=== PATIENT | female | born 1940 | race Two or more races ===

== ENCOUNTER 2016-09-08 20:42 | Inpatient (IN) | payer OTHER ==
--- NOTE | 2016-09-08 21:05 | PDOC ---
History of Present Illness - History of Present Illness Initial Comments: 09/08/16 21:37 The patient is a 75 year old female, febrile, with a significant past medical history of hypertension, cardiac stents hyperlipidemia, diabetes, pneumonia, and dementia, who presents to the emergency department with shortness of breath , cough, nausea, vomiting, and fever since yesterday. The patient reports her cough is constant and nonproductive. She states she feels she can not take a deep breath without reproducing her cough. She also states she has been coughing so strongly that she vomits the little food that she can eat. The patient states she has decreased appetite. She denies chest pain, shortness of breath, headache and dizziness. She denies fever, chills, nausea, vomit, diarrhea and constipation. She denies dysuria, frequency, urgency and hematuria. Allergies: acetaminophen and oxycodone (from percocet) Past surgical history: brain and neck tumors s/p cyberknife, cardiac stents <Radha Barnes - Last Filed: 09/08/16 22:25> <Aldo James - Last Filed: 09/08/16 22:31> - General Chief Complaint: Respiratory Stated Complaint: SOB (HEART PATIENT) Past History <Radha Barnes - Last Filed: 09/08/16 22:25> - Past Medical History Cancer: Yes (brain tumors/neck tumors with sx) Cardiac Disorders: Yes Diabetes: Yes HTN: Yes Hypercholesterolemia: Yes Suicide Attempt (Hx): No - Surgical History Cardiac Surgery: Yes (STENT PLACEMENT) - Immunization History Immunization Up to Date: Yes - Psycho/Social/Smoking Cessation Hx Anxiety: No Suicidal Ideation: No Smoking Status: No Smoking History: Unknown if ever smoked Have you smoked in the past 12 months: No Number of Cigarettes Smoked Daily: 0 Hx Alcohol Use: No Drug/Substance Use Hx: No Substance Use Type: None Hx Substance Use Treatment: No <Aldo James - Last Filed: 09/08/16 22:31> - Past Medical History Allergies/Adverse Reactions: Allergies Allergy/AdvReac Type Severity Reaction Status Date / Time acetaminophen [From Percocet] Allergy Verified 09/08/16 21:30 oxycodone HCl [From Percocet] Allergy Swelling Verified 09/08/16 20:51 Home Medications: Ambulatory Orders Amlodipine Besylate [Norvasc -] 10 mg PO DAILY 01/22/14 Atorvastatin Ca [Lipitor] 10 mg PO HS 01/22/14 Gabapentin [Neurontin] 300 mg PO TID 01/22/14 Hydralazine HCl 100 mg PO BID 01/22/14 Lisinopril [Prinivil] 5 mg PO DAILY 01/22/14 Omeprazole 40 mg PO DAILY 09/08/16 Review of Systems - Review of Systems Able to Perform ROS?: Yes Comments:: 09/08/16 21:39 CONSTITUTIONAL: (+) fever, chills, Absent: diaphoresis, generalized weakness, malaise, loss of appetite HEENT: Absent: rhinorrhea, nasal congestion, throat pain, throat swelling, difficulty swallowing, mouth swelling, ear pain, eye pain, visual Changes CARDIOVASCULAR: Absent: chest pain, syncope, palpitations, irregular heart rate, lightheadedness , peripheral edema RESPIRATORY: (+) cough and shortness of breath, Absent: dyspnea with exertion, orthopnea, wheezing, stridor, hemoptysis GASTROINTESTINAL: Absent: abdominal pain, abdominal distension, nausea, vomiting, diarrhea, constipation, melena, hematochezia GENITOURINARY: Absent: dysuria, frequency, urgency, hesitancy, hematuria, flank pain, genital pain MUSCULOSKELETAL: Absent: myalgia, arthralgia, joint swelling SKIN: Absent: rash, itching, pallor HEMATOLOGIC/IMMUNOLOGIC: Absent: easy bleeding, easy bruising, lymphadenopathy, frequent infections ENDOCRINE: Absent: unexplained weight gain, unexplained weight loss, heat intolerance, cold intolerance NEUROLOGIC: Absent: headache, focal weakness or paresthesias, dizziness, unsteady gait, seizure, mental status changes, bladder or bowel incontinence PSYCHIATRIC: Absent: anxiety, depression, suicidal or homicidal ideation, hallucinations. <Radha Barnes - Last Filed: 09/08/16 22:25> *Physical Exam - Vital Signs Last Vital Signs Temp Pulse Resp BP Pulse Ox 102.9 F H 93 H 18 150/90 96 09/08/16 20:51 09/08/16 20:51 09/08/16 20:51 09/08/16 20:51 09/08/16 20:51 - Physical Exam Comments: 09/08/16 21:49 GENERAL: Well developed, well nourished. Awake and alert. No acute distress. HEENT: (+) Dry mucous membranes. Normocephalic, atraumatic. PERRLA, EOMI. No conjunctival pallor. Sclera are non-icteric. Oropharynx is clear. NECK: Supple. Full ROM. No JVD. Carotid pulses 2+ and symmetric, without bruits. No thyromegaly. No lymphadenopathy. CARDIOVASCULAR: Regular rate and rhythm. No murmurs, rubs, or gallops. Distal pulses are 2+ and symmetric. PULMONARY: (+) congestion, rhonchi, and rales in all lung lynne. No evidence of respiratory distress. No wheezing ABDOMINAL: Soft. Non-tender. Non-distended. No rebound or guarding. No organomegaly. Normoactive bowel sounds. MUSCULOSKELETAL Normal range of motion at all joints. No bony deformities or tenderness. No CVA tenderness. EXTREMITIES: No cyanosis. No clubbing. No edema. No calf tenderness. SKIN: Warm and dry. Normal capillary refill. No rashes. No jaundice. NEUROLOGICAL: Alert, awake, appropriate. Cranial nerves 2-12 intact. Normoreflexic in the upper and lower extremities. Normal speech. Toes are down-going bilaterally. Gait is normal without ataxia. PSYCHIATRIC: Cooperative. Good eye contact. Appropriate mood and affect. <Radha Barnes - Last Filed: 09/08/16 22:25> - Vital Signs Last Vital Signs Temp Pulse Resp BP Pulse Ox 102.9 F H 93 H 18 150/90 96 09/08/16 20:51 09/08/16 20:51 09/08/16 20:51 09/08/16 20:51 09/08/16 20:51 <Aldo James - Last Filed: 09/08/16 22:31> ED Treatment Course - LABORATORY CBC & Chemistry Diagram: 09/08/16 21:26 09/08/16 21:26 - ADDITIONAL ORDERS Additional order review: 09/08/16 20:51 Influenza Types A,B Antigen (PRAVIN) - Final Nasopharyngeal Swab - Final - RADIOLOGY Radiograph Interpretation: 09/08/16 22:25 CXR was read by Ramon Kaur D.O. at 22:13 EST EXAM DATE AND TIME: 2016-09-08 21:25:08.0 REASON FOR EXAM: Rule out pneumonia. Fever, cough FINDINGS: Patchy left lung base opacity from pneumonia and/or atelectasis. Right lung clear. Heart size normal. No large pleural effusion or pneumothorax. Probable eventration of left hemidiaphragm. Central retrocardiac density with air-fluid level, possibly hiatus hernia. - Medications Given in the ED: ED Medications Discontinued Medications Generic Name Dose Route Start Last Admin Trade Name Freq PRN Reason Stop Dose Admin Ibuprofen 600 mg 09/08/16 21:16 09/08/16 21:24 Motrin - PO 09/08/16 21:17 600 mg ONCE ONE Administration <Radha Barnes - Last Filed: 09/08/16 22:25> - LABORATORY CBC & Chemistry Diagram: 09/08/16 21:26 09/08/16 21:26 <Aldo James - Last Filed: 09/08/16 22:31> *DC/Admit/Observation/Transfer - Attestations Scribe Attestion: 09/08/16 21:51 Documentation prepared by Radha Barnes, acting as medical care manager for Aldo James MD, MD <Radha Barnes - Last Filed: 09/08/16 22:25> - Discharge Dispostion Admit: Yes <Aldo James - Last Filed: 09/08/16 22:31> Diagnosis at time of Disposition: Left lower lobe pneumonia Qualifiers: Pneumonia type: due to unspecified organism Qualified Code(s): J18.9 - Pneumonia, unspecified organism - Discharge Dispostion Condition at time of disposition: Guarded
[2016-09-08] MEDS ORDERED: IBUPROFEN 600 MG TABLET (FP) PO ONE ×3 (21:16→21:53)
[2016-09-08] MEDS ORDERED: SODIUM CHLORIDE 500 ML IV STA (21:18)
[2016-09-08 21:36] LABS: EOSINOPHIL 0.8 % (0-4.5); MCH 26.8 pg (25.7-33.7); MCHC 32.8 g/dl (32.0-36.0); MEAN CELL VOLUME 81.6 fl (80-96); MEAN PLT VOLUME 10.4 fl (7.5-11.1); NEUTROPHILS 55.6 % (42.8-82.8); PLATELET COUNT 116 K/MM3 (134-434); RDW 14.9 % (11.6-15.6); WHITE BLOOD COUNT 4.9 K/mm3 (4.0-10.0)
[2016-09-08 22:06] LABS: ALBUMIN 3.3 g/dl (3.4-5.0); BILIRUBIN,TOTAL 0.5 mg/dL (0.2-1.0); CALCIUM 8.3 mg/dL (8.5-10.1); CREATININE 2.1 mg/dL (0.55-1.02); TOT PROT 7.5 g/dl (6.4-8.2)
[2016-09-08] MEDS ORDERED: AZITHROMYCIN IVPB 500 MG in DEXTROSE 5%-WATER - 250 ML IVPB ONE (22:20)
[2016-09-08 22:40] LABS: URINE APPEARANCE SLCLOUDY; URINE BILIRUBIN NEGATIVE (NEGATIVE); URINE COLOR YELLOW; URINE GLUCOSE (UA) 1+ (NEGATIVE); URINE KETONE NEGATIVE (NEGATIVE); URINE LEUK ESTERASE NEGATIVE (NEGATIVE); URINE NITRITE NEGATIVE (NEGATIVE); URINE UROBILINOGEN NEGATIVE E.U./dl (0.2-1.0)
[2016-09-08] MEDS ORDERED: DEXTROSE 5%-NORMAL SALINE 1,000 ML IV SCH (22:45)
[2016-09-08] MEDS ORDERED: AZITHROMYCIN IVPB 250 ML IVPB ONE (22:49)
[2016-09-08] MEDS ORDERED: CEFTRIAXONE 50 ML ONE (22:49)
[2016-09-08 22:56] LABS: URINE BLOOD 1+ (NEGATIVE); URINE PROTEIN 2+ (NEGATIVE)
[2016-09-08 22:59] LABS: GRANULAR CASTS 37 /lpf; URINE RBC 20 /hpf (0-3)
--- NOTE | 2016-09-09 00:10 | HP ---
CHIEF COMPLAINT: fever/chills/cough PCP: pt does not remember, on previous admissions was Autumn Owens HISTORY OF PRESENT ILLNESS: This is a 75 year old female with PMH HTN, HLD, CAD s/p stents, DM, PNA, dementia, brain tumor s/p cyberknife who presented to the ED with c/o fever, chills, cough, SOB for 2-3 days. Also reports post-tussive emesis. + pain in left side of chest with cough. Denies abdominal pain, nausea, diarrhea. Pt is a poor historian and reports that she has "memory problems". ER course was notable for: (1) temp 102.9, pulse 93 (2) CXR + Patchy left lung base opacity (3) given ceftriaxone and zithromax IV Recent Travel: pt denies PAST MEDICAL HISTORY: HTN HLD CAD s/p stents DM PNA dementia brain tumor s/p cyberknife- pt unable to provide further details hiatal hernia PAST SURGICAL HISTORY: fatty lipoma removal posterior neck Social History: Smoking: pt denies Alcohol: on holidays, sips on bristol cream Drugs: pt denies Family History: mother and father in their 90s of old age. multiple siblings, unknown medical problems Allergies acetaminophen [From Percocet] Allergy (Verified 09/08/16 21:30) oxycodone HCl [From Percocet] Allergy (Verified 09/08/16 20:51) Swelling hives HOME MEDICATIONS: 3 Medication Instructions Recorded Amlodipine Besylate [Norvasc -] 10 mg PO DAILY 01/22/14 Atorvastatin Ca [Lipitor] 10 mg PO HS 01/22/14 Gabapentin [Neurontin] 300 mg PO TID 01/22/14 Hydralazine HCl 100 mg PO BID 01/22/14 Lisinopril [Prinivil] 5 mg PO DAILY 01/22/14 Omeprazole 40 mg PO DAILY 09/08/16 REVIEW OF SYSTEMS CONSTITUTIONAL: Present: fever, chills Absent: diaphoresis, generalized weakness, malaise, loss of appetite, weight change HEENT: Absent: rhinorrhea, nasal congestion, throat pain, throat swelling, difficulty swallowing, mouth swelling, ear pain, eye pain, visual changes CARDIOVASCULAR: Absent: chest pain, syncope, palpitations, irregular heart rate, lightheadedness , peripheral edema RESPIRATORY: Present: cough, shortness of breath Absent: dyspnea with exertion, orthopnea, wheezing, stridor, hemoptysis GASTROINTESTINAL: Absent: abdominal pain, abdominal distension, nausea, vomiting, diarrhea, constipation, melena, hematochezia GENITOURINARY: Absent: dysuria, frequency, urgency, hesitancy, hematuria, flank pain, genital pain MUSCULOSKELETAL: Absent: myalgia, arthralgia, joint swelling, back pain, neck pain SKIN: Absent: rash, itching, pallor HEMATOLOGIC/IMMUNOLOGIC: Absent: easy bleeding, easy bruising, lymphadenopathy, frequent infections ENDOCRINE: Absent: unexplained weight gain, unexplained weight loss, heat intolerance, cold intolerance NEUROLOGIC: Absent: headache, focal weakness or paresthesias, dizziness, unsteady gait, seizure, mental status changes, bladder or bowel incontinence PSYCHIATRIC: Absent: anxiety, depression, suicidal or homicidal ideation, hallucinations. PHYSICAL EXAMINATION Vital Signs - 24 hr 3 09/08/16 09/08/16 09/08/16 20:51 21:30 22:46 Temperature 102.9 F H 98.7 F Pulse Rate 93 H Pulse Rate [ 80 Right] Respiratory 18 20 Rate Blood Pressure 150/90 Blood Pressure 144/78 [Left Arm] O2 Sat by Pulse 96 99 100 Oximetry (%) GENERAL: Awake, alert, oriented to person and place, but not exact date, in no acute distress. HEAD: Normal with no signs of trauma. EYES: Pupils equal, round and reactive to light, extraocular movements intact, sclera anicteric, conjunctiva clear. No lid lag. EARS, NOSE, THROAT: Ears normal, nares patent, oropharynx clear without exudates. Moist mucous membranes. NECK: Normal range of motion, supple without lymphadenopathy, JVD, or masses. posterior neck with well healed surgical scar LUNGS: No accessory muscle use. No crackles. + exp wheezing and rhonchi left lung lynne, worse at base. HEART: Regular rate and rhythm, normal S1 and S2 without murmur, rub or gallop. ABDOMEN: Soft, nontender, not distended, normoactive bowel sounds, no guarding, no rebound, no masses. No hepatomegaly or splenomegaly. MUSCULOSKELETAL: Normal range of motion at all joints. No bony deformities or tenderness. No CVA tenderness. UPPER EXTREMITIES: 2+ pulses, warm, well-perfused. No cyanosis. No clubbing. Cap refill <2 seconds. No peripheral edema. LOWER EXTREMITIES: 2+ pulses, warm, well-perfused. No calf tenderness. No peripheral edema. NEUROLOGICAL: Cranial nerves II-XII intact. Normal speech. Normal gait. PSYCHIATRIC: Cooperative. Good eye contact. Appropriate mood and affect. SKIN: Warm, dry, normal turgor, no rashes or lesions noted. Laboratory Results - last 24 hr 3 09/08/16 09/08/16 09/08/16 21:26 21:26 21:26 WBC 4.9 RBC 4.07 Hgb 10.9 Hct 33.2 MCV 81.6 MCHC 32.8 RDW 14.9 Plt Count 116 L MPV 10.4 Neutrophils % 55.6 Lymphocytes % 29.7 Monocytes % 12.9 H Eosinophils % 0.8 Basophils % 1.0 Sodium 138 Potassium 4.4 D Chloride 103 Carbon Dioxide 27 Anion Gap 8 BUN 27 H D Creatinine 2.1 H D Creat Clearance w eGFR 23.09 Random Glucose 181 H D Lactic Acid 1.175 Calcium 8.3 L Total Bilirubin 0.5 D AST 25 ALT 19 D Alkaline Phosphatase 76 Total Protein 7.5 Albumin 3.3 L Urine Color Urine Appearance Urine pH Ur Specific Wentworth Urine Protein Urine Glucose (UA) Urine Ketones Urine Blood Urine Nitrite Urine Bilirubin Urine Urobilinogen Ur Leukocyte Esterase Urine RBC Urine WBC Ur Epithelial Cells Granular Casts 3 Urine Color Yellow 09/08/16 22:30 Urine Appearance Slcloudy 09/08/16 22:30 Urine pH 5.0 (5.0-8.0) 09/08/16 22:30 Ur Specific Wentworth 1.015 (1.001-1.035) 09/08/16 22:30 Urine Protein 2+ (NEGATIVE) H 09/08/16 22:30 Urine Glucose (UA) 1+ (NEGATIVE) H 09/08/16 22:30 Urine Ketones Negative (NEGATIVE) 09/08/16 22:30 Urine Blood 1+ (NEGATIVE) H 09/08/16 22:30 Urine Nitrite Negative (NEGATIVE) 09/08/16 22:30 Urine Bilirubin Negative (NEGATIVE) 09/08/16 22:30 Ur Leukocyte Esterase Negative (NEGATIVE) 09/08/16 22:30 Urine RBC 20 /hpf (0-3) 09/08/16 22:30 Urine WBC None /hpf (3-5) 09/08/16 22:30 Ur Epithelial Cells Rare /hpf (FEW) 09/08/16 22:30 CXR: FINDINGS: Patchy left lung base opacity from pneumonia and/or atelectasis. Right lung clear. Heart size normal. No large pleural effusion or pneumothorax. Probable eventration of left hemidiaphragm. Central retrocardiac density with air-fluid level, possibly hiatus hernia. ECG: sinus rhythm, rate 93, QTC 455, possible old septal infarct, no acute ST/T changes ASSESSMENT/PLAN: 75yF with PMH HTN, HLD, CAD s/p stents, DM, PNA, dementia, brain tumor s/p cyberknife who presented with fever, chills, cough, SOB. She is being admitted for sepsis/pneumonia. Sepsis secondary to community acquired pneumonia - cont ceftriaxone and zithromax IVPB - gentle IVF - duonebs prn for wheezing Acute kidney injury - cr 1.3 in January, now 2.1 - trial gentle IV hydration, NS @75cc/hr x 1 liter - repeat BMP in AM, consider renal consult if no improvement - hold KEISHA inhibitor HTN - hold lisinopril due to renal function - cont home norvasc, hydralazine HLD - cont home lipitor DM - diet controlled at home - novolog sliding scale and BGM ACHS GERD - home omeprazole changed to formulary protonix dementia - cont supportive care DVT PPX - heparin 5000u SC TID FEN - NS @ 75cc/hr x 1 liter then reassess - BMP in am - diabetic/low sodium diet Dispo: Pt currently requires inpatient care. Visit type - Emergency Visit Emergency Visit: Yes ED Registration Date: 09/08/16 Care time: The patient presented to the Emergency Department on the above date and was hospitalized for further evaluation of their emergent condition. - New Patient This patient is new to me today: Yes Date on this admission: 09/09/16 - Critical Care Critical Care patient: No
[2016-09-09] MEDS ORDERED: SODIUM CHLORIDE 1,000 ML IV SCH (00:15)
[2016-09-09] MEDS ORDERED: ALBUTEROL SO4 2.5/IPRATROPIUM 0.5 INH SOL 3 ML VIAL.NEB. NEB ONE (00:18)
[2016-09-09] MEDS ORDERED: ALBUTEROL SO4 2.5/IPRATROPIUM 0.5 INH SOL 3 ML VIAL.NEB. NEB PRN (00:18)
[2016-09-09 00:53] VITALS: BMI 25.5
[2016-09-09] MEDS: GABAPENTIN 300 MG CAPSULE (FP) PO SCH ×3 (05:53→22:55)
[2016-09-09] MEDS: HEPARIN NA (PORCINE) 5,000 UNITS/ML 1ML VIAL SQ SCH ×3 (05:54→22:55)
[2016-09-09] MEDS: INSULIN SLIDING SCALE (NOVOLOG) 1 VIAL SQ SCH ×4 (06:02→23:04)
[2016-09-09 08:01] LABS: BASOPHIL 0.8 % (0-2.0); MCH 26.8 pg (25.7-33.7); MCHC 32.6 g/dl (32.0-36.0); MEAN CELL VOLUME 82.2 fl (80-96); MEAN PLT VOLUME 10.2 fl (7.5-11.1); PLATELET COUNT 90 K/MM3 (134-434); RDW 14.8 % (11.6-15.6); WHITE BLOOD COUNT 3.8 K/mm3 (4.0-10.0)
[2016-09-09 08:25] LABS: CREATININE 1.9 mg/dL (0.55-1.02); MAGNESIUM 1.9 mg/dL (1.8-2.4)
[2016-09-09] MEDS: PANTOPRAZOLE 40 MG TABLET (FP) PO SCH (11:12)
[2016-09-09] MEDS: amLODIPine BESYLATE 10 MG TABLET (FP) PO SCH (11:13)
[2016-09-09] MEDS: ASPIRIN COATED 81 MG TABLET.EC PO SCH (11:15)
--- NOTE | 2016-09-09 11:15 | PN ---
Physical Exam: SUBJECTIVE: Patient seen and examined at bedside. Poor historian, difficult to focus on any particular time frame. Home health aide present. Aide states she observed patient two days ago to be tired, a little SOB, and with a mild non- productive cough. The patient's apartment was without heat. OBJECTIVE: Vital Signs Period Temp Pulse Resp BP Sys/Leonardo Pulse Ox Last 24 Hr 98 F-98.7 F 76-81 18-20 118-144/73-81 97-100 GENERAL: The patient is awake, alert, and fully oriented, in no acute distress. HEAD: Normal with no signs of trauma. EYES: PERRL, extraocular movements intact, sclera anicteric, conjunctiva clear. No ptosis. NECK: Trachea midline, full range of motion, supple. LUNGS: Rhonchi in LLL with diminished breath sounds HEART: Regular rate and rhythm, S1, S2 without murmur, rub or gallop. ABDOMEN: Soft, nontender, nondistended, normoactive bowel sounds, no guarding, no rebound EXTREMITIES: 2+ pulses, warm, well-perfused, no edema. NEUROLOGICAL: Cranial nerves II through XII grossly intact. Normal speech, gait not observed. Laboratory Results - last 24 hr 09/09/16 09/09/16 09/09/16 05:52 06:45 06:45 WBC 3.8 L RBC 3.80 Hgb 10.2 L Hct 31.2 L MCV 82.2 MCHC 32.6 RDW 14.8 Plt Count 90 L D MPV 10.2 Neutrophils % 38.0 L D Lymphocytes % 40.2 H D Monocytes % 17.0 H Eosinophils % 4.0 D Basophils % 0.8 Sodium 141 Potassium 3.9 Chloride 105 Carbon Dioxide 26 Anion Gap 10 BUN 26 H Creatinine 1.9 H POC Glucometer 137 Random Glucose 134 H D Calcium 8.0 L Phosphorus 4.0 D Magnesium 1.9 Active Medications Generic Name Dose Route Start Last Admin Trade Name Freq PRN Reason Stop Dose Admin Albuterol/Ipratropium 1 amp 09/09/16 00:18 Duoneb - NEB Q6H PRN SHORTNESS OF BREATH Amlodipine Besylate 10 mg 09/09/16 10:00 Norvasc - PO DAILY SHANIA Atorvastatin Calcium 10 mg 09/09/16 22:00 Lipitor - PO HS SHANIA Gabapentin 300 mg 09/09/16 06:00 09/09/16 05:53 Neurontin - PO 300 mg TID SHANIA Administration Heparin Sodium (Porcine) 5,000 unit 09/09/16 06:00 09/09/16 05:54 Heparin - SQ 5,000 unit TID SHANIA Administration Hydralazine HCl 100 mg 09/09/16 10:00 Apresoline - PO BID SHANIA Sodium Chloride 1,000 mls @ 75 mls/hr 09/09/16 00:15 09/09/16 00:45 Normal Saline - IV 09/09/16 13:34 75 mls/hr ASDIR SHANIA Administration Ceftriaxone Sodium 50 mls @ 100 mls/hr 09/09/16 22:00 Rocephin 1gm Ivpb (Pre-Docked) IVPB HS SHANIA Azithromycin 250 mls @ 250 mls/hr 09/09/16 22:00 Zithromax 500mg Ivpb (Pre-Docked) IVPB HS SHANIA Insulin Aspart 1 vial 09/09/16 07:00 09/09/16 06:02 Novolog Vial Sliding Scale - SQ Not Given ACHS [facility] Protocol Pantoprazole Sodium 40 mg 09/09/16 10:00 Protonix - PO DAILY SHANIA ASSESSMENT/PLAN 75 year-old woman with a PMH of HTN, HLD, CAD s/p stents, NIDDM, dementia, brain tumor s/p cyberknife, and a h/o pancreatitis. Admitted for pneumonia. Bacterial pneumonia --possible LLL infiltrate on CXR with clinical findings on exam --Tm 102.9, no leukocytosis --cultures pending; flu swab negative --CT chest ordered --continue empiric azithromycin (day #1) and ceftriaxone (day #2) --duonebs Acute kidney injury --Cr 1.9, baseline 1.3 --patient appears dry, urine sodium and creatinine pending to calculate FeNa --hold home lisinopril --IV fluids Hypertension --BP well-controlled --continue amlodipine, hydralazine Hyperlipidemia --continue Lipitor CAD s/p stents --start baby ASA NIDDM --Novolog sliding scale coverage Brain tumor s/p cyberknife --no scute issues h/o pancreatitis --lipase pending Visit type - Emergency Visit Emergency Visit: Yes ED Registration Date: 02/26/17 Care time: The patient presented to the Emergency Department on the above date and was hospitalized for further evaluation of their emergent condition. - New Patient This patient is new to me today: Yes Date on this admission: 09/09/16 - Critical Care Critical Care patient: No
[2016-09-09] MEDS: hydrALAZINE HCL 50 MG TABLET (FP) PO SCH ×2 (11:17→22:55)
--- NOTE | 2016-09-09 12:23 | EKG ---
Test Reason : Blood Pressure : / mmHG Vent. Rate : 093 BPM Atrial Rate : 093 BPM P-R Int : 128 ms QRS Dur : 094 ms QT Int : 366 ms P-R-T Axes : 058 -63 066 degrees QTc Int : 455 ms NORMAL SINUS RHYTHM LEFT AXIS DEVIATION SEPTAL INFARCT , AGE UNDETERMINED ABNORMAL ECG WHEN COMPARED WITH ECG OF 28-JAN-2016 13:48, COMPARED TO EKG NO SIGNIFICANT CHANGE IS FOUND Confirmed by PATIENCE RAGSDALE MD ([id number]) on 09/09/2016 12:23:12 PM Referred By: Confirmed By:PATIENCE RAGSDALE MD
[2016-09-09] MEDS ORDERED: INSULIN (NOVOLOG) ASPART 100 UNITS/ML 10ML VIAL ONE (12:33)
[2016-09-09] MEDS: SODIUM CHLORIDE 1,000 ML IV SCH (17:08)
[2016-09-09] MEDS: ALBUTEROL SO4 2.5/IPRATROPIUM 0.5 INH SOL 3 ML VIAL.NEB. NEB SCH (17:15)
[2016-09-09] MEDS: CEFTRIAXONE 50 ML IVPB SCH (22:55)
[2016-09-09] MEDS: AZITHROMYCIN IVPB 250 ML IVPB SCH (22:55)
[2016-09-09] MEDS: ATORVASTATIN CA 10 MG TABLET (FP) PO SCH (22:55)
[2016-09-10] MEDS: SODIUM CHLORIDE 1,000 ML IV SCH ×3 (01:30→23:22)
[2016-09-10] MEDS: ALBUTEROL SO4 2.5/IPRATROPIUM 0.5 INH SOL 3 ML VIAL.NEB. NEB SCH ×3 (06:10→23:13)
[2016-09-10] MEDS: HEPARIN NA (PORCINE) 5,000 UNITS/ML 1ML VIAL SQ SCH ×3 (06:42→21:35)
[2016-09-10] MEDS: GABAPENTIN 300 MG CAPSULE (FP) PO SCH ×3 (06:42→21:35)
[2016-09-10] MEDS: INSULIN SLIDING SCALE (NOVOLOG) 1 VIAL SQ SCH ×5 (06:42→21:36)
[2016-09-10 07:50] LABS: MCH 26.7 pg (25.7-33.7); MCHC 32.7 g/dl (32.0-36.0); MEAN CELL VOLUME 81.5 fl (80-96); MEAN PLT VOLUME 9.9 fl (7.5-11.1); PLATELET COUNT 105 K/MM3 (134-434); RDW 14.8 % (11.6-15.6); WHITE BLOOD COUNT 5.6 K/mm3 (4.0-10.0)
[2016-09-10 08:50] LABS: CALCIUM 8.1 mg/dL (8.5-10.1)
[2016-09-10 08:56] LABS: ALBUMIN 2.8 g/dl (3.4-5.0); BILIRUBIN,TOTAL 0.2 mg/dL (0.2-1.0); CREATININE 1.6 mg/dL (0.55-1.02); MAGNESIUM 1.8 mg/dL (1.8-2.4); TOT PROT 6.8 g/dl (6.4-8.2)
[2016-09-10] MEDS: hydrALAZINE HCL 50 MG TABLET (FP) PO SCH ×2 (10:19→21:35)
[2016-09-10] MEDS: amLODIPine BESYLATE 10 MG TABLET (FP) PO SCH (10:19)
[2016-09-10] MEDS: PANTOPRAZOLE 40 MG TABLET (FP) PO SCH (10:20)
[2016-09-10] MEDS: ASPIRIN COATED 81 MG TABLET.EC PO SCH (10:20)
--- NOTE | 2016-09-10 17:05 | PN ---
Physical Exam: SUBJECTIVE: Patient seen and examined oob to chair. Feels much better. OBJECTIVE: Vital Signs Period Temp Pulse Resp BP Sys/Leonardo Pulse Ox Last 24 Hr 98.2 F-99.2 F 80-93 20-20 122-147/67-77 97-97 GENERAL: The patient is awake, alert, and fully oriented, in no acute distress. HEAD: Normal with no signs of trauma. EYES: PERRL, extraocular movements intact, sclera anicteric, conjunctiva clear. No ptosis. NECK: Trachea midline, full range of motion, supple. LUNGS: Rhonchi in LLL with diminished breath sounds HEART: Regular rate and rhythm, S1, S2 without murmur, rub or gallop. ABDOMEN: Soft, nontender, nondistended, normoactive bowel sounds, no guarding, no rebound EXTREMITIES: 2+ pulses, warm, well-perfused, no edema. NEUROLOGICAL: Cranial nerves II through XII grossly intact. Normal speech, gait not observed. Laboratory Results - last 24 hr 09/09/16 09/09/16 09/10/16 17:12 22:58 06:00 WBC 5.6 D RBC 3.97 Hgb 10.6 L Hct 32.4 MCV 81.5 MCHC 32.7 RDW 14.8 Plt Count 105 L MPV 9.9 Neutrophils % 33.0 L Lymphocytes % 47.0 H Monocytes % 7.0 Eosinophils % 6.0 H Basophils % 1.0 Band Neutrophils 1.0 Differential Comment Manual diff done Reactive Lymphocytes 5 Sodium Potassium Chloride Carbon Dioxide Anion Gap BUN Creatinine Creat Clearance w eGFR POC Glucometer 92 131 Random Glucose Hemoglobin A1c % Calcium Magnesium Total Bilirubin AST ALT Alkaline Phosphatase Total Protein Albumin 09/10/16 09/10/16 09/10/16 06:00 06:00 06:37 WBC RBC Hgb Hct MCV MCHC RDW Plt Count MPV Neutrophils % Lymphocytes % Monocytes % Eosinophils % Basophils % Band Neutrophils Differential Comment Reactive Lymphocytes Sodium 143 Potassium 4.1 Chloride 109 H Carbon Dioxide 27 Anion Gap 7 L BUN 23 H Creatinine 1.6 H Creat Clearance w eGFR 31.60 POC Glucometer 111 Random Glucose 106 D Hemoglobin A1c % 11.3 H Calcium 8.1 L Magnesium 1.8 Total Bilirubin 0.2 D AST 29 ALT 19 Alkaline Phosphatase 69 Total Protein 6.8 Albumin 2.8 L 09/10/16 11:46 WBC RBC Hgb Hct MCV MCHC RDW Plt Count MPV Neutrophils % Lymphocytes % Monocytes % Eosinophils % Basophils % Band Neutrophils Differential Comment Reactive Lymphocytes Sodium Potassium Chloride Carbon Dioxide Anion Gap BUN Creatinine Creat Clearance w eGFR POC Glucometer 115 Random Glucose Hemoglobin A1c % Calcium Magnesium Total Bilirubin AST ALT Alkaline Phosphatase Total Protein Albumin Active Medications Generic Name Dose Route Start Last Admin Trade Name Lionq PRN Reason Stop Dose Admin Albuterol/Ipratropium 1 amp 09/09/16 12:00 09/10/16 06:10 Duoneb - NEB 1 amp QIDR SHANIA Administration Amlodipine Besylate 10 mg 09/09/16 10:00 09/10/16 10:19 Norvasc - PO 10 mg DAILY SHANIA Administration Aspirin 81 mg 09/09/16 11:15 09/10/16 10:20 Ecotrin - PO 81 mg DAILY SHANIA Administration Atorvastatin Calcium 10 mg 09/09/16 22:00 09/09/16 22:55 Lipitor - PO 10 mg HS SHANIA Administration Gabapentin 300 mg 09/09/16 06:00 09/10/16 14:45 Neurontin - PO 300 mg TID SHANIA Administration Heparin Sodium (Porcine) 5,000 unit 09/09/16 06:00 09/10/16 14:35 Heparin - SQ 5,000 unit TID SHANIA Administration Hydralazine HCl 100 mg 09/09/16 10:00 09/10/16 10:19 Apresoline - PO 100 mg BID SHANIA Administration Ceftriaxone Sodium 50 mls @ 100 mls/hr 09/09/16 22:00 09/09/16 22:55 Rocephin 1gm Ivpb (Pre-Docked) IVPB 100 mls/hr HS SHANIA Administration Azithromycin 250 mls @ 250 mls/hr 09/09/16 22:00 09/09/16 22:55 Zithromax 500mg Ivpb (Pre-Docked) IVPB 250 mls/hr HS SHANIA Administration Sodium Chloride 1,000 mls @ 125 mls/hr 09/09/16 14:45 09/10/16 15:49 Normal Saline - IV 125 mls/hr ASDIR SHANIA Administration Insulin Aspart 1 vial 09/09/16 07:00 09/10/16 11:47 Novolog Vial Sliding Scale - SQ Not Given ACHS SHANIA Protocol Pantoprazole Sodium 40 mg 09/09/16 10:00 09/10/16 10:20 Protonix - PO 40 mg DAILY SHANIA Administration ASSESSMENT/PLAN: 75 year-old woman with a PMH of HTN, HLD, CAD s/p stents, NIDDM, dementia, brain tumor s/p cyberknife, and a h/o pancreatitis. Admitted for pneumonia. Bacterial pneumonia --09/09 CT chest: LLL and lingular infiltrates --afebrile >24 hours, no leukocytosis --cultures negative to date; flu swab negative --continue empiric azithromycin (day #3) and ceftriaxone (day #3) --duonebs Acute kidney injury --Cr trending down 1.6 (peak 2.1 on 09/08); baseline 1.3 --hold home lisinopril --IV fluids Hypertension --BP well-controlled --continue amlodipine, hydralazine; hold lisinopril Hyperlipidemia --continue Lipitor CAD s/p stents -continue amlodipine, Lipitor, ASA NIDDM --HgbA1C 11.3 --Novolog sliding scale coverage Brain tumor s/p cyberknife --no acute issues Chronic pancreatitis --lipase elevated but no complaints of abdominal pain, benign exam, tolerating food --IV fluids F/E/N Fluids: NS @ 125mL/hr Electrolytes: replete as indicated Nutrition: diabetic, sodium diet DVT prophylaxis: subq heparin Dispo: continues to require inpatient care. Full Code. Visit type - Emergency Visit Emergency Visit: Yes ED Registration Date: 09/08/16 Care time: The patient presented to the Emergency Department on the above date and was hospitalized for further evaluation of their emergent condition. - New Patient This patient is new to me today: No - Critical Care Critical Care patient: No
[2016-09-10] MEDS: ATORVASTATIN CA 10 MG TABLET (FP) PO SCH (21:35)
[2016-09-10] MEDS: AZITHROMYCIN IVPB 250 ML IVPB SCH (21:36)
[2016-09-10] MEDS: CEFTRIAXONE 50 ML IVPB SCH (22:21)
[2016-09-11] MEDS: ALBUTEROL SO4 2.5/IPRATROPIUM 0.5 INH SOL 3 ML VIAL.NEB. NEB SCH ×3 (06:07→18:00)
[2016-09-11] MEDS: HEPARIN NA (PORCINE) 5,000 UNITS/ML 1ML VIAL SQ SCH ×2 (06:20→14:35)
[2016-09-11] MEDS: GABAPENTIN 300 MG CAPSULE (FP) PO SCH ×2 (06:20→14:34)
[2016-09-11] MEDS: INSULIN SLIDING SCALE (NOVOLOG) 1 VIAL SQ SCH ×6 (06:21→17:55)
[2016-09-11 07:36] LABS: MCH 26.7 pg (25.7-33.7); MCHC 32.9 g/dl (32.0-36.0); MEAN CELL VOLUME 81.1 fl (80-96); MEAN PLT VOLUME 10.4 fl (7.5-11.1); PLATELET COUNT 106 K/MM3 (134-434); RDW 14.7 % (11.6-15.6); WHITE BLOOD COUNT 5.4 K/mm3 (4.0-10.0)
[2016-09-11 07:49] LABS: ALBUMIN 2.7 g/dl (3.4-5.0); BILIRUBIN,TOTAL 0.3 mg/dL (0.2-1.0); CALCIUM 8.5 mg/dL (8.5-10.1); CREATININE 1.4 mg/dL (0.55-1.02); MAGNESIUM 1.8 mg/dL (1.8-2.4); TOT PROT 6.3 g/dl (6.4-8.2)
[2016-09-11] MEDS: SODIUM CHLORIDE 1,000 ML IV SCH (09:20)
[2016-09-11] MEDS: hydrALAZINE HCL 50 MG TABLET (FP) PO SCH (10:42)
[2016-09-11] MEDS: PANTOPRAZOLE 40 MG TABLET (FP) PO SCH (10:42)
[2016-09-11] MEDS: amLODIPine BESYLATE 10 MG TABLET (FP) PO SCH (10:42)
[2016-09-11] MEDS: ASPIRIN COATED 81 MG TABLET.EC PO SCH (10:42)
--- NOTE | 2016-09-11 15:29 | DS ---
Physical Exam: SUBJECTIVE: Patient seen and examined bedside. Pt reports feeling better. She is still coughing but breathing better. OBJECTIVE: Vital Signs Period Temp Pulse Resp BP Sys/Leonardo Pulse Ox Last 24 Hr 98 F-98.4 F 82-101 18-20 112-141/55-90 97 PHYSICAL EXAM GENERAL: The patient is awake, alert, and fully oriented, in no acute distress. HEAD: Normal with no signs of trauma. EYES: PERRL, extraocular movements intact, sclera anicteric, conjunctiva clear. ENT: Ears normal, nares patent, oropharynx clear without exudates, moist mucous membranes. NECK: Trachea midline, full range of motion, supple. LUNGS: LLL with crackles. Chest expansion equal bilaterally, no wheezes, no accessory muscle use. HEART: Regular rate and rhythm, S1, S2 without murmur, rub or gallop. ABDOMEN: Soft, nontender, nondistended, normoactive bowel sounds, no guarding, no rebound, no hepatosplenomegaly, no masses. EXTREMITIES: 2+ pulses, warm, well-perfused, no edema. NEUROLOGICAL: Cranial nerves II through XII grossly intact. Normal speech, gait not observed. PSYCH: Normal mood, normal affect. SKIN: Warm, dry, normal turgor, no rashes or lesions noted. LABS Laboratory Results - last 24 hr 09/09/16 09/09/16 09/10/16 11:33 11:43 17:18 WBC RBC Hgb Hct MCV MCHC RDW Plt Count MPV Neutrophils % Lymphocytes % Monocytes % Eosinophils % Reactive Lymphocytes Sodium Potassium Chloride Carbon Dioxide Anion Gap BUN Creatinine Creat Clearance w eGFR POC Glucometer 153 156 201 Random Glucose Calcium Magnesium Total Bilirubin AST ALT Alkaline Phosphatase Total Protein Albumin 09/10/16 09/11/16 09/11/16 21:30 06:10 06:10 WBC 5.4 RBC 3.57 L Hgb 9.5 L D Hct 29.0 L MCV 81.1 MCHC 32.9 RDW 14.7 Plt Count 106 L MPV 10.4 Neutrophils % 32.0 L Lymphocytes % 50.0 H Monocytes % 7.0 Eosinophils % 5.0 H Reactive Lymphocytes 6 Sodium 147 H Potassium 3.7 Chloride 114 H Carbon Dioxide 24 Anion Gap 9 BUN 19 H Creatinine 1.4 H Creat Clearance w eGFR 36.86 POC Glucometer 132 Random Glucose 107 H Calcium 8.5 Magnesium 1.8 Total Bilirubin 0.3 D AST 24 ALT 15 D Alkaline Phosphatase 59 Total Protein 6.3 L Albumin 2.7 L 09/11/16 06:18 WBC RBC Hgb Hct MCV MCHC RDW Plt Count MPV Neutrophils % Lymphocytes % Monocytes % Eosinophils % Reactive Lymphocytes Sodium Potassium Chloride Carbon Dioxide Anion Gap BUN Creatinine Creat Clearance w eGFR POC Glucometer 107 Random Glucose Calcium Magnesium Total Bilirubin AST ALT Alkaline Phosphatase Total Protein Albumin HOSPITAL COURSE: Date of Admission:09/08/16 Date of Discharge: 09/11/16 ED Course: Ms. Torres presented to the ED with a cough, fever, and nausea/vomiting x2 day on 09/08/16. She has a history of HTN, cardiac stents, HLD, diabetes, pneumonia and dementia. During her ED course, she was found to have a left lower lobe pneumonia. Her lab work also showed PRESTON with a creatinine of 2.1. Her baseline creatinine is 1.3-1.4. She was given one dose of ceftriaxone and azithromycin in ED. She was admitted with a diagnosis of pneumonia and PRESTON. Hospital Course: Pt. was continued on ceftriaxone and azithromycin for an additional 2 days ( total 3 days of treatments). Pt. responded well to antibiotics and was afebrile 24 hours after first dose of antibiotics. Pt. normally takes an KEISHA-I at home. Her KEISHA-I was held during this hospital course d/t PRESTON. She was also gently hydrated over three days. Pt. responded well to fluids and her creatinine trended back down to baseline (1.4) at discharge. Discharge: Pt. is currently afebrile. No events or fevers overnight. Will discharge home at this time with two additional days of oral azithromycin, as well as 6 days of oral Ceftin. Her lisinopril is being held at this time even though her PRESTON has resolved. Will have pt. follow up with PCP to have her medications restarted. Minutes to complete discharge: 35 Discharge Summary Reason For Visit: LEFT LOWER PNEUMONIA Current Active Problems Dehydration (Acute) Epigastric abdominal pain (Acute) LLL pneumonia (Acute) Condition: Improved - Instructions Diet, Activity, Other Instructions: During your hospital stay you were treated for pneumonia. Two prescriptions for antibiotics have been sent to your pharmacy. You should take these medications as directed. You were also treated for an acute kidney injury. You should NOT take your regular dose of lisinopril until you follow up with your primary care provider. You were also found to have a very elevated HgbA1C level which is indicative of diabetes. Your family indicated to us that you do not have diabetes, but this test suggests that you do. IT IS VERY IMPORTANT THAT YOU FOLLOW UP WITH YOUR PRIMARY CARE PROVIDER, SATURNINO CORONA AT [facility], WITHIN ONE WEEK OF YOUR DISCHARGE. YOU NEED TO HAVE YOUR BLOOD GLUCOSE LEVELS CHECKED. YOU NEED TO HAVE YOUR BLOOD PRESSURE CHECKED. YOU WILL NEED A FOLLOW UP CHEST XRAY IN 6 WEEKS. Referrals: Autumn Corona NP [Nurse Practitioner] - Disposition: HOME - Home Medications Comprehensive Discharge Medication List: Ambulatory Orders Amlodipine Besylate [Norvasc -] 10 mg PO DAILY 01/22/14 Atorvastatin Ca [Lipitor] 10 mg PO HS 01/22/14 Gabapentin [Neurontin] 300 mg PO TID 01/22/14 Hydralazine HCl 100 mg PO BID 01/22/14 Omeprazole 40 mg PO DAILY 09/08/16 Azithromycin 250 mg PO DAILY #2 tablet 09/11/16 Cefuroxime Axetil [Ceftin -] 500 mg PO Q12H #12 tablet 09/11/16 This patient is new to me today: Yes Date on this admission: 09/11/16 Emergency Visit: Yes ED Registration Date: 09/08/16 Care time: The patient presented to the Emergency Department on the above date and was hospitalized for further evaluation of their emergent condition. Critical Care patient: No - Discharge Referral Referred to [facility] No
[2016-09-11 18:13] VITALS: BP 133/75; PULSE 103; TEMP 98.2
== END 2016-09-11 18:38 | disposition home or self-care (01) | DRG 682 ==
LOC: JER 20:42 → JERBED 22:31 → J7W 23:18
PROVIDERS: ADMIT Internal Medicine; ATTEND Nurse Practitioner Acute Care
DX: N17.9 Acute kidney failure, unspecified (principal); J18.9 Pneumonia, unspecified organism; K86.1 Other chronic pancreatitis; I10 Essential (primary) hypertension; E78.5 Hyperlipidemia, unspecified; E11.9 Type 2 diabetes mellitus without complications; F03.90 Unspecified dementia, unspecified severity, without behavioral disturbance, psychotic disturbance, mood disturbance, and anxiety; I25.10 Atherosclerotic heart disease of native coronary artery without angina pectoris; K44.9 Diaphragmatic hernia without obstruction or gangrene; K21.9 Gastro-esophageal reflux disease without esophagitis; Z95.5 Presence of coronary angioplasty implant and graft; Z86.69 Personal history of other diseases of the nervous system and sense organs
CPT/HCPCS: 36415; 71010-TC; 71250-TC; 80048; 80053; 81003; 81015; 83036; 83605; 83690; 83735; 84100; 85025; 87040; 87086; 87254; 87804; 93005; 93010; 94010; 94640; 99285-25; J1644

== ENCOUNTER 2017-03-01 19:18 | Observation (INO) | payer OTHER ==
--- NOTE | 2017-03-01 21:17 | PDOC ---
Attending Attestation - Resident Resident Name: Galindo Stroud - HPI HPI: 03/02/17 04:27 Pt comes with dizziness. She lives in an assisted living facility. No other complaints. See resident's note. - Physicial Exam PE: 03/02/17 04:29 Exam is normal. Pt has abdominal mild diffuse pain. Possible constipation, though pt denies constipation. Pt has no fever or chills. Rest of exam normal. Blood sugar is 47. Pt was given D50. Now more awake and alert. - Medical Decision Making 03/02/17 04:34 Pt will be admitted to the hospitalist service. Her labs are normal, and CXR clear. I will get a CT scan to reveal source of pateint's diffuse abd pain 03/02/17 06:23 Patient Name: TURNER MCGUIRE THIS IS A PRELIMINARY REPORT FROM [facility] DATE OF SERVICE: 2017-03-02 04:38:45 IMAGES: [id number] EXAM: CT ABDOMEN AND PELVIS WITHOUT CONTRAST TECHNIQUE: Axial images from the lung bases through the symphysis pubis with multi-planar reconstructions from the axial data set. Oral contrast: Yes. HISTORY: Abdominal pain. Mass in left side of abdomen. COMPARISON: None. FINDINGS: Lung bases subsegmental atelectasis bilaterally. Moderate to large hiatal hernia is present containing contrast. Kidneys show tiny bilateral nonobstructive calyceal tip stones measuring up to 0.3 cm in size. No hydronephrosis. No ureteral stones. No bladder calculi. Liver, gallbladder, spleen, pancreas and adrenal glands are unremarkable. Evaluation for parenchymal organ pathology is limited on non contrast imaging. [facility]: [phone] Page 1/3 PATIENT: TURNER MCGUIRE PATIENT : 1940 DOS: Mar 02, 2017 04:38AM REF. PHYSICIAN: LANETTE ALEJANDRO TECHNIQUE: CT ABDOMEN AND PELVIS Aorta is normal in caliber with no significant atherosclerosis. No lymphadenopathy based on size criteria. Bowel appears unremarkable. Appendix is negative. Colon shows moderate stool. No free intraperitoneal fluid or gas. Spine shows advanced degenerative changes with grade 1 anterolisthesis of L4 on L5. Hips show degenerative changes. Uterus contains calcified fibroids. Bladder appears unremarkable. IMPRESSION: 1. Moderate to large hiatal hernia. 2. Calcified fibroids within the uterus. 3. Moderate stool in the colon. 4. No distinct left abdominal mass readily identified. 5. Nonobstructive bilateral calyceal tip stones.
[2017-03-01] MEDS ORDERED: SODIUM CHLORIDE 0.9% 500 ML INFUS.BAG IV ONE (21:21)
[2017-03-01 22:05] LABS: BASOPHIL 1.2 % (0-2.0); EOSINOPHIL 1.1 % (0-4.5); MCHC 32.8 g/dl (32.0-36.0); MEAN CELL VOLUME 82.5 fl (80-96); MEAN PLT VOLUME 10.1 fl (7.5-11.1); NEUTROPHILS 64.8 % (42.8-82.8); PLATELET COUNT 148 K/MM3 (134-434); WHITE BLOOD COUNT 7.8 K/mm3 (4.0-10.0)
--- NOTE | 2017-03-01 23:29 | PDOC ---
History of Present Illness - History of Present Illness Initial Comments: 03/01/17 23:24 Historian: unreliable due to history of dementia 76F w/ hx of dementia, HTN, HLD, DM, CAD s/p stents, brain tumor s/p cyberknife presenting with a headache. She reports that last night, she developed a headache. This morning, she also had some nausea, emesis, pleuritic chest pain, SOB, fecal incontinence, lightheadedness, palpitations, and temporary loss of vision. 03/01/17 23:35 03/01/17 23:47 <Britton Cochran - Last Filed: 03/01/17 23:47> <Ale Saldaña - Last Filed: 03/02/17 04:10> - General Chief Complaint: Chest Pain Stated Complaint: CHEST PAIN Time Seen by Provider: 03/01/17 19:56 Past History - Past Medical History Cancer: Yes (brain tumors/neck tumors with sx) Cardiac Disorders: Yes Diabetes: Yes HTN: Yes Hypercholesterolemia: Yes Suicide Attempt (Hx): No Comment:: 03/01/17 23:28 PMH: as stated above PSH: fatty lipoma meds: amlodipine, atorvastatin, gabapentin, hydralazine, omeprazole Allergies: oxycodone, acetaminophen - Surgical History Cardiac Surgery: Yes (STENT PLACEMENT) - Immunization History Immunization Up to Date: Yes - Psycho/Social/Smoking Cessation Hx Anxiety: No Suicidal Ideation: No Smoking Status: No Smoking History: Never smoked Have you smoked in the past 12 months: No Number of Cigarettes Smoked Daily: 0 Hx Alcohol Use: No Drug/Substance Use Hx: No Substance Use Type: None Hx Substance Use Treatment: No <Britton Cochran - Last Filed: 03/01/17 23:47> <Ale Saldaña - Last Filed: 03/02/17 04:10> - Past Medical History Allergies/Adverse Reactions: Allergies Allergy/AdvReac Type Severity Reaction Status Date / Time acetaminophen [From Percocet] Allergy Verified 03/01/17 19:20 oxycodone HCl [From Percocet] Allergy Swelling Verified 03/01/17 19:20 Home Medications: Ambulatory Orders Amlodipine Besylate [Norvasc -] 10 mg PO DAILY 01/22/14 Atorvastatin Ca [Lipitor] 10 mg PO HS 07/12/14 Gabapentin [Neurontin] 300 mg PO TID 01/22/14 Hydralazine HCl 100 mg PO BID 01/22/14 Omeprazole 40 mg PO DAILY 09/08/16 Review of Systems - Review of Systems Comments:: 03/01/17 23:32 GENERAL: No fever, chills, night sweats, or weakness. HEAD, EYES, EARS, NOSE AND THROAT: + change in vision, no ear pain, or sore throat CARDIOVASCULAR: + chest pain, palpitations RESPIRATORY: No cough, wheezing, or hemoptysis. GASTROINTESTINAL: + nausea, + vomiting, no diarrhea, constipation, or blood in the stool. GENITOURINARY: No dysuria, frequency, or urgency MUSCULOSKELETAL: No joint or muscle swelling or pain. SKIN: No rashes or pruritis ENDOCRINE: No increased thirst. No abnormal weight change NEUROLOGIC: + headache, + dizziness, NO loss of consciousness, or change in strength/sensation. <Britton Cochran - Last Filed: 03/01/17 23:47> *Physical Exam - Vital Signs Last Vital Signs Temp Pulse Resp BP Pulse Ox 98.2 F 85 18 126/56 97 03/01/17 19:21 03/01/17 19:21 03/01/17 19:21 03/01/17 19:21 03/01/17 19:21 - Physical Exam Comments: 03/01/17 23:33 GENERAL: Awake, alert, and fully oriented, in no acute distress HEAD: normocephalic, atraumatic HEENT: PERRLA, EOMI NECK: Normal ROM, supple, no lymphadenopathy, JVD, or masses HEART: Regular rate and rhythm, normal S1 and S2, no murmurs, rubs or gallops, peripheral pulses normal and equal bilaterally. LUNGS: CTAB, no wheezing, no rales ABDOMEN: Soft, diffusely tender in all quadrants, nondistended, normoactive bowel sounds. No guarding, no rebound. No masses EXTREMITIES: 1+ edema b/l SKIN: Warm, dry, no rashes or lesions noted. NEUROLOGICAL: Cranial nerves II through XII grossly intact. slow speech, no focal sensorimotor deficits <Britton Cochran - Last Filed: 03/01/17 23:47> - Vital Signs Last Vital Signs Temp Pulse Resp BP Pulse Ox 98.2 F 85 18 126/56 97 03/01/17 19:21 03/01/17 19:21 03/01/17 19:21 03/01/17 19:21 03/01/17 19:21 <Ale Saldaña - Last Filed: 03/02/17 04:10> ED Treatment Course - LABORATORY CBC & Chemistry Diagram: 03/01/17 22:00 03/01/17 22:55 - ADDITIONAL ORDERS Additional order review: Laboratory Results 03/01/17 22:00 Sodium Cancelled Potassium Cancelled Chloride Cancelled Carbon Dioxide Cancelled Anion Gap Cancelled BUN Cancelled Creatinine Cancelled Creat Clearance w eGFR Cancelled Random Glucose Cancelled Calcium Cancelled Total Bilirubin Cancelled AST Cancelled ALT Cancelled Alkaline Phosphatase Cancelled Creatine Kinase Cancelled Troponin I Cancelled Total Protein Cancelled Albumin Cancelled 03/01/17 22:00 RBC 3.73 MCV 82.5 MCHC 32.8 RDW 16.0 H MPV 10.1 Neutrophils % 64.8 D Lymphocytes % 25.1 D Monocytes % 7.8 Eosinophils % 1.1 Basophils % 1.2 - RADIOLOGY Radiology Studies Ordered: Category Date Time Status CHEST X-RAY PORTABLE* [RAD] Stat Radiology 03/01/17 20:43 Taken - Medications Given in the ED: ED Medications Discontinued Medications Generic Name Dose Route Start Last Admin Trade Name Freq PRN Reason Stop Dose Admin Sodium Chloride 500 ml 03/01/17 21:21 03/01/17 22:00 Normal Saline - IV 03/01/17 21:22 500 ml ONCE ONE Administration <Britton Cochran - Last Filed: 03/01/17 23:47> - LABORATORY CBC & Chemistry Diagram: 03/01/17 22:00 03/01/17 22:55 - ADDITIONAL ORDERS Additional order review: Laboratory Results 03/01/17 03/01/17 03/01/17 23:20 22:55 22:00 Sodium 143 Cancelled Potassium 4.0 Cancelled Chloride 109 H Cancelled Carbon Dioxide 25 Cancelled Anion Gap 9 Cancelled BUN 44 H D Cancelled Creatinine 2.2 H Cancelled Creat Clearance w eGFR 21.82 Cancelled Random Glucose 47 L* D Cancelled Calcium 8.7 Cancelled Total Bilirubin 0.4 D Cancelled AST 26 D Cancelled ALT 31 Cancelled Alkaline Phosphatase 86 Cancelled Creatine Kinase 133 Cancelled Troponin I < 0.02 Cancelled Total Protein 7.7 Cancelled Albumin 3.7 Cancelled Urine Color Ltyellow Urine Appearance Slcloudy Urine pH 6.0 Urine Protein 1+ H Urine Glucose (UA) Negative Urine Ketones Negative Urine Blood Negative Urine Nitrite Negative Urine Bilirubin Negative Urine Urobilinogen Negative Ur Leukocyte Esterase Trace Urine RBC 1 Urine WBC 2 Ur Epithelial Cells Rare Urine Mucus Rare 03/01/17 22:00 RBC 3.73 MCV 82.5 MCHC 32.8 RDW 16.0 H MPV 10.1 Neutrophils % 64.8 D Lymphocytes % 25.1 D Monocytes % 7.8 Eosinophils % 1.1 Basophils % 1.2 - RADIOLOGY Radiology Studies Ordered: Category Date Time Status ABDOMEN & PELVIS CT W/O CONTR [CT] Stat CT Scan 03/02/17 00:[address] WITHOUT CONTRAST [CT] Stat CT Scan 03/01/17 21:18 Taken - Medications Given in the ED: ED Medications Discontinued Medications Generic Name Dose Route Start Last Admin Trade Name Lionq PRN Reason Stop Dose Admin Dextrose 50 gm 03/01/17 23:43 03/01/17 23:53 D50w (Vial) - IVPUSH 03/01/17 23:44 50 gm NOW ONE Administration Ondansetron HCl 4 mg 03/01/17 23:53 03/01/17 23:53 Zofran Injection IVPB 03/01/17 23:54 4 mg NOW ONE Administration Ondansetron HCl 4 mg 03/01/17 23:53 03/02/17 01:10 Zofran Injection IVPUSH 03/01/17 23:54 Not Given ONCE ONE Sodium Chloride 500 ml 03/01/17 21:21 03/01/17 22:00 Normal Saline - IV 03/01/17 21:22 500 ml ONCE ONE Administration <Ale Saldaña - Last Filed: 03/02/17 04:10> Medical Decision Making - Medical Decision Making 03/01/17 23:35 76F w/ hx of dementia, HTN, HLD, CAD s/p stents, brain tumor s/p cyberknife presenting with a headache. <Britton Cochran - Last Filed: 03/01/17 23:47> *DC/Admit/Observation/Transfer <Britton Cochran - Last Filed: 03/01/17 23:47> - Discharge Dispostion Admit: Yes <Saldaña,Ale - Last Filed: 03/02/17 04:10> Diagnosis at time of Disposition: Dizziness - Discharge Dispostion Disposition: HOME Condition at time of disposition: Guarded
[2017-03-01 23:33] LABS: ALBUMIN 3.7 g/dl (3.4-5.0); ANION GAP 9 (8-16); BILIRUBIN,TOTAL 0.4 mg/dL (0.2-1.0); CALCIUM 8.7 mg/dL (8.5-10.1); CO2 25 mmol/L (21-32); CREATININE 2.2 mg/dL (0.55-1.02); SGOT/AST 26 U/L (15-37); SGPT/ALT 31 U/L (12-78); TOT PROT 7.7 g/dl (6.4-8.2)
[2017-03-01 23:36] LABS: ALK PHOS 86 U/L (45-117); CPK 133 IU/L (26-192); TROPONIN I < 0.02 ng/ml (0.00-0.05)
[2017-03-01 23:43] LABS: URINE APPEARANCE SLCLOUDY; URINE BILIRUBIN NEGATIVE (NEGATIVE); URINE BLOOD NEGATIVE (NEGATIVE); URINE COLOR LTYELLOW; URINE GLUCOSE (UA) NEGATIVE (NEGATIVE); URINE KETONE NEGATIVE (NEGATIVE); URINE LEUK ESTERASE TRACE (NEGATIVE); URINE NITRITE NEGATIVE (NEGATIVE); URINE UROBILINOGEN NEGATIVE mg/dL (0.2-1.0)
[2017-03-01 23:43] LABS: GLUCOSE,RANDOM 47 mg/dL (74-106)
[2017-03-01] MEDS ORDERED: DEXTROSE 50%-WATER - 25 GM/50 ML VIAL IVPUSH ONE (23:43)
[2017-03-01 23:45] LABS: URINE PROTEIN 1+ (NEGATIVE)
[2017-03-01] MEDS ORDERED: DEXTROSE 50%-WATER 50 ML DISP.SYRIN ONE (23:47)
[2017-03-01 23:48] LABS: URINE MUCUS RARE; URINE RBC 1 /hpf (0-3); URINE WBC 2 /hpf (3-5)
[2017-03-01] MEDS ORDERED: ONDANSETRON 4 MG/2 ML VIAL IVPUSH ONE (23:53)
[2017-03-01] MEDS ORDERED: ONDANSETRON 4 MG/2 ML VIAL IVPB ONE (23:53)
--- NOTE | 2017-03-02 04:46 | HP ---
CHIEF COMPLAINT: Dizziness PCP: Dr. Jinny Anderson HISTORY OF PRESENT ILLNESS: This is a 76 year y/o woman with a past medical history of Dementia, CAD. Who presents to the ED with Dizziness. Patient reported to the ED staff a multitude of complaints: headache, vision loss, SOB, CP, AP- now resolved. Patient has Dementia and is a poor historian. Patient denies fever, cough, N/V, diarrhea, dysuria. ER course was notable for: (1) Brain CT- neg ICH (2) Glucose- 47, D50 was given ~ repeat 268 (3) BUN 44, Cr 2.2 Recent Travel: None PAST MEDICAL HISTORY: Dementia Hypertension HLD DM Brain Tumor s/p Cyberknife Pneumonia Hiatal Hernia PAST SURGICAL HISTORY: Cardiac Stents Fatty Lipoma removal posterior neck Social History: Smoking: Never Alcohol: None Drugs: None Lives in a Senior Apartment Complex, retired Family History: Unable to obtain Allergies acetaminophen [From Percocet] Allergy (Verified 03/01/17 19:20) oxycodone HCl [From Percocet] Allergy (Verified 03/01/17 19:20) Swelling hives HOME MEDICATIONS: Home Medications Medication Instructions Recorded Amlodipine Besylate [Norvasc -] 10 mg PO DAILY 01/22/14 Atorvastatin Ca [Lipitor] 10 mg PO HS 01/22/14 Gabapentin [Neurontin] 300 mg PO TID 01/22/14 Hydralazine HCl 100 mg PO BID 01/22/14 Omeprazole 40 mg PO DAILY 09/08/16 REVIEW OF SYSTEMS CONSTITUTIONAL: Absent: fever, chills, diaphoresis, generalized weakness, malaise, loss of appetite, weight change HEENT: visual changes Absent: rhinorrhea, nasal congestion, throat pain, throat swelling, difficulty swallowing, mouth swelling, ear pain, eye pain, visual changes CARDIOVASCULAR: lightheadedness Absent: chest pain, syncope, palpitations, irregular heart rate, lightheadedness , peripheral edema RESPIRATORY: shortness of breath Absent: cough, dyspnea with exertion, orthopnea, wheezing, stridor, hemoptysis GASTROINTESTINAL: abdominal pain, constipation Absent: abdominal distension, nausea, vomiting, diarrhea, melena, hematochezia GENITOURINARY: Absent: dysuria, frequency, urgency, hesitancy, hematuria, flank pain, genital pain MUSCULOSKELETAL: arthralgia Absent: myalgia, joint swelling, back pain, neck pain SKIN: Absent: rash, itching, pallor HEMATOLOGIC/IMMUNOLOGIC: Absent: easy bleeding, easy bruising, lymphadenopathy, frequent infections ENDOCRINE: Absent: unexplained weight gain, unexplained weight loss, heat intolerance, cold intolerance NEUROLOGIC: headache, dizziness Absent: focal weakness or paresthesias, unsteady gait, seizure, mental status changes, bladder or bowel incontinence PSYCHIATRIC: Absent: anxiety, depression, suicidal or homicidal ideation, hallucinations. PHYSICAL EXAMINATION GENERAL: Awake, alert, and oriented to name and place only, in no acute distress. HEAD: Normal with no signs of trauma. EYES: Pupils equal, round and reactive to light, extraocular movements intact, sclera anicteric, conjunctiva clear. No lid lag. EARS, NOSE, THROAT: Ears normal, nares patent, oropharynx clear without exudates. Dry mucous membranes. NECK: Normal range of motion, supple without lymphadenopathy, JVD, or masses. LUNGS: Breath sounds equal, clear to auscultation bilaterally. No rub or gallop. systolic murmur, ABDOMEN: Soft, nontender, not distended, normoactive bowel sounds, no guarding, no rebound, no masses. No hepatomegaly or splenomegaly. MUSCULOSKELETAL: Normal range of motion at all joints. No bony deformities or tenderness. No CVA tenderness. UPPER EXTREMITIES: 2+ pulses, warm, well-perfused. No cyanosis. No clubbing. No peripheral edema. LOWER EXTREMITIES: 2+ pulses, warm, well-perfused. No calf tenderness. No peripheral edema. NEUROLOGICAL: Cranial nerves II-XII intact. Slow speech. Gait not observed. PSYCHIATRIC: Cooperative. Good eye contact. Appropriate mood and affect. SKIN: Warm, dry, normal turgor, no rashes or lesions noted, normal capillary refill. Laboratory Results - last 24 hr 03/01/17 03/01/17 03/01/17 22:00 22:00 22:55 WBC 7.8 D RBC 3.73 Hgb 10.1 L Hct 30.8 L MCV 82.5 MCH 27.0 MCHC 32.8 RDW 16.0 H Plt Count 148 MPV 10.1 Neutrophils % 64.8 D Lymphocytes % 25.1 D Monocytes % 7.8 Eosinophils % 1.1 Basophils % 1.2 Sodium Cancelled 143 Potassium Cancelled 4.0 Chloride Cancelled 109 H Carbon Dioxide Cancelled 25 Anion Gap Cancelled 9 BUN Cancelled 44 H D Creatinine Cancelled 2.2 H Creat Clearance w eGFR Cancelled 21.82 POC Glucometer Random Glucose Cancelled 47 L* D Calcium Cancelled 8.7 Phosphorus Magnesium Total Bilirubin Cancelled 0.4 D AST Cancelled 26 D ALT Cancelled 31 Alkaline Phosphatase Cancelled 86 Creatine Kinase Cancelled 133 Troponin I Cancelled < 0.02 Total Protein Cancelled 7.7 Albumin Cancelled 3.7 Urine Color Urine Appearance Urine pH Urine Protein Urine Glucose (UA) Urine Ketones Urine Blood Urine Nitrite Urine Bilirubin Urine Urobilinogen Ur Leukocyte Esterase Urine RBC Urine WBC Ur Epithelial Cells Urine Mucus 03/01/17 03/02/17 23:20 05:40 WBC RBC Hgb Hct MCV MCH MCHC RDW Plt Count MPV Neutrophils % Lymphocytes % Monocytes % Eosinophils % Basophils % Sodium Potassium Chloride Carbon Dioxide Anion Gap BUN Creatinine Creat Clearance w eGFR POC Glucometer [phone] Random Glucose Calcium Phosphorus Magnesium Total Bilirubin AST ALT Alkaline Phosphatase Creatine Kinase Troponin I Total Protein Albumin Urine Color Ltyellow Urine Appearance Slcloudy Urine pH 6.0 Urine Protein 1+ H Urine Glucose (UA) Negative Urine Ketones Negative Urine Blood Negative Urine Nitrite Negative Urine Bilirubin Negative Urine Urobilinogen Negative Ur Leukocyte Esterase Trace Urine RBC 1 Urine WBC 2 Ur Epithelial Cells Rare Urine Mucus Rare ASSESSMENT/PLAN: This is a 76 y/o woman with a PMHx of Dementia, CAD s/p stents, HTN HLD, DM, Brain Tumor ( s/p Cyberknife). Admitted for Dizziness, Hypoglycemia for further evaluation of their emergent condition. Impression 1. Dizziness 2. Hypoglycemia 3. Renal Insufficiency Plan: -- Renal Insufficiency - Cr slightly above baseline, likely due to dehydration - NS bolus give in ED - Repeat BMP in am - f/u with renal outpatient Problem List - Problem (1) Dizziness Assessment/Plan: - Likely secondary to dehydration vs hypoglycemic episode vs arrhythmia vs malignancy - CT Brain- no ICH - EKG- reviewed - Serum glucose was 47, D50 given in the ED - Repeat FS this am 268 - Fall Precautions - Carotid Doppler in am - Consider Echo - Monitor vitals Code(s): R42 - DIZZINESS AND GIDDINESS (2) Hypoglycemia Assessment/Plan: - D50 given in ED - Repeat glucose 268 - BGMs - BMP in am Code(s): E16.2 - HYPOGLYCEMIA, UNSPECIFIED (3) HTN (hypertension) Assessment/Plan: - Monitor BP - Continue home meds - Monitor renal function Code(s): I10 - ESSENTIAL (PRIMARY) HYPERTENSION (4) Dementia Assessment/Plan: - Continue supportive care - Fall Precautions Code(s): F03.90 - UNSPECIFIED DEMENTIA WITHOUT BEHAVIORAL DISTURBANCE (5) DVT prophylaxis Assessment/Plan: - OOB - SCDs - Heparin SQ Code(s): [id number] - Visit type - Emergency Visit Emergency Visit: Yes ED Registration Date: 03/02/17 Care time: The patient presented to the Emergency Department on the above date and was hospitalized for further evaluation of their emergent condition. - New Patient This patient is new to me today: Yes Date on this admission: 03/02/17 - Critical Care Critical Care patient: No
[2017-03-02 07:20] VITALS: PULSE 80
[2017-03-02 09:58] LABS: ANION GAP 7 (8-16); CALCIUM 9.1 mg/dL (8.5-10.1); CO2 26 mmol/L (21-32); CREATININE 1.9 mg/dL (0.55-1.02); GLUCOSE,RANDOM 94 mg/dL (74-106); MAGNESIUM 2.2 mg/dL (1.8-2.4); PHOSPHOROUS 3.4 mg/dL (2.5-4.9)
[2017-03-02] MEDS ORDERED: amLODIPine BESYLATE 10 MG TABLET (FP) PO SCH (10:00)
[2017-03-02] MEDS ORDERED: hydrALAZINE HCL 50 MG TABLET (FP) PO SCH (10:00)
[2017-03-02] MEDS ORDERED: HEPARIN NA (PORCINE) 5,000 UNITS/ML 1ML VIAL SQ SCH (10:00)
[2017-03-02] MEDS ORDERED: PANTOPRAZOLE 40 MG TABLET (FP) PO SCH (10:00)
[2017-03-02 10:03] LABS: EOSINOPHIL 2.3 % (0-4.5); MCH 27.4 pg (25.7-33.7); MCHC 33.2 g/dl (32.0-36.0); MEAN CELL VOLUME 82.7 fl (80-96); NEUTROPHILS 61.6 % (42.8-82.8); PLATELET COUNT 160 K/MM3 (134-434); RDW 15.7 % (11.6-15.6); WHITE BLOOD COUNT 7.9 K/mm3 (4.0-10.0)
--- NOTE | 2017-03-02 10:25 | DS ---
Physical Exam: SUBJECTIVE: Patient seen and examined OBJECTIVE: Vital Signs Period Temp Pulse Resp BP Sys/Leonardo Pulse Ox Last 24 Hr 97.6 F 80 20 156/74 97-99 PE Neuro: alert, awake, cn 2-12intact Pulm: CTAB CV: s1 Laboratory Results - last 24 hr 03/02/17 03/02/17 03/02/17 05:40 08:47 09:06 WBC 7.9 RBC 4.06 Hgb 11.1 Hct 33.6 MCV 82.7 MCH 27.4 MCHC 33.2 RDW 15.7 H Plt Count 160 MPV 10.0 Neutrophils % 61.6 Lymphocytes % 26.8 Monocytes % 8.3 Eosinophils % 2.3 D Basophils % 1.0 Sodium Potassium Chloride Carbon Dioxide Anion Gap BUN Creatinine POC Glucometer [phone] Random Glucose Calcium Phosphorus Magnesium 03/02/17 09:06 WBC RBC Hgb Hct MCV MCH MCHC RDW Plt Count MPV Neutrophils % Lymphocytes % Monocytes % Eosinophils % Basophils % Sodium 144 Potassium 4.4 Chloride 111 H Carbon Dioxide 26 Anion Gap 7 L BUN 38 H Creatinine 1.9 H POC Glucometer Random Glucose 94 D Calcium 9.1 Phosphorus 3.4 Magnesium 2.2 D HOSPITAL COURSE: Date of Admission:03/02/17 Date of Discharge: 03/02/17 Minutes to complete discharge: 36 Discharge Summary Reason For Visit: DIZZINESS Current Active Problems DVT prophylaxis (Acute) Dehydration (Acute) Dementia (Acute) Dizziness (Acute) Epigastric abdominal pain (Acute) HTN (hypertension) (Acute) Hypoglycemia (Acute) Hospital Course: Initial Hospital Course: Briefly, this 76 year old female w/ hx of dementia, HTN, HLD, DM, CAD s/p stents , brain tumor s/p cyberknife presented with a headache. She reports that last night, she developed a headache. This morning, she also had some nausea, emesis , pleuritic chest pain, SOB, fecal incontinence, lightheadedness, palpitations, and temporary loss of vision. Condition: Stable - Instructions Diet, Activity, Other Instructions: Please return to the ED for any new, persistent, or worsening symptoms. Referrals: Jinny Booth MD [Primary Care Provider] - Disposition: HOME - Home Medications Comprehensive Discharge Medication List: Ambulatory Orders Amlodipine Besylate [Norvasc -] 10 mg PO DAILY 01/22/14 Atorvastatin Ca [Lipitor] 10 mg PO HS 01/22/14 Gabapentin [Neurontin] 300 mg PO TID 01/22/14 Hydralazine HCl 100 mg PO BID 01/22/14 Omeprazole 40 mg PO DAILY 09/08/16
[2017-03-02 10:31] VITALS: BP 154/86; TEMP 98.2
[2017-03-02 11:22] VITALS: BMI 26.6
[2017-03-02 12:15] LABS: CHOLESTEROL 162 mg/dL (50-200); LDL CHOLESTEROL (ONLY SJRH) 75 mg/dL (5-100)
[2017-03-02] MEDS ORDERED: MAGNESIUM HYDROX 2400MG/30ML ORAL SUSPENSION 30 ML CUP PO ONE (12:15)
[2017-03-02] MEDS ORDERED: POLYETHYLENE GLYCOL 3350 119 GM BTL PO ONE (12:15)
--- NOTE | 2017-03-02 12:53 | EKG ---
Test Reason : Blood Pressure : / mmHG Vent. 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
[2017-03-02] MEDS ORDERED: GABAPENTIN 300 MG CAPSULE (FP) PO SCH (14:00)
[2017-03-02] MEDS ORDERED: ATORVASTATIN CA 10 MG TABLET (FP) PO SCH (22:00)
== END 2017-03-02 15:25 | disposition home or self-care (01) ==
LOC: JER 19:18 → JERBED 03-02 04:10 → INTOOBSV 03-02 04:10 → UNDOADMOB 03-02 04:10 → J8W 03-02 04:45 → JERBED 03-02 09:15 → J8W 03-02 09:15
PROVIDERS: ADMIT Internal Medicine; ATTEND Nurse Practitioner Acute Care
PROC: 3E033GC Introduction of Other Therapeutic Substance into Peripheral Vein, Percutaneous Approach (ICD-10-PCS; principal; 2017-03-02)
PROC: 3E0337Z Introduction of Electrolytic and Water Balance Substance into Peripheral Vein, Percutaneous Approach (ICD-10-PCS; 2017-03-02)
DX: R42 Dizziness and giddiness (principal); E11.65 Type 2 diabetes mellitus with hyperglycemia; E86.0 Dehydration; I10 Essential (primary) hypertension; F03.90 Unspecified dementia, unspecified severity, without behavioral disturbance, psychotic disturbance, mood disturbance, and anxiety; E78.5 Hyperlipidemia, unspecified; I25.10 Atherosclerotic heart disease of native coronary artery without angina pectoris; Z95.5 Presence of coronary angioplasty implant and graft; Z85.841 Personal history of malignant neoplasm of brain; Z88.8 Allergy status to other drugs, medicaments and biological substances; Z92.3 Personal history of irradiation; K44.9 Diaphragmatic hernia without obstruction or gangrene; R10.13 Epigastric pain
CPT/HCPCS: 36415; 70450-TC; 71010-TC; 74176-TC; 80048; 80053; 80061; 81003; 81015; 83036; 83721; 83735; 84100; 84484; 85025; 93005; 93010; 99285-25; G0378; J1644

== ENCOUNTER 2017-04-01 19:13 | Inpatient (IN) | payer OTHER ==
--- NOTE | 2017-04-01 19:48 | PDOC ---
History of Present Illness - General History Source: Patient, EMS Exam Limitations: No Limitations - History of Present Illness Initial Comments: 04/01/17 19:59 The patient is a 76 year old female, with a significant past medical history of Dementia, Hypertension, HLD, DM, Brain Tumor s/p Cyberknife, Pneumonia, Hiatal Hernia who presents to the emergency department with chest tightness and SOB today. As per EMS, patients BGM was 26. Patient was given IV D10 and Glucagon. Upon evaluation, patient admits decreased appetite for the past several days. She denies headache or dizziness. She denies fever, chills, abdominal pain, nausea, vomit, diarrhea or constipation. She denies dysuria, frequency, urgency or hematuria. Allergies: Acetaminophen, oxycodone HCl Past surgical history: Cardiac stents and Fatty lipoma removal Social history: None PCP: Dr. Light <Lottie De Guzman - Last Filed: 04/01/17 21:03> - General History Source: Patient <Gigi Horowitz - Last Filed: 04/02/17 21:36> - General Chief Complaint: Blood Sugar Problem Stated Complaint: LOW BLOOD SUGAR Time Seen by Provider: 04/01/17 19:45 Past History <Lottie De Guzman - Last Filed: 04/01/17 21:03> - Past Medical History Cancer: Yes (brain tumors/neck tumors with sx) Cardiac Disorders: Yes Diabetes: Yes HTN: Yes Hypercholesterolemia: Yes - Surgical History Cardiac Surgery: Yes (STENT PLACEMENT) Orthopedic Surgery: Yes (Spinal Sx yrs ago) - Immunization History Immunization Up to Date: Yes - Suicide/Smoking/Psychosocial Hx Smoking Status: No Smoking History: Never smoked Have you smoked in the past 12 months: No Number of Cigarettes Smoked Daily: 0 Hx Alcohol Use: No Drug/Substance Use Hx: No Substance Use Type: None Hx Substance Use Treatment: No <Gigi Horowitz - Last Filed: 04/02/17 21:36> - Past Medical History Allergies/Adverse Reactions: Allergies Allergy/AdvReac Type Severity Reaction Status Date / Time acetaminophen [From Percocet] Allergy Verified 04/01/17 19:22 oxycodone HCl [From Percocet] Allergy Swelling Verified 04/01/17 19:22 Home Medications: Ambulatory Orders Amlodipine Besylate [Norvasc -] 5 mg PO DAILY 01/22/14 Atorvastatin Ca [Lipitor] 10 mg PO HS 01/22/14 Gabapentin [Neurontin] 300 mg PO TID 01/22/14 Hydralazine HCl 100 mg PO BID 01/22/14 Omeprazole 40 mg PO DAILY 09/08/16 Glimepiride 2 mg PO 04/02/17 Lisinopril/Hydrochlorothiazide [Lisinopril-Hctz 20-12.5 mg Tab] 1 each PO Review of Systems - Review of Systems Able to Perform ROS?: Yes Comments:: 04/01/17 19:59 GENERAL/CONSTITUTIONAL: No fever or chills. No weakness. HEAD, EYES, EARS, NOSE AND THROAT: No change in vision. No ear pain or discharge. No sore throat. GASTROINTESTINAL: No nausea, vomiting, diarrhea or constipation. GENITOURINARY: No dysuria, frequency, or change in urination. CARDIOVASCULAR: + chest tightness and + shortness of breath. RESPIRATORY: No cough, wheezing, or hemoptysis. MUSCULOSKELETAL: No joint or muscle swelling or pain. No neck or back pain. SKIN: No rash NEUROLOGIC: No headache, vertigo, loss of consciousness, or change in strength/ sensation. ENDOCRINE: No increased thirst. No abnormal weight change. HEMATOLOGIC/LYMPHATIC: No anemia, easy bleeding, or history of blood clots. ALLERGIC/IMMUNOLOGIC: No hives or skin allergy. <Lottie De Guzman - Last Filed: 04/01/17 21:03> *Physical Exam - Vital Signs Last Vital Signs Temp Pulse Resp BP Pulse Ox 97.6 F 83 18 147/63 97 04/01/17 19:21 04/01/17 19:21 04/01/17 19:21 04/01/17 19:21 04/01/17 19:21 - Physical Exam Comments: 04/01/17 19:59 GENERAL: Awake, alert, and fully oriented, in no acute distress. +Lethargic however answers questions approriately. HEAD: No signs of trauma EYES: PERRLA, EOMI, sclera anicteric, conjunctiva clear ENT: Auricles normal inspection, hearing grossly normal, nares patent, oropharynx clear without exudates. Moist mucosa NECK: Normal ROM, supple, no lymphadenopathy, JVD, or masses LUNGS: Breath sounds equal. +Bilateral rhonchi greater on L than R. HEART: Regular rate and rhythm, normal S1 and S2, no murmurs, rubs or gallops ABDOMEN: Soft, nontender, normoactive bowel sounds. No guarding, no rebound. No masses EXTREMITIES: Normal range of motion, no edema. No clubbing or cyanosis. No cords, erythema, or tenderness NEUROLOGICAL: Cranial nerves II through XII grossly intact. Normal speech, normal gait SKIN: Warm, Dry, normal turgor, no rashes or lesions noted. <Lottie De Guzman - Last Filed: 04/01/17 21:03> - Vital Signs Last Vital Signs Temp Pulse Resp BP Pulse Ox 97.6 F 83 18 147/63 97 04/01/17 19:21 04/01/17 19:21 04/01/17 19:21 04/01/17 19:21 04/01/17 19:21 <Gigi Horowitz - Last Filed: 04/02/17 21:36> ED Treatment Course - LABORATORY CBC & Chemistry Diagram: 04/01/17 20:00 04/01/17 20:00 <Lottie De Guzman - Last Filed: 04/01/17 21:03> - LABORATORY CBC & Chemistry Diagram: 04/02/17 07:00 04/02/17 07:00 <Gigi Horowitz - Last Filed: 04/02/17 21:36> Medical Decision Making - Medical Decision Making 04/01/17 21:[address] Lor Anderson. rate 78 bpm NSR L axis deviation Septal infart, age undetermined <Lottie De Guzman - Last Filed: 04/01/17 21:03> - Medical Decision Making 04/02/17 21:35 Dr. Horowitz: The scribe's documentation has been prepared under my direction and personally reviewed by me in its entirery. I confirm that the note above accurately reflects all work, treatment, procedures, and medical decision making performed by me. <Gigi Horowitz - Last Filed: 04/02/17 21:36> *DC/Admit/Observation/Transfer - Attestations Scribe Attestion: 04/01/17 19:59 Documentation prepared by Lottie De Guzman, acting as medical assistant float for Gigi Horowitz DO. <Lottie De Guzman - Last Filed: 04/01/17 21:03> - Discharge Dispostion Admit: Yes <Gigi Horowitz - Last Filed: 04/02/17 21:36> Diagnosis at time of Disposition: Pneumonia Qualifiers: Pneumonia type: due to unspecified organism Laterality: right Lung location: middle lobe of lung Qualified Code(s): J18.1 - Lobar pneumonia, unspecified organism - Referrals
[2017-04-01] MEDS ORDERED: DEXTROSE 5%-0.45% SALINE 1,000 ML IV SCH (20:00)
[2017-04-01 20:24] LABS: BASOPHIL 0.3 % (0-2.0); EOSINOPHIL 1.1 % (0-4.5); MCH 27.4 pg (25.7-33.7); MCHC 32.9 g/dl (32.0-36.0); MEAN CELL VOLUME 83.3 fl (80-96); MEAN PLT VOLUME 9.7 fl (7.5-11.1); NEUTROPHILS 80.7 % (42.8-82.8); PLATELET COUNT 147 K/MM3 (134-434); WHITE BLOOD COUNT 8.6 K/mm3 (4.0-10.0)
[2017-04-01 20:31] LABS: VENOUS BLOOD GAS HCO3 19.5 meq/L (19-25)
[2017-04-01 20:32] LABS: VENOUS PH 7.21 (7.32-7.42)
[2017-04-01 20:41] LABS: INR 0.92 (0.82-1.09); PROTHROMBIN TIME (PATIENT) 10.1 SEC (9.98-11.88)
[2017-04-01 20:43] LABS: ACTIVATED PTT 23.1 SECONDS (26.9-34.4)
[2017-04-01] MEDS ORDERED: CEFTRIAXONE 1 GM in DEXTROSE 5%-WATER - 100 ML IVPB ONE (20:47)
[2017-04-01] MEDS ORDERED: AZITHROMYCIN IVPB 500 MG in DEXTROSE 5%-WATER - 250 ML IVPB ONE ×2 (20:47→21:21)
[2017-04-01 20:59] LABS: ALBUMIN 3.2 g/dl (3.4-5.0); ANION GAP 8 (8-16); BILIRUBIN,TOTAL 0.2 mg/dL (0.2-1.0); CALCIUM 7.5 mg/dL (8.5-10.1); CO2 22 mmol/L (21-32); CREATININE 3.7 mg/dL (0.55-1.02); GLUCOSE,RANDOM 106 mg/dL (74-106); SGOT/AST 21 U/L (15-37); SGPT/ALT 22 U/L (12-78); TOT PROT 7.1 g/dl (6.4-8.2)
[2017-04-01 21:01] LABS: ALK PHOS 100 U/L (45-117); CPK 129 IU/L (26-192); TROPONIN I < 0.02 ng/ml (0.00-0.05)
[2017-04-01] MEDS ORDERED: CEFTRIAXONE 50 ML ONE (21:38)
[2017-04-01] MEDS ORDERED: AZITHROMYCIN IVPB 250 ML IVPB ONE (21:38)
--- NOTE | 2017-04-01 22:08 | PN ---
Teaching Attending Note Name of Resident: Bradley Yang ATTENDING PHYSICIAN STATEMENT I saw and evaluated the patient. I reviewed the resident's note and discussed the case with the resident. I agree with the resident's findings and plan as documented. SUBJECTIVE: 76 yo F with pmhx of Dementia, htn, HLD, and DM, CAD, HTN, HLD, brain tumor s/ p cyberknife, penumonia, hiatal hernia, who presents with chest tightness and shortness of breath earlier. Upon arrival oF EMS BS was 26. She was given D10 and glucagon. States she has had decreases appetite for several days. Upon interview she points to pain in her R. CVA and denies any chest pain, pressure or shortness of breath. Also does not remember when she last ate food. OBJECTIVE: Physical: VS: Vital Signs Period Temp Pulse Resp BP Sys/Leonardo Pulse Ox Last 24 Hr 97.6 F 83 18 147/63 97 GEN:NAD, Resting in bed HEENT: NCAT, PERRL, throat without erythema or exudates CARD: RRR S1, S2 II/ SONYA RESP: Mildly decreased BS At Bases ABD: BSx4, R. CVA flank tenderness EXT: - C/C/E CBCD WBC 8.6 K/mm3 (4.0-10.0) 04/01/17 20:00 RBC 3.13 M/mm3 (3.60-5.2) L D 04/01/17 20:00 Hgb 8.6 GM/dL (10.7-15.3) L D 04/01/17 20:00 Hct 26.1 % (32.4-45.2) L D 04/01/17 20:00 MCV 83.3 fl (80-96) 04/01/17 20:00 MCHC 32.9 g/dl (32.0-36.0) 04/01/17 20:00 RDW 16.0 % (11.6-15.6) H 04/01/17 20:00 Plt Count 147 K/MM3 (134-434) 04/01/17 20:00 MPV 9.7 fl (7.5-11.1) 04/01/17 20:00 CMP Sodium 141 mmol/L (136-145) 04/01/17 20:00 Potassium 4.0 mmol/L (3.5-5.1) 04/01/17 20:00 Chloride 111 mmol/L (98-107) H 04/01/17 20:00 Carbon Dioxide 22 mmol/L (21-32) 04/01/17 20:00 Anion Gap 8 (8-16) 04/01/17 20:00 BUN 61 mg/dL (7-18) H D 04/01/17 20:00 Creatinine 3.7 mg/dL (0.55-1.02) H D 04/01/17 20:00 Creat Clearance w eGFR 11.98 (>60) 04/01/17 20:00 Random Glucose 106 mg/dL (74-106) 04/01/17 20:00 Calcium 7.5 mg/dL (8.5-10.1) L 04/01/17 20:00 Total Bilirubin 0.2 mg/dL (0.2-1.0) D 04/01/17 20:00 AST 21 U/L (15-37) 04/01/17 20:00 ALT 22 U/L (12-78) D 04/01/17 20:00 Alkaline Phosphatase 100 U/L (45-117) 04/01/17 20:00 Total Protein 7.1 g/dl (6.4-8.2) 04/01/17 20:00 Albumin 3.2 g/dl (3.4-5.0) L 04/01/17 20:00 CARDIAC ENZYMES Creatine Kinase 129 IU/L (26-192) 04/01/17 20:00 Troponin I < 0.02 ng/ml (0.00-0.05) 04/01/17 20:00 Ambulatory Orders Amlodipine Besylate [Norvasc -] 10 mg PO DAILY 01/22/14 Atorvastatin Ca [Lipitor] 10 mg PO HS 01/22/14 Gabapentin [Neurontin] 300 mg PO TID 01/22/14 Hydralazine HCl 100 mg PO BID 01/22/14 Omeprazole 40 mg PO DAILY 09/08/16 EKG: nSR 78 LAD, q waves septal leads, QtC 490 CXR: No acute Process ASSESSMENT AND PLAN: 76 yo F with dementia, htn, hld, Dementia, DM, CAD who was BIBA for severe hypoglycemia, with ass. SOB and chest tightness 1.) Severe Hypoglycemia - Possibly due to poor intake - Resolved - D5 1/2 NS - FS q2 2.) Chest Tightness/SOB - may be due to hypoglycemia- NOW resolved - Heart 5 ?Acs - Trend EKG/TRop - ASA - 02 NC - If pain reoccurs consider nitro/morphine 3.) DM - HgbA1c - Not on any home meds 4.) CAD? - ASA - Start BB - NO Cristofer/Arb due to ARF - Echo 5.) HTN - C/W home meds 6.) PRESTON on CKD - Base Cr around 2 - Possibly due to dehydration - Gentle IVF - trend, nephro consult - Renal US 7.) Normocytic Anemia - Fe Studies - B12/Folate 8.) Dvt Ppx - Mod Risk -Heparin [address] in MEd-tele
--- NOTE | 2017-04-01 22:10 | HP ---
CHIEF COMPLAINT: "I blacked out" PCP: Dr. Light HISTORY OF PRESENT ILLNESS: 76 y.o. F with pmh of dementia, HTN, HLD, DM, CAD s/p stents, brain tumor s/p cyberknife presented after blacking out. Patient unsure why she was brought in to the ED. She was found to have a BGM of 26 per EMS. Patient was given IV D10 and glucagon and her sugars improved. Patient complained of chest tightness and SOB, which has been intermittently occuring for a while per patient. Patient also states she lives alone and has a "nurse" come by for 3-4 hours who prepares her meals and gives her medicine. Patient states she has not been eating meals for "a while." Patient also complaining of 2-3 day hx of dysuria and right flank pain. Patient denies, F/C/N/V/D/C, headache or dizziness Of note, patient has a daughter who lives in [place] and checks in on her occasionally ER course was notable for: (1) VS- wnl, Hgb-8.6, MCV- 83.3, BUN- 61, Cr- 3.7 (2) VBG ph- 7.21 (3) UA pending (4) CXR- ?possible pneumonia, may be unchanged from previous cxr (5) EKG- Vent. rate 78 bpm, NSR , L axis deviation, Septal infarct, age undetermined, qtc 490 Recent Travel: denies PAST MEDICAL HISTORY: as per hpi PAST SURGICAL HISTORY: Stent placement, spinal surgery, brain tumor removal Social History: Smoking: denies Alcohol: unsure Drugs: denies Family History: mother and father in their 90s of old age. multiple siblings, unknown medical problems Allergies acetaminophen [From Percocet] Allergy (Verified 04/01/17 19:22) oxycodone HCl [From Percocet] Allergy (Verified 04/01/17 19:22) Swelling hives HOME MEDICATIONS: Home Medications Medication Instructions Recorded Amlodipine Besylate [Norvasc -] 10 mg PO DAILY 01/22/14 Atorvastatin Ca [Lipitor] 10 mg PO HS 01/22/14 Gabapentin [Neurontin] 300 mg PO TID 01/22/14 Hydralazine HCl 100 mg PO BID 01/22/14 Omeprazole 40 mg PO DAILY 09/08/16 REVIEW OF SYSTEMS CONSTITUTIONAL: Absent: fever, chills, diaphoresis, generalized weakness, malaise, loss of appetite, weight change HEENT: Absent: rhinorrhea, nasal congestion, throat pain, throat swelling, difficulty swallowing, mouth swelling, ear pain, eye pain, visual changes CARDIOVASCULAR: Absent: chest pain/tightness, syncope, palpitations, irregular heart rate, lightheadedness, peripheral edema RESPIRATORY: Absent: cough, shortness of breath, dyspnea with exertion, orthopnea, wheezing, stridor, hemoptysis GASTROINTESTINAL: Absent: abdominal pain, abdominal distension, nausea, vomiting, diarrhea, constipation, melena, hematochezia GENITOURINARY: Absent: dysuria, frequency, urgency, hesitancy, hematuria, flank pain, genital pain MUSCULOSKELETAL: Absent: myalgia, arthralgia, joint swelling, back pain, neck pain SKIN: Absent: rash, itching, pallor HEMATOLOGIC/IMMUNOLOGIC: Absent: easy bleeding, easy bruising, lymphadenopathy, frequent infections ENDOCRINE: Absent: unexplained weight gain, unexplained weight loss, heat intolerance, cold intolerance NEUROLOGIC: Absent: headache, focal weakness or paresthesias, dizziness, unsteady gait, seizure, mental status changes, bladder or bowel incontinence PSYCHIATRIC: Absent: anxiety, depression, suicidal or homicidal ideation, hallucinations. PHYSICAL EXAMINATION Vital Signs - 24 hr 04/01/17 19:21 Temperature 97.6 F Pulse Rate 83 Respiratory 18 Rate Blood Pressure 147/63 O2 Sat by Pulse 97 Oximetry (%) GENERAL: Awake, alert, and mildly confused, Lethargic, +[place], in no acute distress. HEAD: Normal with no signs of trauma. EYES: Extraocular movements intact, sclera anicteric, conjunctiva clear. No lid lag. Mucosal pallor EARS, NOSE, THROAT: Oropharynx clear without exudates. Dry mucous membranes. NECK: Normal range of motion, supple without lymphadenopathy, JVD, or masses. LUNGS: Breath sounds equal, + mild crackles in RML and LLL, no respiratory distress, no accessory muscle use HEART: Regular rate and rhythm, normal S1 and S2 without murmur, rub or gallop. ABDOMEN: Soft, +Diffuse tenderness to palpation, not distended, normoactive bowel sounds, no guarding, no rebound, no masses. No hepatomegaly or splenomegaly. MUSCULOSKELETAL: Normal range of motion at all joints. No bony deformities or tenderness. +CVA tenderness. UPPER EXTREMITIES: 2+ pulses, warm, well-perfused. No cyanosis. No clubbing. No peripheral edema. LOWER EXTREMITIES: 2+ pulses, warm, well-perfused. No calf tenderness. No peripheral edema. NEUROLOGICAL: Cranial nerves II-XII intact. Normal speech. PSYCHIATRIC: Cooperative. Good eye contact. Appropriate mood and affect. SKIN: Warm, dry, normal turgor, no rashes or lesions noted, normal capillary refill. Laboratory Results - last 24 hr 04/01/17 04/01/17 04/01/17 20:00 20:00 20:00 WBC 8.6 RBC 3.13 L D Hgb 8.6 L D Hct 26.1 L D MCV 83.3 MCH 27.4 MCHC 32.9 RDW 16.0 H Plt Count 147 MPV 9.7 Neutrophils % 80.7 D Lymphocytes % 9.8 D Monocytes % 8.1 Eosinophils % 1.1 Basophils % 0.3 PT with INR 10.10 INR 0.92 PTT (Actin FS) 23.1 L VBG pH POC VBG pCO2 POC VBG pO2 Mixed VBG HCO3 Sodium 141 Potassium 4.0 Chloride 111 H Carbon Dioxide 22 Anion Gap 8 BUN 61 H D Creatinine 3.7 H D Creat Clearance w eGFR 11.98 Random Glucose 106 Lactic Acid Calcium 7.5 L Total Bilirubin 0.2 D AST 21 ALT 22 D Alkaline Phosphatase 100 Creatine Kinase 129 Troponin I < 0.02 Total Protein 7.1 Albumin 3.2 L Blood Type Antibody Screen 04/01/17 04/01/17 04/01/17 20:00 20:00 20:29 WBC RBC Hgb Hct MCV MCH MCHC RDW Plt Count MPV Neutrophils % Lymphocytes % Monocytes % Eosinophils % Basophils % PT with INR INR PTT (Actin FS) VBG pH 7.21 L* POC VBG pCO2 50.7 POC VBG pO2 61.7 H Mixed VBG HCO3 19.5 Sodium Potassium Chloride Carbon Dioxide Anion Gap BUN Creatinine Creat Clearance w eGFR Random Glucose Lactic Acid 1.2 Calcium Total Bilirubin AST ALT Alkaline Phosphatase Creatine Kinase Troponin I Total Protein Albumin Blood Type O POSITIVE Antibody Screen Negative ASSESSMENT/PLAN: 76 y.o. F with pmh of dementia, HTN, HLD, DM, CAD s/p stents, brain tumor s/p cyberknife presented after blacking out found to be hypoglycemic admitted to telemetry for hypoglycemia and acute on chronic kidney disease. #Hypoglycemia, likely 2/2 to poor po intake -Sugar per EMS 26 -D5 1/2 NS at 75 cc/hr -BGM Q2h, can increase to q4h once sugars are stabilized #Flank pain/Dysuria -UA pending, UCX pending -Renal U/s Pending #Acute on chronic kidney disease 2/2 to UTI vs Kidney stone vs Dehydration -UA pending, UCX pending -Renal U/s pending -Continue to monitor cr -D5 1/2 NS at 75 cc/hr -Avoid nephrotoxic medications #Chest tightness & SOB -Troponins negative x1 -Received ceftriaxone and azithromycin in the ED -Continue to trend trops/ekg #Hx of CAD -Start Aspirin 81 mg po daily -Continue Lipitor 10 mg po hs #HTN -Continue norvasc 10 mg po daily -Continue hydralazine 100 mg po bid #HLD -Continue Lipitor 10 mg po hs #GERD -Continue protonix 40 mg po daily #FEN/GI -D5 1/2 NS @ 75 cc/hr until sugars stabilize -WNL -Sodium/Diabetic Diet #PPx DVT- heparin 5000 u sq q8h GI- Protonix 40 mg po daily #Dispo -Admit to telemetry -social welfare research worker consult for possible placement given inability to care for herself Visit type - Emergency Visit Emergency Visit: Yes ED Registration Date: 04/01/17 Care time: The patient presented to the Emergency Department on the above date and was hospitalized for further evaluation of their emergent condition. - New Patient This patient is new to me today: Yes Date on this admission: 04/02/17 - Critical Care Critical Care patient: No
--- NOTE | 2017-04-01 22:17 | HP ---
CHIEF COMPLAINT: PCP: Dr. Light HISTORY OF PRESENT ILLNESS: Poor historian, history obtained from the chart. This is a 76 year y/o woman with a past medical history of Dementia, CAD s/p cardiac stents, Hypertension, HLD, DM, Brain Tumor s/p Cyberknife, Pneumonia, Hiatal Hernia presented to the ED via EMS with the complaint of chest tightness and SOB today as per the ED note. Her BGM was 26 when EMS arrived for which she was given dextrose and brought her here. Patient doesn't know why she is here. Patient mentioned that she has a health aid for about 4 hours a day, lives alone, doesn't remember the last time she ate. Denies chest pain, sob, cough, palpitation, nausea or vomiting. Patient mentions that is she "Hungry and wants to eat something". Patient said she is able to feed herself. Also complaints of mild abdominal pain, located on the right lumbar area, non radiating. Details of the pain, unobtainable. ER course was notable for: (1) Afebrile, hemodynamically stable, Normocytic anemia H/H 8.6/26.1, creatinine 3.1 (2) EKG: No significant ST and T wave changes (3) IV Ceftriaxone and IV Azithromycin Recent Travel: None PAST MEDICAL HISTORY: Dementia, CAD s/p cardiac stents, Hypertension, HLD, DM, Brain Tumor s/p Cyberknife, Pneumonia, Hiatal Hernia, PAST SURGICAL HISTORY: Cardiac Stents; Fatty Lipoma removal posterior neck Social History: Smoking: Denies Alcohol: Denies Drugs: Denies Family History: Unknown Allergies acetaminophen [From Percocet] Allergy (Verified 04/01/17 19:22) oxycodone HCl [From Percocet] Allergy (Verified 04/01/17 19:22) Swelling hives HOME MEDICATIONS: Home Medications Medication Instructions Recorded Amlodipine Besylate [Norvasc -] 10 mg PO DAILY 01/22/14 Atorvastatin Ca [Lipitor] 10 mg PO HS 01/22/14 Gabapentin [Neurontin] 300 mg PO TID 01/22/14 Hydralazine HCl 100 mg PO BID 01/22/14 Omeprazole 40 mg PO DAILY 09/08/16 REVIEW OF SYSTEMS Denies chest pain, sob, cough, palpitation, nausea or vomiting. PHYSICAL EXAMINATION Vital Signs - 24 hr 04/01/17 19:21 Temperature 97.6 F Pulse Rate 83 Respiratory 18 Rate Blood Pressure 147/63 O2 Sat by Pulse 97 Oximetry (%) GENERAL: Elderly female, sitting comfortably in bed, Awake, alert, and fully oriented, in no acute distress. HEAD: Normal with no signs of trauma. EYES: EOM intact, no pallor or icterus. EARS, NOSE, THROAT: Ears normal. Dry mucous membranes. NECK: Supple. LUNGS: B/L breath sounds equal, b/l crackles in the right>left. No accessory muscle use. HEART: Regular rate and rhythm, normal S1 and S2 without murmur. ABDOMEN: Soft, tenderness in the right lumbar area, not distended, normoactive bowel sounds, no guarding, no rebound, no masses. No hepatomegaly or splenomegaly. MUSCULOSKELETAL: Normal range of motion at all joints. No bony deformities or tenderness. Right CVA tenderness. UPPER EXTREMITIES: 2+ pulses, warm, well-perfused. No cyanosis. No clubbing. No peripheral edema. LOWER EXTREMITIES: 2+ pulses, warm, well-perfused. No calf tenderness. B/L trace pitting edema. NEUROLOGICAL: No facial droop. Normal speech. Gait not observed. PSYCHIATRIC: Cooperative. Good eye contact. Appropriate mood and affect. SKIN: Warm, dry, normal turgor, no rashes or lesions noted, normal capillary refill. Laboratory Results - last 24 hr 04/01/17 04/01/17 04/01/17 20:00 20:00 20:00 WBC 8.6 RBC 3.13 L D Hgb 8.6 L D Hct 26.1 L D MCV 83.3 MCH 27.4 MCHC 32.9 RDW 16.0 H Plt Count 147 MPV 9.7 Neutrophils % 80.7 D Lymphocytes % 9.8 D Monocytes % 8.1 Eosinophils % 1.1 Basophils % 0.3 PT with INR 10.10 INR 0.92 PTT (Actin FS) 23.1 L VBG pH POC VBG pCO2 POC VBG pO2 Mixed VBG HCO3 Sodium 141 Potassium 4.0 Chloride 111 H Carbon Dioxide 22 Anion Gap 8 BUN 61 H D Creatinine 3.7 H D Creat Clearance w eGFR 11.98 Random Glucose 106 Lactic Acid Calcium 7.5 L Total Bilirubin 0.2 D AST 21 ALT 22 D Alkaline Phosphatase 100 Creatine Kinase 129 Troponin I < 0.02 Total Protein 7.1 Albumin 3.2 L Blood Type Antibody Screen 04/01/17 04/01/17 04/01/17 20:00 20:00 20:29 WBC RBC Hgb Hct MCV MCH MCHC RDW Plt Count MPV Neutrophils % Lymphocytes % Monocytes % Eosinophils % Basophils % PT with INR INR PTT (Actin FS) VBG pH 7.21 L* POC VBG pCO2 50.7 POC VBG pO2 61.7 H Mixed VBG HCO3 19.5 Sodium Potassium Chloride Carbon Dioxide Anion Gap BUN Creatinine Creat Clearance w eGFR Random Glucose Lactic Acid 1.2 Calcium Total Bilirubin AST ALT Alkaline Phosphatase Creatine Kinase Troponin I Total Protein Albumin Blood Type O POSITIVE Antibody Screen Negative ASSESSMENT/PLAN: This is a 76 year y/o woman with a past medical history of Dementia, CAD s/p cardiac stents, Hypertension, HLD, DM, Brain Tumor s/p Cyberknife, Pneumonia, Hiatal Hernia presented to the ED via EMS with the complaint of chest tightness and SOB today as per the ED note was found to be hypoglycemic sugar of 26. # Hypoglycemia likely due to poor oral intake EMS found her sugar to be 26 was given Dextrose at home, random glucose in the ED was 106 On arrival, she was afebrile, hemodynamically stable Received IV NS in the ED Admit in Med-Surg IV D5-1/2 NS @ 75mls/hr Encourage PO intake Most likely needs help at home to prepare meals and help her eat, needs social studies teacher eval for placement. # Acute on chronic Kidney Injury likely prerenal/ due to dehydration R/O Kidney stones-complained of right flank pain and has Right CVA tenderness. Unlikely UTI since UA is normal. Creatinine 3.7 with a CKD stage IV, baseline 1.9 (02/2017) Continue IV Hydration Avoid nephrotoxic drugs USG of kidney pending # Atypical chest pain/SOB Less likely ACS, EKG no significant ST and T wave changes, Troponin x 1 negative Repeat Troponin x 2 Less likely due to Pneumonia, CXR unchanged from previous but official report pending Afebrile, no leukocytosis, hence will monitor off antibiotics for now. # Normocytic anemia likey due to anemia of chronic disease (CKD) H/H 8.6/26.1, MCV 83.3 Iron studies done recently which is normal so anemia likely due to renal disease Watch for any bleeding, transfuse if Hb is < 7gm/dl # Hypertension-controlled Continue Hydralazine 100mg PO BID # Hyperlipidemia Continue Atorvastatin 40mg PO HS # Prolong Qtc on EKG Qtc- 490, avoid drugs prolonging Qt # Dementia Would consider adding Donepezil # GERD Continue Protonix 40mg PO Daily # FEN IV D5-1/2 NS @ 75mls/hr Electrolytes to be repeated in am Sodium/chol controlled diet # Prophylaxis For DVT: On Heparin sq For GI: On Protonix # Code Status: Full Code # Dispo: Admitted in Med-Surg. Needs social studies teacher on board for placement, patient cannot take care of herself at home, lives by herself , has 24 hr health aid. Illness, Investigation and Plan of care explained to the patient. She verbalized understanding. Case seen and discussed with Dr. Mak. Visit type - Emergency Visit Emergency Visit: Yes ED Registration Date: 04/01/17 Care time: The patient presented to the Emergency Department on the above date and was hospitalized for further evaluation of their emergent condition. - New Patient This patient is new to me today: Yes Date on this admission: 04/01/17 - Critical Care Critical Care patient: No
[2017-04-01 23:19] LABS: URINE APPEARANCE CLEAR; URINE BILIRUBIN NEGATIVE (NEGATIVE); URINE BLOOD NEGATIVE (NEGATIVE); URINE COLOR LTYELLOW; URINE GLUCOSE (UA) NEGATIVE (NEGATIVE); URINE KETONE NEGATIVE (NEGATIVE); URINE LEUK ESTERASE NEGATIVE (NEGATIVE); URINE NITRITE NEGATIVE (NEGATIVE); URINE PROTEIN NEGATIVE (NEGATIVE); URINE UROBILINOGEN NEGATIVE mg/dL (0.2-1.0)
[2017-04-02 03:34] VITALS: BMI 28.6
[2017-04-02] MEDS: GABAPENTIN 300 MG CAPSULE (FP) PO SCH ×3 (06:39→21:38)
[2017-04-02 08:34] LABS: BASOPHIL 0.5 % (0-2.0); MCH 26.9 pg (25.7-33.7); MCHC 32.6 g/dl (32.0-36.0); MEAN CELL VOLUME 82.6 fl (80-96); MEAN PLT VOLUME 9.2 fl (7.5-11.1); NEUTROPHILS 71.8 % (42.8-82.8); PLATELET COUNT 152 K/MM3 (134-434); RDW 15.9 % (11.6-15.6); WHITE BLOOD COUNT 8.1 K/mm3 (4.0-10.0)
[2017-04-02 09:16] LABS: ANION GAP 10 (8-16); BILIRUBIN,TOTAL 0.3 mg/dL (0.2-1.0); CALCIUM 8.3 mg/dL (8.5-10.1); CO2 21 mmol/L (21-32); CREATININE 2.8 mg/dL (0.55-1.02); GLUCOSE,RANDOM 88 mg/dL (74-106); PHOSPHOROUS 4.2 mg/dL (2.5-4.9); SGPT/ALT 23 U/L (12-78); TOT PROT 7.1 g/dl (6.4-8.2)
[2017-04-02 09:18] LABS: ALK PHOS 82 U/L (45-117); TROPONIN I < 0.02 ng/ml (0.00-0.05)
[2017-04-02 09:22] LABS: MAGNESIUM 2.3 mg/dL (1.8-2.4); SGOT/AST 30 U/L (15-37)
[2017-04-02] MEDS: PANTOPRAZOLE 40 MG TABLET (FP) PO SCH (10:54)
[2017-04-02] MEDS: amLODIPine BESYLATE 10 MG TABLET (FP) PO SCH (10:54)
[2017-04-02] MEDS: ASPIRIN 81 MG CHEWABLE TABLETS PO SCH (10:54)
[2017-04-02] MEDS: hydrALAZINE HCL 50 MG TABLET (FP) PO SCH ×2 (10:54→21:38)
--- NOTE | 2017-04-02 11:28 | EKG ---
Test Reason : Blood Pressure : / mmHG Vent. Rate : 078 BPM Atrial Rate : 078 BPM P-R Int : 166 ms QRS Dur : 100 ms QT Int : 430 ms P-R-T Axes : 043 -45 040 degrees QTc Int : 490 ms NORMAL SINUS RHYTHM LEFT AXIS DEVIATION SEPTAL INFARCT (CITED ON OR BEFORE 08-SEP-2016) ABNORMAL ECG WHEN COMPARED WITH ECG OF 01-MAR-2017 19:31, QUESTIONABLE CHANGE IN INITIAL FORCES OF SEPTAL LEADS Confirmed by KIMBERLY BARAJAS MD ([id number]) on 04/02/2017 11:28:30 AM Referred By: Confirmed By:KIMBERLY BARAJAS MD
--- NOTE | 2017-04-02 12:13 | EKG ---
Test Reason : Blood Pressure : / mmHG Vent. Rate : 080 BPM Atrial Rate : 080 BPM P-R Int : 152 ms QRS Dur : 108 ms QT Int : 410 ms P-R-T Axes : 066 -55 062 degrees QTc Int : 472 ms NORMAL SINUS RHYTHM LEFT AXIS DEVIATION ABNORMAL ECG WHEN COMPARED WITH ECG OF 01-APR-2017 20:57, CRITERIA FOR SEPTAL INFARCT ARE NO LONGER PRESENT Confirmed by KARL LYON, KIMBERLY ([id number]) on 04/02/2017 12:12:36 PM Referred By: Catina PETERS Confirmed By:KIMBERLY BARAJAS MD
[2017-04-02] MEDS: HEPARIN NA (PORCINE) 5,000 UNITS/ML 1ML VIAL SQ SCH ×2 (15:37→21:40)
[2017-04-02] MEDS ORDERED: DEXTROSE 10%-WATER - 1,000 ML IV SCH ×2 (18:15→19:24)
--- NOTE | 2017-04-02 18:51 | PN ---
Physical Exam: SUBJECTIVE: Patient seen and examined. No acute events over night. She said she has no chest pain today and she feels much better than yesterday. Her appetite improved and wanted food. She denied nausea, vomiting, and dizziness. OBJECTIVE: Vital Signs Period Temp Pulse Resp BP Sys/Leonardo Pulse Ox Last 24 Hr 97.6 F-98.1 F 69-88 18-20 121-164/70-81 97-97 GENERAL: The patient is awake, alert, and fully oriented, in no acute distress. HEAD: Normal with no signs of trauma. EYES: PERRL, extraocular movements intact, sclera anicteric, conjunctiva clear. ENT: oropharynx clear without exudates, moist mucous membranes. NECK: supple. LUNGS: Breath sounds equal, clear to auscultation bilaterally, no wheezes, no crackles, no accessory muscle use. HEART: Regular rate and rhythm, S1, S2 without murmur, rub or gallop. ABDOMEN: RIght CVA tenderness, Soft, RUQ tenderness, - murphys sign, nondistended, normoactive bowel sounds, no guarding, no rebound, no hepatosplenomegaly, no masses. EXTREMITIES: 2+ pulses, warm, well-perfused, no edema. decreased sensation on right LE digits. NEUROLOGICAL: Cranial nerves II through XII grossly intact. Normal speech, gait not observed. PSYCH: Normal mood, normal affect. SKIN: Warm, dry, normal turgor, no rashes or lesions noted Laboratory Results - last 24 hr 04/01/17 04/02/17 04/02/17 23:10 06:34 06:50 WBC RBC Hgb Hct MCV MCH MCHC RDW Plt Count MPV Neutrophils % Lymphocytes % Monocytes % Eosinophils % Basophils % Sodium Potassium Chloride Carbon Dioxide Anion Gap BUN Creatinine Creat Clearance w eGFR POC Glucometer 45 151 Random Glucose Calcium Phosphorus Magnesium Total Bilirubin AST ALT Alkaline Phosphatase Troponin I Total Protein Albumin Urine Color Ltyellow Urine Appearance Clear Urine pH 5.0 Ur Specific Tiller 1.010 Urine Protein Negative Urine Glucose (UA) Negative Urine Ketones Negative Urine Blood Negative Urine Nitrite Negative Urine Bilirubin Negative Urine Urobilinogen Negative 04/02/17 04/02/17 04/02/17 07:00 07:00 07:00 WBC 8.1 RBC 3.63 Hgb 9.8 L D Hct 30.0 L MCV 82.6 MCH 26.9 MCHC 32.6 RDW 15.9 H Plt Count 152 MPV 9.2 Neutrophils % 71.8 Lymphocytes % 20.3 D Monocytes % 6.4 Eosinophils % 1.0 Basophils % 0.5 Sodium 139 Potassium 4.5 Chloride 108 H Carbon Dioxide 21 Anion Gap 10 BUN 61 H Creatinine 2.8 H D Creat Clearance w eGFR 16.52 POC Glucometer Random Glucose 88 Calcium 8.3 L Phosphorus 4.2 D Magnesium 2.3 Total Bilirubin 0.3 D AST 30 D ALT 23 Alkaline Phosphatase 82 Troponin I < 0.02 Cancelled Total Protein 7.1 Albumin 3.0 L Urine Color Urine Appearance Urine pH Ur Specific Tiller Urine Protein Urine Glucose (UA) Urine Ketones Urine Blood Urine Nitrite Urine Bilirubin Urine Urobilinogen 04/02/17 04/02/17 11:25 11:53 WBC RBC Hgb Hct MCV MCH MCHC RDW Plt Count MPV Neutrophils % Lymphocytes % Monocytes % Eosinophils % Basophils % Sodium Potassium Chloride Carbon Dioxide Anion Gap BUN Creatinine Creat Clearance w eGFR POC Glucometer 51 78 Random Glucose Calcium Phosphorus Magnesium Total Bilirubin AST ALT Alkaline Phosphatase Troponin I Total Protein Albumin Urine Color Urine Appearance Urine pH Ur Specific Tiller Urine Protein Urine Glucose (UA) Urine Ketones Urine Blood Urine Nitrite Urine Bilirubin Urine Urobilinogen Active Medications Generic Name Dose Route Start Last Admin Trade Name Lionq PRN Reason Stop Dose Admin Amlodipine Besylate 10 mg 04/02/17 10:00 04/02/17 10:54 Norvasc - PO 10 mg DAILY SHANIA Administration Aspirin 81 mg 04/02/17 10:00 04/02/17 10:54 Asa - PO 81 mg DAILY SHANIA Administration Atorvastatin Calcium 10 mg 04/02/17 22:00 Lipitor - PO HS SHANIA Gabapentin 300 mg 04/02/17 06:00 04/02/17 15:15 Neurontin - PO 300 mg TID SHANIA Administration Heparin Sodium (Porcine) 5,000 unit 04/02/17 15:18 04/02/17 15:37 Heparin - SQ 5,000 unit TID SHANIA Administration Hydralazine HCl 100 mg 04/02/17 10:00 04/02/17 10:54 Apresoline - PO 100 mg BID SHANIA Administration Dextrose 1,000 mls @ 75 mls/hr 04/02/17 18:15 D10w - IV ASDIR SHANIA Pantoprazole Sodium 40 mg 04/02/17 10:00 04/02/17 10:54 Protonix - PO 40 mg DAILY SHANIA Administration ASSESSMENT/PLAN: 76 y.o. F with pmh of dementia, HTN, HLD, DM, CAD s/p stents, brain tumor s/p cyberknife presented after blacking out found to be hypoglycemic admitted for hypoglycemia and possible acute on chronic kidney disease. Hypoglycemia: -likely from Poor oral intake the past week - on glimepiride 2mg at home -last glucose reading 37 -continue IV fluids D10 75cc/hour -patient now eating, has appetite -will continue to monitor PRESTON: -likely from volume depletion -improving with IV fluids -now on D10 75cc/hour - U/A negative -Ucx pending - will continue to monitor SOB and Chest Pain: -Hx of CAD s/p stents -trops negative X 2 -will contact PCP for cardiac history -Possible stress test tomorrow Hx of CAD -Start Aspirin 81 mg po daily -Continue Lipitor 10 mg po HTN -Continue norvasc 10 mg po daily -Continue hydralazine 100 mg po bid FEN -D10 @ 75cc/hour -WNL -NPO after midnight Visit type - Emergency Visit Emergency Visit: Yes ED Registration Date: 04/01/17 Care time: The patient presented to the Emergency Department on the above date and was hospitalized for further evaluation of their emergent condition. - New Patient This patient is new to me today: Yes Date on this admission: 04/02/17 - Critical Care Critical Care patient: No
--- NOTE | 2017-04-02 19:15 | PN ---
Teaching Attending Note Name of Resident: Mary Ayala ATTENDING PHYSICIAN STATEMENT I saw and evaluated the patient. I reviewed the resident's note and discussed the case with the resident. I agree with the resident's findings and plan as documented. SUBJECTIVE: no fever or chills . has no abd pain . no SOB . Reports exertional CP and CP at rest which lasts few min OBJECTIVE: NAD , awake and alert CV: RRR. Lungs : CTAB ex : no edema ASSESSMENT AND PLAN: 76 y/o lady with h/o HTN, HLD, DM, CAD s/p stents, brain tumor s/p cyberknife who presented with AMS and was found to have profound hypoglycemia 1- Severe hypoglyemia : with metabolic encephalopahty . probably due to suphunyluria in the setting of decreased po intake. - sugar still low with D5, switch to D10 . - monitor sugar q 6 hrs. - hold glemipiride 2- Exertional CP : not sure of her cardiac hx or of recent Stress test . EKG with no acute ischemic changes adn nL trop - Clinic called, will provide more info in am - keep NPO after, for possible stress test - echo 3- PRESTON on CKD: likely prerenal in etiology. - cont IVF - renal US with no acute etiology - urine electrolytes pending 4- HTN: cont HZn and NOrvasc. hold lisinopril/HCTZ
[2017-04-02] MEDS: ATORVASTATIN CA 10 MG TABLET (FP) PO SCH (21:38)
[2017-04-03] MEDS: GABAPENTIN 300 MG CAPSULE (FP) PO SCH ×3 (05:51→21:39)
[2017-04-03] MEDS: HEPARIN NA (PORCINE) 5,000 UNITS/ML 1ML VIAL SQ SCH ×3 (05:51→21:39)
[2017-04-03 07:34] LABS: MCH 26.9 pg (25.7-33.7); MCHC 32.7 g/dl (32.0-36.0); MEAN CELL VOLUME 82.1 fl (80-96); MEAN PLT VOLUME 9.6 fl (7.5-11.1); PLATELET COUNT 143 K/MM3 (134-434); RDW 15.5 % (11.6-15.6); WHITE BLOOD COUNT 5.7 K/mm3 (4.0-10.0)
[2017-04-03 07:56] LABS: ANION GAP 5 (8-16); CALCIUM 8.1 mg/dL (8.5-10.1); CO2 25 mmol/L (21-32); CREATININE 2.2 mg/dL (0.55-1.02); GLUCOSE,RANDOM 122 mg/dL (74-106); MAGNESIUM 2.1 mg/dL (1.8-2.4)
[2017-04-03] MEDS ORDERED: DEXTROSE 5%-WATER - 1,000 ML IV SCH ×3 (08:00→14:15)
[2017-04-03] MEDS: hydrALAZINE HCL 50 MG TABLET (FP) PO SCH ×2 (10:33→21:40)
[2017-04-03] MEDS: amLODIPine BESYLATE 10 MG TABLET (FP) PO SCH (10:33)
[2017-04-03] MEDS: PANTOPRAZOLE 40 MG TABLET (FP) PO SCH (10:33)
[2017-04-03] MEDS: ASPIRIN 81 MG CHEWABLE TABLETS PO SCH (10:33)
[2017-04-03 10:57] LABS: URINE APPEARANCE CLEAR; URINE BILIRUBIN NEGATIVE (NEGATIVE); URINE BLOOD NEGATIVE (NEGATIVE); URINE COLOR STRAW; URINE GLUCOSE (UA) NEGATIVE (NEGATIVE); URINE KETONE NEGATIVE (NEGATIVE); URINE LEUK ESTERASE NEGATIVE (NEGATIVE); URINE NITRITE NEGATIVE (NEGATIVE); URINE PROTEIN NEGATIVE (NEGATIVE); URINE UROBILINOGEN NEGATIVE mg/dL (0.2-1.0)
--- NOTE | 2017-04-03 13:12 | PN ---
Physical Exam: SUBJECTIVE: Patient seen and examined. No acute events over night. She says she felt better after she noticed her sugar levels went up. She denies abdominal pain, chest pain, dizzines, headache and nausea/vomiting. OBJECTIVE: Vital Signs Period Temp Pulse Resp BP Sys/Leonardo Pulse Ox Last 24 Hr 98 F-98.6 F 77-88 18-20 121-136/66-75 GENERAL: The patient is awake, alert, and fully oriented, in no acute distress. HEAD: Normal with no signs of trauma. EYES: PERRL, extraocular movements intact, sclera anicteric, conjunctiva clear. ENT: oropharynx clear without exudates, moist mucous membranes. NECK: supple. LUNGS: Breath sounds equal, clear to auscultation bilaterally, no wheezes, no crackles, no accessory muscle use. HEART: Regular rate and rhythm, S1, S2 without murmur, rub or gallop. ABDOMEN: +BS, soft, nontender, non distended, noguarding, no rebound, no hepatosplenomegaly, no masses. EXTREMITIES: 2+ pulses, warm, well-perfused, no edema. decreased sensation on right LE digits. NEUROLOGICAL: Cranial nerves II through XII grossly intact. Normal speech, gait not observed. PSYCH: Normal mood, normal affect. SKIN: Warm, dry, normal turgor, no rashes or lesions noted Laboratory Results - last 24 hr 04/02/17 04/02/17 04/03/17 17:33 21:24 01:30 WBC RBC Hgb Hct MCV MCH MCHC RDW Plt Count MPV Sodium 140 Potassium Chloride Carbon Dioxide Anion Gap BUN Creatinine POC Glucometer 38 160 Random Glucose Calcium Phosphorus Magnesium Urine Color Urine Appearance Urine pH Ur Specific [place] Urine Protein Urine Glucose (UA) Urine Ketones Urine Blood Urine Nitrite Urine Bilirubin Urine Urobilinogen 04/03/17 04/03/17 04/03/17 04:30 05:58 06:00 WBC 5.7 RBC 3.32 L Hgb 8.9 L Hct 27.3 L MCV 82.1 MCH 26.9 MCHC 32.7 RDW 15.5 Plt Count 143 MPV 9.6 Sodium Potassium Chloride Carbon Dioxide Anion Gap BUN Creatinine POC Glucometer 134 136 Random Glucose Calcium Phosphorus Magnesium Urine Color Urine Appearance Urine pH Ur Specific [place] Urine Protein Urine Glucose (UA) Urine Ketones Urine Blood Urine Nitrite Urine Bilirubin Urine Urobilinogen 04/03/17 04/03/17 04/03/17 06:00 10:00 11:03 WBC RBC Hgb Hct MCV MCH MCHC RDW Plt Count MPV Sodium 140 Potassium 4.4 Chloride 110 H Carbon Dioxide 25 Anion Gap 5 L BUN 53 H Creatinine 2.2 H D POC Glucometer 114 Random Glucose 122 H D Calcium 8.1 L Phosphorus 4.0 Magnesium 2.1 Urine Color Straw Urine Appearance Clear Urine pH 6.0 Ur Specific [place] 1.010 Urine Protein Negative Urine Glucose (UA) Negative Urine Ketones Negative Urine Blood Negative Urine Nitrite Negative Urine Bilirubin Negative Urine Urobilinogen Negative Active Medications Generic Name Dose Route Start Last Admin Trade Name Freq PRN Reason Stop Dose Admin Amlodipine Besylate 10 mg 04/02/17 10:00 04/03/17 10:33 Norvasc - PO 10 mg DAILY SHANIA Administration Aspirin 81 mg 04/02/17 10:00 04/03/17 10:33 Asa - PO 81 mg DAILY SHANIA Administration Atorvastatin Calcium 10 mg 04/02/17 22:00 04/02/17 21:38 Lipitor - PO 10 mg HS SHANIA Administration Gabapentin 300 mg 04/02/17 06:00 04/03/17 05:51 Neurontin - PO Not Given TID SHANIA Heparin Sodium (Porcine) 5,000 unit 04/02/17 15:18 04/03/17 05:51 Heparin - SQ 5,000 unit TID SHANIA Administration Hydralazine HCl 100 mg 04/02/17 10:00 04/03/17 10:33 Apresoline - PO 100 mg BID SHANIA Administration Dextrose 1,000 mls @ 50 mls/hr 04/03/17 08:00 D5w - IV .[id number] SHANIA Dextrose 1,000 mls @ 50 mls/hr 04/03/17 10:00 04/03/17 10:33 D5w - IV 50 mls/hr ASDIR SHANIA Administration Pantoprazole Sodium 40 mg 04/02/17 10:00 04/03/17 10:33 Protonix - PO 40 mg DAILY SHANIA Administration ASSESSMENT/PLAN: 76 y.o. F with pmh of dementia, HTN, HLD, DM, CAD s/p stents, brain tumor s/p cyberknife presented after blacking out found to be hypoglycemic admitted for hypoglycemia and possible acute on chronic kidney disease. Hypoglycemia: -improving, likely from Poor oral intake the past week and glimepiride use at home. - on glimepiride 2mg at home. Now held -last glucose reading 114 -continue IV fluids D5 50cc/hour -patient now eating, has appetite -will continue to monitor PRESTON: -improving likely from volume depletion -creatinine 2.2 (baseline per PCP is 2) -improving with IV fluids -now on D5 50cc/hour - U/A negative -UcX negative - will continue to monitor SOB and Chest Pain: -Hx of CAD s/p stents -trops negative X 2 -scheduled for stress test today. -f/u Hx of CAD -Start Aspirin 81 mg po daily -Continue Lipitor 10 mg po HTN -Continue norvasc 10 mg po daily -Continue hydralazine 100 mg po bid FEN -D5 @ 50/hour -WNL -Low sodium diet Visit type - Emergency Visit Emergency Visit: Yes ED Registration Date: 04/01/17 Care time: The patient presented to the Emergency Department on the above date and was hospitalized for further evaluation of their emergent condition. - New Patient This patient is new to me today: Yes Date on this admission: 04/04/17 - Critical Care Critical Care patient: No
[2017-04-03] MEDS ORDERED: DEXTROSE 10%-WATER - 1,000 ML IV SCH (13:30)
[2017-04-03] MEDS ORDERED: DEXTROSE 5% IVPB ONE (15:00)
[2017-04-03] MEDS ORDERED: WATER IVPB ONE (15:00)
[2017-04-03] MEDS ORDERED: DIPYRIDAMOLE STRESS TEST IVPB ONE (15:00)
--- NOTE | 2017-04-03 16:02 | PN ---
Teaching Attending Note Name of Resident: Mary Ayala ATTENDING PHYSICIAN STATEMENT I saw and evaluated the patient. I reviewed the resident's note and discussed the case with the resident. I agree with the resident's findings and plan as documented. SUBJECTIVE: no pain , no fever no chills. OBJECTIVE: NAD , awake and alert CV: RRR. Lungs : CTAB ex : no edema ASSESSMENT AND PLAN: 76 y/o lady with h/o HTN, HLD, DM, CAD s/p stents, brain tumor s/p cyberknife who presented with AMS and was found to have profound hypoglycemia 1- Severe hypoglyemia : with metabolic encephalopahty . probably due to gemiperide in the setting of decreased po intake. - switch to D5 1/2 NS . might stop IVF tomorrow and watch off D5 - monitor sugar q 6 hrs. - hold glemipiride . A1c 6.7 , she might not need any oral meds at this time 2- Exertional CP and chest pain at rest. - Stress test today neg - resume diet after test 3- PRESTON on CKD: likely prerenal in etiology. Cr close to base line now - cont IVF - renal US with no acute etiology 4- HTN: cont HZn and NOrvasc. hold lisinopril/HCTZ until renal function stabilize. will probably not resume HCTZ Dispo: HLOC
[2017-04-03] MEDS ORDERED: DEXTROSE 5%-0.45% SALINE 1,000 ML IV SCH (16:15)
[2017-04-03] MEDS: ATORVASTATIN CA 10 MG TABLET (FP) PO SCH (21:39)
[2017-04-04] MEDS: HEPARIN NA (PORCINE) 5,000 UNITS/ML 1ML VIAL SQ SCH ×3 (06:33→22:13)
[2017-04-04] MEDS: GABAPENTIN 300 MG CAPSULE (FP) PO SCH ×3 (06:33→22:13)
[2017-04-04 08:59] LABS: ANION GAP 11 (8-16); CO2 22 mmol/L (21-32); GLUCOSE,RANDOM 101 mg/dL (74-106)
[2017-04-04] MEDS: PANTOPRAZOLE 40 MG TABLET (FP) PO SCH (09:58)
[2017-04-04] MEDS: hydrALAZINE HCL 50 MG TABLET (FP) PO SCH ×2 (09:58→22:13)
[2017-04-04] MEDS: amLODIPine BESYLATE 10 MG TABLET (FP) PO SCH (09:58)
[2017-04-04] MEDS: ASPIRIN 81 MG CHEWABLE TABLETS PO SCH (09:58)
--- NOTE | 2017-04-04 16:29 | PN ---
Teaching Attending Note Name of Resident: Mary Ayala ATTENDING PHYSICIAN STATEMENT I saw and evaluated the patient. I reviewed the resident's note and discussed the case with the resident. I agree with the resident's findings and plan as documented. SUBJECTIVE: no fever or chills . n o events over night ASSESSMENT AND PLAN: 76 y/o lady with h/o HTN, HLD, DM, CAD s/p stents, brain tumor s/p cyberknife who presented with AMS and was found to have profound hypoglycemia 1- Severe hypoglyemia : with metabolic encephalopahty . due to gelemipiride. resolved , now hyperglycemic - will switch to januvia , with dose adjusted to her renal function 2- Exertional CP and chest pain at rest. - Neg stress test. f/u as outpt 3- PRESTON on CKD: resolved . now at base line 4- HTN: cont HZn and NOrvasc. resume lisinopril , not HCTZ DC home
--- NOTE | 2017-04-04 19:40 | PN ---
Physical Exam: SUBJECTIVE: Patient seen and examined. No acute events over night. SHe does not offer any complaints. She has been eating and drinking without any issues. She denied nausea, vomiting, and dizziness. OBJECTIVE: Vital Signs Period Temp Pulse Resp BP Sys/Leonardo Pulse Ox Last 24 Hr 98.0 F-99.8 F 81-99 18-20 128-147/66-101 98-99 GENERAL: The patient is awake, alert, and fully oriented, in no acute distress. HEAD: Normal with no signs of trauma. EYES: PERRL, extraocular movements intact, sclera anicteric, conjunctiva clear. ENT: oropharynx clear without exudates, moist mucous membranes. NECK: supple. LUNGS: Breath sounds equal, clear to auscultation bilaterally, no wheezes, no crackles, no accessory muscle use. HEART: Regular rate and rhythm, S1, S2 without murmur, rub or gallop. ABDOMEN: Soft, No CVA tenderness today, , no tenderness. - murphys sign, nondistended, normoactive bowel sounds, no guarding, no rebound, no hepatosplenomegaly, no masses. EXTREMITIES: 2+ pulses, warm, well-perfused, no edema. decreased sensation on right LE digits. NEUROLOGICAL: Cranial nerves II through XII grossly intact. Normal speech, gait not observed. PSYCH: Normal mood, normal affect. SKIN: Warm, dry, normal turgor, no rashes or lesions noted Laboratory Results - last 24 hr 04/03/17 04/04/17 04/04/17 21:36 02:07 06:30 Sodium 143 Potassium 4.7 Chloride 110 H Carbon Dioxide 22 Anion Gap 11 BUN 47 H Creatinine 2.0 H POC Glucometer 204 121 Random Glucose 101 Calcium 9.0 04/04/17 04/04/17 04/04/17 06:34 10:50 14:43 Sodium Potassium Chloride Carbon Dioxide Anion Gap BUN Creatinine POC Glucometer 99 140 229 Random Glucose Calcium 04/04/17 17:07 Sodium Potassium Chloride Carbon Dioxide Anion Gap BUN Creatinine POC Glucometer 237 Random Glucose Calcium Active Medications Generic Name Dose Route Start Last Admin Trade Name Freq PRN Reason Stop Dose Admin Amlodipine Besylate 10 mg 04/02/17 10:00 04/04/17 09:58 Norvasc - PO 10 mg DAILY SHANIA Administration Aspirin 81 mg 04/02/17 10:00 04/04/17 09:58 Asa - PO 81 mg DAILY SHANIA Administration Atorvastatin Calcium 10 mg 04/02/17 22:00 04/03/17 21:39 Lipitor - PO 10 mg HS SHANIA Administration Gabapentin 300 mg 04/02/17 06:00 04/04/17 13:55 Neurontin - PO 300 mg TID SHANIA Administration Heparin Sodium (Porcine) 5,000 unit 04/02/17 15:18 04/04/17 13:54 Heparin - SQ 5,000 unit TID SHANIA Administration Hydralazine HCl 100 mg 04/02/17 10:00 04/04/17 09:58 Apresoline - PO 100 mg BID SHANIA Administration Insulin Aspart 1 vial 04/04/17 22:00 Novolog Vial Sliding Scale - SQ 04/05/17 00:00 ACHS [facility] Protocol Pantoprazole Sodium 40 mg 04/02/17 10:00 04/04/17 09:58 Protonix - PO 40 mg DAILY SHANIA Administration Sitagliptin Phosphate 25 mg 04/05/17 07:00 Januvia - PO DAILY@0700 [facility] ASSESSMENT/PLAN: 76 y.o. F with pmh of dementia, HTN, HLD, DM, CAD s/p stents, brain tumor s/p cyberknife presented after blacking out found to be hypoglycemic admitted for hypoglycemia and possible acute on chronic kidney disease. Hypoglycemia: -improved, now hyperglycemic -likely from Poor oral intake and home glimepiride use. -stopped glimeperide -Stopped IV fluids -patient now eating, has appetite -will continue to monitor -Will start Januvia likely tomorrow adjusted to renal function #PRESTON: -resolved. back at baseline -likely from volume depletion -improved with IV fluids -U/A negative -Ucx negative - will continue to monitor #SOB and Chest Pain: -Hx of CAD s/p stents -trops negative X 2 -negative stress test -f/u outpatient #Hx of CAD -Start Aspirin 81 mg po daily -Continue Lipitor 10 mg po #HTN -Continue norvasc 10 mg po daily -Continue hydralazine 100 mg po bid #FEN -Not on any fluids -WNL -Sodium controlled diet #DVT PPX: Heparin SQ Visit type - Emergency Visit Emergency Visit: Yes ED Registration Date: 04/01/17 Care time: The patient presented to the Emergency Department on the above date and was hospitalized for further evaluation of their emergent condition. - New Patient This patient is new to me today: No - Critical Care Critical Care patient: No
[2017-04-04] MEDS ORDERED: INSULIN SLIDING SCALE (NOVOLOG) 1 VIAL SQ SCH (22:00)
[2017-04-04] MEDS: ATORVASTATIN CA 10 MG TABLET (FP) PO SCH (22:13)
[2017-04-05] MEDS: HEPARIN NA (PORCINE) 5,000 UNITS/ML 1ML VIAL SQ SCH (06:01)
[2017-04-05] MEDS: GABAPENTIN 300 MG CAPSULE (FP) PO SCH (06:02)
[2017-04-05] MEDS ORDERED: sitaGLIPtin PHOSPHATE 25 MG TABLET (FP) PO SCH (07:00)
[2017-04-05] MEDS: hydrALAZINE HCL 50 MG TABLET (FP) PO SCH (11:11)
[2017-04-05] MEDS: ASPIRIN 81 MG CHEWABLE TABLETS PO SCH (11:12)
[2017-04-05] MEDS: amLODIPine BESYLATE 10 MG TABLET (FP) PO SCH (11:12)
[2017-04-05] MEDS: PANTOPRAZOLE 40 MG TABLET (FP) PO SCH (11:12)
[2017-04-05 13:03] VITALS: BP 137/80; PULSE 92; TEMP 97.7
--- NOTE | 2017-04-05 16:09 | PN ---
Teaching Attending Note Name of Resident: Chuck Rm ATTENDING PHYSICIAN STATEMENT I saw and evaluated the patient. I reviewed the resident's note and discussed the case with the resident. I agree with the resident's findings and plan as documented. SUBJECTIVE: no pain of fever , no SOB.. no events over night OBJECTIVE: NAD CV : RRR Lung s: CTAB ext: no edema abd: soft, NT, ND, NL BS A/P 76 y/o lady with h/o HTN, HLD, DM, CAD s/p stents, brain tumor s/p cyberknife who presented with AMS and was found to have profound hypoglycemia 1- Severe hypoglyemia : with metabolic encephalopahty . due to gelemipiride. resolved , - cont januvia at dc . avoid sulphonyluria products - educated about hypoglycemia sx and was prescribed a glucometer to check sugar TID 2- Exertional CP and chest pain at rest. - Neg stress test. f/u as outpt 3- PRESTON on CKD: resolved . now at base line 4- HTN: cont HZn and NOrvasc AND lisinopril , not HCTZ DC home
--- NOTE | 2017-04-05 16:50 | DS ---
Physical Exam: SUBJECTIVE: Patient seen and examined at bedside. Pt offers no new complaints. BLU overnight. OBJECTIVE: Vital Signs Period Temp Pulse Resp BP Sys/Leonardo Pulse Ox Last 24 Hr 97.7 F-98.1 F 78-92 20-20 136-147/63-89 98-99 PHYSICAL EXAM GENERAL: The patient is awake, alert, and oriented, in no acute distress. HEAD: Normal with no signs of trauma. EYES: extraocular movements intact, sclera anicteric, conjunctiva clear. ENT: Ears normal, nares patent NECK: Trachea midline, full range of motion, supple. LUNGS: Breath sounds equal, clear to auscultation bilaterally, no wheezes, no crackles, no accessory muscle use. HEART: Regular rate and rhythm, S1, S2 without murmur, rub or gallop. ABDOMEN: Soft, R flank pain (pt reports improvement in this pain), nondistended , normoactive bowel sounds, no guarding, no rebound, no hepatosplenomegaly, no masses. EXTREMITIES: 2+ pulses, warm, well-perfused, no edema. NEUROLOGICAL: Normal speech, gait not observed. PSYCH: Normal mood, normal affect. SKIN: Warm, dry LABS Laboratory Results - last 24 hr 04/04/17 04/04/17 04/05/17 17:07 22:12 05:57 POC Glucometer 237 263 88 HOSPITAL COURSE: Date of Admission:04/01/17 Date of Discharge: 04/05/17 76 y/o F w/PMH of dementia, HTN, HLD, DM, CAD s/p stents, brain tumor s/p cyberknife presented to the ER after syncope secondary to hypoglycemia. She was found to have a BGM of 26 as per EMS and pt had reported in ER that she had not been eating for "a while". Pt was on glimepiride at home for DM which was held at the hospital. Pt was treated with D10 for 2 days and then switched to D5. Pt' s hypoglycemia resolved while off glimepiride and januvia was started (renally dosed) near end of hospital stay. She was also found to have PRESTON on CKD (Cr on admission 3.7 which returned to baseline of 2) which was most likely secondary to dehydration. Renal U/S showed normal kidneys with increased echogenicity in both kidneys reflecting medical-renal disease similar to prior ultrasound. Pt also c/o of exertional chest pain during this hospital course. Myocardial perfusion scan showed normal ECG and perfusion w/LVEF of 58% and no ischemia. Echo was also done which showed only trace mitral regurg and mild aortic regurg. Pt discharged with instructions to stop taking glimepiride and to now take januvia instead and to measure BGMs three times a day, log sugars, and show to PCP. Glucometer and strips prescription sent to pharmacy. Pt also instructed to stop taking HCTZ. Also instructed to f/u with PCP w/in one week. Minutes to complete discharge: 45 Discharge Summary Reason For Visit: PNEUMONIA Current Active Problems PRESTON (acute kidney injury) (Acute) Acute dyspnea (Acute) Chest pain, atypical (Acute) Dehydration (Acute) Dizziness (Acute) Epigastric abdominal pain (Acute) Condition: Improved - Instructions Diet, Activity, Other Instructions: You were admitted in the hospital because of very low sugar levels and dehydration. Your low sugar level was likely because of the Glimeperide medication you were taking for your diabetes. Stop taking your glimperide You will be started on Januvia 25 mg to take once a day for your diabetes. Please check your blood glucose/sugar levels three times a day and keep a log of the numbers to show to your primary care physician on your next visit so that any adjustments necessary for your medications can be made. You will stop taking your combination medication of lisinopril/ hydrochlorothiazide. For your blood pressure you will take only lisinopril (a new prescription will be sent to your pharmacy), and you are to continue taking norvasc (also known as amlodipine), and hydralazine as you were taking at home previously. Please only take the medications that we discharged you with until you see your primary care physician. Please follow with your primary care physician within 1 week. Stay hydrated and drink fluids. If you begin to feel light-headed, dizzy, sweaty call your primary care doctor or come to the ER. If you feel these symptoms make sure your blood glucose/ sugar levels are not low and if they are drink some juice and eat some crackers. Referrals: Jinny Booth MD [Primary Care Provider] - 1 Week Disposition: VNS/HOME HEALTH CARE - Home Medications Comprehensive Discharge Medication List: Ambulatory Orders Amlodipine Besylate [Norvasc -] 5 mg PO DAILY 01/22/14 Atorvastatin Ca [Lipitor] 10 mg PO HS 01/22/14 Gabapentin [Neurontin] 300 mg PO TID 01/22/14 Hydralazine HCl 100 mg PO BID 01/22/14 Omeprazole 40 mg PO DAILY 09/08/16 Aspirin [ASA -] 81 mg PO DAILY tab.chew 04/05/17 Lisinopril [Prinivil] 20 mg PO DAILY #30 tablet 04/05/17 Miscellaneous Medical Supply [Glucometer Device] 1 each AD ASDIR #1 kit [employer] [Glucometer Test Strips #100] 1 each AD ASDIR #1 box 04/05/17 Sitagliptin Phosphate [Januvia -] 25 mg PO DAILY@0700 #30 tab 04/05/17 This patient is new to me today: Yes Date on this admission: 04/05/17 Emergency Visit: Yes ED Registration Date: 04/01/17 Care time: The patient presented to the Emergency Department on the above date and was hospitalized for further evaluation of their emergent condition. Critical Care patient: No - Discharge Referral Referred to [facility] Med P.C.: No
== END 2017-04-05 15:14 | disposition home health service (06) | DRG 682 ==
LOC: JER 19:13 → JERBED 21:59 → UNDOADMIN 23:11 → J8W 04-02 03:04
PROVIDERS: ADMIT Internal Medicine; ATTEND Internal Medicine
DX: N17.9 Acute kidney failure, unspecified (principal); G93.41 Metabolic encephalopathy; E11.649 Type 2 diabetes mellitus with hypoglycemia without coma; E86.0 Dehydration; I25.10 Atherosclerotic heart disease of native coronary artery without angina pectoris; Z98.61 Coronary angioplasty status; E78.5 Hyperlipidemia, unspecified; R06.02 Shortness of breath; I12.9 Hypertensive chronic kidney disease with stage 1 through stage 4 chronic kidney disease, or unspecified chronic kidney disease; E11.22 Type 2 diabetes mellitus with diabetic chronic kidney disease; N18.9 Chronic kidney disease, unspecified; R07.89 Other chest pain; F03.90 Unspecified dementia, unspecified severity, without behavioral disturbance, psychotic disturbance, mood disturbance, and anxiety; K21.9 Gastro-esophageal reflux disease without esophagitis; D63.1 Anemia in chronic kidney disease
CPT/HCPCS: 36415; 71010-TC; 76775-TC; 78452-TC; 80048; 80053; 81003; 82803; 83605; 83735; 84100; 84295; 84484; 85025; 85027; 85610; 85730; 86850; 86900; 86901; 87040; 87086; 87804; 93005; 93010; 93017; 93306-TC; 97116-GP; 97161-GP; 99283-25; A9502; J1644

== ENCOUNTER 2017-07-15 11:56 | Observation (INO) | payer OTHER ==
[2017-07-15 12:08] VITALS: BMI 31.2
[2017-07-15] MEDS ORDERED: METOPROLOL TARTRATE 5 MG/5 ML VIAL ONE (12:12)
[2017-07-15] MEDS ORDERED: LISINOPRIL 20 MG TABLET (FP) PO ONE ×2 (12:31→18:11)
--- NOTE | 2017-07-15 12:41 | PDOC ---
History of Present Illness - General Chief Complaint: Blood Pressure Problem Stated Complaint: FALL Time Seen by Provider: 07/15/17 12:06 History Source: Patient - History of Present Illness Initial Comments: 07/15/17 12:36 Patient is a 76F with history of HTN, DM, HLD, CAD s/p stenting, brain tumor s/ p cyberknife here today complaining of a fall. She states that she was trying to get up to go to the bathroom overnight, but states that she felt like she was unable to move. She says that she thinks she fell, but she might have also just slid to the floor. She is complaining of pain to her right hand and says that it hurts to move her right arm. She says she has a headache and feels dizzy , but this has been going on for a long time and cannot remember when it started. She endorses chills and some shortness of breath. She denies fevers, nausea, vomiting, cough and chest pain. She endorses some generalized weakness, denies any focal weakness. Katie Choi can be reached at [phone] with any updates. Past History - Past Medical History Allergies/Adverse Reactions: Allergies Allergy/AdvReac Type Severity Reaction Status Date / Time acetaminophen [From Percocet] Allergy Verified 04/01/17 19:22 oxycodone HCl [From Percocet] Allergy Swelling Verified 04/01/17 19:22 Home Medications: Ambulatory Orders Unobtainable [Unobtainable] 07/15/17 Cancer: Yes (brain tumors/neck tumors with sx) Cardiac Disorders: Yes COPD: No Dementia: Yes Diabetes: Yes HTN: Yes Hypercholesterolemia: Yes - Surgical History Cardiac Surgery: Yes (STENT PLACEMENT) Orthopedic Surgery: Yes (Spinal Sx yrs ago) - Immunization History Immunization Up to Date: Yes - Suicide/Smoking/Psychosocial Hx Smoking Status: No Smoking History: Never smoked Have you smoked in the past 12 months: No Number of Cigarettes Smoked Daily: 0 Information on smoking cessation initiated: No Hx Alcohol Use: No Drug/Substance Use Hx: No Substance Use Type: None Hx Substance Use Treatment: No Review of Systems - Review of Systems Comments:: 07/15/17 12:51 GENERAL/CONSTITUTIONAL: No fever. Positive for chills and diffuse weakness. HEAD, EYES, EARS, NOSE AND THROAT: No change in vision. No sore throat. CARDIOVASCULAR: No chest pain. Positive for shortness of breath. RESPIRATORY: No cough, wheezing, or hemoptysis. GASTROINTESTINAL: No nausea, vomiting, diarrhea or constipation. GENITOURINARY: No dysuria, frequency, or change in urination. MUSCULOSKELETAL: Pain in right arm and thumb. NEUROLOGIC: Positive for headache. Negative for loss of consciousness, or change in strength/sensation. ALLERGIC/IMMUNOLOGIC: No hives or skin allergy. *Physical Exam - Vital Signs Last Vital Signs Temp Pulse Resp BP Pulse Ox 97.5 F L 77 18 192/87 99 07/15/17 12:05 07/15/17 12:05 07/15/17 12:05 07/15/17 12:05 07/15/17 12:05 - Physical Exam Comments: 07/15/17 12:53 GENERAL: Awake, alert, and fully oriented, in no acute distress HEAD: No signs of trauma, normocephalic, atraumatic EYES: PERRLA, EOMI, sclera anicteric, conjunctiva clear ENT: Auricles normal inspection, hearing grossly normal, nares patent, oropharynx clear without exudates. Moist mucosa NECK: Normal ROM, supple, no lymphadenopathy, JVD, or masses, no midline tenderness LUNGS: No distress, speaks full sentences, clear to auscultation bilaterally HEART: Regular rate and rhythm, normal S1 and S2, no murmurs, rubs or gallops, peripheral pulses normal and equal bilaterally. ABDOMEN: Soft, nontender, normoactive bowel sounds. No guarding, no rebound. No masses EXTREMITIES: Normal inspection, Normal range of motion. Pitting edema bilaterallly No clubbing or cyanosis. NEUROLOGICAL: Cranial nerves II through XII grossly intact. Normal speech, 4/5 strength in upper extremities, 3/5 strength in lower extremities. R ARM: Neurovascularly intact, no ecchymosis or brusing, tender along right thumb, no snuffbox tenderness, no tenderness in elbow or shoulder. SKIN: Warm, Dry, normal turgor, no rashes or lesions noted. ED Treatment Course - LABORATORY CBC & Chemistry Diagram: 07/15/17 13:12 07/15/17 13:12 - RADIOLOGY Radiology Studies Ordered: Category Date Time Status HEAD CT (STROKE) [CT] Stat CT Scan 07/15/17 12:29 Ordered CHEST X-RAY PORTABLE* [RAD] Stat Radiology 07/15/17 12:30 Ordered Medical Decision Making - Medical Decision Making 07/15/17 12:55 76F with hsitory of HTN, DM, HLD, CAD s/p stenting, brain tumor s/p cyberknife here today with a fall. Vital signs notable for 192/87 BP after 5 of metoprolol in the field from EMS. Patient's story is inconsistent and does not seem reliable. Unsure of etiology of fall, is questionably syncope. Patient reports not taking blood pressure medications today, on hydralazine and lisinopril at home. Will give lisinopril home dose of 20mg. DDx is broad given unreliability of history, and includes but is not limited to: UTI, arrhythmia, mechanical fall , ACS, SAH/ICH, subdural hematoma. Will evaluate with CT head, cxr, cbc, cmp, trop, ekg, fingerstick glucose, x-rays. First EKG is poor quality. Only lead I has a stable baseline, has normal ND, QTc , QRS intervals. Rest of EKG is not useful. Fingerstick 150s. 07/15/17 15:38 Laboratory Tests 07/15/17 07/15/17 13:12 13:12 WBC 6.3 Hgb 11.2 D Hct 35.5 D Plt Count 146 BUN 22 H D Creatinine 1.8 H Troponin I < 0.02 CBC normal. Trop negative. Kidney function better than baseline. UA pending. 07/15/17 15:40 X-rays negative. CT head shows no acute changes. Does note that appearance is not typical for meningioma. CXR shows cardiomegaly, at baseline. No other acute cardiopulmonary process. 07/15/17 16:13 Repeat BP 181 systolic. Will admit to obs tele for syncope. 07/15/17 16:45 UA negative. Will admit to [place] to obs tele. 07/15/17 18:00 SBP 219, patient's last discharge summary shows her on hydralazine. Will give 10mg IV hydralazine. *DC/Admit/Observation/Transfer Diagnosis at time of Disposition: Syncope - Discharge Dispostion Condition at time of disposition: Stable Admit: Yes - Referrals - Patient Instructions - Post Discharge Activity
[2017-07-15] MEDS ORDERED: HEMOQUE TEST 1 EACH EACH ONE (12:55)
[2017-07-15] MEDS ORDERED: LISINOPRIL 20 MG TABLET (FP) ONE ×2 (13:10→19:14)
[2017-07-15] MEDS: SODIUM CHLORIDE 1,000 ML IV SCH (13:30)
--- NOTE | 2017-07-15 13:34 | PDOC ---
Attending Attestation - Resident Resident Name: Galindo Stroud - ED Attending Attestation I have performed the following: I have examined & evaluated the patient, The case was reviewed & discussed with the resident, I agree w/resident's findings & plan, Exceptions are as noted - HPI HPI: 07/15/17 13:32 76-year-old female with history of difficult to control hypertension, known medication noncompliance brought in by EMS after aide activated 911 because patient fell to the floor earlier today, injuring her right hand. Noted to be hypertensive, complaining of headache. No vomiting or vision changes, no focal neuro deficits, at baseline mental status with dementia. Patient was given Lopressor IV prior to arrival by EMS - Physicial Exam PE: 07/15/17 13:33 Blood pressure slightly improved, alert seated in stretcher, pleasant and answering questions Head is atraumatic, moving all extremities equally with baseline bilateral leg weakness, some right proximal first digit tenderness without deformity or swelling. - Medical Decision Making 07/15/17 13:33 Patient seen and evaluated with the resident. I agree with the overall evaluation, assessment, and management with the following summary of visit: 76-year-old female with fall, found to be hypertensive complaining of headache. Question syncope, episode was unwitnessed and patient has dementia. Question cardiac versus neuro, seems most consistent with long-standing uncontrolled hypertension. Labs, urinalysis, EKG CT head, right hand x-ray from the injury perspective Likely overnight monitoring on telemetry
[2017-07-15 13:38] LABS: BASO % 0.9 % (0-2.0); EOS % 3.7 % (0-4.5); HEMATOCRIT 35.5 % (32.4-45.2); HEMOGLOBIN 11.2 GM/dL (10.7-15.3); MCH 26.5 pg (25.7-33.7); MCHC 31.7 g/dl (32.0-36.0); MEAN CELL VOLUME 83.9 fl (80-96); MEAN PLT VOLUME 9.8 fl (7.5-11.1); MONO % 7.5 % (3.8-10.2); NEUT % 60.9 % (42.8-82.8); PLATELET COUNT 146 K/MM3 (134-434); RBC 4.23 M/mm3 (3.60-5.2); RDW 15.4 % (11.6-15.6); WHITE BLOOD COUNT 6.3 K/mm3 (4.0-10.0)
[2017-07-15 13:54] LABS: INR 0.94 (0.82-1.09); PROTHROMBIN TIME (PATIENT) 10.6 SEC (9.98-11.88)
[2017-07-15 14:02] LABS: ALBUMIN 3.2 g/dl (3.4-5.0); ANION GAP 8 (8-16); BILIRUBIN,TOTAL 0.4 mg/dL (0.2-1.0); BLOOD UREA NITROGEN 22 mg/dL (7-18); CALCIUM 8.9 mg/dL (8.5-10.1); CHLORIDE 111 mmol/L (98-107); CHOLESTEROL 200 mg/dL (50-200); CO2 25 mmol/L (21-32); CREATININE 1.8 mg/dL (0.55-1.02); GLUCOSE,RANDOM 141 mg/dL (74-106); POTASSIUM 4.6 mmol/L (3.5-5.1); SGOT/AST 28 U/L (15-37); SGPT/ALT 27 U/L (12-78); SODIUM 144 mmol/L (136-145); TOT PROT 7.8 g/dl (6.4-8.2); TRIGLYCERIDES 117 mg/dL (35-160)
[2017-07-15 14:59] LABS: URINE APPEARANCE CLEAR; URINE BILIRUBIN NEGATIVE (NEGATIVE); URINE BLOOD NEGATIVE (NEGATIVE); URINE COLOR STRAW; URINE GLUCOSE (UA) 1+ (NEGATIVE); URINE KETONE NEGATIVE (NEGATIVE); URINE LEUK ESTERASE TRACE (NEGATIVE); URINE NITRITE NEGATIVE (NEGATIVE); URINE UROBILINOGEN NEGATIVE mg/dL (0.2-1.0)
[2017-07-15 15:15] LABS: URINE PROTEIN 2+ (NEGATIVE)
[2017-07-15 15:43] LABS: N-TERMINAL BNP 368 pg/ml (5-125)
[2017-07-15 15:45] LABS: ALK PHOS 111 U/L (45-117); HDL CHOLESTEROL 66 mg/dL (40-60); LDL CHOLESTEROL (ONLY SJRH) 119 mg/dL (5-100)
[2017-07-15 15:48] LABS: EPI CELLS FEW /HPF (FEW); URINE BACTERIA FEW /hpf (NONE SEEN)
--- NOTE | 2017-07-15 17:45 | HP ---
CHIEF COMPLAINT: "I fell. I'm helpless." PCP: Dr. Castillo HISTORY OF PRESENT ILLNESS: 75 year-old woman with a PMH significant for HTN, HLD, CAD s/p stents, NIDDM, chronic pancreatitis, dementia, and a brain tumor s/p cyberknife. Patient brought in by EMS after a fall. It is not clear from patient (poor historian), or from the chart, if this was a witnessed or unwitnessed fall. EMS found patient to be hypertensive to the 220's systolic and gave metoprolol 5mg x 1 in the field. In the ED patient complains of a bitermporal headache which she states his her usual "tension" headache. She also complains of weakness and feeling ill all the time. She denies fever, sweats, chills. She denies nausea, vomiting, diarrhea. She denies chest pain, SOB, CORTES, orthopnea, or lower extremity edema. Daughter Kelly Choi [phone] ER course was notable for: (1) BP 219/105 (2) Lisinopril 20mg x 1 (3) Recent Travel: Unknown PAST MEDICAL HISTORY: Hypertension Hyperlipidemia Coronary artery disease NIDDM Chronic pancreatitis PAST SURGICAL HISTORY: Cardiac stents Social History: Smoking: no Alcohol: no Drugs: no Family History: Allergies acetaminophen [From Percocet] Allergy (Verified 04/01/17 19:22) oxycodone HCl [From Percocet] Allergy (Verified 04/01/17 19:22) Swelling hives REVIEW OF SYSTEMS Unble to obtain. Patient poor historian, cannot give history. PHYSICAL EXAMINATION Vital Signs - 24 hr 07/15/17 07/15/17 07/15/17 12:05 13:00 13:01 Temperature 97.5 F L Pulse Rate 77 80 Pulse Rate [ 80 Apical] Respiratory 18 18 Rate Blood Pressure 192/87 Blood Pressure 191/93 [Left Arm] O2 Sat by Pulse 99 98 98 Oximetry (%) 07/15/17 07/15/17 16:42 17:45 Temperature Pulse Rate Pulse Rate [ 77 80 Apical] Respiratory 18 18 Rate Blood Pressure Blood Pressure 181/94 219/105 [Left Arm] O2 Sat by Pulse 100 100 Oximetry (%) GENERAL: A&Ox2, in no acute distress. HEAD: Normal with no signs of trauma. EYES: Pupils equal, round and reactive to light, extraocular movements intact, sclera anicteric, conjunctiva clear. No lid lag. EARS, NOSE, THROAT: Ears normal, nares patent, oropharynx clear without exudates. Moist mucous membranes. NECK: Normal range of motion, supple without lymphadenopathy, JVD, or masses. LUNGS: Breath sounds equal, clear to auscultation bilaterally. No wheezes, and no crackles. No accessory muscle use. HEART: Regular rate and rhythm, normal S1 and S2, + murmur ABDOMEN: Soft, nontender, not distended, normoactive bowel sounds, no guarding, no rebound, no masses. No hepatomegaly or splenomegaly. MUSCULOSKELETAL: Normal range of motion at all joints. No bony deformities or tenderness. No CVA tenderness. UPPER EXTREMITIES: 2+ pulses, warm, well-perfused. No cyanosis. No clubbing. No peripheral edema. LOWER EXTREMITIES: 2+ pulses, warm, well-perfused. No calf tenderness. 1+ bilateral edema. NEUROLOGICAL: Cranial nerves II-XII intact. Normal speech. Gait not observed. SKIN: Warm, dry, normal turgor Laboratory Results - last 24 hr 07/15/17 07/15/17 07/15/17 12:58 13:12 13:12 WBC 6.3 RBC 4.23 D Hgb 11.2 D Hct 35.5 D MCV 83.9 MCH 26.5 MCHC 31.7 L RDW 15.4 Plt Count 146 MPV 9.8 Neutrophils % 60.9 Lymphocytes % 27.0 D Monocytes % 7.5 Eosinophils % 3.7 D Basophils % 0.9 PT with INR 10.60 INR 0.94 Sodium Potassium Chloride Carbon Dioxide Anion Gap BUN Creatinine Creat Clearance w eGFR POC Glucometer [phone] Random Glucose Calcium Total Bilirubin AST ALT Alkaline Phosphatase Creatine Kinase Troponin I B-Natriuretic Peptide Total Protein Albumin Triglycerides Cholesterol Total LDL Cholesterol HDL Cholesterol Urine Color Urine Appearance Urine pH Ur Specific [place] Urine Protein Urine Glucose (UA) Urine Ketones Urine Blood Urine Nitrite Urine Bilirubin Urine Urobilinogen Urine WBC (Auto) Urine RBC (Auto) Ur Epithelial Cells Urine Bacteria Blood Type Antibody Screen 07/15/17 07/15/17 07/15/17 13:12 13:38 14:50 WBC RBC Hgb Hct MCV MCH MCHC RDW Plt Count MPV Neutrophils % Lymphocytes % Monocytes % Eosinophils % Basophils % PT with INR INR Sodium 144 Potassium 4.6 Chloride 111 H Carbon Dioxide 25 Anion Gap 8 BUN 22 H D Creatinine 1.8 H Creat Clearance w eGFR 27.50 POC Glucometer Random Glucose 141 H D Calcium 8.9 Total Bilirubin 0.4 D AST 28 ALT 27 Alkaline Phosphatase 111 D Creatine Kinase 90 Troponin I < 0.02 B-Natriuretic Peptide 368 H Total Protein 7.8 Albumin 3.2 L Triglycerides 117 Cholesterol 200 D Total LDL Cholesterol 119 H HDL Cholesterol 66 H Urine Color Straw Urine Appearance Clear Urine pH 7.0 Ur Specific [place] 1.009 Urine Protein 2+ H Urine Glucose (UA) 1+ H Urine Ketones Negative Urine Blood Negative Urine Nitrite Negative Urine Bilirubin Negative Urine Urobilinogen Negative Urine WBC (Auto) 4 Urine RBC (Auto) 1 Ur Epithelial Cells Few Urine Bacteria Few Blood Type O POSITIVE Antibody Screen Negative ASSESSMENT/PLAN: 75 year-old woman with a PMH significant for HTN, HLD, CAD s/p stents, NIDDM, chronic pancreatitis, dementia, and a brain tumor s/p cyberknife treatment. Placed on observation for an unwitnessed fall, presumed syncopal episode. Fall at home --imaging of right elbow, right hip and pelvis, right shoulder and right hand negative for gross fracture or dislocation Right parietal lesion --07/15 CT head: right parietal lesion initially seen 01/25/2008, appears to be mainly extra axial, and is unchanged; however, its appearance is not typical for what was previously described as a meningioma; recommend contrast MRI to further evaluate, ordered Syncope --r/o ACS: first troponin negative, two pending --serial ECGs --CXR unremarkable --echo 04/03/17: LV normal; RV normal; trace MR; mild AI --persantine stress test 04/01/17: normal ECG, normal myocardial perfusion; LV 58% --US carotids ordered --telemetry monitoring to r/o arrythmias --cardiology consult --r/o neuro --CT head negative for acute pathology; MRI brain pending Chronic kidney disease --Cr 1.8 which is baseline --hold Lisinopril Hypertension --continue amlodipine, hydralazine Hyperlipidemia --continue Lipitor Coronary artery disease --not on beta kira or ASA --continue Lipitor NIDDM --Novolog sliding scale coverage Chronic pancreatitis --no acute issues Dementia --appears to be at baseline FEN Fluids: PO intake adequate Electrolytes: replete as indicated Nutrition: low sodium, diabetic DVT prohylaxis: subq heparin, oob, ambulation Physical therapy evaluation Dispo: continues to require observation. Visit type - Emergency Visit Emergency Visit: Yes ED Registration Date: 07/15/17 Care time: The patient presented to the Emergency Department on the above date and was hospitalized for further evaluation of their emergent condition. - New Patient This patient is new to me today: Yes Date on this admission: 07/15/17 - Critical Care Critical Care patient: No
[2017-07-15] MEDS ORDERED: hydrALAZINE HCL 20 MG/ML VIAL IVPUSH ONE (17:56)
[2017-07-15] MEDS ORDERED: hydrALAZINE HCL 20 MG/ML VIAL ONE (17:58)
[2017-07-15] MEDS ORDERED: amLODIPine BESYLATE 5 MG TABLET (FP) PO SCH (18:15)
[2017-07-15] MEDS: PANTOPRAZOLE 40 MG TABLET (FP) PO SCH (19:00)
[2017-07-15] MEDS: ASPIRIN COATED 81 MG TABLET.EC PO SCH (19:00)
[2017-07-15] MEDS ORDERED: ASPIRIN COATED 81 MG TABLET.EC ONE (19:14)
[2017-07-15] MEDS ORDERED: amLODIPine BESYLATE 5 MG TABLET (FP) ONE (19:14)
[2017-07-15] MEDS ORDERED: PANTOPRAZOLE 40 MG TABLET (FP) ONE (19:14)
[2017-07-15] MEDS ORDERED: hydrALAZINE HCL 25 MG TABLET (FP) PO SCH (22:00)
[2017-07-15] MEDS ORDERED: GABAPENTIN 300 MG CAPSULE (FP) PO SCH (22:00)
[2017-07-15] MEDS ORDERED: GABAPENTIN 100 MG CAPSULE (FP) ONE (22:11)
[2017-07-15] MEDS ORDERED: hydrALAZINE HCL 25 MG TABLET (FP) ONE (22:11)
[2017-07-15] MEDS: GABAPENTIN 100 MG CAPSULE (FP) PO SCH (22:22)
[2017-07-15] MEDS: ATORVASTATIN CA 10 MG TABLET (FP) PO SCH (22:22)
[2017-07-15] MEDS: INSULIN SLIDING SCALE (NOVOLOG) 1 VIAL SQ SCH (22:22)
[2017-07-15] MEDS ORDERED: INSULIN (NOVOLOG) ASPART 100 UNITS/ML 10ML VIAL ONE (22:26)
[2017-07-16] MEDS ORDERED: GABAPENTIN 100 MG CAPSULE (FP) ONE ×2 (06:01→14:26)
[2017-07-16] MEDS: GABAPENTIN 100 MG CAPSULE (FP) PO SCH ×3 (06:17→21:34)
[2017-07-16] MEDS: INSULIN SLIDING SCALE (NOVOLOG) 1 VIAL SQ SCH ×4 (06:18→22:55)
[2017-07-16 07:26] LABS: BASO % 0.2 % (0-2.0); EOS % 2.6 % (0-4.5); HEMATOCRIT 38.4 % (32.4-45.2); HEMOGLOBIN 12.2 GM/dL (10.7-15.3); LYMPH % 30.2 % (8-40); MCH 26.5 pg (25.7-33.7); MCHC 31.8 g/dl (32.0-36.0); MEAN CELL VOLUME 83.4 fl (80-96); MEAN PLT VOLUME 9.6 fl (7.5-11.1); PLATELET COUNT 142 K/MM3 (134-434); RBC 4.61 M/mm3 (3.60-5.2); RDW 15.1 % (11.6-15.6); WHITE BLOOD COUNT 8.6 K/mm3 (4.0-10.0)
[2017-07-16 07:49] LABS: ALBUMIN 3.4 g/dl (3.4-5.0); ALK PHOS 101 U/L (45-117); ANION GAP 11 (8-16); BILIRUBIN,TOTAL 0.6 mg/dL (0.2-1.0); BLOOD UREA NITROGEN 23 mg/dL (7-18); CALCIUM 9.1 mg/dL (8.5-10.1); CHLORIDE 109 mmol/L (98-107); CO2 23 mmol/L (21-32); CREATININE 1.9 mg/dL (0.55-1.02); GLUCOSE,RANDOM 147 mg/dL (74-106); SGPT/ALT 28 U/L (12-78); SODIUM 143 mmol/L (136-145); TOT PROT 8.1 g/dl (6.4-8.2)
[2017-07-16] MEDS ORDERED: amLODIPine BESYLATE 10 MG TABLET (FP) PO SCH (07:50)
[2017-07-16 08:07] LABS: INR 0.91 (0.82-1.09); PROTHROMBIN TIME (PATIENT) 10.3 SEC (9.98-11.88)
[2017-07-16 08:08] LABS: ACTIVATED PTT 30.8 SECONDS (26.9-34.4)
[2017-07-16] MEDS ORDERED: hydrALAZINE HCL 25 MG TABLET (FP) PO STA (08:18)
[2017-07-16] MEDS ORDERED: hydrALAZINE HCL 25 MG TABLET (FP) ONE (08:19)
[2017-07-16] MEDS ORDERED: amLODIPine BESYLATE 5 MG TABLET (FP) ONE (08:19)
[2017-07-16] MEDS: amLODIPine BESYLATE 10 MG TABLET (FP) PO SCH ×2 (08:24→09:44)
[2017-07-16 08:43] LABS: POTASSIUM 4.6 mmol/L (3.5-5.1)
[2017-07-16 08:44] LABS: MAGNESIUM 2.2 mg/dL (1.8-2.4); SGOT/AST 33 U/L (15-37)
--- NOTE | 2017-07-16 09:31 | EKG ---
Test Reason : Blood Pressure : / mmHG Vent. Rate : 074 BPM Atrial Rate : 074 BPM P-R Int : 138 ms QRS Dur : 100 ms QT Int : 424 ms P-R-T Axes : 051 -43 -12 degrees QTc Int : 470 ms NORMAL SINUS RHYTHM LEFT AXIS DEVIATION NONSPECIFIC ST ABNORMALITY ABNORMAL ECG Confirmed by MD Herbert, Chevy ([id number]) on 07/16/2017 9:30:46 AM Referred By: Confirmed By:Chevy Godinez MD
--- NOTE | 2017-07-16 09:32 | EKG ---
Test Reason : Blood Pressure : / mmHG Vent. Rate : 077 BPM Atrial Rate : 077 BPM P-R Int : 160 ms QRS Dur : 100 ms QT Int : 536 ms P-R-T Axes : 000 -51 -74 degrees QTc Int : 606 ms NORMAL SINUS RHYTHM LEFT AXIS DEVIATION INCOMPLETE RIGHT BUNDLE BRANCH BLOCK ABNORMAL ECG NONSPECIFIC T WAVE ABNORMALITY Confirmed by MD Godinez Edward ([id number]) on 07/16/2017 9:32:19 AM Referred By: Confirmed By:Chevy Godinez MD
[2017-07-16] MEDS: ASPIRIN COATED 81 MG TABLET.EC PO SCH (09:44)
[2017-07-16] MEDS: PANTOPRAZOLE 40 MG TABLET (FP) PO SCH (09:44)
[2017-07-16] MEDS: HEPARIN NA (PORCINE) 5,000 UNITS/ML 1ML VIAL SQ SCH ×2 (09:44→21:33)
--- NOTE | 2017-07-16 10:26 | PN ---
Physical Exam: SUBJECTIVE: Patient seen and examined at bedside. Daughter present who states mother originally told her she became dizzy while sitting on the toilet. Daughter states patient has been followed for several years by Dr. Vegas. OBJECTIVE: Vital Signs Period Temp Pulse Resp BP Sys/Leonardo Pulse Ox Last 24 Hr 97.5 F 75-100 18-18 145-219/87-105 97-100 GENERAL: The patient is awake, alert, and fully oriented, in no acute distress. LUNGS: Breath sounds equal, clear to auscultation bilaterally, no wheezes, no crackles, no accessory muscle use. HEART: Regular rate and rhythm, S1, S2 without murmur, rub or gallop. ABDOMEN: Soft, nontender, nondistended, normoactive bowel sounds, no guarding, no rebound, no hepatosplenomegaly, no masses. EXTREMITIES: 2+ pulses, warm, well-perfused, no edema. NEUROLOGICAL: Cranial nerves II through XII grossly intact. Normal speech, moves all extremites freely. Laboratory Results - last 24 hr 07/15/17 07/15/17 07/15/17 12:58 13:12 13:12 WBC 6.3 RBC 4.23 D Hgb 11.2 D Hct 35.5 D MCV 83.9 MCH 26.5 MCHC 31.7 L RDW 15.4 Plt Count 146 MPV 9.8 Neutrophils % 60.9 Lymphocytes % 27.0 D Monocytes % 7.5 Eosinophils % 3.7 D Basophils % 0.9 PT with INR 10.60 INR 0.94 PTT (Actin FS) Sodium Potassium Chloride Carbon Dioxide Anion Gap BUN Creatinine Creat Clearance w eGFR POC Glucometer [phone] Random Glucose Calcium Phosphorus Magnesium Total Bilirubin AST ALT Alkaline Phosphatase Creatine Kinase Troponin I B-Natriuretic Peptide Total Protein Albumin Triglycerides Cholesterol Total LDL Cholesterol HDL Cholesterol Urine Color Urine Appearance Urine pH Ur Specific [place] Urine Protein Urine Glucose (UA) Urine Ketones Urine Blood Urine Nitrite Urine Bilirubin Urine Urobilinogen Ur Leukocyte Esterase Urine WBC (Auto) Urine RBC (Auto) Ur Epithelial Cells Urine Bacteria Blood Type Antibody Screen 07/15/17 07/15/17 07/15/17 13:12 13:38 14:50 WBC RBC Hgb Hct MCV MCH MCHC RDW Plt Count MPV Neutrophils % Lymphocytes % Monocytes % Eosinophils % Basophils % PT with INR INR PTT (Actin FS) Sodium 144 Potassium 4.6 Chloride 111 H Carbon Dioxide 25 Anion Gap 8 BUN 22 H D Creatinine 1.8 H Creat Clearance w eGFR 27.50 POC Glucometer Random Glucose 141 H D Calcium 8.9 Phosphorus Magnesium Total Bilirubin 0.4 D AST 28 ALT 27 Alkaline Phosphatase 111 D Creatine Kinase 90 Troponin I < 0.02 B-Natriuretic Peptide 368 H Total Protein 7.8 Albumin 3.2 L Triglycerides 117 Cholesterol 200 D Total LDL Cholesterol 119 H HDL Cholesterol 66 H Urine Color Straw Urine Appearance Clear Urine pH 7.0 Ur Specific [place] 1.009 Urine Protein 2+ H Urine Glucose (UA) 1+ H Urine Ketones Negative Urine Blood Negative Urine Nitrite Negative Urine Bilirubin Negative Urine Urobilinogen Negative Ur Leukocyte Esterase Negative Urine WBC (Auto) 4 Urine RBC (Auto) 1 Ur Epithelial Cells Few Urine Bacteria Few Blood Type O POSITIVE Antibody Screen Negative 07/15/17 07/15/17 07/16/17 22:00 22:00 07:00 WBC 8.6 D RBC 4.61 Hgb 12.2 Hct 38.4 MCV 83.4 MCH 26.5 MCHC 31.8 L RDW 15.1 Plt Count 142 MPV 9.6 Neutrophils % 60.0 Lymphocytes % 30.2 Monocytes % 7.0 Eosinophils % 2.6 Basophils % 0.2 PT with INR INR PTT (Actin FS) Sodium Potassium Chloride Carbon Dioxide Anion Gap BUN Creatinine Creat Clearance w eGFR POC Glucometer [phone] Random Glucose Calcium Phosphorus Magnesium Total Bilirubin AST ALT Alkaline Phosphatase Creatine Kinase Troponin I < 0.02 B-Natriuretic Peptide Total Protein Albumin Triglycerides Cholesterol Total LDL Cholesterol HDL Cholesterol Urine Color Urine Appearance Urine pH Ur Specific [place] Urine Protein Urine Glucose (UA) Urine Ketones Urine Blood Urine Nitrite Urine Bilirubin Urine Urobilinogen Ur Leukocyte Esterase Urine WBC (Auto) Urine RBC (Auto) Ur Epithelial Cells Urine Bacteria Blood Type Antibody Screen 07/16/17 07/16/17 07/16/17 07:00 07:00 07:00 WBC RBC Hgb Hct MCV MCH MCHC RDW Plt Count MPV Neutrophils % Lymphocytes % Monocytes % Eosinophils % Basophils % PT with INR 10.30 INR 0.91 PTT (Actin FS) 30.8 D Sodium 143 Potassium 4.6 Chloride 109 H Carbon Dioxide 23 Anion Gap 11 BUN 23 H Creatinine 1.9 H Creat Clearance w eGFR 25.84 POC Glucometer Random Glucose 147 H Calcium 9.1 Phosphorus 4.0 Cancelled Magnesium 2.2 Cancelled Total Bilirubin 0.6 D AST 33 ALT 28 Alkaline Phosphatase 101 Creatine Kinase Troponin I B-Natriuretic Peptide Total Protein 8.1 Albumin 3.4 Triglycerides Cholesterol Total LDL Cholesterol HDL Cholesterol Urine Color Urine Appearance Urine pH Ur Specific [place] Urine Protein Urine Glucose (UA) Urine Ketones Urine Blood Urine Nitrite Urine Bilirubin Urine Urobilinogen Ur Leukocyte Esterase Urine WBC (Auto) Urine RBC (Auto) Ur Epithelial Cells Urine Bacteria Blood Type Antibody Screen Active Medications Generic Name Dose Route Start Last Admin Trade Name Cheryl PRN Reason Stop Dose Admin Amlodipine Besylate 10 mg 07/16/17 08:30 07/16/17 09:44 Norvasc - PO Not Given DAILY SHANIA Aspirin 81 mg 07/15/17 18:15 07/16/17 09:44 Ecotrin - PO 81 mg DAILY SHANIA Administration Atorvastatin Calcium 10 mg 07/15/17 22:00 07/15/17 22:22 Lipitor - PO 10 mg HS SHANIA Administration Gabapentin 300 mg 07/15/17 22:00 07/16/17 06:17 Neurontin - PO 300 mg TID SHANIA Administration Heparin Sodium (Porcine) 5,000 unit 07/16/17 10:00 07/16/17 09:44 Heparin - SQ 5,000 unit BID SHANIA Administration Hydralazine HCl 75 mg 07/16/17 08:25 Apresoline - PO Q6HPO SHANIA Sodium Chloride 1,000 mls @ 42 mls/hr 07/15/17 12:30 07/15/17 13:30 Normal Saline - IV 42 mls/hr ASDIR SHANIA Administration Insulin Aspart 1 vial 07/15/17 22:00 07/16/17 06:18 Novolog Vial Sliding Scale - SQ 2 units ACHS SHANIA Administration Protocol Pantoprazole Sodium 40 mg 07/15/17 18:15 07/16/17 09:44 Protonix - PO 40 mg DAILY SHANIA Administration ASSESSMENT/PLAN: 75 year-old woman with a PMH significant for HTN, HLD, CAD s/p stents, NIDDM, chronic pancreatitis, dementia, and a brain tumor s/p cyberknife treatment. Placed on observation for an unwitnessed fall, presumed syncopal episode. Fall at home --imaging of right elbow, right hip and pelvis, right shoulder and right hand negative for gross fracture or dislocation Right parietal lesion --07/15 CT head: right parietal lesion initially seen 01/25/2008, appears to be mainly extra axial, and is unchanged; however, its appearance is not typical for what was previously described as a meningioma; recommend contrast MRI to further evaluate, ordered --consult placed for Dr. Vegas Syncope --r/o ACS: troponins neg x 3 --serial ECGs --CXR unremarkable --echo 04/03/17: LV normal; RV normal; trace MR; mild AI --persantine stress test 04/01/17: normal ECG, normal myocardial perfusion; LV 58% --telemetry monitoring to r/o arrythmias --cardiology following --r/o neuro --CT head negative for acute pathology; MRI brain pending --neurology to follow Carotid artery disease --US: atherosclerosis, no stenosis --continue ASA, statin Chronic kidney disease --Cr 1.8 which is baseline --hold Lisinopril Hypertension --continue amlodipine --hold hydralazine, monitor BP --check orthostatics Hyperlipidemia --continue Lipitor Coronary artery disease --not on beta kira or ASA --continue Lipitor NIDDM --Novolog sliding scale coverage Chronic pancreatitis --no acute issues Dementia --per daughter, patient at baseline FEN Fluids: PO intake adequate Electrolytes: replete as indicated Nutrition: low sodium, diabetic DVT prohylaxis: subq heparin, oob, ambulation Physical therapy evaluation Dispo: continues to require observation. Visit type - Emergency Visit Emergency Visit: Yes ED Registration Date: 07/15/17 Care time: The patient presented to the Emergency Department on the above date and was hospitalized for further evaluation of their emergent condition. - New Patient This patient is new to me today: No - Critical Care Critical Care patient: No
[2017-07-16] MEDS ORDERED: INSULIN REGULAR HUMAN 100 UNITS/ML *VIAL ONE ×2 (11:39→16:25)
[2017-07-16] MEDS ORDERED: hydrALAZINE HCL 25 MG TABLET (FP) PO SCH (12:00)
[2017-07-16] MEDS: SODIUM CHLORIDE 1,000 ML IV SCH (12:04)
[2017-07-16] MEDS: hydrALAZINE HCL 25 MG TABLET (FP) PO SCH ×2 (13:00→17:43)
--- NOTE | 2017-07-16 16:34 | CON.CARD ---
Consult Consult Specialty:: Cardiology Referred by:: tom Duncan Reason for Consultation:: Syncope - History of Present Illness Chief Complaint: fall/dizzy History of Present Illness: 75 year old female with a pmhx of htn, hld, CAD s/p stents in past, NIDDM, chronic pancreatitis, dementia, h/o brain tumor s/p cyberknife sp fall. Patient is poor historian. Unclear details of event. Patient reports she is chronically dizzy and fell at home. Unclear if any LOC. Says nurse helps with meds at home. BP noted to be 220 by ems. +headache which has resolved. + chronic weakness. No chest pain, sob, or palpitations. 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 Cardio/Vascular: Yes: CAD (questionable), HTN, Hyperlipdemia - Alcohol/Substance Use Hx Alcohol Use: No - Smoking History Smoking history: Never smoked Have you smoked in the past 12 months: No Aproximately how many cigarettes per day: 0 - Social History ADL: Family Assistance Occupation: retired History of Recent Travel: No Home Medications - Allergies Allergies/Adverse Reactions: Allergies Allergy/AdvReac Type Severity Reaction Status Date / Time acetaminophen [From Percocet] Allergy Verified 04/01/17 19:22 oxycodone HCl [From Percocet] Allergy Swelling Verified 04/01/17 19:22 - Home Medications Home Medications: Ambulatory Orders Amlodipine Besylate [Norvasc -] 5 mg PO DAILY 07/16/17 Aspirin 81 mg PO DAILY 07/16/17 Gabapentin [Neurontin -] 300 mg PO TID 07/16/17 Hydralazine HCl 100 mg PO BID 07/16/17 Lisinopril 20 mg PO DAILY 07/16/17 Omeprazole 40 mg PO DAILY 07/16/17 Sitagliptin Phosphate [Januvia] 25 mg PO DAILY 07/16/17 Vital Signs: Vital Signs Temperature 98.1 F 07/16/17 12:00 Pulse Rate 94 H 07/16/17 12:00 Respiratory Rate 07/16/17 12:00 Blood Pressure 154/85 07/16/17 12:00 O2 Sat by Pulse Oximetry (%) 99 07/16/17 12:05 Constitutional: Yes: No Distress Respiratory: Yes: CTA Bilaterally Gastrointestinal: Yes: WNL, Normal Bowel Sounds, Soft Cardiovascular: Yes: Regular Rate and Rhythm JVD: No Carotid Bruit: No Heart Sounds: Yes: S1, S2 Murmur: No: Systolic Murmur Edema: No - Other Data Labs, Other Data: CBC, BMP 07/16/17 07:00 07/16/17 07:00 INR, PTT INR 0.91 (0.82-1.09) 07/16/17 07:00 Troponin, BNP 07/15/17 07/16/17 22:00 07:00 Troponin I < 0.02 < 0.02 Troponin, BNP 07/15/17 07/16/17 22:00 07:00 Troponin I < 0.02 < 0.02 Imaging - Results Chest X-ray: Report Reviewed EKG: Image Reviewed Problem List - Problems (1) Syncope Code(s): R55 - SYNCOPE AND COLLAPSE Assessment/Plan 75 year old female with a pmhx of htn, hld, CAD s/p stents in past, NIDDM, chronic pancreatitis, dementia, h/o brain tumor s/p cyberknife sp fall. Patient is poor historian. Unclear details of event. Patient reports she is chronically dizzy and fell at home. Unclear if any LOC. Says nurse helps with meds at home. BP noted to be 220 by ems. +headache which has resolved. + chronic weakness. No chest pain, sob, or palpitations. 1) Fall Unclear if syncope or any LOC -Echocardiogram and Nuclear Stress Test 03/2017 unremarkable. Normal LVEF and no significant valve disease. No ischemia. EKG with no acute ischemic changes -Trend CE's. Serial EKG's 24 hour monitor on tele. Restart home bp meds and see what bp is on these meds and will adjust as needed. Check orthostatics Carotid duplex with atherosclerosis but no stenosis. Aspirin/statin. Pending brain MRI. Will follow up with you
[2017-07-16] MEDS: ATORVASTATIN CA 10 MG TABLET (FP) PO SCH (21:33)
[2017-07-17] MEDS: hydrALAZINE HCL 25 MG TABLET (FP) PO SCH ×5 (00:25→17:44)
[2017-07-17] MEDS: INSULIN SLIDING SCALE (NOVOLOG) 1 VIAL SQ SCH ×4 (06:04→21:54)
[2017-07-17] MEDS: GABAPENTIN 100 MG CAPSULE (FP) PO SCH ×4 (06:07→21:54)
--- NOTE | 2017-07-17 06:58 | PN ---
Progress Note, Physician Chief Complaint: Feels better Still with some headache History of Present Illness: 75 year old female with a pmhx of htn, hld, CAD s/p stents in past, NIDDM, chronic pancreatitis, dementia, h/o brain tumor s/p cyberknife sp fall. Patient is poor historian. Unclear details of event. Patient reports she is chronically dizzy and fell at home. Unclear if any LOC. Says nurse helps with meds at home. BP noted to be 220 by ems. +headache which has resolved. + chronic weakness. No chest pain, sob, or palpitations. - Current Medication List Current Medications: Active Medications Amlodipine Besylate (Norvasc -) 10 mg PO DAILY [facility] Last Admin: 07/16/17 09:44 Dose: Not Given Aspirin (Ecotrin -) 81 mg PO DAILY [facility] Last Admin: 07/16/17 09:44 Dose: 81 mg Atorvastatin Calcium (Lipitor -) 10 mg PO HS [facility] Last Admin: 07/16/17 21:33 Dose: 10 mg Gabapentin (Neurontin -) 300 mg PO TID [facility] Last Admin: 07/17/17 06:14 Dose: Not Given Heparin Sodium (Porcine) (Heparin -) 5,000 unit SQ BID [facility] Last Admin: 07/16/17 21:33 Dose: 5,000 unit Hydralazine HCl (Apresoline -) 75 mg PO Q6HPO [facility] Last Admin: 07/17/17 06:12 Dose: Not Given Sodium Chloride (Normal Saline -) 1,000 mls @ 42 mls/hr IV ASDIR [facility] Last Admin: 07/16/17 12:04 Dose: 42 mls/hr Insulin Aspart (Novolog Vial Sliding Scale -) 1 vial SQ ACHS [facility] PRN Reason: Protocol Last Admin: 07/17/17 06:04 Dose: Not Given Pantoprazole Sodium (Protonix -) 40 mg PO DAILY [facility] Last Admin: 07/16/17 09:44 Dose: 40 mg - Objective Vital Signs: Vital Signs Temperature 98.4 F 07/17/17 06:00 Pulse Rate 80 07/17/17 06:00 Respiratory Rate 20 07/17/17 06:00 Blood Pressure 116/56 07/17/17 06:00 O2 Sat by Pulse Oximetry (%) 99 07/17/17 05:38 Constitutional: Yes: No Distress Neck: Yes: Supple Cardiovascular: Yes: Regular Rate and Rhythm, S1, S2 Respiratory: Yes: CTA Bilaterally Gastrointestinal: Yes: Soft Edema: No Labs: CBC, BMP 07/16/17 07:00 07/16/17 07:00 INR, PTT INR 0.91 (0.82-1.09) 07/16/17 07:00 Problem List - Problems (1) Syncope Code(s): R55 - SYNCOPE AND COLLAPSE Assessment/Plan 75 year old female with a pmhx of htn, hld, CAD s/p stents in past, NIDDM, chronic pancreatitis, dementia, h/o brain tumor s/p cyberknife sp fall. Patient is poor historian. Unclear details of event. Patient reports she is chronically dizzy and fell at home. Unclear if any LOC. Says nurse helps with meds at home. BP noted to be 220 by ems. +headache which has resolved. + chronic weakness. No chest pain, sob, or palpitations. 1) Fall Unclear if syncope or any LOC -Echocardiogram and Nuclear Stress Test 03/2017 unremarkable. Normal LVEF and no significant valve disease. No ischemia. EKG with no acute ischemic changes -Trend CE's. Serial EKG's 24 hour monitor on tele. So far no events on tele. Check orthostatics Carotid duplex with atherosclerosis but no stenosis. Aspirin/statin. Pending brain MRI. BP lower in hospital. ? if takes meds at home. Would consider stopping hydralazine and seeing how her bp is in hospital Will follow up with you
--- NOTE | 2017-07-17 09:22 | CONSULT ---
Consult - text type - Consultation Consultation Note: Neurology History of Present Illness Patient is a 76F with history of HTN, DM, HLD, CAD s/p stenting, brain tumor s/ p cyberknife here complaining of a fall. She states that she was trying to get up to go to the bathroom overnight, but states that she felt like she was unable to move. She says that she thinks she fell, but she might have also just slid to the floor. She is complaining of pain to her right hand and says that it hurts to move her right arm. She says she has a headache and feels dizzy, but this has been going on for a long time and cannot remember when it started. She endorses chills and some shortness of breath. She denies fevers, nausea, vomiting, cough and chest pain. She endorses some generalized weakness, denies any focal weakness. CT head completed and did not show acute changes. Mention of mass, likely meningioma noted. Carotid doppler demonstrated plaques but no HD significant stenosis. Past History - Past Medical History Allergies/Adverse Reactions: Allergies Allergy/AdvReac Type Severity Reaction Status Date / Time acetaminophen [From Percocet] Allergy Verified 04/01/17 19:22 oxycodone HCl [From Percocet] Allergy Swelling Verified 04/01/17 19:22 Active Medications Amlodipine Besylate (Norvasc -) 10 mg PO DAILY [facility] Last Admin: 07/16/17 09:44 Dose: Not Given Aspirin (Ecotrin -) 81 mg PO DAILY [facility] Last Admin: 07/16/17 09:44 Dose: 81 mg Atorvastatin Calcium (Lipitor -) 10 mg PO HS [facility] Last Admin: 07/16/17 21:33 Dose: 10 mg Gabapentin (Neurontin -) 300 mg PO TID [facility] Last Admin: 07/17/17 06:14 Dose: Not Given Heparin Sodium (Porcine) (Heparin -) 5,000 unit SQ BID [facility] Last Admin: 07/16/17 21:33 Dose: 5,000 unit Hydralazine HCl (Apresoline -) 75 mg PO Q6HPO [facility] Last Admin: 07/17/17 06:12 Dose: Not Given Sodium Chloride (Normal Saline -) 1,000 mls @ 42 mls/hr IV ASDIR [facility] Last Admin: 07/16/17 12:04 Dose: 42 mls/hr Insulin Aspart (Novolog Vial Sliding Scale -) 1 vial SQ ACHS [facility] PRN Reason: Protocol Last Admin: 07/17/17 06:04 Dose: Not Given Pantoprazole Sodium (Protonix -) 40 mg PO DAILY [facility] Last Admin: 07/16/17 09:44 Dose: 40 mg Cancer: Yes (brain tumors/neck tumors with sx) Cardiac Disorders: Yes COPD: No Dementia: Yes Diabetes: Yes HTN: Yes Hypercholesterolemia: Yes - Surgical History Cardiac Surgery: Yes (STENT PLACEMENT) Orthopedic Surgery: Yes (Spinal Sx yrs ago) - Immunization History Immunization Up to Date: Yes - Suicide/Smoking/Psychosocial Hx Smoking Status: No Smoking History: Never smoked Have you smoked in the past 12 months: No Number of Cigarettes Smoked Daily: 0 Information on smoking cessation initiated: No Hx Alcohol Use: No Drug/Substance Use Hx: No Substance Use Type: None Hx Substance Use Treatment: No Review of Systems GENERAL/CONSTITUTIONAL: No fever. Positive for chills and diffuse weakness. HEAD, EYES, EARS, NOSE AND THROAT: No change in vision. No sore throat. CARDIOVASCULAR: No chest pain. Positive for shortness of breath. RESPIRATORY: No cough, wheezing, or hemoptysis. GASTROINTESTINAL: No nausea, vomiting, diarrhea or constipation. GENITOURINARY: No dysuria, frequency, or change in urination. MUSCULOSKELETAL: Pain in right arm and thumb. NEUROLOGIC: Positive for headache. Negative for loss of consciousness, or change in strength/sensation. ALLERGIC/IMMUNOLOGIC: No hives or skin allergy. *Physical Exam Vital Signs Period Temp Pulse Resp BP Sys/Leonardo Pulse Ox Last 24 Hr 97.9 F-99.2 F 80-94 18-20 116-154/56-89 99-99 GENERAL: Awake, alert, and fully oriented, in no acute distress HEAD: No signs of trauma, normocephalic, atraumatic EYES: PERRLA, EOMI, sclera anicteric, conjunctiva clear ENT: Auricles normal inspection, hearing grossly normal, nares patent, oropharynx clear without exudates. Moist mucosa NECK: Normal ROM, supple, no lymphadenopathy, JVD, or masses, no midline tenderness LUNGS: No distress, speaks full sentences, clear to auscultation bilaterally HEART: Regular rate and rhythm, normal S1 and S2, no murmurs, rubs or gallops, peripheral pulses normal and equal bilaterally. ABDOMEN: Soft, nontender, normoactive bowel sounds. No guarding, no rebound. No masses EXTREMITIES: Normal inspection, Normal range of motion. Pitting edema bilaterallly No clubbing or cyanosis. NEUROLOGICAL: Cranial nerves II through XII grossly intact. Normal speech, 5-/ 5 strength in upper extremities, 5-/5 strength in lower extremities. R ARM: Neurovascularly intact, no ecchymosis or brusing, tender along right thumb, no snuffbox tenderness, no tenderness in elbow or shoulder. SKIN: Warm, Dry, normal turgor, no rashes or lesions noted. - RADIOLOGY CT head reviewed Carotid Doppler reviewed Medical Decision Making 76F with history of HTN, DM, HLD, CAD s/p stenting, brain tumor s/p cyberknife here complaining of a fall. She states that she was trying to get up to go to the bathroom overnight, but states that she felt like she was unable to move. She says that she thinks she fell, but she might have also just slid to the floor. She is complaining of pain to her right hand and says that it hurts to move her right arm. She says she has a headache and feels dizzy, but this has been going on for a long time and cannot remember when it started. She endorses chills and some shortness of breath. She denies fevers, nausea, vomiting, cough and chest pain. She endorses some generalized weakness, denies any focal weakness. CT head completed and did not show acute changes. Mention of mass, likely meningioma noted. Carotid doppler demonstrated plaques but no HD significant stenosis. Would consider MRI brain with contrast if further workup desired regarding mass which is chronic, will defer to PCP Follow up cardiology rec'd/work up On telemetry monitoring IV/PO hydration Monitor blood pressure, maintain normotensive range, continue amlodpine, hydralazine Continue ASA for Cva prevention Continue Statin Monitor gluocse, maintain eugylcemic state Continue insulin Fall precautions
[2017-07-17] MEDS: PANTOPRAZOLE 40 MG TABLET (FP) PO SCH (10:15)
[2017-07-17] MEDS: amLODIPine BESYLATE 10 MG TABLET (FP) PO SCH (10:15)
[2017-07-17] MEDS: ASPIRIN COATED 81 MG TABLET.EC PO SCH (10:15)
[2017-07-17] MEDS: HEPARIN NA (PORCINE) 5,000 UNITS/ML 1ML VIAL SQ SCH ×2 (10:15→21:54)
[2017-07-17] MEDS: SODIUM CHLORIDE 1,000 ML IV SCH (12:43)
--- NOTE | 2017-07-17 17:46 | PN ---
Physical Exam: SUBJECTIVE: Patient seen and examined at the bedside. OBJECTIVE: MRI discussed with patient who is thinking about it, fearful of closed MRI. Vital Signs Period Temp Pulse Resp BP Sys/Leonardo Pulse Ox Last 24 Hr 97.8 F-98.4 F 80-92 18-22 116-152/56-89 99-99 GENERAL: The patient is awake, alert, and fully oriented, in no acute distress. HEAD: Normal with no signs of trauma. EYES: PERRL, extraocular movements intact, sclera anicteric, conjunctiva clear. No ptosis. ENT: Ears normal, nares patent, oropharynx clear without exudates, moist mucous membranes. NECK: Trachea midline, full range of motion, supple. LUNGS: Breath sounds equal, clear to auscultation bilaterally, no wheezes, no crackles, no accessory muscle use. ABDOMEN: Soft, nontender, nondistended, normoactive bowel sounds, no guarding, no rebound, no hepatosplenomegaly, no masses. EXTREMITIES: no edema. NEUROLOGICAL: Normal speech, gait not observed. PSYCH: Normal mood, normal affect. SKIN: Warm, dry, normal turgor, no rashes or lesions noted Laboratory Results - last 24 hr 07/16/17 07/16/17 07/17/17 16:10 22:41 05:47 POC Glucometer 176.30472 128 154 07/17/17 07/17/17 12:20 15:45 POC Glucometer 141 267 Active Medications Generic Name Dose Route Start Last Admin Trade Name Freq PRN Reason Stop Dose Admin Amlodipine Besylate 10 mg 07/16/17 08:30 07/17/17 10:15 Norvasc - PO 10 mg DAILY [facility] Administration Aspirin 81 mg 07/15/17 18:15 07/17/17 10:15 Ecotrin - PO 81 mg DAILY [facility] Administration Atorvastatin Calcium 10 mg 07/15/17 22:00 07/16/17 21:33 Lipitor - PO 10 mg HS [facility] Administration Gabapentin 300 mg 07/15/17 22:00 07/17/17 14:08 Neurontin - PO 300 mg TID [facility] Administration Heparin Sodium (Porcine) 5,000 unit 07/16/17 10:00 07/17/17 10:15 Heparin - SQ 5,000 unit BID [facility] Administration Hydralazine HCl 75 mg 07/16/17 08:25 07/17/17 17:44 Apresoline - PO 75 mg Q6HPO [facility] Administration Sodium Chloride 1,000 mls @ 42 mls/hr 07/15/17 12:30 07/17/17 12:43 Normal Saline - IV 42 mls/hr ASDIR [facility] Administration Insulin Aspart 1 vial 07/15/17 22:00 07/17/17 17:44 Novolog Vial Sliding Scale - SQ 6 units ACHS [facility] Administration Protocol Pantoprazole Sodium 40 mg 07/15/17 18:15 07/17/17 10:15 Protonix - PO 40 mg DAILY [facility] Administration ASSESSMENT/PLAN: Patient is a 75 year old female with a significant past medical history of HTN, HLD, CAD s/p stents, NIDDM, pancreatitis, dementia, and a brain tumor s/p cyberknife. Patient brought in by EMS after a fall at home, possible syncope. As per admission notes, unsure if fall/syncope was witnessed. Patient was also noted to be hypertensive enroute to hospital and given metroplol 5mg in the filed. Serial imagings negative for fracture (right elblow, right hip and pelvis, right shoulder, hand) CT head: right parietal lesion initially seen 01/25/2008, unchanged; however, recommend contrast MRI to further evaluate MRI brain ordered, pt to undergo exam tomorrow Syncope Unclear etiology of syncope Pt has multiple risk factors, brain tumor history, cardiac, on BP meds: orthostatics?, diabetes: hypoglycemia, diabetic neuropathy Trops negative x 3 Chest xray negative Echo reviewed Cardiology notes reviewed Monitor orthostatics q8 Ambulate with PT Monitor blood sugars On Neurontin, ASA, Lipitor MRI of brain if patient is willing (she will think about it, does not like closed MRIs) Neurology following F.E.N. Fluids: tolerating PO Electrolytes: monitor Nutrition; diabetic diet Prophy: DVT: Heparin GI: Protonix Disposition: full code.
[2017-07-17] MEDS: ATORVASTATIN CA 10 MG TABLET (FP) PO SCH (21:54)
[2017-07-18] MEDS: hydrALAZINE HCL 25 MG TABLET (FP) PO SCH ×4 (00:19→19:30)
[2017-07-18] MEDS: GABAPENTIN 100 MG CAPSULE (FP) PO SCH ×3 (06:00→22:59)
[2017-07-18] MEDS: INSULIN SLIDING SCALE (NOVOLOG) 1 VIAL SQ SCH ×4 (06:11→23:00)
[2017-07-18 08:11] LABS: BASO % 0.8 % (0-2.0); EOS % 3.2 % (0-4.5); HEMATOCRIT 29.2 % (32.4-45.2); HEMOGLOBIN 9.5 GM/dL (10.7-15.3); LYMPH % 37.5 % (8-40); MCH 26.9 pg (25.7-33.7); MCHC 32.3 g/dl (32.0-36.0); MEAN PLT VOLUME 10.1 fl (7.5-11.1); MONO % 8.5 % (3.8-10.2); PLATELET COUNT 129 K/MM3 (134-434); RBC 3.52 M/mm3 (3.60-5.2); RDW 15.2 % (11.6-15.6); WHITE BLOOD COUNT 5.8 K/mm3 (4.0-10.0)
[2017-07-18 08:25] LABS: ALBUMIN 2.6 g/dl (3.4-5.0); ANION GAP 9 (8-16); BLOOD UREA NITROGEN 29 mg/dL (7-18); CALCIUM 8.4 mg/dL (8.5-10.1); CHLORIDE 110 mmol/L (98-107); CO2 25 mmol/L (21-32); GLUCOSE,RANDOM 112 mg/dL (74-106); POTASSIUM 4.4 mmol/L (3.5-5.1); SGOT/AST 28 U/L (15-37); SODIUM 144 mmol/L (136-145)
[2017-07-18 08:27] LABS: ALK PHOS 70 U/L (45-117); BILIRUBIN,TOTAL 0.4 mg/dL (0.2-1.0); CREATININE 1.9 mg/dL (0.55-1.02); SGPT/ALT 24 U/L (12-78); TOT PROT 6.3 g/dl (6.4-8.2)
--- NOTE | 2017-07-18 09:39 | PN ---
Progress Note (short form) - Note Progress Note: Neurology History of Present Illness Patient is a 76F with history of HTN, DM, HLD, CAD s/p stenting, brain tumor s/ p cyberknife here complaining of a fall. She states that she was trying to get up to go to the bathroom overnight, but states that she felt like she was unable to move. She says that she thinks she fell, but she might have also just slid to the floor. She is complaining of pain to her right hand and says that it hurts to move her right arm. She says she has a headache and feels dizzy, but this has been going on for a long time and cannot remember when it started. She endorses chills and some shortness of breath. She denies fevers, nausea, vomiting, cough and chest pain. She endorses some generalized weakness, denies any focal weakness. CT head completed and did not show acute changes. Mention of mass, likely meningioma noted. Carotid doppler demonstrated plaques but no HD significant stenosis. MRI brain ordered with contrast but renal fxn would not allow. Hospitalist ordered MRI w/o contrast for now. Active Medications Amlodipine Besylate (Norvasc -) 10 mg PO DAILY [facility] Last Admin: 07/17/17 10:15 Dose: 10 mg Aspirin (Ecotrin -) 81 mg PO DAILY [facility] Last Admin: 07/17/17 10:15 Dose: 81 mg Atorvastatin Calcium (Lipitor -) 10 mg PO HS [facility] Last Admin: 07/17/17 21:54 Dose: 10 mg Gabapentin (Neurontin -) 300 mg PO TID [facility] Last Admin: 07/18/17 06:00 Dose: 300 mg Heparin Sodium (Porcine) (Heparin -) 5,000 unit SQ BID [facility] Last Admin: 07/17/17 21:54 Dose: 5,000 unit Hydralazine HCl (Apresoline -) 75 mg PO Q6HPO [facility] Last Admin: 07/18/17 05:59 Dose: 75 mg Sodium Chloride (Normal Saline -) 1,000 mls @ 42 mls/hr IV ASDIR [facility] Last Admin: 07/17/17 12:43 Dose: 42 mls/hr Insulin Aspart (Novolog Vial Sliding Scale -) 1 vial SQ ACHS [facility] PRN Reason: Protocol Last Admin: 07/18/17 06:11 Dose: Not Given Pantoprazole Sodium (Protonix -) 40 mg PO DAILY [facility] Last Admin: 07/17/17 10:15 Dose: 40 mg *Physical Exam Vital Signs Temperature 98.7 F 07/18/17 06:00 Pulse Rate 82 07/18/17 06:00 Respiratory Rate 18 07/18/17 06:00 Blood Pressure 136/66 07/18/17 06:00 O2 Sat by Pulse Oximetry (%) 98 07/17/17 21:00 GENERAL: Awake, alert, and fully oriented, in no acute distress HEAD: No signs of trauma, normocephalic, atraumatic EYES: PERRLA, EOMI, sclera anicteric, conjunctiva clear ENT: Auricles normal inspection, hearing grossly normal, nares patent, oropharynx clear without exudates. Moist mucosa NECK: Normal ROM, supple, no lymphadenopathy, JVD, or masses, no midline tenderness LUNGS: No distress, speaks full sentences, clear to auscultation bilaterally HEART: Regular rate and rhythm, normal S1 and S2, no murmurs, rubs or gallops, peripheral pulses normal and equal bilaterally. ABDOMEN: Soft, nontender, normoactive bowel sounds. No guarding, no rebound. No masses EXTREMITIES: Normal inspection, Normal range of motion. Pitting edema bilaterallly No clubbing or cyanosis. NEUROLOGICAL: Cranial nerves II through XII grossly intact. Normal speech, 5-/ 5 strength in upper extremities, 5-/5 strength in lower extremities. R ARM: Neurovascularly intact, no ecchymosis or brusing, tender along right thumb, no snuffbox tenderness, no tenderness in elbow or shoulder. SKIN: Warm, Dry, normal turgor, no rashes or lesions noted. - RADIOLOGY CT head reviewed Carotid Doppler reviewed Medical Decision Making 76F with history of HTN, DM, HLD, CAD s/p stenting, brain tumor s/p cyberknife here complaining of a fall. She states that she was trying to get up to go to the bathroom overnight, but states that she felt like she was unable to move. She says that she thinks she fell, but she might have also just slid to the floor. She is complaining of pain to her right hand and says that it hurts to move her right arm. She says she has a headache and feels dizzy, but this has been going on for a long time and cannot remember when it started. She endorses chills and some shortness of breath. She denies fevers, nausea, vomiting, cough and chest pain. She endorses some generalized weakness, denies any focal weakness. CT head completed and did not show acute changes. Mention of mass, likely meningioma noted. Carotid doppler demonstrated plaques but no HD significant stenosis. MRI w.o contrast ordered to evaluate mass Follow up cardiology rec'd/work up On telemetry monitoring IV/PO hydration Monitor blood pressure, maintain normotensive range, continue amlodpine, hydralazine Continue ASA for Cva prevention Continue Statin Monitor gluocse, maintain eugylcemic state Continue insulin Fall precautions
--- NOTE | 2017-07-18 09:45 | PN ---
Physical Exam: SUBJECTIVE: Patient seen and examined OBJECTIVE: Vital Signs Period Temp Pulse Resp BP Sys/Leonardo Pulse Ox Last 24 Hr 97.8 F-99.7 F 81-92 18-22 106-152/54-78 96-98 GENERAL: The patient is awake, alert, and fully oriented, in no acute distress. HEAD: Normal with no signs of trauma. EYES: PERRL, extraocular movements intact, sclera anicteric, conjunctiva clear. No ptosis. ENT: Ears normal, nares patent, oropharynx clear without exudates, moist mucous membranes. NECK: Trachea midline, full range of motion, supple. LUNGS: Breath sounds equal, clear to auscultation bilaterally, no wheezes, no crackles, no accessory muscle use. HEART: Regular rate and rhythm, S1, S2 without murmur, rub or gallop. ABDOMEN: Soft, nontender, nondistended, normoactive bowel sounds, no guarding, no rebound, no hepatosplenomegaly, no masses. EXTREMITIES: 2+ pulses, warm, well-perfused, no edema. NEUROLOGICAL: Cranial nerves II through XII grossly intact. Normal speech, gait not observed. PSYCH: Normal mood, normal affect. SKIN: Warm, dry, normal turgor, no rashes or lesions noted Laboratory Results - last 24 hr 07/17/17 07/17/17 07/17/17 12:20 15:45 21:53 WBC RBC Hgb Hct MCV MCH MCHC RDW Plt Count MPV Neutrophils % Lymphocytes % Monocytes % Eosinophils % Basophils % Sodium Potassium Chloride Carbon Dioxide Anion Gap BUN Creatinine Creat Clearance w eGFR POC Glucometer 141 267 112 Random Glucose Hemoglobin A1c % Calcium Total Bilirubin AST ALT Alkaline Phosphatase Total Protein Albumin 07/18/17 07/18/17 07/18/17 05:25 05:25 05:25 WBC 5.8 D RBC 3.52 L D Hgb 9.5 L D Hct 29.2 L D MCV 83.0 MCH 26.9 MCHC 32.3 RDW 15.2 Plt Count 129 L MPV 10.1 Neutrophils % 50.0 Lymphocytes % 37.5 D Monocytes % 8.5 Eosinophils % 3.2 Basophils % 0.8 D Sodium 144 Potassium 4.4 Chloride 110 H Carbon Dioxide 25 Anion Gap 9 BUN 29 H D Creatinine 1.9 H Creat Clearance w eGFR 25.84 POC Glucometer Random Glucose 112 H D Hemoglobin A1c % 8.5 H D Calcium 8.4 L Total Bilirubin 0.4 D AST 28 ALT 24 Alkaline Phosphatase 70 D Total Protein 6.3 L D Albumin 2.6 L D 07/18/17 05:51 WBC RBC Hgb Hct MCV MCH MCHC RDW Plt Count MPV Neutrophils % Lymphocytes % Monocytes % Eosinophils % Basophils % Sodium Potassium Chloride Carbon Dioxide Anion Gap BUN Creatinine Creat Clearance w eGFR POC Glucometer 116 Random Glucose Hemoglobin A1c % Calcium Total Bilirubin AST ALT Alkaline Phosphatase Total Protein Albumin Active Medications Generic Name Dose Route Start Last Admin Trade Name Lionq PRN Reason Stop Dose Admin Amlodipine Besylate 10 mg 07/16/17 08:30 07/17/17 10:15 Norvasc - PO 10 mg DAILY [facility] Administration Aspirin 81 mg 07/15/17 18:15 07/17/17 10:15 Ecotrin - PO 81 mg DAILY [facility] Administration Atorvastatin Calcium 10 mg 07/15/17 22:00 07/17/17 21:54 Lipitor - PO 10 mg HS [facility] Administration Gabapentin 300 mg 07/15/17 22:00 07/18/17 06:00 Neurontin - PO 300 mg TID [facility] Administration Heparin Sodium (Porcine) 5,000 unit 07/16/17 10:00 07/17/17 21:54 Heparin - SQ 5,000 unit BID [facility] Administration Hydralazine HCl 75 mg 07/16/17 08:25 07/18/17 05:59 Apresoline - PO 75 mg Q6HPO [facility] Administration Sodium Chloride 1,000 mls @ 42 mls/hr 07/15/17 12:30 07/17/17 12:43 Normal Saline - IV 42 mls/hr ASDIR [facility] Administration Insulin Aspart 1 vial 07/15/17 22:00 07/18/17 06:11 Novolog Vial Sliding Scale - SQ Not Given ACHS [facility] Protocol Lorazepam 0.5 mg 07/18/17 09:45 Ativan - PO 07/18/17 09:46 ONCE ONE Pantoprazole Sodium 40 mg 07/15/17 18:15 07/17/17 10:15 Protonix - PO 40 mg DAILY [facility] Administration ASSESSMENT/PLAN:
[2017-07-18] MEDS: PANTOPRAZOLE 40 MG TABLET (FP) PO SCH (10:01)
[2017-07-18] MEDS: HEPARIN NA (PORCINE) 5,000 UNITS/ML 1ML VIAL SQ SCH (10:01)
[2017-07-18] MEDS: amLODIPine BESYLATE 10 MG TABLET (FP) PO SCH (10:01)
[2017-07-18] MEDS: ASPIRIN COATED 81 MG TABLET.EC PO SCH (10:01)
[2017-07-18] MEDS ORDERED: MECLIZINE HCL 12.5 MG TABLET PO PRN (13:42)
--- NOTE | 2017-07-18 13:57 | DS ---
Physical Exam: SUBJECTIVE: Patient seen and examined at the bedside. She spoke with the neurologist today and is in agreement to go forward with brain MRI. Ativan 0.5mg engineering inspection assistant to MRI, as pt is nervous about test. OBJECTIVE: for Brain MRi w/o contrast prior to discharge Antivert for intermittent dizziness Will need follow up with Dr. Vegas as an outpatient Ambulated with PT using RW Daughter Kelly Choi [phone] made aware of d/c plan, home medications reviewed with daughter. Period Temp Pulse Resp BP Sys/Leonardo Pulse Ox Last 24 Hr 98.6 F-99.7 F 81-90 18-20 106-136/54-71 96-98 PHYSICAL EXAM GENERAL: The patient is awake, alert, and fully oriented, in no acute distress. HEAD: Normal with no signs of trauma. EYES: PERRL, extraocular movements intact, sclera anicteric, conjunctiva clear. No ptosis. ENT: Ears normal, nares patent, oropharynx clear without exudates, moist mucous membranes. NECK: Trachea midline, full range of motion, supple. LUNGS: Breath sounds equal, clear to auscultation bilaterally, no wheezes, no crackles, no accessory muscle use. ABDOMEN: Soft, nontender, nondistended, normoactive bowel sounds, no guarding, no rebound, no hepatosplenomegaly, no masses. EXTREMITIES: no edema. NEUROLOGICAL: Normal speech, ambulated 75 feet with PT using RW PSYCH: Normal mood, normal affect. SKIN: Warm, dry, normal turgor, no rashes or lesions noted LABS Laboratory Results - last 24 hr 07/17/17 07/17/17 07/18/17 15:45 21:53 05:25 WBC 5.8 D RBC 3.52 L D Hgb 9.5 L D Hct 29.2 L D MCV 83.0 MCH 26.9 MCHC 32.3 RDW 15.2 Plt Count 129 L MPV 10.1 Neutrophils % 50.0 Lymphocytes % 37.5 D Monocytes % 8.5 Eosinophils % 3.2 Basophils % 0.8 D Sodium Potassium Chloride Carbon Dioxide Anion Gap BUN Creatinine Creat Clearance w eGFR POC Glucometer 267 112 Random Glucose Hemoglobin A1c % Calcium Total Bilirubin AST ALT Alkaline Phosphatase Total Protein Albumin 07/18/17 07/18/17 07/18/17 05:25 05:25 05:51 WBC RBC Hgb Hct MCV MCH MCHC RDW Plt Count MPV Neutrophils % Lymphocytes % Monocytes % Eosinophils % Basophils % Sodium 144 Potassium 4.4 Chloride 110 H Carbon Dioxide 25 Anion Gap 9 BUN 29 H D Creatinine 1.9 H Creat Clearance w eGFR 25.84 POC Glucometer 116 Random Glucose 112 H D Hemoglobin A1c % 8.5 H D Calcium 8.4 L Total Bilirubin 0.4 D AST 28 ALT 24 Alkaline Phosphatase 70 D Total Protein 6.3 L D Albumin 2.6 L D 07/18/17 12:09 WBC RBC Hgb Hct MCV MCH MCHC RDW Plt Count MPV Neutrophils % Lymphocytes % Monocytes % Eosinophils % Basophils % Sodium Potassium Chloride Carbon Dioxide Anion Gap BUN Creatinine Creat Clearance w eGFR POC Glucometer 122 Random Glucose Hemoglobin A1c % Calcium Total Bilirubin AST ALT Alkaline Phosphatase Total Protein Albumin HOSPITAL COURSE: Date of Admission:07/15/17 Date of Discharge: 07/18/17 ASSESSMENT/PLAN: Patient is a 76 year old female with a significant past medical history of hypertension, HLD, CAD s/p stents, diabetes, pancreatitis, dementia, and a brain tumor s/p cyberknife. Patient brought in by EMS after a fall at home, possible syncope. As per admission notes, unsure if fall/syncope was witnessed. Patient was also noted to be hypertensive enroute to hospital and given metroplol 5mg in the field. Serial imaging done here negative for fracture (right elblow, right hip and pelvis, right shoulder, hand) CT head: right parietal lesion initially seen 01/25/2008, unchanged; however, recommend contrast MRI to further evaluate MRI w/o contrast brain ordered, no contrast as pt has PRESTON Syncope Unclear etiology of syncope Pt has multiple risk factors, brain tumor history, cardiac hx, on BP meds: orthostatics?, diabetes: hypoglycemia, diabetic neuropathy Ambulated with PT using rolling walker, c/o of intermittent dizziness (will start antivert) Neurology to follow patient on discharge for further testing Cardiology: Trops negative x 3 Chest xray negative Echo reviewed On ASA 81mg, Lipitor daily Hypertension, now controlled Continue Amlodopine 10mg (higher dose than home dose) Hydralazine 75mg TID (7a, 1p and 8p) Monitor BP with PCP and adjusts meds Endocrine: Diabetes, chronic Monitor blood sugars with Novolog, no hypoglycemic episodes during hospitalization On Neurontin for diabetic neuropathy Will start on Antivert PRN MRI of brain w/o contrast to further evaluate CT head findings, pending Disposition: full code. Discharge Summary Reason For Visit: SYNCOPE Current Active Problems Syncope (Acute) Condition: Good - Instructions Diet, Activity, Other Instructions: Mrs. Torres Please return to the ER if your symptoms persist or worsen. Please note new medications: In order to control your blood pressure, we have adjusted the following 2 medications (all called into your pharmacy): - Amlodopine 10mg daily (you were previously on Amlodopine 5mg) - Hydralazine HCL 75mg three times per day 7am, 1pm and 8pm, you were previously on this medication twice per day Meclizine HCL (antivert) has been called in for dizziness Lipitor 10mg daily has been called in for you to prevent high cholesterol Please see your primary care doctor (Dr. Castillo) within 3-5 days after discharge for further workup. Please note the MRI results will be sent to Dr. Vegas and it is important that you call his office for an appointment for follow up. Please call me with any questions you may have [facility] [phone] Referrals: Josep Vegas MD [Staff Physician] - Jinny Booth MD [Staff Physician] - Chevy Godinez MD [Staff Physician] - 1 Week Disposition: HOME - Home Medications Comprehensive Discharge Medication List: Ambulatory Orders Aspirin 81 mg PO DAILY 07/16/17 Gabapentin [Neurontin -] 300 mg PO TID 07/16/17 Omeprazole 40 mg PO DAILY 07/16/17 Sitagliptin Phosphate [Januvia] 25 mg PO DAILY 07/16/17 Amlodipine Besylate [Norvasc -] 10 mg PO DAILY #30 tablet 07/18/17 Aspirin Coated [Ecotrin -] 81 mg PO DAILY tablet.ec 07/18/17 Atorvastatin Ca [Lipitor] 10 mg PO HS #30 tablet 07/18/17 Gabapentin [Neurontin -] 300 mg PO TID #0 capsule 07/18/17 Hydralazine HCl 75 mg PO TID 30 Days #84 tablet 07/18/17 Hydralazine HCl [Apresoline -] 75 mg PO Q6HPO #0 tablet 07/18/17 Meclizine HCl [Antivert -] 12.5 mg PO BID PRN #60 tablet 07/18/17
--- NOTE | 2017-07-18 16:31 | PN ---
Progress Note, Physician Chief Complaint: No complaints Sinus on tele with occasional pacs no pauses or bradycardia History of Present Illness: 75 year old female with a pmhx of htn, hld, CAD s/p stents in past, NIDDM, chronic pancreatitis, dementia, h/o brain tumor s/p cyberknife sp fall. Patient is poor historian. Unclear details of event. Patient reports she is chronically dizzy and fell at home. Unclear if any LOC. Says nurse helps with meds at home. BP noted to be 220 by ems. +headache which has resolved. + chronic weakness. No chest pain, sob, or palpitations. - Current Medication List Current Medications: Active Medications Amlodipine Besylate (Norvasc -) 10 mg PO DAILY [facility] Last Admin: 07/18/17 10:01 Dose: 10 mg Aspirin (Ecotrin -) 81 mg PO DAILY [facility] Last Admin: 07/18/17 10:01 Dose: 81 mg Atorvastatin Calcium (Lipitor -) 10 mg PO HS [facility] Last Admin: 07/17/17 21:54 Dose: 10 mg Gabapentin (Neurontin -) 300 mg PO TID [facility] Last Admin: 07/18/17 13:49 Dose: 300 mg Hydralazine HCl (Apresoline -) 75 mg PO Q6HPO [facility] Last Admin: 07/18/17 13:49 Dose: 75 mg Sodium Chloride (Normal Saline -) 1,000 mls @ 42 mls/hr IV ASDIR [facility] Last Admin: 07/17/17 12:43 Dose: 42 mls/hr Insulin Aspart (Novolog Vial Sliding Scale -) 1 vial SQ ACHS [facility] PRN Reason: Protocol Last Admin: 07/18/17 12:16 Dose: Not Given Lorazepam (Ativan -) 0.5 mg PO ONCE ONE Stop: 07/18/17 09:46 Meclizine HCl (Antivert -) 12.5 mg PO BID PRN PRN Reason: VERTIGO Pantoprazole Sodium (Protonix -) 40 mg PO DAILY [facility] Last Admin: 07/18/17 10:01 Dose: 40 mg - Objective Vital Signs: Vital Signs Temperature 98.2 F 07/18/17 14:00 Pulse Rate 89 07/18/17 14:00 Respiratory Rate 18 07/18/17 14:00 Blood Pressure 146/68 07/18/17 14:00 O2 Sat by Pulse Oximetry (%) 98 07/18/17 13:30 Constitutional: Yes: No Distress Cardiovascular: Yes: Regular Rate and Rhythm Respiratory: Yes: CTA Bilaterally Gastrointestinal: Yes: Soft Edema: No Labs: CBC, BMP 07/18/17 05:25 07/18/17 05:25 INR, PTT INR 0.91 (0.82-1.09) 07/16/17 07:00 Problem List - Problems (1) Syncope Code(s): R55 - SYNCOPE AND COLLAPSE Assessment/Plan 75 year old female with a pmhx of htn, hld, CAD s/p stents in past, NIDDM, chronic pancreatitis, dementia, h/o brain tumor s/p cyberknife sp fall. Patient is poor historian. Unclear details of event. Patient reports she is chronically dizzy and fell at home. Unclear if any LOC. Says nurse helps with meds at home. BP noted to be 220 by ems. +headache which has resolved. + chronic weakness. No chest pain, sob, or palpitations. 1) Fall Unclear if syncope or any LOC -Echocardiogram and Nuclear Stress Test 03/2017 unremarkable. Normal LVEF and no significant valve disease. No ischemia. EKG with no acute ischemic changes CE's neg No acute events on ekg no events on tele. Carotid duplex with atherosclerosis but no stenosis. Aspirin/statin. BP normal on current meds Will sign off at this time
[2017-07-18] MEDS ORDERED: LORazepam 0.5 MG TABLET PO ONE (17:30)
[2017-07-18] MEDS: SODIUM CHLORIDE 1,000 ML IV SCH (17:49)
[2017-07-18] MEDS ORDERED: INSULIN (NOVOLOG) ASPART 100 UNITS/ML 10ML VIAL ONE (22:35)
[2017-07-18] MEDS: ATORVASTATIN CA 10 MG TABLET (FP) PO SCH (22:59)
[2017-07-19] MEDS: hydrALAZINE HCL 25 MG TABLET (FP) PO SCH ×3 (00:23→12:27)
[2017-07-19] MEDS: GABAPENTIN 100 MG CAPSULE (FP) PO SCH ×2 (05:50→13:36)
[2017-07-19] MEDS: INSULIN SLIDING SCALE (NOVOLOG) 1 VIAL SQ SCH ×2 (06:07→12:08)
[2017-07-19] MEDS: PANTOPRAZOLE 40 MG TABLET (FP) PO SCH (10:31)
[2017-07-19] MEDS: amLODIPine BESYLATE 10 MG TABLET (FP) PO SCH (10:31)
[2017-07-19] MEDS: ASPIRIN COATED 81 MG TABLET.EC PO SCH (10:31)
[2017-07-19 14:41] VITALS: BP 127/78; PULSE 101; TEMP 98.4
== END 2017-07-19 15:30 | disposition home or self-care (01) ==
LOC: JER 11:56 → JERBED 16:46 → J4W 07-16 16:44
PROVIDERS: ADMIT Hospitalist; ATTEND Nurse Practitioner Acute Care
PROC: 3E033GC Introduction of Other Therapeutic Substance into Peripheral Vein, Percutaneous Approach (ICD-10-PCS; principal; 2017-07-15)
PROC: 3E013VG Introduction of Insulin into Subcutaneous Tissue, Percutaneous Approach (ICD-10-PCS; 2017-07-15)
PROC: 3E013GC Introduction of Other Therapeutic Substance into Subcutaneous Tissue, Percutaneous Approach (ICD-10-PCS; 2017-07-15)
DX: R55 Syncope and collapse (principal); I12.9 Hypertensive chronic kidney disease with stage 1 through stage 4 chronic kidney disease, or unspecified chronic kidney disease; E11.22 Type 2 diabetes mellitus with diabetic chronic kidney disease; N18.9 Chronic kidney disease, unspecified; E78.5 Hyperlipidemia, unspecified; I25.10 Atherosclerotic heart disease of native coronary artery without angina pectoris; F03.90 Unspecified dementia, unspecified severity, without behavioral disturbance, psychotic disturbance, mood disturbance, and anxiety; Z79.4 Long term (current) use of insulin; K86.1 Other chronic pancreatitis; Z91.81 History of falling; Z92.21 Personal history of antineoplastic chemotherapy; Z88.6 Allergy status to analgesic agent; Z85.841 Personal history of malignant neoplasm of brain; Z95.5 Presence of coronary angioplasty implant and graft
CPT/HCPCS: 36415; 70450-TC; 70551-TC; 71045-TC; 73030-TC-RT; 73070-TC-RT; 73110-TC-RT; 73130-TC-RT; 73523-TC; 80053; 81003; 81015; 82465; 82550; 82962; 83036; 83718; 83721; 83735; 83880; 84100; 84478; 84484; 85025; 85610; 85730; 86850; 86900; 86901; 93005; 93010; 93880-TC; 94761; 96372; 96374; 97116-GP; 99285-25; G0378; J1644

== ENCOUNTER 2017-12-16 10:57 | Emergency (ER) | payer OTHER ==
[2017-12-16 11:03] VITALS: TEMP 97.9; BMI 26.5
[2017-12-16] MEDS ORDERED: morphine CARPU-JECT 2 MG/1 ML DISP.SYRIN IVPUSH ONE (12:17)
[2017-12-16 13:06] VITALS: BP 155/74; PULSE 80
[2017-12-16] MEDS ORDERED: morphine SULFATE 4 MG/ML VIAL ONE (13:25)
[2017-12-16 13:31] LABS: BASO % 0.6 % (0-2.0); EOS % 1.5 % (0-4.5); HEMATOCRIT 31.4 % (32.4-45.2); HEMOGLOBIN 10.3 GM/dL (10.7-15.3); LYMPH % 17.1 % (8-40); MCH 27.3 pg (25.7-33.7); MCHC 32.8 g/dl (32.0-36.0); MEAN CELL VOLUME 83.2 fl (80-96); MEAN PLT VOLUME 9.4 fl (7.5-11.1); MONO % 6.3 % (3.8-10.2); NEUT % 74.5 % (42.8-82.8); PLATELET COUNT 179 K/MM3 (134-434); RBC 3.78 M/mm3 (3.60-5.2); RDW 15.1 % (11.6-15.6); WHITE BLOOD COUNT 8.4 K/mm3 (4.0-10.0)
[2017-12-16 14:00] LABS: INR 0.91 (0.82-1.09); PROTHROMBIN TIME (PATIENT) 10.3 SEC (9.7-13.0)
[2017-12-16 14:02] LABS: URINE APPEARANCE CLEAR; URINE BILIRUBIN NEGATIVE (<2.0 mg/dL); URINE BLOOD NEGATIVE (NEGATIVE); URINE COLOR STRAW; URINE GLUCOSE (UA) 1+ (NEGATIVE); URINE KETONE NEGATIVE (NEGATIVE); URINE LEUK ESTERASE NEGATIVE (NEGATIVE); URINE NITRITE NEGATIVE (NEGATIVE); URINE PROTEIN 2+ (NEGATIVE); URINE UROBILINOGEN NEGATIVE mg/dL (0.2-1.0)
[2017-12-16 14:37] LABS: ALBUMIN 3.3 g/dl (3.4-5.0); ALK PHOS 105 U/L (45-117); ANION GAP 8 (8-16); BILIRUBIN,TOTAL 0.7 mg/dL (0.2-1.0); BLOOD UREA NITROGEN 24 mg/dL (7-18); CALCIUM 8.7 mg/dL (8.5-10.1); CHLORIDE 109 mmol/L (98-107); CO2 25 mmol/L (21-32); CREATININE 2.1 mg/dL (0.55-1.02); GLUCOSE,RANDOM 142 mg/dL (74-106); POTASSIUM 3.8 mmol/L (3.5-5.1); SGOT/AST 29 U/L (15-37); SGPT/ALT 29 U/L (12-78); SODIUM 142 mmol/L (136-145); TOT PROT 7.5 g/dl (6.4-8.2)
--- NOTE | 2017-12-16 16:03 | PDOC ---
History of Present Illness - General Chief Complaint: Injury Stated Complaint: FALL Time Seen by Provider: 12/16/17 11:10 History Source: Patient Exam Limitations: No Limitations - History of Present Illness Initial Comments: 12/16/17 11:52 77-year-old female with history of vertigo presents the emergency room with complaints of status post fall while going to the bathroom early this morning. Patient states got up in the dark and next thing she no she said she felt as if the room was spinning and lost her balance landing on her right side and striking the back of her head. Patient states had no LOC was able to call back into the bedroom until a home health aid came in the morning. Patient now complaining of right wrist pain, and right hip pain. Patient has no other complaints of chest pain shortness of breath, visual changes or nausea. Patient states has had episodes of dizziness in the past which she takes her meclizine for but did not have time to take her medication. Occurred: reports: this morning Severity: reports: moderate Pain Location: reports: lower extremity, upper extremity Loss of Consciousness: no loss of consciousness Associated Symptoms (Fall): trouble walking ( limping) Past History - Past Medical History Allergies/Adverse Reactions: Allergies Allergy/AdvReac Type Severity Reaction Status Date / Time acetaminophen [From Percocet] Allergy Verified 12/16/17 11:00 oxycodone HCl [From Percocet] Allergy Swelling Verified 12/16/17 11:00 Home Medications: Ambulatory Orders Aspirin 81 mg PO DAILY 07/16/17 Gabapentin [Neurontin -] 300 mg PO TID 07/16/17 Omeprazole 40 mg PO DAILY 07/16/17 Sitagliptin Phosphate [Januvia] 25 mg PO DAILY 07/16/17 Amlodipine Besylate [Norvasc -] 10 mg PO DAILY #30 tablet 07/18/17 Aspirin Coated [Ecotrin -] 81 mg PO DAILY tablet.ec 07/18/17 Atorvastatin Ca [Lipitor] 10 mg PO HS #30 tablet 07/18/17 Gabapentin [Neurontin -] 300 mg PO TID #0 capsule 07/18/17 Hydralazine HCl 75 mg PO TID 30 Days #84 tablet 07/18/17 Meclizine HCl [Antivert -] 12.5 mg PO BID PRN #60 tablet 07/18/17 hydrALAZINE HCL [Apresoline -] 75 mg PO Q6HPO #0 tablet 07/18/17 Cancer: Yes (brain tumors/neck tumors with sx) Cardiac Disorders: Yes COPD: No Dementia: Yes Diabetes: Yes HTN: Yes Hypercholesterolemia: Yes - Surgical History Cardiac Surgery: Yes (STENT PLACEMENT) Orthopedic Surgery: Yes (Spinal Sx yrs ago) - Immunization History Immunization Up to Date: Yes - Suicide/Smoking/Psychosocial Hx Smoking Status: No Smoking History: Never smoked Have you smoked in the past 12 months: No Number of Cigarettes Smoked Daily: 0 Information on smoking cessation initiated: No Hx Alcohol Use: No Drug/Substance Use Hx: No Substance Use Type: None Hx Substance Use Treatment: No Patient Lives Alone: No Review of Systems - Review of Systems Able to Perform ROS?: No Constitutional: No: Symptoms Reported HEENTM: No: Symptoms Reported Respiratory: No: Symptoms reported Cardiac (ROS): Yes: Lightheadedness ABD/GI: No: Symptoms Reported : No: Symptoms Reported Musculoskeletal: Yes: Joint Pain (right wrist, right hip) Integumentary: No: Symptoms Reported Neurological: Yes: Dizziness (episodic ( approx 10 seconds)) *Physical Exam - Vital Signs Last Vital Signs Temp Pulse Resp BP Pulse Ox 97.9 F 80 16 155/74 97 12/16/17 11:00 12/16/17 13:05 12/16/17 13:05 12/16/17 13:05 12/16/17 13:05 - Physical Exam General Appearance: Yes: Nourished, Appropriately Dressed. No: Apparent Distress Neck: positive: Supple. negative: Tender, Decreased range of motion Respiratory/Chest: positive: Lungs Clear, Normal Breath Sounds. negative: Chest Tender, Respiratory Distress, Accessory Muscle Use Cardiovascular: positive: Regular Rhythm, Regular Rate. negative: Murmur Gastrointestinal/Abdominal: positive: Soft. negative: Tenderness Extremity: positive: Normal Capillary Refill, Normal Inspection, Normal Range of Motion, Tender (right distal radial and right lateral aspect of proximal femur) Integumentary: positive: Normal Color, Warm, Moist. negative: Swelling, Ecchymosis Neurologic: positive: Normal Mood/Affect, Motor Strength 5/5 (moving all extremities actively) Heart Score/ECG Review - ECG Intrepretation Rhythm: Regular Rhythm (rate 89. Normal sinus rhythm. Left axis deviation) ED Treatment Course - LABORATORY CBC & Chemistry Diagram: 12/16/17 13:20 12/16/17 13:20 - ADDITIONAL ORDERS Additional order review: Laboratory Results 12/16/17 12/16/17 12/16/17 13:50 13:20 13:20 PT with INR 10.30 INR 0.91 Sodium Potassium Chloride Carbon Dioxide Anion Gap BUN Creatinine Creat Clearance w eGFR Random Glucose Calcium Magnesium 2.3 Total Bilirubin AST ALT Alkaline Phosphatase Creatine Kinase Troponin I Total Protein Albumin Urine Color Straw Urine Appearance Clear Urine pH 7.0 Ur Specific [place] 1.009 Urine Protein 2+ H Urine Glucose (UA) 1+ H Urine Ketones Negative Urine Blood Negative Urine Nitrite Negative Urine Bilirubin Negative Urine Urobilinogen Negative Ur Leukocyte Esterase Negative Urine WBC (Auto) <1 Urine RBC (Auto) 1 Blood Type Antibody Screen 12/16/17 12/16/17 13:20 13:20 PT with INR INR Sodium 142 Potassium 3.8 Chloride 109 H Carbon Dioxide 25 Anion Gap 8 BUN 24 H Creatinine 2.1 H Creat Clearance w eGFR 22.96 Random Glucose 142 H Calcium 8.7 Magnesium Total Bilirubin 0.7 D AST 29 ALT 29 Alkaline Phosphatase 105 Creatine Kinase 128 Troponin I < 0.02 Total Protein 7.5 Albumin 3.3 L Urine Color Urine Appearance Urine pH Ur Specific [place] Urine Protein Urine Glucose (UA) Urine Ketones Urine Blood Urine Nitrite Urine Bilirubin Urine Urobilinogen Ur Leukocyte Esterase Urine WBC (Auto) Urine RBC (Auto) Blood Type O POSITIVE Antibody Screen Negative 12/16/17 13:20 RBC 3.78 MCV 83.2 MCHC 32.8 RDW 15.1 MPV 9.4 Neutrophils % 74.5 D Lymphocytes % 17.1 D Monocytes % 6.3 Eosinophils % 1.5 Basophils % 0.6 - RADIOLOGY Radiology Studies Ordered: Category Date Time Status CERVICAL SPINE CT W/O CONTR [CT] Stat CT Scan 12/16/17 10:[address] WITHOUT CONTRAST [CT] Stat CT Scan 12/16/17 14:50 Completed CHEST X-RAY PORTABLE* [RAD] Stat Radiology 12/16/17 11:49 Taken HIP & PELVIS-RIGHT [RAD] Stat Radiology 12/16/17 12:16 Taken WRIST- RIGHT [RAD] Stat Radiology 12/16/17 12:16 Taken - Medications Given in the ED: ED Medications Discontinued Medications Generic Name Dose Route Start Last Admin Trade Name Freq PRN Reason Stop Dose Admin Morphine Sulfate 2 mg 12/16/17 12:17 12/16/17 13:40 Morphine Injection - IVPUSH 12/16/17 12:18 2 mg ONCE ONE Administration Medical Decision Making - Medical Decision Making 12/16/17 12:12 Secondary to episodic dizziness related to her vertigo. Patient will have one set of cardiac enzymes and EKG done to rule out other etiologies. Patient will also have a head CT, cervical CT right wrist and right hip x-ray. Labs and urine also ordered 12/16/17 16:14 Selected Entries 12/16/17 13:05 Pulse Rate [ 80 Apical] Blood Pressure 155/74 [Left Arm] Laboratory Tests 04/03/17 07/18/17 12/16/17 06:00 05:25 13:20 WBC 8.4 D RBC 3.78 Hgb 10.3 L Hct 31.4 L Plt Count 179 D Neutrophils % 74.5 D INR Sodium Potassium Chloride Carbon Dioxide Anion Gap BUN Creatinine 2.2 H D 1.9 H Random Glucose Calcium Magnesium Creatine Kinase Troponin I Albumin Urine Protein Urine Glucose (UA) Urine Ketones Ur Leukocyte Esterase Urine WBC (Auto) 12/16/17 12/16/17 12/16/17 13:20 13:20 13:20 WBC RBC Hgb Hct Plt Count Neutrophils % INR 0.91 Sodium 142 Potassium 3.8 Chloride 109 H Carbon Dioxide 25 Anion Gap 8 BUN 24 H Creatinine 2.1 H Random Glucose 142 H Calcium 8.7 Magnesium 2.3 Creatine Kinase 128 Troponin I < 0.02 Albumin 3.3 L Urine Protein Urine Glucose (UA) Urine Ketones Ur Leukocyte Esterase Urine WBC (Auto) 12/16/17 13:50 WBC RBC Hgb Hct Plt Count Neutrophils % INR Sodium Potassium Chloride Carbon Dioxide Anion Gap BUN Creatinine Random Glucose Calcium Magnesium Creatine Kinase Troponin I Albumin Urine Protein 2+ H Urine Glucose (UA) 1+ H Urine Ketones Negative Ur Leukocyte Esterase Negative Urine WBC (Auto) <1 12/16/17 17:06 Right wrist x-ray shows [id number] degenerative arthritis with no fracture or acute bone or joint abnormality. Hip and pelvis shows moderate degenerative arthritis with no fracture acute bone or joint abnormality. Cervical CT no evidence of acute fracture or traumatic subluxation of the cervical spine. Apparent central disc protrusion of C6-C7 with no significant canal stenosis appears to be new since previous CT in 2016. Patient states better after receiving the morphine. Patient will be discharged home. *DC/Admit/Observation/Transfer Diagnosis at time of Disposition: Fall - Discharge Dispostion Disposition: HOME Condition at time of disposition: Good - Referrals Referrals: Jinny Booth MD [Primary Care Provider] - - Patient Instructions Printed Discharge Instructions: How to Prevent Falls Additional Instructions: Please get up on increments from lying position to decrease the chances of becoming dizzy. Take meclizine as needed - Post Discharge Activity
--- NOTE | 2017-12-16 17:58 | EKG ---
Test Reason : Blood Pressure : / mmHG Vent. Rate : 089 BPM Atrial Rate : 089 BPM P-R Int : 144 ms QRS Dur : 086 ms QT Int : 388 ms P-R-T Axes : 064 -66 060 degrees QTc Int : 472 ms POOR DATA QUALITY, INTERPRETATION MAY BE ADVERSELY AFFECTED NORMAL SINUS RHYTHM LEFT AXIS DEVIATION ANTERIOR INFARCT , AGE UNDETERMINED ABNORMAL ECG Confirmed by MD SRINATH, JAZZ ([id number]) on 12/16/2017 5:58:16 PM Referred By: Confirmed By:JAZZ YO MD
== END 2017-12-16 20:22 | disposition home or self-care (01) ==
LOC: JER 10:57
DX: S09.8XXA Other specified injuries of head, initial encounter (principal); M25.551 Pain in right hip; M25.531 Pain in right wrist; W18.39XA Other fall on same level, initial encounter; Y93.89 Activity, other specified; Y92.031 Bathroom in apartment as the place of occurrence of the external cause; Y99.8 Other external cause status; I25.10 Atherosclerotic heart disease of native coronary artery without angina pectoris; I10 Essential (primary) hypertension; Z95.5 Presence of coronary angioplasty implant and graft; E78.00 Pure hypercholesterolemia, unspecified; E11.9 Type 2 diabetes mellitus without complications; Z79.84 Long term (current) use of oral hypoglycemic drugs; F03.90 Unspecified dementia, unspecified severity, without behavioral disturbance, psychotic disturbance, mood disturbance, and anxiety
CPT/HCPCS: 36415; 70450-TC; 71045-TC-FY; 72125-TC; 73110-TC-RT-FY; 73523-TC-FY; 80053; 81003; 81015; 82550; 83735; 84484; 85025; 85610; 86850; 86900; 86901; 93005; 93010; 99283-25

== ENCOUNTER 2019-07-03 13:49 | Inpatient (IN) | payer OTHER ==
[2019-07-03 14:16] VITALS: BMI 29.0
--- NOTE | 2019-07-03 14:33 | PDOC ---
History of Present Illness - General Chief Complaint: Chest Pain Stated Complaint: CHEST TIGHTNESS Time Seen by Provider: 07/03/19 14:32 Past History - Past Medical History Allergies/Adverse Reactions: Allergies Allergy/AdvReac Type Severity Reaction Status Date / Time acetaminophen [From Percocet] Allergy Verified 07/03/19 14:16 oxycodone HCl [From Percocet] Allergy Swelling Verified 07/03/19 14:16 Home Medications: Ambulatory Orders Aspirin 81 mg PO DAILY 07/16/17 Gabapentin [Neurontin -] 300 mg PO TID 07/16/17 Omeprazole 40 mg PO DAILY 07/16/17 Sitagliptin Phosphate [Januvia] 25 mg PO DAILY 07/16/17 Amlodipine Besylate [Norvasc -] 10 mg PO DAILY #30 tablet 07/18/17 Aspirin Coated [Ecotrin -] 81 mg PO DAILY tablet.ec 07/18/17 Atorvastatin Ca [Lipitor] 10 mg PO HS #30 tablet 07/18/17 Gabapentin [Neurontin -] 300 mg PO TID #0 capsule 07/18/17 Hydralazine HCl 75 mg PO TID 30 Days #84 tablet 07/18/17 Meclizine HCl [Antivert -] 12.5 mg PO BID PRN #60 tablet 07/18/17 hydrALAZINE HCL [Apresoline -] 75 mg PO Q6HPO #0 tablet 07/18/17 Cancer: Yes (brain tumors/neck tumors with sx) Cardiac Disorders: Yes COPD: No Dementia: Yes Diabetes: Yes HTN: Yes Hypercholesterolemia: Yes - Surgical History Cardiac Surgery: Yes (STENT PLACEMENT) Orthopedic Surgery: Yes (Spinal Sx yrs ago) - Immunization History Immunization Up to Date: Yes - Psycho Social/Smoking Cessation Hx Smoking Status: No Smoking History: Smoker current status UNK Have you smoked in the past 12 months: No Number of Cigarettes Smoked Daily: 0 Information on smoking cessation initiated: No Hx Alcohol Use: No Drug/Substance Use Hx: No Substance Use Type: None Hx Substance Use Treatment: No *Physical Exam - Vital Signs Last Vital Signs Temp Pulse Resp BP Pulse Ox 98 F 90 18 181/94 H 99 07/03/19 14:15 07/03/19 14:15 07/03/19 14:15 07/03/19 14:15 07/03/19 14:15 Discharge - Follow up/Referral Referrals: Jinny Booth MD [Primary Care Provider] - - Patient Discharge Instructions - Post Discharge Activity
[2019-07-03] MEDS ORDERED: LACTATED RINGERS SOLUTION 1000 ML INFUS.BAG IV ONE (15:37)
[2019-07-03 15:57] LABS: BASO % 1.3 % (0-2.0); HEMATOCRIT 33.9 % (32.4-45.2); MCHC 32.3 g/dl (32.0-36.0); MEAN CELL VOLUME 83.7 fl (80-96); MEAN PLT VOLUME 9.9 fl (7.5-11.1); MONO % 7.3 % (3.8-10.2); NEUT % 69.4 % (42.8-82.8); PLATELET COUNT 156 K/MM3 (134-434); RBC 4.05 M/mm3 (3.60-5.2); RDW 15.6 % (11.6-15.6); WHITE BLOOD COUNT 8.1 K/mm3 (4.0-10.0)
[2019-07-03 16:25] LABS: ALBUMIN 3.5 g/dl (3.4-5.0); BILIRUBIN,TOTAL 0.4 mg/dL (0.2-1); BLOOD UREA NITROGEN 31.4 mg/dL (7-18); CALCIUM 8.5 mg/dL (8.5-10.1); CREATININE 2.3 mg/dL (0.55-1.3); PHOSPHOROUS 3.5 mg/dL (2.5-4.9); TOT PROT 8.1 g/dl (6.4-8.2)
[2019-07-03 16:29] LABS: INR 0.91 (0.83-1.09); POTASSIUM 4.7 mmol/L (3.5-5.1); PROTHROMBIN TIME (PATIENT) 10.7 SEC (9.7-13.0)
[2019-07-03 16:32] LABS: ACTIVATED PTT 30.9 SECONDS (25.2-36.5)
[2019-07-03 16:33] LABS: LIPASE 416 U/L (73-393)
--- NOTE | 2019-07-03 18:56 | PDOC ---
History of Present Illness - General Chief Complaint: Chest Pain Stated Complaint: CHEST TIGHTNESS Time Seen by Provider: 07/03/19 14:32 History Source: Patient, Family, Old Records Exam Limitations: Dementia - History of Present Illness Initial Comments: HPI: 78 y/o female presenting to [facility] ER complaining of a poorly described episode of possible dizziness, vomiting, weakness, and urinary and fecal incontinence at home earlier today. Pt is a poor historian and is unable to provide a complete timeline or description of events. Stated the events happened on her way to the bathroom because she felt the need to have a bowel movement. Initially stated she did not fall to the ground, but rather was helped to the toilet seat by her home school coordinator. Then she stated that she struck her head on the floor. Pt further endorsed persistent vomiting and loose stools for the past several months. Single episode of emesis this morning, cannot describe the contents. At time of interview, the pts only complaint was a little bifrontal headache. Called pts daughter, Suellen Choi, who is unable to provide further information. Called the pts son, Lester Choi ([phone]), who was at home when the ambulance was called. Stated her heard his mother oumar then vomiting. Her health aide requested her call 911. Medical Hx: - HTN - DM - HLD - CAD s/p stenting - Brain tumor s/p cyberknife - Chronic pancreatitis Review of Systems: 10 point review of systems completed. All systems negative except as noted above , though unclear if the responses were accurate. Physical Examination: Vital signs and nursing notes reviewed. Constitutional- Elderly adult female in no acute distress or obvious discomfort. Found semi-fowlers on hospital bed. Head- Normocephalic. No obvious external signs of trauma. No Bingham's sign or periorbital bruising. Eyes- PERRL. EOMI. Sclerae white. Conjunctiva moist and not injected. Cardiovascular / Chest- Regular rate and regular rhythm. 3/5 systolic murmur. No rubs, clicks, or gallops. Peripheral pulses- radial pulses full. Trace pretibial edema bilaterally. Respiratory- Breathing unlabored. No observed coughing. Equal chest rise and fall. Clear to auscultation bilaterally. No stridor, no wheezing, no rhonchi. Gastrointestinal- abdomen is soft, non-tender, non-distended. No overlying skin lesions or obvious signs of trauma. Neuro- Alert and oriented x4. Moving all four extremities spontaneously. No facial asymmetry. No slurred speech. Sensation to all four extremities intact. Skin- Warm, dry, and intact. Psych- Affect- appropriate. Mood- normal. Speech was non-labored, non- pressured. MDM: 78 y/o female presenting with unclear episode of presyncope vs syncope. Unclear if pt struck her head Afebrile. Vitals unremarkable for hypotension or tachycardia. Physical exam as described above. Labs reviewed. No significant electrolyte derangement, anemia, leukocytosis, or troponin elevation. EKG unremarkable for ischemic changes. Cr mildly elevated about documented baseline. Possible mild dehydration from reported vomiting. Ordered IVFB. Lipase elevated at baseline likely secondary to h/o chronic pancreatitis. 03 Jul 2019 19:00 PM Pt signed out to resident Dr. Josue after she was verbally appraised of the pts HPI, current ED course, and plan of management. Will f/u pending CHT and C-spine CT. Anticipate admission for syncope vs presyncope. Sim Johnston M.D., PGY2 Emergency Medicine Resident Past History - Past Medical History Allergies/Adverse Reactions: Allergies Allergy/AdvReac Type Severity Reaction Status Date / Time acetaminophen [From Percocet] Allergy Verified 07/03/19 14:16 oxycodone HCl [From Percocet] Allergy Swelling Verified 07/03/19 14:16 Home Medications: Ambulatory Orders Aspirin 81 mg PO DAILY 07/16/17 Gabapentin [Neurontin -] 300 mg PO TID 07/16/17 Omeprazole 40 mg PO DAILY 07/16/17 Sitagliptin Phosphate [Januvia] 25 mg PO DAILY 07/16/17 Amlodipine Besylate [Norvasc -] 10 mg PO DAILY #30 tablet 07/18/17 Atorvastatin Ca [Lipitor] 10 mg PO HS #30 tablet 07/18/17 Hydralazine HCl 75 mg PO TID 30 Days #84 tablet 07/18/17 Meclizine HCl [Antivert -] 12.5 mg PO BID PRN #60 tablet 07/18/17 hydrALAZINE HCL [Apresoline -] 75 mg PO Q6HPO #0 tablet 07/18/17 Cancer: Yes (brain tumors/neck tumors with sx) Cardiac Disorders: Yes COPD: No Dementia: Yes Diabetes: Yes HTN: Yes Hypercholesterolemia: Yes - Surgical History Cardiac Surgery: Yes (STENT PLACEMENT) Orthopedic Surgery: Yes (Spinal Sx yrs ago) - Immunization History Immunization Up to Date: Yes - Psycho Social/Smoking Cessation Hx Smoking Status: No Smoking History: Smoker current status UNK Have you smoked in the past 12 months: No Number of Cigarettes Smoked Daily: 0 Information on smoking cessation initiated: No Hx Alcohol Use: No Drug/Substance Use Hx: No Substance Use Type: None Hx Substance Use Treatment: No *Physical Exam - Vital Signs Last Vital Signs Temp Pulse Resp BP Pulse Ox 98.0 F 84 14 187/102 H 100 07/03/19 17:11 07/03/19 18:28 07/03/19 18:28 07/03/19 18:28 07/03/19 18:28 ED Treatment Course - LABORATORY CBC & Chemistry Diagram: 07/03/19 15:21 07/03/19 15:21 - ADDITIONAL ORDERS Additional order review: Laboratory Results 07/03/19 07/03/19 07/03/19 15:21 15:21 15:21 PT with INR 10.70 INR 0.91 PTT (Actin FS) 30.9 Sodium 141 Potassium 4.7 Chloride 111 H Carbon Dioxide 24 Anion Gap 7 L BUN 31.4 H Creatinine 2.3 H Est GFR (CKD-EPI)AfAm 23.15 Est GFR (CKD-EPI)NonAf 19.98 Random Glucose 144 H Calcium 8.5 Phosphorus 3.5 Magnesium 2.0 Total Bilirubin 0.4 AST 53 H ALT 33 Alkaline Phosphatase 94 Troponin I < 0.02 Total Protein 8.1 Albumin 3.5 Lipase 416 H TSH 1.86 Thyroxine (T4) 13.3 07/03/19 15:21 RBC 4.05 MCV 83.7 MCHC 32.3 RDW 15.6 MPV 9.9 Neutrophils % 69.4 Lymphocytes % 20.0 Monocytes % 7.3 Eosinophils % 2.0 Basophils % 1.3 - RADIOLOGY Radiology Studies Ordered: Category Date Time Status HEAD CT WITHOUT CONTRAST [CT] Stat CT Scan 07/03/19 15:36 Taken CHEST PA & LAT [RAD] Stat Radiology 07/03/19 14:45 Taken - Medications Given in the ED: ED Medications Discontinued Medications Generic Name Dose Route Start Last Admin Trade Name Freq PRN Reason Stop Dose Admin Lactated Ringer's 1,000 ml 07/03/19 15:37 07/03/19 15:50 Lactated Ringers Solution IV 07/03/19 15:38 1,000 ml ONCE ONE Administration Discharge - Discharge Information Problems reviewed: Yes Clinical Impression/Diagnosis: Dizziness, Pre-syncope Condition: Stable - Follow up/Referral Referrals: Jinny Booth MD [Primary Care Provider] - - Patient Discharge Instructions - Post Discharge Activity
--- NOTE | 2019-07-03 19:13 | PDOC ---
ED Treatment Course - LABORATORY CBC & Chemistry Diagram: 07/03/19 15:21 07/03/19 15:21 - Medications Given in the ED: ED Medications Discontinued Medications Generic Name Dose Route Start Last Admin Trade Name Freq PRN Reason Stop Dose Admin Lactated Ringer's 1,000 ml 07/03/19 15:37 07/03/19 15:50 Lactated Ringers Solution IV 07/03/19 15:38 1,000 ml ONCE ONE Administration Medical Decision Making - Medical Decision Making Pt signed out to me by Dr. Johnston, appreciate prior note. 78 yo female with PMH HTN, DM, HLD, CAD s/p stenting, brain tumor s/p cyberknife presented to ED with questionable syncopal episode. It was reported pt felt lightheaded, generally weak, had an episode of urinary and fecal incontinence on the way to the bathroom and then vomited. Her story then becomes unclear as she stated she did fall, and that she didnt. She did report head injury at one point. At the time of presentation her complaint was a headache. There was an aid in the home but they did not witness all of the events. Initial Vital Signs Temp Pulse Resp BP Pulse Ox 98 F 90 18 181/94 H 99 07/03/19 14:15 07/03/19 14:15 07/03/19 14:15 07/03/19 14:15 07/03/19 14:15 Afebrile. No tachycardia. No tachypnea. Hypertensive. No hypoxia on room air. ED Medications Discontinued Medications Generic Name Dose Route Start Last Admin Trade Name Freq PRN Reason Stop Dose Admin Lactated Ringer's 1,000 ml 07/03/19 15:37 07/03/19 15:50 Lactated Ringers Solution IV 07/03/19 15:38 1,000 ml ONCE ONE Administration Laboratory Last Values WBC 8.1 K/mm3 (4.0-10.0) 07/03/19 15:21 RBC 4.05 M/mm3 (3.60-5.2) 07/03/19 15:21 Hgb 11.0 GM/dL (10.7-15.3) 07/03/19 15:21 Hct 33.9 % (32.4-45.2) 07/03/19 15:21 MCV 83.7 fl (80-96) 07/03/19 15:21 MCH 27.0 pg (25.7-33.7) 07/03/19 15:21 MCHC 32.3 g/dl (32.0-36.0) 07/03/19 15:21 RDW 15.6 % (11.6-15.6) 07/03/19 15:21 Plt Count 156 K/MM3 (134-434) 07/03/19 15:21 MPV 9.9 fl (7.5-11.1) 07/03/19 15:21 Absolute Neuts (auto) 5.6 K/mm3 (1.5-8.0) 07/03/19 15:21 Neutrophils % 69.4 % (42.8-82.8) 07/03/19 15:21 Lymphocytes % 20.0 % (8-40) 07/03/19 15:21 Monocytes % 7.3 % (3.8-10.2) 07/03/19 15:21 Eosinophils % 2.0 % (0-4.5) 07/03/19 15:21 Basophils % 1.3 % (0-2.0) 07/03/19 15:21 Nucleated RBC % 0 % (0-0) 07/03/19 15:21 PT with INR 10.70 SEC (9.7-13.0) 07/03/19 15:21 INR 0.91 (0.83-1.09) 07/03/19 15:21 PTT (Actin FS) 30.9 SECONDS (25.2-36.5) 07/03/19 15:21 Sodium 141 mmol/L (136-145) 07/03/19 15:21 Potassium 4.7 mmol/L (3.5-5.1) 07/03/19 15:21 Chloride 111 mmol/L (98-107) H 07/03/19 15:21 Carbon Dioxide 24 mmol/L (21-32) 07/03/19 15:21 Anion Gap 7 MMOL/L (8-16) L 07/03/19 15:21 BUN 31.4 mg/dL (7-18) H 07/03/19 15:21 Creatinine 2.3 mg/dL (0.55-1.3) H 07/03/19 15:21 Est GFR (CKD-EPI)AfAm 23.15 07/03/19 15:21 Est GFR (CKD-EPI)NonAf 19.98 07/03/19 15:21 Random Glucose 144 mg/dL (74-106) H 07/03/19 15:21 Calcium 8.5 mg/dL (8.5-10.1) 07/03/19 15:21 Phosphorus 3.5 mg/dL (2.5-4.9) 07/03/19 15:21 Magnesium 2.0 mg/dL (1.8-2.4) 07/03/19 15:21 Total Bilirubin 0.4 mg/dL (0.2-1) 07/03/19 15:21 AST 53 U/L (15-37) H 07/03/19 15:21 ALT 33 U/L (13-61) 07/03/19 15:21 Alkaline Phosphatase 94 U/L (45-117) 07/03/19 15:21 Troponin I < 0.02 ng/ml (0.00-0.05) 07/03/19 15:21 Total Protein 8.1 g/dl (6.4-8.2) 07/03/19 15:21 Albumin 3.5 g/dl (3.4-5.0) 07/03/19 15:21 Lipase 416 U/L (73-393) H 07/03/19 15:21 TSH 1.86 uIU/ml (0.358-3.74) 07/03/19 15:21 Thyroxine (T4) 13.3 ug/dl (4.5-13.9) 07/03/19 15:21 No leukocytosis. No anemia. No clinically concerning electrolyte abnormalities. PRESTON. Troponin undetectable. Lipase high, not 3X normal. No abdominal tenderness. Thyroid function normal. CXR my view: cardiomegaly. blunted costophrenic angles. no infiltrate. -Pending official report Pt is pending CT head and cervical spine. To be admitted for questionable syncopal episode. 07/03/19 20:45 CT head report: Referring Physician: BISHOP WILKES Comments: Prem Bello MD wrote on Jul 03, 2019 at 08:35 PM: Referring Physician: BISHOP WILKES Patient Name: SHAYLA TOMPKINS THIS IS A PRELIMINARY REPORT FROM [facility] DATE OF SERVICE: 2019-07-03 16:39:46 IMAGES: [id number] EXAM: HEAD CT WITHOUT CONTRAST HISTORY: Emesis. Procedure: Contiguous axial tomographic sections were obtained from the base of the skull to the vertex without the use of intravenous contrast. Sagittal and coronal reformatted images are provided. COMPARISON: December 16, 2017. FINDINGS: There is stable dilation of the ventricles, sulci and cisterns, consistent with age-related cerebral atrophy. There is no evidence of midline shift. Atherosclerotic calcifications are visualized. There is a stable lobulated sclerotic density at the inner table of the right occipital bone, consistent with calcified meningioma. There are no apparent focal parenchymal masses of interval onset on this nonenhanced CT. There is no evidence of acute intracranial hemorrhage or large parenchymal infarction of interval onset. Mild hypodensity of the periventricular white matter appears unchanged, consistent with small vessel ischemic disease. There are no apparent hyperdense extra-axial fluid collections. On bone windows, the skull appears intact. There is stable opacification within the bilateral ethmoid sinuses, consistent with chronic sinusitis. The mastoid air cells are clear. There is mild nasal septal deviation. There is a left-sided jay bullosa, an anatomic variation. The globes appear within normal limits. IMPRESSION: Stable appearance of the head. One or more of the following dose reduction techniques were used: automated exposure control, adjustment of the mA and/or kV according to patient size, use of iterative reconstructive technique. THIS DOCUMENT HAS BEEN ELECTRONICALLY SIGNED Prem Bello MD 07/03/2019 20:35 TREY Martinez. Please call Imaging Supervisor Finishing Room [phone] with questions Prem Bello MD Clinicians - Please contact Imaging Supervisor Finishing Room with further questions at [phone] Patients - Please contact your Ordering Provider with questions. Urine Test Results Urine Color Yellow 07/03/19 19:50 Urine Appearance Clear 07/03/19 19:50 Urine pH 6.5 (5.0-8.0) 07/03/19 19:50 Ur Specific Solomon 1.011 (1.010-1.035) 07/03/19 19:50 Urine Protein 3+ (NEGATIVE) H 07/03/19 19:50 Urine Glucose (UA) Negative (NEGATIVE) 07/03/19 19:50 Urine Ketones Negative (NEGATIVE) 07/03/19 19:50 Urine Blood Negative (NEGATIVE) 07/03/19 19:50 Urine Nitrite Negative (NEGATIVE) 07/03/19 19:50 Urine Bilirubin Negative (NEGATIVE) 07/03/19 19:50 Ur Leukocyte Esterase Negative (NEGATIVE) 07/03/19 19:50 07/03/19 20:53 CT cervical spine report: Referring Physician: MALIHA WORLEY Comments: Prem Bello MD wrote on Jul 03, 2019 at 08:49 PM: Referring Physician: MALIHA WORLEY Patient Name: SHAYLA TOMPKINS THIS IS A PRELIMINARY REPORT FROM [facility] DATE OF SERVICE: 2019-07-03 16:29:39 IMAGES: [id number] EXAM: CERVICAL SPINE CT W/O CONTR HISTORY: Status post fall. Procedure: Contiguous axial tomographic sections were obtained throughout the cervical spine, with sagittal and coronal reformatted images provided. COMPARISON: None currently available. Preliminary findings/impression: 1. No evidence of acute fractures on this study. 2. C3/C4 and C4/C5 retrolistheses, with C7/T1, T2/T3 and T3/T4 anterolistheses. 3. Diffuse degenerative changes. 4. Calculi within the bilateral submandibular glands 5. Atherosclerotic calcifications. One or more of the following dose reduction techniques were used: automated exposure control, adjustment of the mA and/or kV according to patient size, use of iterative reconstructive technique. THIS DOCUMENT HAS BEEN ELECTRONICALLY SIGNED Prem Bello MD 07/03/2019 20:48 EST M.D. Please call Imaging Supervisor Finishing Room [phone] with questions. Prem Bello MD Clinicians - Please contact Imaging Supervisor Finishing Room with further questions at [phone] Patients - Please contact your Ordering Provider with questions Pt to be admitted for syncope. Discharge - Discharge Information Problems reviewed: Yes Clinical Impression/Diagnosis: Pre-syncope Condition: Stable - Admission Yes - Follow up/Referral Referrals: Jinny Booth MD [Primary Care Provider] - - Patient Discharge Instructions - Post Discharge Activity
--- NOTE | 2019-07-03 19:17 | PDOC ---
Documentation entered by Bo Montano SCRIBE, acting as scribe for Cisco Kaur MD. Cisco Kaur MD: This documentation has been prepared by the Dusty ochoa Xhesika, SCRIBE, under my direction and personally reviewed by me in its entirety. I confirm that the documentation accurately reflects all work, treatment, procedures, and medical decision making performed by me. Attending Attestation - Resident Resident Name: Sim Johnston - ED Attending Attestation I have performed the following: I have examined & evaluated the patient, The case was reviewed & discussed with the resident, I agree w/resident's findings & plan, Exceptions are as noted - HPI HPI: 07/03/19 18:18 The patient is a 78 year old female, with a significant past medical history of HTN, DM, HLD, CAD s/p stenting, brain tumor s/p cyberknife who presents to the ED with chest pain earlier today. Pt is a poor historian and can not elaborate and further. Patient is currently only complaining of lightheadedness. Allergies: Acetaminophen, oxycodone HCL - Physicial Exam PE: 07/03/19 18:21 Agree with resident exam - Medical Decision Making 07/03/19 19:15 78yo F with MMP including CAD presents to the ED with c/o resolved chest pain and persistent lightheadedness. Pt also with possible syncopal episode per family but details are unclear. Pt hypertensive on arrival Exam unremarkable Plan for ACS and syncope w/u. Will also obtain CTH, c-spine for trauma w/u given questionable head strike Anticipate admission due to hx CAD Case signed out to Dr. Saldaña for further mgmt Heart Score/ECG Review #1 07/03/19 19:16 Twelve-lead EKG was performed and reviewed by me. Normal sinus rhythm, rate 91. Left axis deviation. Left anterior fascicular block. No ST elevations or T wave inversions.
--- NOTE | 2019-07-03 19:35 | PDOC ---
*Physical Exam - Vital Signs Last Vital Signs Temp Pulse Resp BP Pulse Ox 98.0 F 84 14 187/102 H 100 07/03/19 17:11 07/03/19 18:28 07/03/19 18:28 07/03/19 18:28 07/03/19 18:28 ED Treatment Course - LABORATORY CBC & Chemistry Diagram: 07/04/19 08:50 07/04/19 08:50 - ADDITIONAL ORDERS Additional order review: Laboratory Results 07/03/19 07/03/19 07/03/19 15:21 15:21 15:21 PT with INR 10.70 INR 0.91 PTT (Actin FS) 30.9 Sodium 141 Potassium 4.7 Chloride 111 H Carbon Dioxide 24 Anion Gap 7 L BUN 31.4 H Creatinine 2.3 H Est GFR (CKD-EPI)AfAm 23.15 Est GFR (CKD-EPI)NonAf 19.98 Random Glucose 144 H Calcium 8.5 Phosphorus 3.5 Magnesium 2.0 Total Bilirubin 0.4 AST 53 H ALT 33 Alkaline Phosphatase 94 Troponin I < 0.02 Total Protein 8.1 Albumin 3.5 Lipase 416 H TSH 1.86 Thyroxine (T4) 13.3 07/03/19 15:21 RBC 4.05 MCV 83.7 MCHC 32.3 RDW 15.6 MPV 9.9 Neutrophils % 69.4 Lymphocytes % 20.0 Monocytes % 7.3 Eosinophils % 2.0 Basophils % 1.3 - Medications Given in the ED: ED Medications Discontinued Medications Generic Name Dose Route Start Last Admin Trade Name Freq PRN Reason Stop Dose Admin Lactated Ringer's 1,000 ml 07/03/19 15:37 07/03/19 15:50 Lactated Ringers Solution IV 07/03/19 15:38 1,000 ml ONCE ONE Administration Medical Decision Making - Medical Decision Making 07/03/19 19:34 received pt on signout; CT head result is pending. Once it is back, pt can be admitted to telemetry for syncope. 07/03/19 20:55 Patient Name: SHAYLA TOMPKINS THIS IS A PRELIMINARY REPORT FROM [facility] DATE OF SERVICE: 2019-07-03 16:29:39 IMAGES: [id number] EXAM: CERVICAL SPINE CT W/O CONTR HISTORY: Status post fall. Procedure: Contiguous axial tomographic sections were obtained throughout the cervical spine, with sagittal and coronal reformatted images provided. COMPARISON: None currently available. Preliminary findings/impression: 1. No evidence of acute fractures on this study. 2. C3/C4 and C4/C5 retrolistheses, with C7/T1, T2/T3 and T3/T4 anterolistheses. 3. Diffuse degenerative changes. 4. Calculi within the bilateral submandibular glands. 5. Atherosclerotic calcifications 07/03/19 20:56 Patient Name: SHAYLA TOMPKINS THIS IS A PRELIMINARY REPORT FROM [facility] DATE OF SERVICE: 2019-07-03 16:39:46 IMAGES: 232 EXAM: HEAD CT WITHOUT CONTRAST HISTORY: Emesis. Procedure: Contiguous axial tomographic sections were obtained from the base of the skull to the vertex without the use of intravenous contrast. Sagittal and coronal reformatted images are provided. COMPARISON: December 16, 2017. FINDINGS: There is stable dilation of the ventricles, sulci and cisterns, consistent with age-related cerebral atrophy. There is no evidence of midline shift. Atherosclerotic calcifications are visualized. There is a stable lobulated sclerotic density at the inner table of the right occipital bone, consistent with calcified meningioma. There are no apparent focal parenchymal masses of interval onset on this nonenhanced CT. 07/03/19 20:56 Pt will be signed out to the hospitalists Discharge - Discharge Information Problems reviewed: Yes Clinical Impression/Diagnosis: Pre-syncope Condition: Stable - Follow up/Referral - Patient Discharge Instructions - Post Discharge Activity
[2019-07-03 20:22] LABS: EPI CELLS 0.9 /HPF (0-5/HPF); HYALINE CASTS 0 /lpf (0-8); PH,URINE 6.5 (5.0-8.0); URINE APPEARANCE CLEAR; URINE BACTERIA 23.4 /hpf (NEGATIVE); URINE BILIRUBIN NEGATIVE (NEGATIVE); URINE COLOR YELLOW; URINE GLUCOSE (UA) NEGATIVE (NEGATIVE); URINE KETONE NEGATIVE (NEGATIVE); URINE LEUK ESTERASE NEGATIVE (NEGATIVE); URINE NITRITE NEGATIVE (NEGATIVE); URINE PROTEIN 3+ (NEGATIVE); URINE RBC 2 /hpf (0-4); URINE UROBILINOGEN 0.2 mg/dL (0.2-1.0); URINE WBC 1 /hpf (0-5)
--- NOTE | 2019-07-03 21:32 | PN ---
Teaching Attending Note Name of Resident: Tracy Sanz ATTENDING PHYSICIAN STATEMENT I saw and evaluated the patient. I reviewed the resident's note and discussed the case with the resident. I agree with the resident's findings and plan as documented. SUBJECTIVE: Patient is a 78 year old woman with a PMH of HTN, NIDDM, HLD, CAD (s/p stenting) , Brain tumor (s/p cyberknife) and Chronic pancreatitis who presents to the ER complaining of a poorly described episode of possible dizziness, vomiting, weakness, and urinary and fecal incontinence at home earlier today. Patient is a poor historian and is unable to provide a complete timeline or description of events. Stated the events happened on her way to the bathroom because she felt the need to have a bowel movement. Initially stated she did not fall to the ground, but rather was helped to the toilet seat by her custom home installer. Then she stated that she struck her head on the floor. Also says she had persistent vomiting and loose stools for the past several months. Single episode of emesis this morning, cannot describe the contents. At time of initial interview by ER staff, patient's only complaint was a little bifrontal headache. Denies any recent travel or sick contacts. No history of alcohol, tobacco or illicit drug use. OBJECTIVE: Alert and not orthostatic Vital Signs Period Temp Pulse Resp BP Sys/Leonardo Pulse Ox Last 24 Hr 98 F-98.0 F 84-97 12-18 155-192/94-106 98-100 HEENT: No Jaundice, eye redness or discharge, PERRLA, EOMI. Normocephalic, atraumatic. External ears are normal and hearing is grossly intact. No nasal discharge. Neck: Supple, nontender. No palpable adenopathy or thyromegaly. No JVD Chest: Good effort. Clear to auscultation and percussion. Heart: Regular. No S3, rub or murmur Abdomen: Not distended, soft, RUQ and epigastric tenderness and no HSM. No rebound or guarding. Normal bowel sounds. Ext: Peripheral pulses intact. No leg edema. Skin: Warm and dry. No petechiae, rash or ecchymosis. Neuro: Alert. Oriented x3. CN 2-12 grossly intact. Sensation grossly intact in all four extremities and DTR are symmetric. Psych: Appropriate mood and affect. Good insight. Home Medications Medication Instructions Recorded Aspirin 81 mg PO DAILY 07/16/17 Gabapentin [Neurontin -] 300 mg PO TID 07/16/17 Omeprazole 40 mg PO DAILY 07/16/17 Sitagliptin Phosphate [Januvia] 25 mg PO DAILY 07/16/17 Amlodipine Besylate [Norvasc -] 10 mg PO DAILY #30 tablet 07/18/17 Atorvastatin Ca [Lipitor] 10 mg PO HS #30 tablet 07/18/17 Hydralazine HCl 75 mg PO TID 30 Days #84 tablet 07/18/17 Meclizine HCl [Antivert -] 12.5 mg PO BID PRN #60 tablet 07/18/17 hydrALAZINE HCL [Apresoline -] 75 mg PO Q6HPO #0 tablet 07/18/17 Abnormal Lab Results 07/03/19 07/03/19 07/03/19 15:21 15:21 19:50 Chloride 111 H Anion Gap 7 L BUN 31.4 H Creatinine 2.3 H Random Glucose 144 H AST 53 H Lipase 416 H Urine Protein 3+ H ASSESSMENT AND PLAN: 1. Syncope - Etiology unclear. No acute abnormality on head CT or C-spine CT. Chronic degenerative changes noted on C spine CT. CXR shows cardiomegaly and hilar prominence. 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 Will admit to telemetry, rule out ACS, get ECHO, carotid doppler, brain MRI, consult cardiology/neurology, and implement fall/seizure precautions. Get upper abdomen sonogram and trend lipase. Will continue comprehensive care for all of patients comorbid conditions. 2. DM For now, we will hold the home diabetes drugs and implement sliding scale insulin regimen. Provide comprehensive diabetes care with patient teaching and counseling about the importance of adherence to prescribed diabetes regimen, euglycemia, eye care and foot care. 3. CKD - Has risk factors for CKD and has proteinuria. Will consult nephrology workup and avoid nephrotoxic agents such as NSAIDS, aminoglycosides, contrast dyes and certain Alternative medicine products. 4. Hypertension - Restart suitable outpatient antihypertensive drugs when clinically appropriate. 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 Nonpharmacologic measures to control hypertension like weight loss , salt restriction and exercise discussed. Importance of adherence to treatment regimen and attainment of normotension emphasized. 5. DVT prophylaxis - Heparin 5000u sq tid. 6. Advance directives - Full code
[2019-07-04] MEDS ORDERED: hydrALAZINE HCL 25 MG TABLET (FP) ONE ×2 (00:15→07:08)
[2019-07-04] MEDS: hydrALAZINE HCL 25 MG TABLET (FP) PO SCH ×4 (00:26→21:30)
--- NOTE | 2019-07-04 02:01 | HP ---
CHIEF COMPLAINT: PCP: Dr. Kuldeep Cooper HISTORY OF PRESENT ILLNESS: 78 y/o/f with PMHx of HTN, NIDDM, HLD, CAD (s/p stenting), Brain tumor (s/p cyberknife) and Chronic pancreatitis who is a poor historian presented to the ED after a possible fall. Patient states she fell when going to the toilet and her home health aide was there. Unclear whether or not patient hit her head or if she lost consciousness. Her home health aide is not present and ED staff unable to contact home health aide. Son who was at home but not present in the ER did not see her fall. She complains of chest tightness and vomited once today , NBNB. Complains of occasional dysuria. Denies chest pain, SOB, abd pain, nausea, headache. ER course was notable for: (1) CT head, spine negative for acute pathology, fracture Recent Travel: none PAST MEDICAL HISTORY: HTN, NIDDM, HLD, CAD (s/p stenting), Brain tumor (s/p cyberknife) and Chronic pancreatitis PAST SURGICAL HISTORY: Social History: Smoking: denies Alcohol: denies Drugs: denies Allergies acetaminophen [From Percocet] Allergy (Verified 07/03/19 14:16) oxycodone HCl [From Percocet] Allergy (Verified 07/03/19 14:16) Swelling hives HOME MEDICATIONS: Home Medications Medication Instructions Recorded Aspirin 81 mg PO DAILY 07/16/17 Gabapentin [Neurontin -] 300 mg PO TID 07/16/17 Omeprazole 40 mg PO DAILY 07/16/17 Sitagliptin Phosphate [Januvia] 25 mg PO DAILY 07/16/17 Amlodipine Besylate [Norvasc -] 10 mg PO DAILY #30 tablet 07/18/17 Atorvastatin Ca [Lipitor] 10 mg PO HS #30 tablet 07/18/17 Hydralazine HCl 75 mg PO TID 30 Days #84 tablet 07/18/17 Meclizine HCl [Antivert -] 12.5 mg PO BID PRN #60 tablet 07/18/17 hydrALAZINE HCL [Apresoline -] 75 mg PO Q6HPO #0 tablet 07/18/17 REVIEW OF SYSTEMS As per HPI PHYSICAL EXAMINATION Vital Signs - 24 hr 07/03/19 07/03/19 07/03/19 14:15 14:36 15:20 Temperature 98 F Pulse Rate 90 Pulse Rate [ 97 H Right Radial] Respiratory 18 18 Rate Blood Pressure 181/94 H Blood Pressure 155/106 H [Left Arm] O2 Sat by Pulse 99 100 100 Oximetry (%) 07/03/19 07/03/19 07/03/19 17:11 18:28 19:50 Temperature 98.0 F Pulse Rate Pulse Rate [ 93 H 84 85 Right Radial] Respiratory 12 14 16 Rate Blood Pressure Blood Pressure 192/103 H 187/102 H 174/102 H [Left Arm] O2 Sat by Pulse 100 100 98 Oximetry (%) 07/04/19 00:05 Temperature Pulse Rate Pulse Rate [ 87 Right Radial] Respiratory 20 Rate Blood Pressure Blood Pressure 169/100 [Left Arm] O2 Sat by Pulse 99 Oximetry (%) GENERAL: Awake, alert, and fully oriented, in no acute distress. HEAD: Normal with no signs of trauma. EYES: Pupils equal, round and reactive to light, extraocular movements intact, sclera anicteric, conjunctiva clear. No lid lag. EARS, NOSE, THROAT: Ears normal, nares patent, oropharynx clear without exudates. Moist mucous membranes. NECK: Normal range of motion, supple without lymphadenopathy, JVD, or masses. LUNGS: Breath sounds equal, clear to auscultation bilaterally. No wheezes, and no crackles. No accessory muscle use. HEART: Regular rate and rhythm, normal S1 and S2 without murmur, rub or gallop. ABDOMEN: Soft, nontender, not distended, normoactive bowel sounds, no guarding, no rebound, no masses. No hepatomegaly or splenomegaly. MUSCULOSKELETAL: Normal range of motion at all joints. No bony deformities or tenderness. No CVA tenderness. UPPER EXTREMITIES: 2+ pulses, warm, well-perfused. No cyanosis. No clubbing. No peripheral edema. LOWER EXTREMITIES: 2+ pulses, warm, well-perfused. No calf tenderness. No peripheral edema. NEUROLOGICAL: Cranial nerves II-XII intact. Normal speech. Normal gait. PSYCHIATRIC: Cooperative. Good eye contact. Appropriate mood and affect. SKIN: Warm, dry, normal turgor, no rashes or lesions noted, normal capillary refill. Laboratory Results - last 24 hr 07/03/19 07/03/19 07/03/19 15:21 15:21 15:21 WBC 8.1 RBC 4.05 Hgb 11.0 Hct 33.9 MCV 83.7 MCH 27.0 MCHC 32.3 RDW 15.6 Plt Count 156 MPV 9.9 Absolute Neuts (auto) 5.6 Neutrophils % 69.4 Lymphocytes % 20.0 Monocytes % 7.3 Eosinophils % 2.0 Basophils % 1.3 Nucleated RBC % 0 PT with INR 10.70 INR 0.91 PTT (Actin FS) 30.9 Sodium 141 Potassium 4.7 Chloride 111 H Carbon Dioxide 24 Anion Gap 7 L BUN 31.4 H Creatinine 2.3 H Est GFR (CKD-EPI)AfAm 23.15 Est GFR (CKD-EPI)NonAf 19.98 Random Glucose 144 H Calcium 8.5 Phosphorus 3.5 Magnesium 2.0 Total Bilirubin 0.4 AST 53 H ALT 33 Alkaline Phosphatase 94 Troponin I Total Protein 8.1 Albumin 3.5 Lipase TSH Thyroxine (T4) Urine Color Urine Appearance Urine pH Ur Specific [place] Urine Protein Urine Glucose (UA) Urine Ketones Urine Blood Urine Nitrite Urine Bilirubin Urine Urobilinogen Ur Leukocyte Esterase Urine WBC (Auto) Urine RBC (Auto) Urine Casts (Auto) U Epithel Cells (Auto) Urine Bacteria (Auto) 07/03/19 07/03/19 15:21 19:50 WBC RBC Hgb Hct MCV MCH MCHC RDW Plt Count MPV Absolute Neuts (auto) Neutrophils % Lymphocytes % Monocytes % Eosinophils % Basophils % Nucleated RBC % PT with INR INR PTT (Actin FS) Sodium Potassium Chloride Carbon Dioxide Anion Gap BUN Creatinine Est GFR (CKD-EPI)AfAm Est GFR (CKD-EPI)NonAf Random Glucose Calcium Phosphorus Magnesium Total Bilirubin AST ALT Alkaline Phosphatase Troponin I < 0.02 Total Protein Albumin Lipase 416 H TSH 1.86 Thyroxine (T4) 13.3 Urine Color Yellow Urine Appearance Clear Urine pH 6.5 Ur Specific [place] 1.011 Urine Protein 3+ H Urine Glucose (UA) Negative Urine Ketones Negative Urine Blood Negative Urine Nitrite Negative Urine Bilirubin Negative Urine Urobilinogen 0.2 Ur Leukocyte Esterase Negative Urine WBC (Auto) 1 Urine RBC (Auto) 2 Urine Casts (Auto) 0 U Epithel Cells (Auto) 0.9 Urine Bacteria (Auto) 23.4 ASSESSMENT/PLAN: 78 y/o/f with PMHx of HTN, NIDDM, HLD, CAD (s/p stenting), Brain tumor (s/p cyberknife) and Chronic pancreatitis who is a poor historian presented to the ED after a possible fall. Admitted to tele obs of syncope workup. #Syncope vs Fall - CT head, CT C-spine negative for bleed, fracture. Chronic degenerative changes noted - CXR with cardiomegaly, no acute process - ECHO, Carotid doppler, brain MRI without contrast ordered - Cardiology consulted - Neurology consulted #Chronic kidney disease - Avoid nephotoxic agents - Urine lytes ordered - avoid nephrotoxic agens #DM - ISS - BGMs - Hold home DM meds #HTN - restart home meds as appropriate #Prophylaxis - Heparin #FEN - monitor and replete lytes as needed - encourage PO intake - Diabetic/sodium controlled diet #Disposition - admited to tele Visit type - Emergency Visit Emergency Visit: Yes ED Registration Date: 07/03/19 Care time: The patient presented to the Emergency Department on the above date and was hospitalized for further evaluation of their emergent condition. - New Patient This patient is new to me today: Yes Date on this admission: 07/04/19 - Critical Care Critical Care patient: No ATTENDING PHYSICIAN STATEMENT I saw and evaluated the patient. I reviewed the resident's note and discussed the case with the resident. I agree with the resident's findings and plan as documented. SUBJECTIVE: OBJECTIVE: ASSESSMENT AND PLAN:
[2019-07-04] MEDS ORDERED: INSULIN SLIDING SCALE (NOVOLOG) 1 VIAL SQ SCH (07:00)
[2019-07-04] MEDS ORDERED: HEPARIN NA (PORCINE) 5,000 UNITS/ML 1ML VIAL ONE (07:08)
[2019-07-04] MEDS: HEPARIN NA (PORCINE) 5,000 UNITS/ML 1ML VIAL SQ SCH ×3 (07:17→21:29)
[2019-07-04 09:02] LABS: HEMATOCRIT 35.1 % (32.4-45.2); HEMOGLOBIN 11.5 GM/dL (10.7-15.3); MCH 26.9 pg (25.7-33.7); MCHC 32.7 g/dl (32.0-36.0); MEAN CELL VOLUME 82.3 fl (80-96); MEAN PLT VOLUME 8.8 fl (7.5-11.1); PLATELET COUNT 161 K/MM3 (134-434); RBC 4.27 M/mm3 (3.60-5.2); RDW 15.3 % (11.6-15.6); WHITE BLOOD COUNT 7.3 K/mm3 (4.0-10.0)
[2019-07-04 09:51] LABS: ALBUMIN 3.4 g/dl (3.4-5.0); BILIRUBIN,TOTAL 0.6 mg/dL (0.2-1); BLOOD UREA NITROGEN 22.2 mg/dL (7-18); CALCIUM 9.4 mg/dL (8.5-10.1); POTASSIUM 3.5 mmol/L (3.5-5.1); TOT PROT 7.9 g/dl (6.4-8.2)
[2019-07-04] MEDS: amLODIPine BESYLATE 10 MG TABLET (FP) PO SCH (10:38)
[2019-07-04] MEDS ORDERED: PNEUMOC 13-VAL CONJ-DIP CRM/PF 0.5 ML DISP.SYRIN IM ONE (12:00)
[2019-07-04] MEDS ORDERED: FLU VACCINE QUAD 60 MCG/0.5 ML (MDV 19-20) IM ONE (12:00)
--- NOTE | 2019-07-04 13:18 | CON.NEURO ---
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: Yes: Dementia Cardio/Vascular: Yes: CAD (questionable), HTN, Hyperlipdemia - Alcohol/Substance Use Hx Alcohol Use: No - Smoking History Smoking history: Smoker current status UNK Have you smoked in the past 12 months: No Aproximately how many cigarettes per day: 0 - Social History ADL: Family Assistance Occupation: retired History of Recent Travel: No Home Medications - Allergies Allergies/Adverse Reactions: Allergies Allergy/AdvReac Type Severity Reaction Status Date / Time acetaminophen [From Percocet] Allergy Verified 07/03/19 14:16 oxycodone HCl [From Percocet] Allergy Swelling Verified 07/03/19 14:16 - Home Medications Home Medications: Ambulatory Orders Aspirin 81 mg PO DAILY 07/16/17 Gabapentin [Neurontin -] 300 mg PO TID 07/16/17 Omeprazole 40 mg PO DAILY 07/16/17 Sitagliptin Phosphate [Januvia] 25 mg PO DAILY 07/16/17 Amlodipine Besylate [Norvasc -] 10 mg PO DAILY #30 tablet 07/18/17 Atorvastatin Ca [Lipitor] 10 mg PO HS #30 tablet 07/18/17 Hydralazine HCl 75 mg PO TID 30 Days #84 tablet 07/18/17 Meclizine HCl [Antivert -] 12.5 mg PO BID PRN #60 tablet 07/18/17 hydrALAZINE HCL [Apresoline -] 75 mg PO Q6HPO #0 tablet 07/18/17 Physical Exam-Neuro Vital Signs: Vital Signs Temperature 98.7 F 07/04/19 10:00 Pulse Rate 109 H 07/04/19 10:00 Respiratory Rate 18 07/04/19 10:00 Blood Pressure 159/89 07/04/19 10:00 O2 Sat by Pulse Oximetry (%) 100 07/04/19 10:00 Labs: CBC, BMP 07/04/19 08:50 07/04/19 08:50 INR, PTT INR 0.91 (0.83-1.09) 07/03/19 15:21 Assessment/Plan CC Passing out and dizziness HPI 78 year old female hitsory of HTN,HLD,DM,CAD , Brain tumor9 cyber knife), chronic pancreatitis. Patient came to hospital for feeling dizziness and fall. There is questionable history of passing out. Patient was going to bathroom and she feel. There is no tonic clonic activity. Patient lives at home with help of aide. Her ct head and ct f spine was unremarkable. Patient denies any dysphagia, dysarthria or diplopia. She has seen pt and was not able walk by herself. PAST MEDICAL HISTORY: HTN, NIDDM, HLD, CAD (s/p stenting), Brain tumor (s/p cyberknife) and Chronic pancreatitis PAST SURGICAL HISTORY: Social History: Smoking: denies Alcohol: denies Drugs: denies Allergies acetaminophen [From Percocet] Allergy (Verified 07/03/19 14:16) oxycodone HCl [From Percocet] Allergy (Verified 07/03/19 14:16) Swelling hives HOME MEDICATIONS: Home Medications Medication Instructions Recorded Aspirin 81 mg PO DAILY 07/16/17 Gabapentin [Neurontin -] 300 mg PO TID 07/16/17 Omeprazole 40 mg PO DAILY 07/16/17 Sitagliptin Phosphate [Januvia] 25 mg PO DAILY 07/16/17 Amlodipine Besylate [Norvasc -] 10 mg PO DAILY #30 tablet 07/18/17 Atorvastatin Ca [Lipitor] 10 mg PO HS #30 tablet 07/18/17 Hydralazine HCl 75 mg PO TID 30 Days #84 tablet 07/18/17 Meclizine HCl [Antivert -] 12.5 mg PO BID PRN #60 tablet 07/18/17 hydrALAZINE HCL [Apresoline -] 75 mg PO Q6HPO #0 tablet 07/18/17 ROS,FH, SH reviewed in chart NEUROLOGICAL EXAMINATION Alert oriented x 2 ( have difficulty naming date) vss, neck is supple, afebrile eomi, pupils reactive no face asymmetry she has mild proximal weakness in upper and lower extremity distally normal strength sensation is normal reflex are diminished generalized ct head and ct neck is unremarkable mri of brain without contrast pending( cant get mri with contrast ) Assessment/Plan 78 year old female hitsory of HTN,HLD,DM,CAD , Brain tumor9 cyber knife), chronic pancreatitis. came with dizziness and fall, there is questionable history of loc. Patient has normal neuro exam , except there is deconditioning and mild proximal weakness identified Fall seems to be multifactorial, as she has deconditionng , there is no evidence of seizure , stroke . There is no evidence of cord compression. PLan: agree wt mri of brain ( cant do with contrast) - pt, would obtain cpk level - she may need rehab - continue supportive care Thanking you so much Jessica Calderon MD
[2019-07-04] MEDS: INSULIN SLIDING SCALE (NOVOLOG) 1 VIAL SQ SCH ×3 (13:32→21:30)
--- NOTE | 2019-07-04 13:33 | PN ---
Physical Exam: SUBJECTIVE: Patient seen and examined, no complaints, oriented to self only. states went to bathroom, when slid off the toilet, was with her aide, but unsure of details otherwise, not sure if passed out, or any chest pain or complaints. OBJECTIVE: Vital Signs Period Temp Pulse Resp BP Sys/Leonardo Pulse Ox Last 24 Hr 98 F-98.7 F 84-109 12-20 147-192/74-118 98-100 Intake & Output 07/01/19 07/02/19 07/03/19 07/04/19 23:59 23:59 23:59 23:59 Weight 180 lb GENERAL: sitting in bed, no acute distress Chest: decreased effort, no rales or wheezing Abdomen:soft, NT Extremities: no edema, or limitation of ROM Neuro; AAOx1 (to self), speech slow but appropriate, EOMI, PERRL, generalized weakness but no focal deficit, facial symmetry, tongue midline, unable to check for sensation due to lack of co-operation Laboratory Results - last 24 hr 07/03/19 07/03/19 07/03/19 15:21 15:21 15:21 WBC 8.1 Corrected WBC (auto) RBC 4.05 Hgb 11.0 Hct 33.9 MCV 83.7 MCH 27.0 MCHC 32.3 RDW 15.6 Plt Count 156 MPV 9.9 Absolute Neuts (auto) 5.6 Neutrophils % 69.4 Lymphocytes % 20.0 Monocytes % 7.3 Eosinophils % 2.0 Basophils % 1.3 Nucleated RBC % 0 Manual Slide Review Platelet Comment PT with INR 10.70 INR 0.91 PTT (Actin FS) 30.9 Sodium 141 Potassium 4.7 Chloride 111 H Carbon Dioxide 24 Anion Gap 7 L BUN 31.4 H Creatinine 2.3 H Est GFR (CKD-EPI)AfAm 23.15 Est GFR (CKD-EPI)NonAf 19.98 POC Glucometer Random Glucose 144 H Calcium 8.5 Phosphorus 3.5 Magnesium 2.0 Total Bilirubin 0.4 AST 53 H ALT 33 Alkaline Phosphatase 94 Troponin I Total Protein 8.1 Albumin 3.5 Lipase TSH Thyroxine (T4) Urine Color Urine Appearance Urine pH Ur Specific [place] Urine Protein Urine Glucose (UA) Urine Ketones Urine Blood Urine Nitrite Urine Bilirubin Urine Urobilinogen Ur Leukocyte Esterase Urine WBC (Auto) Urine RBC (Auto) Urine Casts (Auto) U Epithel Cells (Auto) Urine Bacteria (Auto) 07/03/19 07/03/19 07/04/19 15:21 19:50 02:25 WBC Corrected WBC (auto) RBC Hgb Hct MCV MCH MCHC RDW Plt Count MPV Absolute Neuts (auto) Neutrophils % Lymphocytes % Monocytes % Eosinophils % Basophils % Nucleated RBC % Manual Slide Review Platelet Comment PT with INR INR PTT (Actin FS) Sodium Potassium Chloride Carbon Dioxide Anion Gap BUN Creatinine Est GFR (CKD-EPI)AfAm Est GFR (CKD-EPI)NonAf POC Glucometer Random Glucose Calcium Phosphorus Magnesium Total Bilirubin AST ALT Alkaline Phosphatase Troponin I < 0.02 < 0.02 Total Protein Albumin Lipase 416 H TSH 1.86 Thyroxine (T4) 13.3 Urine Color Yellow Urine Appearance Clear Urine pH 6.5 Ur Specific [place] 1.011 Urine Protein 3+ H Urine Glucose (UA) Negative Urine Ketones Negative Urine Blood Negative Urine Nitrite Negative Urine Bilirubin Negative Urine Urobilinogen 0.2 Ur Leukocyte Esterase Negative Urine WBC (Auto) 1 Urine RBC (Auto) 2 Urine Casts (Auto) 0 U Epithel Cells (Auto) 0.9 Urine Bacteria (Auto) 23.4 07/04/19 07/04/19 07/04/19 05:25 05:25 08:01 WBC Cancelled Corrected WBC (auto) Cancelled RBC Cancelled Hgb Cancelled Hct Cancelled MCV Cancelled MCH Cancelled MCHC Cancelled RDW Cancelled Plt Count Cancelled MPV Cancelled Absolute Neuts (auto) Neutrophils % Lymphocytes % Monocytes % Eosinophils % Basophils % Nucleated RBC % Manual Slide Review Cancelled Platelet Comment Cancelled PT with INR INR PTT (Actin FS) Sodium Cancelled Potassium Cancelled Chloride Cancelled Carbon Dioxide Cancelled Anion Gap Cancelled BUN Cancelled Creatinine Cancelled Est GFR (CKD-EPI)AfAm Cancelled Est GFR (CKD-EPI)NonAf Cancelled POC Glucometer 108 Random Glucose Cancelled Calcium Cancelled Phosphorus Cancelled Magnesium Cancelled Total Bilirubin Cancelled AST Cancelled ALT Cancelled Alkaline Phosphatase Cancelled Troponin I Total Protein Cancelled Albumin Cancelled Lipase TSH Thyroxine (T4) Urine Color Urine Appearance Urine pH Ur Specific [place] Urine Protein Urine Glucose (UA) Urine Ketones Urine Blood Urine Nitrite Urine Bilirubin Urine Urobilinogen Ur Leukocyte Esterase Urine WBC (Auto) Urine RBC (Auto) Urine Casts (Auto) U Epithel Cells (Auto) Urine Bacteria (Auto) 07/04/19 07/04/19 07/04/19 08:50 08:50 08:50 WBC 7.3 Corrected WBC (auto) RBC 4.27 Hgb 11.5 Hct 35.1 MCV 82.3 MCH 26.9 MCHC 32.7 RDW 15.3 Plt Count 161 MPV 8.8 D Absolute Neuts (auto) Neutrophils % Lymphocytes % Monocytes % Eosinophils % Basophils % Nucleated RBC % Manual Slide Review Platelet Comment PT with INR INR PTT (Actin FS) Sodium 145 Potassium 3.5 Chloride 111 H Carbon Dioxide 24 Anion Gap 10 BUN 22.2 H Creatinine 2.0 H Est GFR (CKD-EPI)AfAm 27.41 Est GFR (CKD-EPI)NonAf 23.65 POC Glucometer Random Glucose 129 H Calcium 9.4 Phosphorus Magnesium Total Bilirubin 0.6 AST 34 ALT 27 Alkaline Phosphatase 83 Troponin I Total Protein 7.9 Albumin 3.4 Lipase 419 H TSH Thyroxine (T4) Urine Color Urine Appearance Urine pH Ur Specific [place] Urine Protein Urine Glucose (UA) Urine Ketones Urine Blood Urine Nitrite Urine Bilirubin Urine Urobilinogen Ur Leukocyte Esterase Urine WBC (Auto) Urine RBC (Auto) Urine Casts (Auto) U Epithel Cells (Auto) Urine Bacteria (Auto) 07/04/19 12:32 WBC Corrected WBC (auto) RBC Hgb Hct MCV MCH MCHC RDW Plt Count MPV Absolute Neuts (auto) Neutrophils % Lymphocytes % Monocytes % Eosinophils % Basophils % Nucleated RBC % Manual Slide Review Platelet Comment PT with INR INR PTT (Actin FS) Sodium Potassium Chloride Carbon Dioxide Anion Gap BUN Creatinine Est GFR (CKD-EPI)AfAm Est GFR (CKD-EPI)NonAf POC Glucometer 120 Random Glucose Calcium Phosphorus Magnesium Total Bilirubin AST ALT Alkaline Phosphatase Troponin I Total Protein Albumin Lipase TSH Thyroxine (T4) Urine Color Urine Appearance Urine pH Ur Specific [place] Urine Protein Urine Glucose (UA) Urine Ketones Urine Blood Urine Nitrite Urine Bilirubin Urine Urobilinogen Ur Leukocyte Esterase Urine WBC (Auto) Urine RBC (Auto) Urine Casts (Auto) U Epithel Cells (Auto) Urine Bacteria (Auto) Active Medications Generic Name Dose Route Start Last Admin Trade Name Freq PRN Reason Stop Dose Admin Amlodipine Besylate 10 mg 07/04/19 10:00 07/04/19 10:38 Norvasc - PO 10 mg DAILY SHANIA Administration Atorvastatin Calcium 10 mg 07/04/19 22:00 Lipitor - PO HS SHANIA Heparin Sodium (Porcine) 5,000 unit 07/04/19 06:00 07/04/19 07:17 Heparin - SQ 5,000 unit TID SHANIA Administration Hydralazine HCl 75 mg 07/04/19 14:00 Apresoline - PO TID SHANIA Insulin Aspart 1 vial 07/04/19 11:00 Novolog Vial Sliding Scale - SQ ACHS [facility] Protocol carotid duplex and ultrasound results noted. ASSESSMENT/PLAN: 78 yof with PMHx of HTN, NIDDM, HLD, CAD (s/p stenting), Brain tumor (s/p cyberknife) and Chronic pancreatitis admitted with fall -Fall+/- syncope -brain tumor s/p cyperknife -Meningioma -HTN -NIDDM -HLD -CAD s/p PCI -Chronic pancreatitis Plan: patient reports going to bathroom with the aide and slipping off toilet to the floor, Unable to provide details as to LOC, symptoms prior to fall. Ox1. Description of events more suspicious for fall +/- vasoavagal event rather than true syncope. However given risk factors and space occupying lesion on CT brain. Neurology input noted. Follow up MRI brain, Neuro checks, fall precautions. cardiology consulted on admission, low suspicion for cardiac event, follow up recs. 2Decho ordered carotid duplex noted. Creatinine around baseline. BP noted, increase hydralazine 75 mg TID, resume norvasc. Renal input. PT eval noted, recommend [facility] Dispo anticipate [facility]URENT in 1-2 days pending above w/u if disposition arranged. Visit type - Emergency Visit Emergency Visit: Yes ED Registration Date: 07/04/19 Care time: The patient presented to the Emergency Department on the above date and was hospitalized for further evaluation of their emergent condition. - New Patient This patient is new to me today: Yes Date on this admission: 07/04/19 - Critical Care Critical Care patient: No - Discharge Referral Referred to [facility] Med P.C.: No
--- NOTE | 2019-07-04 14:59 | CON.CARD ---
Consult Consult Specialty:: Cardiology Reason for Consultation:: reported fall possible syncope - History of Present Illness Chief Complaint: dizziness History of Present Illness: 78 year old woman with a pmh htn, hld, CAD s/p stents in past, NIDDM, chronic pancreatitis, dementia, h/o brain tumor s/p cyberknife. Patient is poor historian. history of possible falls in the past. Now admitted with dizziness. Pt seen and examined today in nad. 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 states pt was nauseous and had abd discomfort then felt dizzy but did not lose consciousness or fall. pt does not recall the event in detail. currently no symptoms states she feels well. No chest pain, sob, or palpitations. 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 Cardio/Vascular: Yes: CAD (questionable), HTN, Hyperlipdemia - Alcohol/Substance Use Hx Alcohol Use: No - Smoking History Smoking history: Smoker current status UNK Have you smoked in the past 12 months: No Aproximately how many cigarettes per day: 0 - Social History ADL: Family Assistance Occupation: retired History of Recent Travel: No Home Medications - Allergies Allergies/Adverse Reactions: Allergies Allergy/AdvReac Type Severity Reaction Status Date / Time acetaminophen [From Percocet] Allergy Verified 07/03/19 14:16 oxycodone HCl [From Percocet] Allergy Swelling Verified 07/03/19 14:16 - Home Medications Home Medications: Ambulatory Orders Aspirin 81 mg PO DAILY 07/16/17 Gabapentin [Neurontin -] 300 mg PO TID 07/16/17 Omeprazole 40 mg PO DAILY 07/16/17 Sitagliptin Phosphate [Januvia] 25 mg PO DAILY 07/16/17 Amlodipine Besylate [Norvasc -] 10 mg PO DAILY #30 tablet 07/18/17 Atorvastatin Ca [Lipitor] 10 mg PO HS #30 tablet 07/18/17 Meclizine HCl [Antivert -] 12.5 mg PO BID PRN #60 tablet 07/18/17 Hydralazine HCl 100 mg PO BID 07/04/19 Family Medical History Family History: Denies Review of Systems - Review of Systems Constitutional: denies: No Symptoms, Chills, Diaphoresis, Fever, Lethargy, Loss of Appetite, Malaise, Night Sweats, Unintentional Wgt. Loss, Weakness, Other Eyes: denies: No Symptoms, Blind Spots, Blurred Vision, Double Vision, Eye Pain , Floaters, Photophobia, Recent Change in Vision, Other HENT: denies: No Symptoms, Difficult Swallowing, Ear Discharge, Ear Pain, Epistaxis, Gingival Bleeding, Hearing Loss, Mouth Swelling, Nasal Congestion, Ocular Prosthesis, Throat Pain, Toothache, Ringing in Ears, Other Neck: denies: No Symptoms, Decreased ROM, Lumps, Pain on Movement, Stiffness, Swollen Glands, Tenderness, Other Cardiovascular: denies: No Symptoms, Chest Pain, Edema, Palpitations, Shortness of Breath, Other Respiratory: denies: No Symptoms, Cough, Exercise Intolerance, Hemoptysis, Orthopnea, PND, Snoring, SOB, SOB on Exertion, Wheezing, Other Gastrointestinal: denies: No Symptoms, Abdominal Pain, Bloating, Constipation, Diarrhea, Dysphagia, Indigestion, Melena, Nausea, Rectal Bleeding, Vomiting, Vomiting Blood, Other Genitourinary: denies: No Symptoms, Burning, Discharge, Dysuria, Flank Pain, Frequency, Hematuria, Incontinence, Lesions, Menses, Pain, Testicular Mass, Testicular Pain, Testicular Swelling, Urgency, Vaginal Bleeding, Other Breasts: denies: No Symptoms Reported, See HPI, Breast Implants, Discharge from Nipple, Lumps, Pain, Skin Changes, Other Musculoskeletal: denies: No Symptoms, Back Pain, Crepitus, Decreased ROM, Extremity Pain, Joint Pain, Joint Swelling, Muscle Pain, Muscle Cramps, Muscle Weakness, Other Integumentary: denies: No Symptoms, Blister, Bruising, Change in Color, Eczema, Erythema, Incision, Lesions, Lump, Pallor, Pruritis, Rash, Wound, Other Neurological: reports: Dizziness. denies: No Symptoms, Change in LOC, Change in Speech, Confusion, Headache, Incoordination, Numbness, Parasthesia, Pre- Existing Deficit, Seizure, Syncope, Tremors, Unsteady Gait, Weakness, Other Endocrine: denies: No Symptoms, Excessive Sweating, Flushing, Increased Hunger, Increased Thirst, Intolerance to Cold, Intolerance to Heat, Unexplained Weight Gain, Unexplained Weight Loss, Other Hematology/Lymphatic: denies: No Symptoms, Easily Bruised, Excessive Bleeding, Swollen Glands, Other Psychiatric: denies: No Symptoms, Altered Sleep Pattern, Anxiety, Depression, Hallucinations, Panic, Paranoia, Suicidal, Other - Risk Factors Known Risk Factors: Yes: Age, Hypercholesterolemia, Hypertension Vital Signs: Vital Signs Temperature 98.7 F 07/04/19 10:00 Pulse Rate 109 H 07/04/19 10:00 Respiratory Rate 18 07/04/19 10:00 Blood Pressure 159/89 07/04/19 10:00 O2 Sat by Pulse Oximetry (%) 100 07/04/19 10:00 Constitutional: Yes: No Distress, Calm Eyes: Yes: Conjunctiva Clear, EOM Intact HENT: Yes: Atraumatic, Normocephalic Neck: Yes: Supple, Trachea Midline Respiratory: Yes: Regular, CTA Bilaterally Gastrointestinal: Yes: Normal Bowel Sounds, Soft Cardiovascular: Yes: Regular Rate and Rhythm. No: Bradycardia, Tachycardia, Pulse Irregular, Gallop, Rub, Varicosities JVD: No Carotid Bruit: No PMI: Non-Displaced Heart Sounds: Yes: S1, S2. No: Split S2, S3, S4, Clicks, Gallop, Rub, Bruit Murmur: Yes: Grade 2 Musculoskeletal: Yes: WNL Extremities: Yes: WNL Edema: No Peripheral Pulses WNL: Yes Neurological: Yes: Alert Psychiatric: Yes: Alert - Other Data Labs, Other Data: CBC, BMP 07/04/19 08:50 07/04/19 08:50 INR, PTT INR 0.91 (0.83-1.09) 07/03/19 15:21 Troponin, BNP 07/03/19 07/04/19 15:21 02:25 Troponin I < 0.02 < 0.02 Troponin, BNP 07/03/19 07/04/19 15:21 02:25 Troponin I < 0.02 < 0.02 nsr 91bpm, lafb, no sig st abnl Echo: Report Reviewed Prior Cardiac Procedures: PTCA with Stent Imaging - Results Chest X-ray: Report Reviewed, Image Reviewed EKG: Report Reviewed, Image Reviewed Other: Report Reviewed, Image Reviewed (tele-nsr, no sig arrhythmias) Assessment/Plan Dizziness-no LOC or fall -unlikely to be a cardiac etiology, not c/w ACS -possible vasovagal event -no ischemia on ecg -cardiac enzymes wnl -no events on tele -Echocardiogram and Nuclear Stress Test 03/2017 unremarkable. Normal LVEF and no significant valve disease. No ischemia. -Carotid duplex with atherosclerosis but no stenosis. -recc Aspirin/statin. -no other inpatient cardiac work up is needed at this time. Pt can be followed as outpatient and would consider extended event monitoring Will see as needed. please call with any additional questions.
--- NOTE | 2019-07-04 18:39 | EKG ---
Test Reason : Blood Pressure : / mmHG Vent. 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
--- NOTE | 2019-07-04 20:17 | CON.NEP ---
Consult Consult Specialty:: Nephrology Referred by:: dr oconnor Reason for Consultation:: azotemia - History of Present Illness Chief Complaint: lightheadedness presyncope History of Present Illness: 78yo F admitted for eval of light headedness, a question of chest pain which has already resolved. 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 Cardio/Vascular: Yes: CAD (questionable), HTN, Hyperlipdemia - Alcohol/Substance Use Hx Alcohol Use: No - Smoking History Smoking history: Smoker current status UNK Have you smoked in the past 12 months: No Aproximately how many cigarettes per day: 0 - Social History ADL: Family Assistance Occupation: retired History of Recent Travel: No Home Medications - Allergies Allergies/Adverse Reactions: Allergies Allergy/AdvReac Type Severity Reaction Status Date / Time acetaminophen [From Percocet] Allergy Verified 07/03/19 14:16 oxycodone HCl [From Percocet] Allergy Swelling Verified 07/03/19 14:16 - Home Medications Home Medications: Ambulatory Orders Aspirin 81 mg PO DAILY 07/16/17 Gabapentin [Neurontin -] 300 mg PO TID 07/16/17 Omeprazole 40 mg PO DAILY 07/16/17 Sitagliptin Phosphate [Januvia] 25 mg PO DAILY 07/16/17 Amlodipine Besylate [Norvasc -] 10 mg PO DAILY #30 tablet 07/18/17 Atorvastatin Ca [Lipitor] 10 mg PO HS #30 tablet 07/18/17 Meclizine HCl [Antivert -] 12.5 mg PO BID PRN #60 tablet 07/18/17 Hydralazine HCl 100 mg PO BID 07/04/19 Nephrology Consult - Height Height: 5 ft 6 in - Weight Weight: 180 lb - BMI Body Mass Index (BMI): 29.0 - Lab Results CBC,BMP: CBC, BMP 07/04/19 08:50 07/04/19 08:50 Anion Gap: Anion Gap Anion Gap 10 MMOL/L (8-16) 07/04/19 08:50 - Physical Examination Vital Signs: Vital Signs Temperature 99.1 F 07/04/19 14:00 Pulse Rate 93 H 07/04/19 14:00 Respiratory Rate 18 07/04/19 15:00 Blood Pressure 136/75 07/04/19 14:00 O2 Sat by Pulse Oximetry (%) 100 07/04/19 15:00 Constitutional: Yes: Well Nourished, No Distress, Calm Eyes: Yes: WNL, Conjunctiva Clear, EOM Intact HENT: Yes: WNL, Atraumatic, Normocephalic Neck: Yes: WNL, Supple, Trachea Midline Cardiovascular: Yes: WNL, Regular Rate and Rhythm Respiratory: Yes: WNL, Regular, CTA Bilaterally Gastrointestinal: Yes: WNL, Normal Bowel Sounds Renal/: Yes: WNL Musculoskeletal: Yes: WNL Extremities: Yes: WNL Integumentary: Yes: WNL Neurological: Yes: WNL, Alert, Oriented Psychiatric: Yes: WNL, Alert, Oriented Assessment/Plan 78 year old woman admitted with diziness/ligheadness found to have azotemia which is showing early improving trend suggesting acute dehydration her risk factors for renal disease include cardiovascular disease and htn plan sono of kidneys and bladder follow renal function and give fluids PMHx htn, hld, CAD s/p stents in past, NIDDM, chronic pancreatitis, dementia, h/o brain tumor s/p cyberknife.
[2019-07-04] MEDS ORDERED: SODIUM CHLORIDE 1,000 ML IV SCH (20:45)
[2019-07-04] MEDS: ATORVASTATIN CA 10 MG TABLET (FP) PO SCH (21:30)
[2019-07-05 06:37] LABS: BASO % 1.3 % (0-2.0); EOS % 3.2 % (0-4.5); HEMATOCRIT 31.2 % (32.4-45.2); HEMOGLOBIN 10.1 GM/dL (10.7-15.3); LYMPH % 20.6 % (8-40); MCH 26.8 pg (25.7-33.7); MCHC 32.2 g/dl (32.0-36.0); MEAN CELL VOLUME 83.4 fl (80-96); MEAN PLT VOLUME 10.7 fl (7.5-11.1); NEUT % 64.9 % (42.8-82.8); PLATELET COUNT 145 K/MM3 (134-434); RBC 3.74 M/mm3 (3.60-5.2); RDW 15.3 % (11.6-15.6); WHITE BLOOD COUNT 7.5 K/mm3 (4.0-10.0)
[2019-07-05] MEDS: HEPARIN NA (PORCINE) 5,000 UNITS/ML 1ML VIAL SQ SCH ×3 (06:44→21:56)
[2019-07-05] MEDS: INSULIN SLIDING SCALE (NOVOLOG) 1 VIAL SQ SCH ×4 (06:44→21:56)
[2019-07-05] MEDS: hydrALAZINE HCL 25 MG TABLET (FP) PO SCH ×3 (06:44→21:56)
[2019-07-05 07:18] LABS: ALBUMIN 2.8 g/dl (3.4-5.0); BILIRUBIN,TOTAL 0.6 mg/dL (0.2-1); BLOOD UREA NITROGEN 25.2 mg/dL (7-18); CALCIUM 8.6 mg/dL (8.5-10.1); CREATININE 2.4 mg/dL (0.55-1.3); MAGNESIUM 1.9 mg/dL (1.8-2.4); PHOSPHOROUS 3.4 mg/dL (2.5-4.9); POTASSIUM 3.3 mmol/L (3.5-5.1); TOT PROT 6.6 g/dl (6.4-8.2)
[2019-07-05] MEDS ORDERED: POTASSIUM CHLORIDE TABS 20 MEQ TABLET.ER (FP) PO ONE (07:45)
[2019-07-05] MEDS: KCL 10 MEQ IVPB 10 MEQ/100 ML INFUS.BAG IVPB SCH ×3 (08:24→11:30)
[2019-07-05] MEDS: SODIUM CHLORIDE 0.45% 1,000 ML IV SCH (09:34)
[2019-07-05] MEDS: amLODIPine BESYLATE 10 MG TABLET (FP) PO SCH (09:36)
--- NOTE | 2019-07-05 09:43 | PN ---
Progress Note (short form) - Note Progress Note: 78 year old female hitsory of HTN,HLD,DM,CAD , Brain tumor9 cyber knife), chronic pancreatitis. Patient came to hospital for feeling dizziness and fall. There is questionable history of passing out. Patient was going to bathroom and she feel. There is no tonic clonic activity. Patient lives at home with help of aide. Her ct head and ct f spine was unremarkable. Patient denies any dysphagia, dysarthria or diplopia. She has seen pt and was not able walk by herself. Patient has mri of brain it was unremarkable. She remain comfortable in bed. NEUROLOGICAL EXAMINATION Alert oriented x 2 ( have difficulty naming date) vss, neck is supple, afebrile eomi, pupils reactive no face asymmetry she has mild proximal weakness in upper and lower extremity distally normal strength sensation is normal reflex are diminished generalized ct head and ct neck is unremarkable mri of brain unremrakable except meningioma, which is stable Assessment/Plan 78 year old female hitsory of HTN,HLD,DM,CAD , Brain tumor9 cyber knife), chronic pancreatitis. came with dizziness and fall, there is questionable history of loc. Patient has normal neuro exam , except there is deconditioning and mild proximal weakness identified Fall seems to be multifactorial, as she has deconditionng , there is no evidence of seizure , stroke . There is no evidence of cord compression. PLan: mri of brain is unchanged, cliff boswell she has cyber knife surgery for meningioma. - A routine neurosurgery consult can be obtained for meningioma - pt, - she may need rehab - continue supportive care Thanking you so much Jessica Calderon MD
--- NOTE | 2019-07-05 10:59 | PN ---
Teaching Attending Note Name of Resident: Jaya Lemons ATTENDING PHYSICIAN STATEMENT I saw and evaluated the patient. I reviewed the resident's note and discussed the case with the resident. I agree with the resident's findings and plan as documented with exceptions below. SUBJECTIVE: Patient seen and examined. oriented to self and place, no complaints. reports poor appetite currently. No complaints or pain otherwise. OBJECTIVE: Vital Signs Period Temp Pulse Resp BP Sys/Leonardo Pulse Ox Last 24 Hr 98 F-99.4 F 82-93 18-20 122-148/61-84 95-100 Intake & Output 07/02/19 07/03/19 07/04/19 07/05/19 23:59 23:59 23:59 23:59 Intake Total 240 1000 Balance 240 1000 Weight 180 lb 180 lb General: sitting in bed, no acute distress HEENT: dry mucous membrane neck:soft Chest: good air entry bilaterally, no rales or wheezing Abdomen:soft, obese, NT Extremities: no pedal edema Home Medications Medication Instructions Recorded Aspirin 81 mg PO DAILY 07/16/17 Gabapentin [Neurontin -] 300 mg PO TID 07/16/17 Omeprazole 40 mg PO DAILY 07/16/17 Sitagliptin Phosphate [Januvia] 25 mg PO DAILY 07/16/17 Amlodipine Besylate [Norvasc -] 10 mg PO DAILY #30 tablet 07/18/17 Atorvastatin Ca [Lipitor] 10 mg PO HS #30 tablet 07/18/17 Meclizine HCl [Antivert -] 12.5 mg PO BID PRN #60 tablet 07/18/17 Hydralazine HCl 100 mg PO BID 07/04/19 Active Medications Amlodipine Besylate (Norvasc -) 10 mg PO DAILY [facility] Last Admin: 07/05/19 09:36 Dose: 10 mg Atorvastatin Calcium (Lipitor -) 10 mg PO HS [facility] Last Admin: 07/04/19 21:30 Dose: 10 mg Heparin Sodium (Porcine) (Heparin -) 5,000 unit SQ TID [facility] Last Admin: 07/05/19 06:44 Dose: 5,000 unit Hydralazine HCl (Apresoline -) 75 mg PO TID [facility] Last Admin: 07/05/19 06:44 Dose: 75 mg Sodium Chloride (1/2 Normal Saline) 1,000 mls @ 75 mls/hr IV ASDIR [facility] Last Admin: 07/05/19 09:34 Dose: 75 mls/hr Insulin Aspart (Novolog Vial Sliding Scale -) 1 vial SQ ACHS SHANIA; Protocol Last Admin: 07/05/19 06:44 Dose: Not Given Laboratory Results - last 24 hr 07/04/19 07/04/19 07/04/19 08:50 12:32 21:13 WBC RBC Hgb Hct MCV MCH MCHC RDW Plt Count MPV Absolute Neuts (auto) Neutrophils % Lymphocytes % Monocytes % Eosinophils % Basophils % Nucleated RBC % Sodium 145 Potassium 3.5 Chloride 111 H Carbon Dioxide 24 Anion Gap 10 BUN 22.2 H Creatinine 2.0 H Est GFR (CKD-EPI)AfAm 27.41 Est GFR (CKD-EPI)NonAf 23.65 POC Glucometer 120 182 Random Glucose 129 H Calcium 9.4 Phosphorus Magnesium Total Bilirubin 0.6 AST 34 ALT 27 Alkaline Phosphatase 83 Creatine Kinase 204 H Creatine Kinase Index 0.8 CK-MB (CK-2) 1.7 Total Protein 7.9 Albumin 3.4 07/05/19 07/05/19 07/05/19 05:39 05:45 05:45 WBC 7.5 RBC 3.74 Hgb 10.1 L Hct 31.2 L MCV 83.4 MCH 26.8 MCHC 32.2 RDW 15.3 Plt Count 145 MPV 10.7 D Absolute Neuts (auto) 4.8 Neutrophils % 64.9 Lymphocytes % 20.6 Monocytes % 10.0 Eosinophils % 3.2 Basophils % 1.3 Nucleated RBC % 0 Sodium 146 H Potassium 3.3 L Chloride 113 H Carbon Dioxide 26 Anion Gap 7 L BUN 25.2 H Creatinine 2.4 H Est GFR (CKD-EPI)AfAm 21.99 Est GFR (CKD-EPI)NonAf 18.97 POC Glucometer 114 Random Glucose 116 H Calcium 8.6 Phosphorus 3.4 Magnesium 1.9 Total Bilirubin 0.6 AST 26 ALT 20 Alkaline Phosphatase 66 Creatine Kinase 190 Creatine Kinase Index 0.7 CK-MB (CK-2) 1.4 Total Protein 6.6 Albumin 2.8 L Microbiology 07/03/19 19:50 Urine - Urine Clean Catch Urine Culture - Final Lactose Fermenting Neg Bacilli ASSESSMENT AND PLAN: 78 yof with PMHx of HTN, NIDDM, HLD, CAD (s/p stenting), Brain tumor (s/p cyberknife) and Chronic pancreatitis admitted with fall -Fall+/- syncope -Hypovolumic hypernatremia -PRESTON on CKD suspect from dehydration. -brain tumor s/p cyperknife -Meningioma -HTN -NIDDM -HLD -CAD s/p PCI -Chronic pancreatitis Plan: patient reports going to bathroom with the aide and slipping off toilet to the floor, Unable to provide details as to LOC, symptoms prior to fall. Ox1. Description of events more suspicious for fall +/- vasoavagal event rather than true syncope. MRI brain noted, unchanged meningioma, neurology/cardiology input appreciated. For 2Decho, though low suspicion for cardiac etiology. extended event monitor outpatient if recurrent events. Na/Cr rising. patient reports poor appetite. Will change IVF to 1/2 NS. discussed with nursing to encourage oral free water intake. Urine cx noted, repeat urine studies and will treat if concerning. BP improved. Hydralazine increased 75 mg TID. Continue norvasc. resume ASA. PT eval noted, recommend [facility] anticipate [facility] in 1-2 days pending clinical improvement if disposition arranged.
--- NOTE | 2019-07-05 12:21 | PN ---
Physical Exam: SUBJECTIVE: Patient seen and examined. No acute events overnight. Patient denies chest pain, abd pain, SOB, fever, chills. Patient AAOx2 (self, place). OBJECTIVE: Vital Signs Period Temp Pulse Resp BP Sys/Leonardo Pulse Ox Last 24 Hr 98 F-99.4 F 82-93 18-20 122-148/61-84 95-100 GENERAL: awake, alert HEAD: Normal with no signs of trauma. EYES: EOMI, no scleral icterus ENT: MMM NECK: Trachea midline, supple. LUNGS: Breath sounds equal, clear to auscultation bilaterally, no wheezes, no crackles, no accessory muscle use. HEART: Regular rate and rhythm, S1, S2 without murmur, rub or gallop. ABDOMEN: Soft, nontender, nondistended, normoactive bowel sounds, no guarding, no rebound EXTREMITIES: 2+ pulses, warm, well-perfused, no edema. NEUROLOGICAL: Normal speech, gait not observed. AAOx2 (self, place) PSYCH: Normal mood, cooperative SKIN: Warm, dry, normal turgor Laboratory Results - last 24 hr 07/04/19 07/04/19 07/04/19 08:50 12:32 21:13 WBC RBC Hgb Hct MCV MCH MCHC RDW Plt Count MPV Absolute Neuts (auto) Neutrophils % Lymphocytes % Monocytes % Eosinophils % Basophils % Nucleated RBC % Sodium 145 Potassium 3.5 Chloride 111 H Carbon Dioxide 24 Anion Gap 10 BUN 22.2 H Creatinine 2.0 H Est GFR (CKD-EPI)AfAm 27.41 Est GFR (CKD-EPI)NonAf 23.65 POC Glucometer 120 182 Random Glucose 129 H Calcium 9.4 Phosphorus Magnesium Total Bilirubin 0.6 AST 34 ALT 27 Alkaline Phosphatase 83 Creatine Kinase 204 H Creatine Kinase Index 0.8 CK-MB (CK-2) 1.7 Total Protein 7.9 Albumin 3.4 07/05/19 07/05/19 07/05/19 05:39 05:45 05:45 WBC 7.5 RBC 3.74 Hgb 10.1 L Hct 31.2 L MCV 83.4 MCH 26.8 MCHC 32.2 RDW 15.3 Plt Count 145 MPV 10.7 D Absolute Neuts (auto) 4.8 Neutrophils % 64.9 Lymphocytes % 20.6 Monocytes % 10.0 Eosinophils % 3.2 Basophils % 1.3 Nucleated RBC % 0 Sodium 146 H Potassium 3.3 L Chloride 113 H Carbon Dioxide 26 Anion Gap 7 L BUN 25.2 H Creatinine 2.4 H Est GFR (CKD-EPI)AfAm 21.99 Est GFR (CKD-EPI)NonAf 18.97 POC Glucometer 114 Random Glucose 116 H Calcium 8.6 Phosphorus 3.4 Magnesium 1.9 Total Bilirubin 0.6 AST 26 ALT 20 Alkaline Phosphatase 66 Creatine Kinase 190 Creatine Kinase Index 0.7 CK-MB (CK-2) 1.4 Total Protein 6.6 Albumin 2.8 L Active Medications Generic Name Dose Route Start Last Admin Trade Name Freq PRN Reason Stop Dose Admin Amlodipine Besylate 10 mg 07/04/19 10:00 07/05/19 09:36 Norvasc - PO 10 mg DAILY SHANIA Administration Aspirin 81 mg 07/06/19 10:00 Asa - PO DAILY SHANIA Atorvastatin Calcium 10 mg 07/04/19 22:00 07/04/19 21:30 Lipitor - PO 10 mg HS SHANIA Administration Heparin Sodium (Porcine) 5,000 unit 07/04/19 06:00 07/05/19 06:44 Heparin - SQ 5,000 unit TID SHANIA Administration Hydralazine HCl 75 mg 07/04/19 14:00 07/05/19 06:44 Apresoline - PO 75 mg TID SHANIA Administration Sodium Chloride 1,000 mls @ 75 mls/hr 07/05/19 09:15 07/05/19 09:34 1/2 Normal Saline IV 75 mls/hr ASDIR SHANIA Administration Insulin Aspart 1 vial 07/04/19 11:00 07/05/19 11:58 Novolog Vial Sliding Scale - SQ Not Given ACHS [facility] Protocol ASSESSMENT/PLAN: 78 y/o/f with PMHx of HTN, NIDDM, HLD, CAD (s/p stenting), Brain tumor (s/p cyberknife) and Chronic pancreatitis who is a poor historian presented to the ED after a possible fall. Admitted to tele obs for syncope workup. #Syncope vs Fall - CT head, CT C-spine negative for bleed, fracture. Chronic degenerative changes noted - MRI brain: Stable meningioma along the convexity of right frontal operculum. No acute pathology noted. - CXR with cardiomegaly, no acute process - Carotid doppler - mild atherosclerotic disease without hemodynamically significant stenosis - ECHO pending - Cardiology consulted - ACS etiology unlikely, no inpatient cardiac workup needed at this time. Outpatient follow up for possible extended event monitoring. - Neurology consulted, recs appreciated - daily ASA - UA negative, however Urine Cx positive for lactose fermenting negative bacilli. will repeat UA. #Chronic kidney disease - Avoid nephrotoxic agents - Urine lytes ordered - Bladder and kidney U/S ordered #DM - ISS - BGMs - Hold home DM meds #HTN - continue home meds. Hydralazine 75mg TID, Norvasc 10mg daily #HLD - continue home Lipitor dose #Prophylaxis - Heparin #FEN - monitor and replete lytes as needed - encourage PO intake - 1/2 NS @ 75mls/hr - Diabetic/sodium controlled diet #Disposition - likely D/C to [facility] in next few days pending improvement Visit type - Emergency Visit Emergency Visit: Yes ED Registration Date: 07/04/19 Care time: The patient presented to the Emergency Department on the above date and was hospitalized for further evaluation of their emergent condition. - New Patient This patient is new to me today: No - Critical Care Critical Care patient: No ATTENDING PHYSICIAN STATEMENT I saw and evaluated the patient. I reviewed the resident's note and discussed the case with the resident. I agree with the resident's findings and plan as documented. SUBJECTIVE: OBJECTIVE: ASSESSMENT AND PLAN:
--- NOTE | 2019-07-05 16:00 | ECHO ---
Name: TOMPKINS, SHAYLA Exam:Adult Echocardiogram Study Date: 07/05/2019 12:39 PM Age: 78 yrs Height: 66 in Weight: 180 lb BSA: 1.9 m2 MMode/2D Measurements & Calculations IVSd: 1.1 cm Ao root diam: 3.1 cm LVIDd: 4.0 cm LA dimension: 3.1 cm LVIDs: 2.9 cm LVPWd: 1.3 cm LVPWs: 1.4 cm EDV(Teich): 69.0 ml ESV(Teich): 32.4 ml LVOT diam: 1.8 cm LAV (MOD-bp): 47.6 ml TAPSE: 2.1 cm Doppler Measurements & Calculations MV E max jhony: 79.8 cm/sec MV dec slope: 660.4 cm/sec2 MV A max jhony: 113.0 cm/sec MV E/A: 0.71 Ao V2 max: 181.7 cm/sec AI max jhony: 460.4 cm/sec Ao max P.7 mmHg AI max P.8 mmHg AI P1/2t: 530.6 msec AI dec slope: 254.2 cm/sec2 PA V2 max: 136.4 cm/sec PA max P.4 mmHg Procedure A complete two-dimensional transthoracic echocardiogram was performed (2D, M-mode, Doppler and color flow Doppler). Left Ventricle The left ventricle is normal in size. Left ventricular systolic function is normal. Ejection Fraction = 60- 65%. No regional wall motion abnormalities noted. Right Ventricle The right ventricle is normal size. The right ventricular systolic function is normal. Atria The left atrial size is normal. Right atrial size is normal. Mitral Valve There is mild mitral annular calcification. There is mild mitral regurgitation. Tricuspid Valve The tricuspid valve is normal in structure and function. There is mild tricuspid regurgitation. Aortic Valve There is mild aortic sclerosis.;. Mild aortic regurgitation. Pulmonic Valve The pulmonic valve is not well visualized. Great Vessels The aortic root is normal size. Pericardium/Pleura There is no pericardial effusion. Interpretation Summary The left ventricle is normal in size. Left ventricular systolic function is normal. No regional wall motion abnormalities noted. Ejection Fraction = 60-65%. The right ventricular systolic function is normal. The left atrial size is normal. Right atrial size is normal. There is mild mitral annular calcification. There is mild mitral regurgitation. There is mild tricuspid regurgitation. There is mild aortic sclerosis. Mild aortic regurgitation. There is no pericardial effusion. Jamal Gonzales MD 07/05/2019 04:00 PM
[2019-07-05 18:50] LABS: EPI CELLS 1.5 /HPF (0-5/HPF); HYALINE CASTS 5 /lpf (0-8); PH,URINE 5.5 (5.0-8.0); URINE APPEARANCE CLOUDY; URINE BACTERIA 251.4 /hpf (NEGATIVE); URINE BILIRUBIN NEGATIVE (NEGATIVE); URINE COLOR YELLOW; URINE GLUCOSE (UA) NEGATIVE (NEGATIVE); URINE KETONE NEGATIVE (NEGATIVE); URINE LEUK ESTERASE 1+ (NEGATIVE); URINE NITRITE NEGATIVE (NEGATIVE); URINE PROTEIN 3+ (NEGATIVE); URINE RBC 6 /hpf (0-4); URINE UROBILINOGEN 0.2 mg/dL (0.2-1.0); URINE WBC 75 /hpf (0-5)
[2019-07-05] MEDS ORDERED: cefTRIAXone SODIUM 1 GM VIAL ONE (19:36)
[2019-07-05] MEDS ORDERED: DEXTROSE 5%-WATER - 50 ML IVPB ONE (19:37)
[2019-07-05] MEDS: CEFTRIAXONE 1 GM in DEXTROSE 5%-WATER - 50 ML IVPB SCH (19:53)
[2019-07-05] MEDS: ATORVASTATIN CA 10 MG TABLET (FP) PO SCH (21:56)
[2019-07-06] MEDS: INSULIN SLIDING SCALE (NOVOLOG) 1 VIAL SQ SCH (06:23)
[2019-07-06] MEDS: hydrALAZINE HCL 25 MG TABLET (FP) PO SCH (06:33)
[2019-07-06] MEDS: HEPARIN NA (PORCINE) 5,000 UNITS/ML 1ML VIAL SQ SCH (06:34)
--- NOTE | 2019-07-06 07:45 | PN ---
Progress Note (short form) - Note Progress Note: 78 year old female hitsory of HTN,HLD,DM,CAD , Brain tumor9 cyber knife), chronic pancreatitis. Patient came to hospital for feeling dizziness and fall. There is questionable history of passing out. Patient was going to bathroom and she feel. There is no tonic clonic activity. Patient lives at home with help of aide. Her ct head and ct f spine was unremarkable. Patient denies any dysphagia, dysarthria or diplopia. She has seen pt and was not able walk by herself. Patient has mri of brain it was unremarkable. She remain comfortable in bed. NEUROLOGICAL EXAMINATION Alert oriented x 2 ( have difficulty naming date) vss, neck is supple, afebrile eomi, pupils reactive no face asymmetry she has mild proximal weakness in upper and lower extremity distally normal strength sensation is normal reflex are diminished generalized ct head and ct neck is unremarkable mri of brain unremrakable except meningioma, which is stable Assessment/Plan 78 year old female hitsory of HTN,HLD,DM,CAD , Brain tumor9 cyber knife for meningioma ), chronic pancreatitis. came with dizziness and fall , there is questionable history of loc. Patient has normal neuro exam , except there is deconditioning and mild proximal weakness identified she remain confused and difficulty with ambulating, there is mild mass effect on mri of brain and high cellularity of meningioma Fall seems to be multifactorial, as she has deconditionng , there is no evidence of seizure , stroke . There is no evidence of cord compression. PLan: mri of brain is unchanged, cliff boswell she has cyber knife surgery for meningioma. - consult neurosurgery ( a order placed for Dr Tianna CIFUENTES) - pt, - she may need rehab - continue supportive care Thanking you so much Jessica Calderon MD
[2019-07-06 08:02] LABS: HEMATOCRIT 30.7 % (32.4-45.2); HEMOGLOBIN 9.9 GM/dL (10.7-15.3); MCH 26.9 pg (25.7-33.7); MCHC 32.4 g/dl (32.0-36.0); MEAN CELL VOLUME 83.3 fl (80-96); MEAN PLT VOLUME 10.2 fl (7.5-11.1); PLATELET COUNT 132 K/MM3 (134-434); RBC 3.68 M/mm3 (3.60-5.2); RDW 15.3 % (11.6-15.6); WHITE BLOOD COUNT 7.9 K/mm3 (4.0-10.0)
[2019-07-06 08:24] LABS: BLOOD UREA NITROGEN 23.6 mg/dL (7-18); CALCIUM 8.8 mg/dL (8.5-10.1); CREATININE 2.1 mg/dL (0.55-1.3); POTASSIUM 3.8 mmol/L (3.5-5.1)
[2019-07-06] MEDS: SODIUM CHLORIDE 0.45% 1,000 ML IV SCH (09:16)
--- NOTE | 2019-07-06 09:29 | DS ---
Physical Exam: SUBJECTIVE: Patient seen and examined. No acute events overnight. Encouraged patient to eat her breakfast and drink more fluids this morning. Patient denies chest pain, SOB, abd pain. OBJECTIVE: Vital Signs Period Temp Pulse Resp BP Sys/Leonardo Pulse Ox Last 24 Hr 98.1 F-99.8 F 89-113 20-20 147-162/80-96 99 PHYSICAL EXAM GENERAL: awake, alert HEAD: Normal with no signs of trauma. EYES: EOMI, no scleral icterus ENT: MMM NECK: Trachea midline, supple. LUNGS: Breath sounds equal, clear to auscultation bilaterally, no wheezes, no crackles, no accessory muscle use. HEART: Regular rate and rhythm, S1, S2 without murmur, rub or gallop. ABDOMEN: Soft, nontender, nondistended, normoactive bowel sounds, no guarding, no rebound EXTREMITIES: 2+ pulses, warm, well-perfused, no edema. NEUROLOGICAL: Normal speech, gait not observed. AAOx2 (self, place) PSYCH: Normal mood, cooperative SKIN: Warm, dry, normal turgor LABS Laboratory Results - last 24 hr 07/05/19 07/05/19 07/05/19 11:56 17:39 18:03 WBC RBC Hgb Hct MCV MCH MCHC RDW Plt Count MPV Sodium Potassium Chloride Carbon Dioxide Anion Gap BUN Creatinine Est GFR (CKD-EPI)AfAm Est GFR (CKD-EPI)NonAf POC Glucometer 127 142 Random Glucose Calcium Urine Color Yellow Urine Appearance Cloudy Urine pH 5.5 Ur Specific Sebastian 1.014 Urine Protein 3+ H Urine Glucose (UA) Negative Urine Ketones Negative Urine Blood Negative Urine Nitrite Negative Urine Bilirubin Negative Urine Urobilinogen 0.2 Ur Leukocyte Esterase 1+ H Urine WBC (Auto) 75 Urine RBC (Auto) 6 Urine Casts (Auto) 5 U Epithel Cells (Auto) 1.5 Urine Bacteria (Auto) 251.4 07/05/19 07/06/19 07/06/19 21:55 05:37 06:25 WBC 7.9 RBC 3.68 Hgb 9.9 L Hct 30.7 L MCV 83.3 MCH 26.9 MCHC 32.4 RDW 15.3 Plt Count 132 L MPV 10.2 Sodium Potassium Chloride Carbon Dioxide Anion Gap BUN Creatinine Est GFR (CKD-EPI)AfAm Est GFR (CKD-EPI)NonAf POC Glucometer 122 103 Random Glucose Calcium Urine Color Urine Appearance Urine pH Ur Specific Sebastian Urine Protein Urine Glucose (UA) Urine Ketones Urine Blood Urine Nitrite Urine Bilirubin Urine Urobilinogen Ur Leukocyte Esterase Urine WBC (Auto) Urine RBC (Auto) Urine Casts (Auto) U Epithel Cells (Auto) Urine Bacteria (Auto) 07/06/19 06:25 WBC RBC Hgb Hct MCV MCH MCHC RDW Plt Count MPV Sodium 143 Potassium 3.8 Chloride 113 H Carbon Dioxide 23 Anion Gap 7 L BUN 23.6 H Creatinine 2.1 H Est GFR (CKD-EPI)AfAm 25.84 Est GFR (CKD-EPI)NonAf 22.30 POC Glucometer Random Glucose 99 Calcium 8.8 Urine Color Urine Appearance Urine pH Ur Specific Sebastian Urine Protein Urine Glucose (UA) Urine Ketones Urine Blood Urine Nitrite Urine Bilirubin Urine Urobilinogen Ur Leukocyte Esterase Urine WBC (Auto) Urine RBC (Auto) Urine Casts (Auto) U Epithel Cells (Auto) Urine Bacteria (Auto) HOSPITAL COURSE: Date of Admission:07/04/19 Date of Discharge: 07/06/19 78 y/o/f with PMHx of HTN, NIDDM, HLD, CAD (s/p stenting), Brain tumor (s/p cyberknife) and Chronic pancreatitis. Patient was a poor historian presented to the ED after a possible fall. Patient was admitted for syncope workup. CT head was negative for acute pathology, CT C-spine was negative for fractures. MRI of the brain showed a stable meningioma, no acute pathology. CXR only showed cardiolomegaly without signs of PNA. Echo showed mild MV, TV, and aortic regurg , normal EF. Patient was seen by Cardiology who did not suspect ACS etiology, referral made for outpatient follow up for possible extended event monitoring. Patient also seen by Neurology. Initial UA was negative for UTI, however cultures were positive. Repeat UA positive for UTI, patient started on abx. Bladder and Kidney U/S showed mildly echogenic kidneys suspicious for chronic medical disease. Patient's Hydralazine was increased to 75mg TID for better BP control. Patient stable for discharge home with VNS. Minutes to complete discharge: 36 Discharge Summary Problems reviewed: Yes Reason For Visit: ACUTE KIDNEY INJURY,SYNCOPE Current Active Problems Dizziness (Acute) Pre-syncope (Acute) Condition: Stable - Instructions Diet, Activity, Other Instructions: You presented to the hospital after a fall. You had imaging done of your brain and cervical spine which did not show any signs of stroke, fracture or bleeding. You had an ultrasound of your carotids done which did not show any hemodynamically significant narrowing. You had an xray done which did not show any signs of pneumonia. You were seen by cardiology who did not suspect any cardiovascular cause for your fall but recommended outpatient follow up. You were also seen by Nephrology and had an ultrasound of your bladder and kidneys done which showed echogenic kidneys suggestive of chronic renal medical disease. On a repeat urinanalysis you were found to have a UTI and were started on antibiotics. You were seen by PT who recommended that you go to a sub-acute rehab facility for rehabilitation. Medication Changes: 1. Your Hydralazine dose was increased to 75mg three times a day. 2. Please take Ceftin 500mg twice a day for the next 5 days for your urinary tract infection. Follow up with the following physicians: 1. Please follow up with your primary care provider within one week of discharge. 2. Please follow up with Dr. Calderon, Neurology, within one week of discharge. 3. Please follow up with Dr. Cardenas, Cardiology within one week of discharge. 4. Please follow up with Dr. Ramirez, Neurosurgery, for evaluation of your meningioma. 5. Please follow up with Dr. Barakat, Nephrology, within one week of discharge for further evaluation of your kidney disease. Follow up labs: Blood work to check your kidneys (BMP ) in 1 week with your doctor. Activity and Diet 1. Please continue to monitor your diet as you need to intake less salty and sugary foods and intake plenty of fluids. 2. You need to have repeat lab work to ensure your Potassium levels have normalized and that your kidney function is improving. Continue all your other medications as prescribed Please return to the ER if you have any signs or symptoms of chest pain, shortness of breath, uncontrollable fever, chills, nausea, vomiting, numbness, tingling, or weakness in any part of your body, changes in vision, or slurred speech. Please return to the ER if symptoms persist, worsen, or new symptoms arise. Referrals: Adithya Calderon MD [Staff Physician] - Galindo Ramirez MD [Staff Physician] - Jinny Booth MD [Primary Care Provider] - Chevy Godinez MD [Staff Physician] - Marcel Barakat MD [Staff Physician] - Disposition: VNS/HOME HEALTH CARE - Home Medications Comprehensive Discharge Medication List: Ambulatory Orders Aspirin 81 mg PO DAILY 07/16/17 Gabapentin [Neurontin -] 300 mg PO TID 07/16/17 Omeprazole 40 mg PO DAILY 07/16/17 Sitagliptin Phosphate [Januvia] 25 mg PO DAILY 07/16/17 Amlodipine Besylate [Norvasc -] 10 mg PO DAILY #30 tablet 07/18/17 Atorvastatin Ca [Lipitor] 10 mg PO HS #30 tablet 07/18/17 Meclizine HCl [Antivert -] 12.5 mg PO BID PRN #60 tablet 07/18/17 hydrALAZINE HCL [Apresoline -] 75 mg PO TID #270 tablet 07/05/19 Cefuroxime Axetil [Ceftin -] 500 mg PO BID #10 tablet 07/06/19 This patient is new to me today: Yes Date on this admission: 07/06/19 Emergency Visit: No Critical Care patient: No - Discharge Referral Referred to [facility] Med P.C.: No ATTENDING PHYSICIAN STATEMENT I saw and evaluated the patient. I reviewed the resident's note and discussed the case with the resident. I agree with the resident's findings and plan as documented. SUBJECTIVE: OBJECTIVE: ASSESSMENT AND PLAN:
[2019-07-06] MEDS ORDERED: cefTRIAXone SODIUM 1 GM VIAL ONE (09:35)
[2019-07-06] MEDS ORDERED: DEXTROSE 5%-WATER - 50 ML IVPB ONE (09:35)
[2019-07-06] MEDS: CEFTRIAXONE 1 GM in DEXTROSE 5%-WATER - 50 ML IVPB SCH (09:39)
[2019-07-06] MEDS: amLODIPine BESYLATE 10 MG TABLET (FP) PO SCH (09:39)
[2019-07-06 09:59] VITALS: BP 160/90; PULSE 79; TEMP 98
[2019-07-06] MEDS ORDERED: ASPIRIN 81 MG CHEWABLE TABLETS PO SCH (10:00)
== END 2019-07-06 10:01 | disposition home health service (06) | DRG 683 ==
LOC: JER 13:49 → JERBED 20:07 → J4W 07-04 08:21 → OBSVTOIN 07-04 08:56 → J4W 07-04 19:21
PROVIDERS: ADMIT Internal Medicine; ATTEND Hospitalist
DX: N17.9 Acute kidney failure, unspecified (principal); K86.1 Other chronic pancreatitis; E87.0 Hyperosmolality and hypernatremia; N39.0 Urinary tract infection, site not specified; R55 Syncope and collapse; I25.10 Atherosclerotic heart disease of native coronary artery without angina pectoris; D49.6 Neoplasm of unspecified behavior of brain; F03.90 Unspecified dementia, unspecified severity, without behavioral disturbance, psychotic disturbance, mood disturbance, and anxiety; E86.0 Dehydration; E86.1 Hypovolemia; I12.9 Hypertensive chronic kidney disease with stage 1 through stage 4 chronic kidney disease, or unspecified chronic kidney disease; E11.22 Type 2 diabetes mellitus with diabetic chronic kidney disease; N18.9 Chronic kidney disease, unspecified
CPT/HCPCS: 36415; 70450-TC; 70551-TC; 71046-TC-FY; 72125-TC; 76705-TC; 76775-TC; 76856-TC; 80048; 80053; 81003; 82550; 82553; 82962; 83690; 83735; 84100; 84436; 84443; 84484; 85025; 85027; 85610; 85730; 87086; 90670; 93005; 93010; 93306-TC; 93880-TC; 97116-GP; 97161-GP; 99285-25; G0008; G0009; G0378; J1644; J7030; Q2036

== ENCOUNTER → 2019-10-04 | Emergency (ER) | payer OTHER ==
[~2019-10-04] MED LIST: METOCLOPRAMIDE HCL INJECTION 10 MG/2 ML VIAL IVPUSH ONE; METOCLOPRAMIDE HCL INJECTION 10 MG/2 ML VIAL ONE
[2019-10-04 15:01] VITALS: BMI 30.7
--- NOTE | 2019-10-04 15:06 | PDOC ---
History of Present Illness - General Chief Complaint: Hematuria Stated Complaint: ABD PAIN Time Seen by Provider: 10/04/19 15:05 History Source: Patient - History of Present Illness Initial Comments: 10/04/19 15:42 79F w/hx HTN, HLD, CAD s/p stenting, brain tumor s/p cyberknife, chronic pancreatitis p/w Past History - Past Medical History Allergies/Adverse Reactions: Allergies Allergy/AdvReac Type Severity Reaction Status Date / Time acetaminophen [From Percocet] Allergy Verified 10/04/19 15:01 oxycodone HCl [From Percocet] Allergy Swelling Verified 10/04/19 15:01 Home Medications: Ambulatory Orders Aspirin 81 mg PO DAILY 07/16/17 Gabapentin [Neurontin -] 300 mg PO TID 07/16/17 Omeprazole 40 mg PO DAILY 07/16/17 Sitagliptin Phosphate [Januvia] 25 mg PO DAILY 07/16/17 Amlodipine Besylate [Norvasc -] 10 mg PO DAILY #30 tablet 07/18/17 Atorvastatin Ca [Lipitor] 10 mg PO HS #30 tablet 07/18/17 Meclizine HCl [Antivert -] 12.5 mg PO BID PRN #60 tablet 07/18/17 hydrALAZINE HCL [Apresoline -] 75 mg PO TID #270 tablet 07/05/19 Cefuroxime Axetil [Ceftin -] 500 mg PO BID #10 tablet 07/06/19 metroNIDAZOLE [Flagyl -] 250 mg PO TID #21 tablet 10/04/19 Cancer: Yes (brain tumors/neck tumors with sx) Cardiac Disorders: Yes COPD: No Dementia: Yes Diabetes: Yes HTN: Yes Hypercholesterolemia: Yes - Surgical History Cardiac Surgery: Yes (STENT PLACEMENT) Neurologic Surgery: Yes (s/p cyperknife) Orthopedic Surgery: Yes (Spinal Sx yrs ago) - Immunization History Immunization Up to Date: Yes - Psycho Social/Smoking Cessation Hx Smoking Status: No Smoking History: Never smoked Have you smoked in the past 12 months: No Number of Cigarettes Smoked Daily: 0 Information on smoking cessation initiated: No Hx Alcohol Use: No Drug/Substance Use Hx: No Substance Use Type: None Hx Substance Use Treatment: No *Physical Exam - Vital Signs Last Vital Signs Temp Pulse Resp BP Pulse Ox 98.8 F 74 18 116/59 L 98 10/04/19 14:57 10/04/19 14:57 10/04/19 14:57 10/04/19 14:57 10/04/19 14:57 ED Treatment Course - LABORATORY CBC & Chemistry Diagram: 10/04/19 16:00 10/04/19 16:00 Discharge - Discharge Information Problems reviewed: Yes Clinical Impression/Diagnosis: Colitis Condition: Stable Disposition: HOME - Admission No - Additional Discharge Information Prescriptions: metroNIDAZOLE [Flagyl -] 250 mg PO TID #21 tablet - Follow up/Referral Referrals: Antonio Castillo [Primary Care Provider] - - Patient Discharge Instructions Patient Printed Discharge Instructions: DI for Colitis Additional Instructions: You were seen in the ER for bleeding, abdominal pain. Your bloodwork was normal. Your CT scan showed signs of colitis - a condition where the end of your intestines become irritated. Please take the prescribed antibiotic (Flagyl) as directed, 3 times daily with food. Return to the ER if you develop high fevers, intractable nausea and vomiting, worsening abdominal pain, or begin to feel weak, confused, or have chest pain or trouble breathing. Follow up with your primary care provider as soon as possible, in the next 2-3 days. - Post Discharge Activity
--- NOTE | 2019-10-04 15:14 | PDOC ---
Attending Attestation - Resident Resident Name: Michael Boudreaux - ED Attending Attestation I have performed the following: I have examined & evaluated the patient, The case was reviewed & discussed with the resident, I agree w/resident's findings & plan, Exceptions are as noted - HPI HPI: 79 yo F history CAD, dementia, DM, HTN, HL presents with abd pain, stating "I have my period". She expresses concern that she is having vaginal bleeding, even though she is menopausal. +Dysuria, abd pain. Denies fever, chills, N/V/D. No known sick contacts. - Physicial Exam PE: GENERAL: Awake, alert, and fully oriented, in no acute distress HEAD: No signs of trauma EYES: PERRLA, EOMI, sclera anicteric, conjunctiva clear ENT: Auricles normal inspection, hearing grossly normal, nares patent, oropharynx clear without exudates. Moist mucosa NECK: Normal ROM, supple, no lymphadenopathy, JVD, or masses LUNGS: Breath sounds equal, clear to auscultation bilaterally. No wheezes, and no crackles HEART: Regular rate and rhythm, normal S1 and S2, no murmurs, rubs or gallops ABDOMEN: Soft, diffusely tender, normoactive bowel sounds. +Guarding, no rebound. No masses EXTREMITIES: Normal range of motion, no edema. No clubbing or cyanosis. No cords, erythema, or tenderness NEUROLOGICAL: Cranial nerves II through XII grossly intact. Normal speech. Motor and sensation intact SKIN: Warm, dry, normal turgor, no rashes or lesions noted. - Medical Decision Making Symptoms are suspicious for UTI. No vaginal bleeding noted. Will check labs, UA, CT. Discharge - Discharge Information Problems reviewed: Yes Clinical Impression/Diagnosis: Colitis Condition: Stable Disposition: HOME - Additional Discharge Information Prescriptions: metroNIDAZOLE [Flagyl -] 250 mg PO TID #21 tablet - Follow up/Referral Referrals: Antonio Castillo [Primary Care Provider] - - Patient Discharge Instructions Patient Printed Discharge Instructions: DI for Colitis Additional Instructions: You were seen in the ER for bleeding, abdominal pain. Your bloodwork was normal. Your CT scan showed signs of colitis - a condition where the end of your intestines become irritated. Please take the prescribed antibiotic (Flagyl) as directed, 3 times daily with food. Return to the ER if you develop high fevers, intractable nausea and vomiting, worsening abdominal pain, or begin to feel weak, confused, or have chest pain or trouble breathing. Follow up with your primary care provider as soon as possible, in the next 2-3 days. - Post Discharge Activity
[2019-10-04 16:21] LABS: BASO % 0.6 % (0-2.0); EOS % 2.3 % (0-4.5); HEMATOCRIT 29.9 % (32.4-45.2); HEMOGLOBIN 9.8 GM/dL (10.7-15.3); LYMPH % 20.5 % (8-40); MCH 27.4 pg (25.7-33.7); MCHC 32.6 g/dl (32.0-36.0); MEAN CELL VOLUME 84.1 fl (80-96); MEAN PLT VOLUME 9.2 fl (7.5-11.1); MONO % 7.7 % (3.8-10.2); NEUT % 68.9 % (42.8-82.8); PLATELET COUNT 134 K/MM3 (134-434); RBC 3.56 M/mm3 (3.60-5.2); RDW 16.7 % (11.6-15.6); WHITE BLOOD COUNT 7.1 K/mm3 (4.0-10.0)
[2019-10-04 16:47] LABS: INR 0.98 (0.83-1.09); PROTHROMBIN TIME (PATIENT) 11.6 SEC (9.7-13.0)
[2019-10-04 16:54] LABS: BILIRUBIN,TOTAL 0.8 mg/dL (0.2-1); BLOOD UREA NITROGEN 24.3 mg/dL (7-18); CALCIUM 8.1 mg/dL (8.5-10.1); CREATININE 2.6 mg/dL (0.55-1.3); POTASSIUM 3.5 mmol/L (3.5-5.1); TOT PROT 7.1 g/dl (6.4-8.2)
[2019-10-04 18:42] LABS: EPI CELLS 8 /uL (0-25.1); HYALINE CASTS 1 /uL (0-3.1); PH,URINE 5.5 (5.0-8.0); URINE APPEARANCE CLEAR; URINE BACTERIA 8 /uL (0-1359); URINE BILIRUBIN NEGATIVE (NEGATIVE); URINE COLOR YELLOW; URINE GLUCOSE (UA) NEGATIVE (NEGATIVE); URINE KETONE NEGATIVE (NEGATIVE); URINE LEUK ESTERASE NEGATIVE (NEGATIVE); URINE NITRITE NEGATIVE (NEGATIVE); URINE PROTEIN 2+ (NEGATIVE); URINE RBC 9 /uL (0-23.9); URINE UROBILINOGEN 0.2 mg/dL (0.2-1.0); URINE WBC 8 /uL (0-25.8)
[2019-10-04 19:15] VITALS: BP 123/62; PULSE 71; TEMP 98.1
--- NOTE | 2019-10-05 10:06 | EKG ---
Test Reason : Blood Pressure : / mmHG Vent. Rate : 071 BPM Atrial Rate : 071 BPM P-R Int : 144 ms QRS Dur : 088 ms QT Int : 436 ms P-R-T Axes : 046 -57 047 degrees QTc Int : 473 ms NORMAL SINUS RHYTHM LEFT AXIS DEVIATION ABNORMAL ECG WHEN COMPARED WITH ECG OF 03-JUL-2019 14:28, NO SIGNIFICANT CHANGE WAS FOUND Confirmed by Jacky Henson MD ([id number]) on 10/05/2019 10:06:10 AM Referred By: Confirmed By:Jacky Henson MD
== END | disposition home or self-care (01) ==
LOC: JER 14:37
DX: K52.9 Noninfective gastroenteritis and colitis, unspecified (principal)
CPT/HCPCS: 36415; 71045-TC-FY; 74176-TC; 80053; 81003; 83605; 83690; 85025; 85610; 85730; 86850; 86900; 86901; 87086; 93005; 93010; 99284-25

== ENCOUNTER 2020-07-29 12:04 | Inpatient (IN) | payer OTHER ==
[2020-07-29 13:22] LABS: BASO % 0.6 % (0-2.0); EOS % 0.8 % (0-4.5); HEMATOCRIT 40.2 % (32.4-45.2); LYMPH % 12.8 % (8-40); MCH 27.3 pg (25.7-33.7); MCHC 32.3 g/dl (32.0-36.0); MEAN CELL VOLUME 84.6 fl (80-96); MEAN PLT VOLUME 10.4 fl (7.5-11.1); MONO % 7.9 % (3.8-10.2); NEUT % 77.9 % (42.8-82.8); PLATELET COUNT 168 K/MM3 (134-434); RBC 4.75 M/mm3 (3.60-5.2); RDW 14.9 % (11.6-15.6); WHITE BLOOD COUNT 10.4 K/mm3 (4.0-10.0)
[2020-07-29] MEDS ORDERED: ACETAMINOPHEN 1000 MG/100 ML VIAL (NON FORMULARY) IVPB ONE (13:23)
[2020-07-29 13:38] LABS: INR 0.95 (0.83-1.09); PROTHROMBIN TIME (PATIENT) 11.7 SEC (9.7-13.0)
[2020-07-29 13:41] LABS: ACTIVATED PTT 19.8 SECONDS (25.2-36.5)
[2020-07-29] MEDS ORDERED: ACETAMINOPHEN INJECTION 100 ML IVPB ONE (13:42)
[2020-07-29 13:46] LABS: POTASSIUM 3.6 mmol/L (3.5-5.1)
[2020-07-29 13:48] LABS: CALCIUM 9.3 mg/dL (8.5-10.1)
[2020-07-29 13:49] LABS: ALBUMIN 3.4 g/dl (3.4-5.0); BLOOD UREA NITROGEN 37.4 mg/dL (7-18); MAGNESIUM 1.9 mg/dL (1.8-2.4)
[2020-07-29 13:52] LABS: CREATININE 2.6 mg/dL (0.55-1.3); PHOSPHOROUS 3.7 mg/dL (2.5-4.9)
[2020-07-29 13:53] LABS: BILIRUBIN,TOTAL 0.7 mg/dL (0.2-1)
[2020-07-29 13:54] LABS: EPI CELLS 4 /uL (0-25.1); HYALINE CASTS 0 /uL (0-3.1); URINE APPEARANCE CLEAR; URINE BACTERIA 25 /uL (0-1359); URINE BILIRUBIN NEGATIVE (NEGATIVE); URINE COLOR YELLOW; URINE GLUCOSE (UA) TRACE (NEGATIVE); URINE KETONE NEGATIVE (NEGATIVE); URINE LEUK ESTERASE NEGATIVE (NEGATIVE); URINE NITRITE NEGATIVE (NEGATIVE); URINE PROTEIN 3+ (NEGATIVE); URINE RBC 9 /uL (0-23.9); URINE WBC 3 /uL (0-25.8)
[2020-07-29 13:55] LABS: TOT PROT 7.8 g/dl (6.4-8.2)
[2020-07-29] MEDS ORDERED: LACTATED RINGERS SOLUTION 1000 ML INFUS.BAG IV ONE (16:52)
[2020-07-29] MEDS ORDERED: SODIUM CHLORIDE 1,000 ML IV SCH (22:15)
[2020-07-30] MEDS ORDERED: HEPARIN NA (PORCINE) 5,000 UNITS/ML 1ML VIAL ONE ×2 (05:34→14:02)
[2020-07-30] MEDS: HEPARIN NA (PORCINE) 5,000 UNITS/ML 1ML VIAL SQ SCH ×2 (05:37→14:10)
[2020-07-30] MEDS: INSULIN SLIDING SCALE (NOVOLOG) 1 VIAL SQ SCH ×3 (07:29→17:04)
[2020-07-30 07:53] LABS: BASO % 1.3 % (0-2.0); EOS % 2.3 % (0-4.5); HEMATOCRIT 35.6 % (32.4-45.2); HEMOGLOBIN 11.4 GM/dL (10.7-15.3); LYMPH % 24.5 % (8-40); MCHC 31.9 g/dl (32.0-36.0); MEAN CELL VOLUME 84.6 fl (80-96); MEAN PLT VOLUME 10.3 fl (7.5-11.1); MONO % 6.6 % (3.8-10.2); NEUT % 65.3 % (42.8-82.8); PLATELET COUNT 167 K/MM3 (134-434); RDW 15.2 % (11.6-15.6)
[2020-07-30 08:13] LABS: CALCIUM 8.4 mg/dL (8.5-10.1)
[2020-07-30 08:14] LABS: ALBUMIN 3.1 g/dl (3.4-5.0); BLOOD UREA NITROGEN 40.6 mg/dL (7-18)
[2020-07-30 08:17] LABS: PHOSPHOROUS 4.1 mg/dL (2.5-4.9)
[2020-07-30 08:18] LABS: BILIRUBIN,TOTAL 0.4 mg/dL (0.2-1); TOT PROT 7.5 g/dl (6.4-8.2)
[2020-07-30] MEDS ORDERED: SODIUM CHLORIDE 0.45% 1,000 ML IV SCH (17:45)
[2020-07-30] MEDS ORDERED: ATORVASTATIN CA 40 MG TABLET (FP) PO SCH (22:00)
[2020-07-31] MEDS ORDERED: CARVEDILOL 12.5 MG TABLET (FP) ONE (00:04)
[2020-07-31] MEDS ORDERED: ATORVASTATIN CA 40 MG TABLET (FP) ONE (00:05)
[2020-07-31] MEDS ORDERED: HEPARIN NA (PORCINE) 5,000 UNITS/ML 1ML VIAL ONE (00:05)
[2020-07-31] MEDS: INSULIN SLIDING SCALE (NOVOLOG) 1 VIAL SQ SCH ×5 (00:17→22:25)
[2020-07-31] MEDS: CARVEDILOL 12.5 MG TABLET (FP) PO SCH ×3 (00:17→21:47)
[2020-07-31] MEDS: HEPARIN NA (PORCINE) 5,000 UNITS/ML 1ML VIAL SQ SCH ×4 (00:17→21:47)
[2020-07-31] MEDS ORDERED: CARVEDILOL 12.5 MG TABLET (FP) PO ONE (02:59)
[2020-07-31 08:11] LABS: POTASSIUM 4.1 mmol/L (3.5-5.1)
[2020-07-31 08:14] LABS: CALCIUM 8.2 mg/dL (8.5-10.1)
[2020-07-31 08:15] LABS: ALBUMIN 2.8 g/dl (3.4-5.0); BLOOD UREA NITROGEN 46.5 mg/dL (7-18); MAGNESIUM 1.9 mg/dL (1.8-2.4)
[2020-07-31 08:18] LABS: PHOSPHOROUS 3.6 mg/dL (2.5-4.9)
[2020-07-31 08:19] LABS: BILIRUBIN,TOTAL 0.4 mg/dL (0.2-1); TOT PROT 6.5 g/dl (6.4-8.2)
[2020-07-31 08:20] LABS: HEMATOCRIT 31.7 % (32.4-45.2); HEMOGLOBIN 10.3 GM/dL (10.7-15.3); MCH 27.3 pg (25.7-33.7); MCHC 32.5 g/dl (32.0-36.0); MEAN CELL VOLUME 83.9 fl (80-96); MEAN PLT VOLUME 11.1 fl (7.5-11.1); PLATELET COUNT 144 K/MM3 (134-434); RBC 3.77 M/mm3 (3.60-5.2); RDW 15.2 % (11.6-15.6); WHITE BLOOD COUNT 6.2 K/mm3 (4.0-10.0)
[2020-07-31] MEDS ORDERED: PANTOPRAZOLE 20 MG TABLET PO SCH (10:00)
[2020-07-31] MEDS ORDERED: ASPIRIN 81 MG CHEWABLE TABLETS PO SCH (10:00)
[2020-07-31] MEDS ORDERED: amLODIPine BESYLATE 5 MG TABLET (FP) PO SCH (10:00)
[2020-07-31] MEDS ORDERED: DEXTROSE 5%-WATER - 1,000 ML IV SCH (11:45)
[2020-07-31 12:46] VITALS: BMI 20.3
[2020-07-31] MEDS ORDERED: OLANZapine 5 MG TABLET PO ONE (14:51)
[2020-07-31] MEDS: DEXTROSE 5%-WATER - 1,000 ML IV SCH (16:24)
[2020-07-31] MEDS ORDERED: INSULIN (NOVOLOG) ASPART 100 UNITS/ML 10ML VIAL ONE (21:40)
[2020-07-31] MEDS: QUEtiapine FUMARATE 25 MG TABLET PO SCH (21:45)
[2020-07-31] MEDS: ATORVASTATIN CA 40 MG TABLET (FP) PO SCH (21:47)
[2020-08-01] MEDS: HEPARIN NA (PORCINE) 5,000 UNITS/ML 1ML VIAL SQ SCH ×3 (06:27→21:42)
[2020-08-01] MEDS: INSULIN SLIDING SCALE (NOVOLOG) 1 VIAL SQ SCH ×4 (06:28→21:44)
[2020-08-01 09:50] LABS: BASO % 0.9 % (0-2.0); EOS % 3.7 % (0-4.5); HEMATOCRIT 32.4 % (32.4-45.2); HEMOGLOBIN 10.6 GM/dL (10.7-15.3); LYMPH % 33.1 % (8-40); MCH 27.6 pg (25.7-33.7); MCHC 32.9 g/dl (32.0-36.0); MEAN CELL VOLUME 83.9 fl (80-96); MEAN PLT VOLUME 10.4 fl (7.5-11.1); MONO % 8.8 % (3.8-10.2); NEUT % 53.5 % (42.8-82.8); PLATELET COUNT 132 K/MM3 (134-434); RBC 3.86 M/mm3 (3.60-5.2); RDW 15.5 % (11.6-15.6); WHITE BLOOD COUNT 6.6 K/mm3 (4.0-10.0)
[2020-08-01] MEDS: PANTOPRAZOLE 20 MG TABLET PO SCH (09:53)
[2020-08-01] MEDS: amLODIPine BESYLATE 5 MG TABLET (FP) PO SCH (09:53)
[2020-08-01] MEDS: ASPIRIN 81 MG CHEWABLE TABLETS PO SCH (09:53)
[2020-08-01] MEDS: CARVEDILOL 12.5 MG TABLET (FP) PO SCH ×2 (09:53→21:41)
[2020-08-01 10:30] LABS: ALBUMIN 2.8 g/dl (3.4-5.0); BLOOD UREA NITROGEN 46.2 mg/dL (7-18); CALCIUM 8.1 mg/dL (8.5-10.1)
[2020-08-01 10:31] LABS: MAGNESIUM 1.9 mg/dL (1.8-2.4)
[2020-08-01 10:33] LABS: CREATININE 2.9 mg/dL (0.55-1.3)
[2020-08-01 10:34] LABS: BILIRUBIN,TOTAL 0.6 mg/dL (0.2-1)
[2020-08-01 10:35] LABS: TOT PROT 6.8 g/dl (6.4-8.2)
[2020-08-01] MEDS: DEXTROSE 5%-WATER - 1,000 ML IV SCH (16:59)
[2020-08-01] MEDS: QUEtiapine FUMARATE 25 MG TABLET PO SCH (21:42)
[2020-08-01] MEDS: ATORVASTATIN CA 40 MG TABLET (FP) PO SCH (21:42)
[2020-08-01 22:06] VITALS: TEMP 98.5
[2020-08-02] MEDS: HEPARIN NA (PORCINE) 5,000 UNITS/ML 1ML VIAL SQ SCH (06:07)
[2020-08-02] MEDS: INSULIN SLIDING SCALE (NOVOLOG) 1 VIAL SQ SCH (06:07)
[2020-08-02 08:15] VITALS: BP 156/77; PULSE 65
[2020-08-02 09:03] LABS: BASO % 0.5 % (0-2.0); EOS % 2.4 % (0-4.5); HEMATOCRIT 32.5 % (32.4-45.2); HEMOGLOBIN 10.4 GM/dL (10.7-15.3); MCHC 32.1 g/dl (32.0-36.0); MEAN CELL VOLUME 84.3 fl (80-96); MEAN PLT VOLUME 11.1 fl (7.5-11.1); MONO % 7.4 % (3.8-10.2); NEUT % 68.7 % (42.8-82.8); PLATELET COUNT 129 K/MM3 (134-434); RBC 3.86 M/mm3 (3.60-5.2); RDW 15.4 % (11.6-15.6); WHITE BLOOD COUNT 6.2 K/mm3 (4.0-10.0)
[2020-08-02] MEDS: CARVEDILOL 12.5 MG TABLET (FP) PO SCH (09:12)
[2020-08-02] MEDS: ASPIRIN 81 MG CHEWABLE TABLETS PO SCH (09:12)
[2020-08-02] MEDS: amLODIPine BESYLATE 5 MG TABLET (FP) PO SCH (09:12)
[2020-08-02] MEDS: PANTOPRAZOLE 20 MG TABLET PO SCH (09:12)
[2020-08-02 09:36] LABS: BLOOD UREA NITROGEN 50.2 mg/dL (7-18); CALCIUM 8.2 mg/dL (8.5-10.1)
[2020-08-02 09:37] LABS: ALBUMIN 2.5 g/dl (3.4-5.0); MAGNESIUM 1.9 mg/dL (1.8-2.4)
[2020-08-02 09:40] LABS: BILIRUBIN,TOTAL 0.6 mg/dL (0.2-1); CREATININE 2.8 mg/dL (0.55-1.3); TOT PROT 6.3 g/dl (6.4-8.2)
[2020-08-02 09:47] LABS: PLATELET ESTIMATE DECREASED
== END 2020-08-02 14:08 | disposition home or self-care (01) | DRG 312 ==
LOC: JER 12:04 → JERBED 21:27 → J4S 07-31 02:05 → J6S 07-31 15:43
PROVIDERS: ADMIT Internal Medicine; ATTEND Nurse Practitioner Family
DX: R55 Syncope and collapse (principal); N17.9 Acute kidney failure, unspecified; E87.0 Hyperosmolality and hypernatremia; E78.5 Hyperlipidemia, unspecified; I12.9 Hypertensive chronic kidney disease with stage 1 through stage 4 chronic kidney disease, or unspecified chronic kidney disease; E11.22 Type 2 diabetes mellitus with diabetic chronic kidney disease; N18.30 Chronic kidney disease, stage 3 unspecified; F03.90 Unspecified dementia, unspecified severity, without behavioral disturbance, psychotic disturbance, mood disturbance, and anxiety; E86.0 Dehydration; I25.10 Atherosclerotic heart disease of native coronary artery without angina pectoris; R07.89 Other chest pain; M25.512 Pain in left shoulder; R10.9 Unspecified abdominal pain; D49.6 Neoplasm of unspecified behavior of brain; M50.31 Other cervical disc degeneration, high cervical region; Z95.5 Presence of coronary angioplasty implant and graft; Z86.73 Personal history of transient ischemic attack (TIA), and cerebral infarction without residual deficits
CPT/HCPCS: 36415; 70450-TC; 71045-TC-FY; 72125-TC; 72170-TC-FY; 72192-TC; 73030-TC-LT-FY; 80053; 81003; 82550; 82553; 82962; 83735; 84100; 84484; 85025; 85027; 85610; 85730; 87086; 93005; 93010; 93880-TC; 97116-GP; 97162-GP; 99285-25; C9803; J0131; J1644; U0003

== ENCOUNTER 2020-08-27 11:36 | Inpatient (IN) | payer OTHER ==
[2020-08-27 11:57] VITALS: BMI 31.8
[2020-08-27 13:10] LABS: BASO % 0.7 % (0-2.0); EOS % 2.4 % (0-4.5); HEMATOCRIT 37.4 % (32.4-45.2); HEMOGLOBIN 12.1 GM/dL (10.7-15.3); LYMPH % 21.4 % (8-40); MCH 27.4 pg (25.7-33.7); MCHC 32.4 g/dl (32.0-36.0); MEAN CELL VOLUME 84.6 fl (80-96); MONO % 9.6 % (3.8-10.2); NEUT % 65.9 % (42.8-82.8); PLATELET COUNT 143 K/MM3 (134-434); RBC 4.42 M/mm3 (3.60-5.2); RDW 15.6 % (11.6-15.6); WHITE BLOOD COUNT 5.4 K/mm3 (4.0-10.0)
[2020-08-27 13:23] LABS: INR 0.93 (0.83-1.09); PROTHROMBIN TIME (PATIENT) 11.5 SEC (9.7-13.0)
[2020-08-27 13:56] LABS: CHLORIDE 110 mmol/L (98-107); POTASSIUM 4.6 mmol/L (3.5-5.1); SODIUM 142 mmol/L (136-145)
[2020-08-27 13:58] LABS: ANION GAP 4 MMOL/L (8-16); CALCIUM 9.1 mg/dL (8.5-10.1); CO2 29 mmol/L (21-32)
[2020-08-27 13:59] LABS: BLOOD UREA NITROGEN 41.2 mg/dL (7-18); GLUCOSE,RANDOM 118 mg/dL (74-106)
[2020-08-27 14:02] LABS: CREATININE 2.9 mg/dL (0.55-1.3)
[2020-08-27] MEDS ORDERED: SODIUM CHLORIDE 0.9% 500 ML INFUS.BAG IV ONE (14:13)
[2020-08-27] MEDS ORDERED: ATORVASTATIN CA 80 MG TABLET (FP) PO ONE (16:03)
[2020-08-27] MEDS ORDERED: ATORVASTATIN CA 80 MG TABLET (FP) ONE (16:11)
[2020-08-27] MEDS ORDERED: ASPIRIN 325 MG ENTERIC COATED TABLET (FP) PO ONE (16:17)
[2020-08-27] MEDS ORDERED: ASPIRIN 325 MG ENTERIC COATED TABLET (FP) ONE (17:42)
[2020-08-27 17:44] LABS: EPI CELLS 18 /uL (0-25.1); HYALINE CASTS 2 /uL (0-3.1); URINE APPEARANCE CLEAR; URINE BACTERIA 70 /uL (0-1359); URINE BILIRUBIN NEGATIVE (NEGATIVE); URINE COLOR YELLOW; URINE GLUCOSE (UA) NEGATIVE (NEGATIVE); URINE KETONE NEGATIVE (NEGATIVE); URINE LEUK ESTERASE TRACE (NEGATIVE); URINE NITRITE NEGATIVE (NEGATIVE); URINE PROTEIN 3+ (NEGATIVE); URINE RBC 5 /uL (0-23.9); URINE UROBILINOGEN 0.2 mg/dL (0.2-1.0); URINE WBC 39 /uL (0-25.8)
[2020-08-27 20:10] LABS: N-TERMINAL BNP 1547.8 pg/ml (5-450)
[2020-08-27] MEDS ORDERED: amLODIPine BESYLATE 5 MG TABLET (FP) PO ONE (20:12)
[2020-08-27] MEDS ORDERED: CARVEDILOL 25 MG TABLET (FP) PO ONE (20:14)
[2020-08-27] MEDS ORDERED: CARVEDILOL 12.5 MG TABLET (FP) PO ONE (20:17)
[2020-08-27] MEDS ORDERED: amLODIPine BESYLATE 5 MG TABLET (FP) ONE (20:22)
[2020-08-27] MEDS ORDERED: CARVEDILOL 12.5 MG TABLET (FP) ONE (20:23)
[2020-08-27] MEDS ORDERED: ATORVASTATIN CA 40 MG TABLET (FP) ONE (22:16)
[2020-08-27] MEDS ORDERED: GABAPENTIN 100 MG CAPSULE ONE (22:16)
[2020-08-27] MEDS: ATORVASTATIN CA 40 MG TABLET (FP) PO SCH (22:28)
[2020-08-27] MEDS: GABAPENTIN 100 MG CAPSULE PO SCH (22:28)
[2020-08-27] MEDS: INSULIN SLIDING SCALE (NOVOLOG) 1 VIAL SQ SCH (22:29)
[2020-08-28] MEDS ORDERED: GABAPENTIN 100 MG CAPSULE ONE (06:18)
[2020-08-28] MEDS: GABAPENTIN 100 MG CAPSULE PO SCH (06:30)
[2020-08-28 06:56] LABS: BASO % 1.2 % (0-2.0); EOS % 2.8 % (0-4.5); HEMATOCRIT 32.8 % (32.4-45.2); HEMOGLOBIN 10.9 GM/dL (10.7-15.3); LYMPH % 36.3 % (8-40); MCH 27.6 pg (25.7-33.7); MCHC 33.1 g/dl (32.0-36.0); MEAN CELL VOLUME 83.3 fl (80-96); MEAN PLT VOLUME 10.4 fl (7.5-11.1); MONO % 11.3 % (3.8-10.2); NEUT % 48.4 % (42.8-82.8); PLATELET COUNT 134 K/MM3 (134-434); RBC 3.94 M/mm3 (3.60-5.2); RDW 15.7 % (11.6-15.6); WHITE BLOOD COUNT 5.2 K/mm3 (4.0-10.0)
[2020-08-28 07:30] LABS: MAGNESIUM 1.9 mg/dL (1.8-2.4)
[2020-08-28 07:33] LABS: PHOSPHOROUS 4.1 mg/dL (2.5-4.9)
[2020-08-28] MEDS ORDERED: ASPIRIN COATED 81 MG TABLET.EC PO SCH (10:00)
[2020-08-28] MEDS ORDERED: ASPIRIN 81 MG CHEWABLE TABLETS PO SCH (10:00)
[2020-08-28] MEDS ORDERED: PANTOPRAZOLE 40 MG TABLET ONE (11:59)
[2020-08-28] MEDS ORDERED: ENOXAPARIN NA (PORCINE) 30 MG/0.3 ML DISP.SYRIN SQ ONE (11:59)
[2020-08-28] MEDS: ENOXAPARIN NA (PORCINE) 30 MG/0.3 ML DISP.SYRIN SQ SCH (12:19)
[2020-08-28] MEDS: PANTOPRAZOLE 40 MG TABLET PO SCH (12:19)
[2020-08-28] MEDS: INSULIN SLIDING SCALE (NOVOLOG) 1 VIAL SQ SCH ×4 (12:20→21:27)
[2020-08-28] MEDS: ATORVASTATIN CA 40 MG TABLET (FP) PO SCH (22:01)
[2020-08-28] MEDS ORDERED: ATORVASTATIN CA 40 MG TABLET (FP) ONE (22:17)
[2020-08-29] MEDS: INSULIN SLIDING SCALE (NOVOLOG) 1 VIAL SQ SCH ×3 (08:00→20:57)
[2020-08-29 08:29] LABS: BASO % 0.8 % (0-2.0); EOS % 2.6 % (0-4.5); HEMATOCRIT 31.3 % (32.4-45.2); HEMOGLOBIN 10.1 GM/dL (10.7-15.3); LYMPH % 37.5 % (8-40); MCH 27.3 pg (25.7-33.7); MCHC 32.3 g/dl (32.0-36.0); MEAN CELL VOLUME 84.6 fl (80-96); MEAN PLT VOLUME 11.2 fl (7.5-11.1); MONO % 8.8 % (3.8-10.2); NEUT % 50.3 % (42.8-82.8); PLATELET COUNT 128 K/MM3 (134-434); RDW 15.3 % (11.6-15.6); WHITE BLOOD COUNT 5.2 K/mm3 (4.0-10.0)
[2020-08-29 08:49] LABS: CHLORIDE 115 mmol/L (98-107); POTASSIUM 4.2 mmol/L (3.5-5.1); SODIUM 147 mmol/L (136-145)
[2020-08-29 08:52] LABS: ALBUMIN 2.6 g/dl (3.4-5.0); ANION GAP 8 MMOL/L (8-16); CALCIUM 8.3 mg/dL (8.5-10.1); CO2 25 mmol/L (21-32); GLUCOSE,RANDOM 117 mg/dL (74-106)
[2020-08-29 08:55] LABS: CREATININE 3.3 mg/dL (0.55-1.3); SGOT/AST 26 U/L (15-37); SGPT/ALT 23 U/L (13-61)
[2020-08-29 08:57] LABS: BILIRUBIN,TOTAL 0.2 mg/dL (0.2-1); TOT PROT 6.5 g/dl (6.4-8.2)
[2020-08-29 08:58] LABS: ALK PHOS 77 U/L (45-117)
[2020-08-29] MEDS: PANTOPRAZOLE 40 MG TABLET PO SCH (12:33)
[2020-08-29] MEDS: ENOXAPARIN NA (PORCINE) 30 MG/0.3 ML DISP.SYRIN SQ SCH (12:33)
[2020-08-29] MEDS: ASPIRIN 325 MG ENTERIC COATED TABLET (FP) PO SCH (12:33)
[2020-08-29] MEDS ORDERED: ASPIRIN 325 MG ENTERIC COATED TABLET (FP) ONE (12:39)
[2020-08-29] MEDS ORDERED: PANTOPRAZOLE 40 MG TABLET ONE (12:39)
[2020-08-29] MEDS ORDERED: ENOXAPARIN NA (PORCINE) 30 MG/0.3 ML DISP.SYRIN SQ ONE (12:40)
[2020-08-29 15:14] LABS: CHOLESTEROL 192 mg/dL (50-200); TRIGLYCERIDES 140 mg/dL (0-150)
[2020-08-29 15:15] LABS: LDL CHOLESTEROL (ONLY SJRH) 116 mg/dL (5-100)
[2020-08-29 15:17] LABS: HDL CHOLESTEROL 46 mg/dL (40-60)
[2020-08-29] MEDS: DEXTROSE 5%-WATER - 1,000 ML IV SCH (15:40)
[2020-08-29] MEDS ORDERED: ATORVASTATIN CA 40 MG TABLET (FP) ONE (23:39)
[2020-08-29] MEDS: ATORVASTATIN CA 40 MG TABLET (FP) PO SCH (23:42)
[2020-08-30 09:13] LABS: POTASSIUM 4.1 mmol/L (3.5-5.1)
[2020-08-30 09:19] LABS: CALCIUM 8.5 mg/dL (8.5-10.1)
[2020-08-30 09:20] LABS: ALBUMIN 3.1 g/dl (3.4-5.0); BLOOD UREA NITROGEN 49.6 mg/dL (7-18)
[2020-08-30 09:21] LABS: BASO % 0.5 % (0-2.0); EOS % 2.7 % (0-4.5); HEMATOCRIT 40.5 % (32.4-45.2); HEMOGLOBIN 13.1 GM/dL (10.7-15.3); LYMPH % 32.2 % (8-40); MCH 27.7 pg (25.7-33.7); MCHC 32.4 g/dl (32.0-36.0); MEAN CELL VOLUME 85.6 fl (80-96); MEAN PLT VOLUME 10.3 fl (7.5-11.1); MONO % 9.2 % (3.8-10.2); NEUT % 55.4 % (42.8-82.8); PLATELET COUNT 110 K/MM3 (134-434); RBC 4.73 M/mm3 (3.60-5.2); RDW 15.7 % (11.6-15.6); WHITE BLOOD COUNT 5.8 K/mm3 (4.0-10.0)
[2020-08-30 09:25] LABS: BILIRUBIN,TOTAL 0.6 mg/dL (0.2-1); TOT PROT 7.6 g/dl (6.4-8.2)
[2020-08-30] MEDS: INSULIN SLIDING SCALE (NOVOLOG) 1 VIAL SQ SCH ×4 (09:42→21:31)
[2020-08-30] MEDS ORDERED: ENOXAPARIN NA (PORCINE) 30 MG/0.3 ML DISP.SYRIN SQ ONE (11:10)
[2020-08-30] MEDS ORDERED: PANTOPRAZOLE 40 MG TABLET ONE (11:10)
[2020-08-30] MEDS ORDERED: ASPIRIN 325 MG ENTERIC COATED TABLET (FP) ONE (11:10)
[2020-08-30] MEDS: ASPIRIN 325 MG ENTERIC COATED TABLET (FP) PO SCH (11:17)
[2020-08-30] MEDS: ENOXAPARIN NA (PORCINE) 30 MG/0.3 ML DISP.SYRIN SQ SCH (11:17)
[2020-08-30] MEDS: PANTOPRAZOLE 40 MG TABLET PO SCH (11:17)
[2020-08-30] MEDS: amLODIPine BESYLATE 10 MG TABLET (FP) PO SCH (15:18)
[2020-08-30] MEDS: CARVEDILOL 25 MG TABLET (FP) PO SCH ×2 (15:18→21:15)
[2020-08-30] MEDS: DEXTROSE 5%-WATER - 1,000 ML IV SCH (16:53)
[2020-08-30] MEDS: ATORVASTATIN CA 40 MG TABLET (FP) PO SCH (21:15)
[2020-08-31] MEDS: INSULIN SLIDING SCALE (NOVOLOG) 1 VIAL SQ SCH ×4 (06:06→22:36)
[2020-08-31] MEDS ORDERED: LORazepam 0.5 MG TABLET PO PRN (09:17)
[2020-08-31 09:29] LABS: HEMATOCRIT 31.5 % (32.4-45.2); HEMOGLOBIN 10.5 GM/dL (10.7-15.3); MCH 27.6 pg (25.7-33.7); MCHC 33.4 g/dl (32.0-36.0); MEAN CELL VOLUME 82.7 fl (80-96); MEAN PLT VOLUME 10.7 fl (7.5-11.1); PLATELET COUNT 126 K/MM3 (134-434); RBC 3.81 M/mm3 (3.60-5.2); RDW 14.9 % (11.6-15.6)
[2020-08-31 09:52] LABS: POTASSIUM 3.8 mmol/L (3.5-5.1)
[2020-08-31 10:15] LABS: BLOOD UREA NITROGEN 52.2 mg/dL (7-18)
[2020-08-31 10:18] LABS: CALCIUM 8.5 mg/dL (8.5-10.1); CREATININE 3.1 mg/dL (0.55-1.3)
[2020-08-31 10:19] LABS: MAGNESIUM 1.9 mg/dL (1.8-2.4)
[2020-08-31 10:22] LABS: PHOSPHOROUS 2.9 mg/dL (2.5-4.9)
[2020-08-31] MEDS ORDERED: ASPIRIN COATED 81 MG TABLET.EC ONE (11:08)
[2020-08-31] MEDS: amLODIPine BESYLATE 10 MG TABLET (FP) PO SCH (11:22)
[2020-08-31] MEDS: CARVEDILOL 25 MG TABLET (FP) PO SCH ×2 (11:23→22:18)
[2020-08-31] MEDS: PANTOPRAZOLE 40 MG TABLET PO SCH (11:23)
[2020-08-31] MEDS: ENOXAPARIN NA (PORCINE) 30 MG/0.3 ML DISP.SYRIN SQ SCH ×2 (11:49→22:35)
[2020-08-31 15:48] LABS: HEMATOCRIT 30.1 % (32.4-45.2); MCH 27.7 pg (25.7-33.7); MCHC 33.1 g/dl (32.0-36.0); MEAN CELL VOLUME 83.7 fl (80-96); MEAN PLT VOLUME 10.9 fl (7.5-11.1); PLATELET COUNT 110 K/MM3 (134-434); RBC 3.59 M/mm3 (3.60-5.2); RDW 15.2 % (11.6-15.6); WHITE BLOOD COUNT 6.2 K/mm3 (4.0-10.0)
[2020-08-31] MEDS: ASPIRIN 325 MG ENTERIC COATED TABLET (FP) PO SCH (16:28)
[2020-08-31] MEDS: DEXTROSE 5%-WATER - 1,000 ML IV SCH (16:29)
[2020-08-31] MEDS: ATORVASTATIN CA 40 MG TABLET (FP) PO SCH (22:18)
[2020-09-01] MEDS: INSULIN SLIDING SCALE (NOVOLOG) 1 VIAL SQ SCH ×4 (06:47→21:40)
[2020-09-01 07:41] LABS: HEMATOCRIT 32.5 % (32.4-45.2); HEMOGLOBIN 10.7 GM/dL (10.7-15.3); MCH 27.5 pg (25.7-33.7); MCHC 32.8 g/dl (32.0-36.0); MEAN PLT VOLUME 10.9 fl (7.5-11.1); PLATELET COUNT 110 K/MM3 (134-434); RBC 3.87 M/mm3 (3.60-5.2); RDW 15.6 % (11.6-15.6); WHITE BLOOD COUNT 5.8 K/mm3 (4.0-10.0)
[2020-09-01 09:08] LABS: POTASSIUM 4.1 mmol/L (3.5-5.1)
[2020-09-01 09:10] LABS: BLOOD UREA NITROGEN 52.1 mg/dL (7-18); CALCIUM 8.3 mg/dL (8.5-10.1); MAGNESIUM 1.9 mg/dL (1.8-2.4)
[2020-09-01 09:14] LABS: PHOSPHOROUS 3.4 mg/dL (2.5-4.9)
[2020-09-01] MEDS: CARVEDILOL 25 MG TABLET (FP) PO SCH ×2 (11:34→21:40)
[2020-09-01] MEDS: ASPIRIN 325 MG ENTERIC COATED TABLET (FP) PO SCH (11:35)
[2020-09-01] MEDS: PANTOPRAZOLE 40 MG TABLET PO SCH (11:35)
[2020-09-01] MEDS: amLODIPine BESYLATE 10 MG TABLET (FP) PO SCH (11:35)
[2020-09-01] MEDS: DEXTROSE 5%-WATER - 1,000 ML IV SCH (15:52)
[2020-09-01] MEDS: ATORVASTATIN CA 40 MG TABLET (FP) PO SCH ×2 (21:40→23:00)
[2020-09-01] MEDS: ENOXAPARIN NA (PORCINE) 30 MG/0.3 ML DISP.SYRIN SQ SCH ×2 (21:40→23:00)
[2020-09-02] MEDS: INSULIN SLIDING SCALE (NOVOLOG) 1 VIAL SQ SCH ×4 (06:00→22:23)
[2020-09-02] MEDS: PANTOPRAZOLE 40 MG TABLET PO SCH (09:05)
[2020-09-02] MEDS: CARVEDILOL 25 MG TABLET (FP) PO SCH ×2 (09:05→22:11)
[2020-09-02] MEDS: amLODIPine BESYLATE 10 MG TABLET (FP) PO SCH (09:05)
[2020-09-02] MEDS: ASPIRIN 325 MG ENTERIC COATED TABLET (FP) PO SCH (09:06)
[2020-09-02 13:04] LABS: BASO % 0.5 % (0-2.0); EOS % 3.1 % (0-4.5); HEMATOCRIT 32.3 % (32.4-45.2); HEMOGLOBIN 10.6 GM/dL (10.7-15.3); MCH 27.4 pg (25.7-33.7); MCHC 32.7 g/dl (32.0-36.0); MEAN CELL VOLUME 83.9 fl (80-96); MEAN PLT VOLUME 11.3 fl (7.5-11.1); MONO % 7.2 % (3.8-10.2); NEUT % 68.2 % (42.8-82.8); PLATELET COUNT 116 K/MM3 (134-434); RBC 3.85 M/mm3 (3.60-5.2); RDW 15.2 % (11.6-15.6); WHITE BLOOD COUNT 6.3 K/mm3 (4.0-10.0)
[2020-09-02 13:29] LABS: POTASSIUM 3.8 mmol/L (3.5-5.1)
[2020-09-02 13:31] LABS: ALBUMIN 2.5 g/dl (3.4-5.0); BLOOD UREA NITROGEN 45.2 mg/dL (7-18); CALCIUM 8.1 mg/dL (8.5-10.1); MAGNESIUM 1.8 mg/dL (1.8-2.4)
[2020-09-02 13:34] LABS: PHOSPHOROUS 2.8 mg/dL (2.5-4.9)
[2020-09-02 13:35] LABS: BILIRUBIN,TOTAL 0.3 mg/dL (0.2-1); CREATININE 2.9 mg/dL (0.55-1.3)
[2020-09-02 13:36] LABS: TOT PROT 6.2 g/dl (6.4-8.2)
[2020-09-02] MEDS: DEXTROSE 5%-WATER - 1,000 ML IV SCH (16:18)
[2020-09-02] MEDS: ATORVASTATIN CA 40 MG TABLET (FP) PO SCH (22:11)
[2020-09-02] MEDS: ENOXAPARIN NA (PORCINE) 30 MG/0.3 ML DISP.SYRIN SQ SCH (22:11)
[2020-09-02] MEDS ORDERED: HALOPERIDOL LACTATE 5 MG/ML IM ONE (23:21)
[2020-09-03] MEDS: INSULIN SLIDING SCALE (NOVOLOG) 1 VIAL SQ SCH ×5 (07:05→21:46)
[2020-09-03] MEDS: CARVEDILOL 25 MG TABLET (FP) PO SCH ×2 (10:30→21:48)
[2020-09-03] MEDS: ASPIRIN 325 MG ENTERIC COATED TABLET (FP) PO SCH (10:30)
[2020-09-03] MEDS: amLODIPine BESYLATE 10 MG TABLET (FP) PO SCH (10:30)
[2020-09-03] MEDS: PANTOPRAZOLE 40 MG TABLET PO SCH (10:30)
[2020-09-03] MEDS: DEXTROSE 5%-WATER - 1,000 ML IV SCH (18:03)
[2020-09-03] MEDS: ENOXAPARIN NA (PORCINE) 30 MG/0.3 ML DISP.SYRIN SQ SCH (21:47)
[2020-09-03] MEDS: ATORVASTATIN CA 40 MG TABLET (FP) PO SCH (21:48)
[2020-09-03 21:49] LABS: BASO % 0.8 % (0-2.0); EOS % 1.7 % (0-4.5); HEMATOCRIT 29.4 % (32.4-45.2); HEMOGLOBIN 9.6 GM/dL (10.7-15.3); LYMPH % 17.7 % (8-40); MCH 27.5 pg (25.7-33.7); MCHC 32.8 g/dl (32.0-36.0); MEAN CELL VOLUME 83.7 fl (80-96); MEAN PLT VOLUME 11.3 fl (7.5-11.1); MONO % 7.3 % (3.8-10.2); NEUT % 72.5 % (42.8-82.8); PLATELET COUNT 118 K/MM3 (134-434); RBC 3.51 M/mm3 (3.60-5.2); RDW 15.7 % (11.6-15.6); WHITE BLOOD COUNT 7.5 K/mm3 (4.0-10.0)
[2020-09-03 22:17] LABS: POTASSIUM 5.6 mmol/L (3.5-5.1)
[2020-09-03 22:18] LABS: CALCIUM 8.2 mg/dL (8.5-10.1)
[2020-09-03 22:19] LABS: ALBUMIN 2.5 g/dl (3.4-5.0); BLOOD UREA NITROGEN 49.3 mg/dL (7-18); MAGNESIUM 1.9 mg/dL (1.8-2.4)
[2020-09-03 22:23] LABS: BILIRUBIN,TOTAL 0.3 mg/dL (0.2-1); CREATININE 3.2 mg/dL (0.55-1.3); TOT PROT 6.4 g/dl (6.4-8.2)
[2020-09-04] MEDS: INSULIN SLIDING SCALE (NOVOLOG) 1 VIAL SQ SCH ×4 (06:21→22:14)
[2020-09-04 09:32] LABS: BASO % 1.3 % (0-2.0); EOS % 2.6 % (0-4.5); HEMATOCRIT 31.1 % (32.4-45.2); HEMOGLOBIN 10.4 GM/dL (10.7-15.3); LYMPH % 27.2 % (8-40); MCH 27.6 pg (25.7-33.7); MCHC 33.4 g/dl (32.0-36.0); MEAN CELL VOLUME 82.7 fl (80-96); MEAN PLT VOLUME 10.9 fl (7.5-11.1); MONO % 8.2 % (3.8-10.2); NEUT % 60.7 % (42.8-82.8); PLATELET COUNT 132 K/MM3 (134-434); RBC 3.76 M/mm3 (3.60-5.2); RDW 15.8 % (11.6-15.6); WHITE BLOOD COUNT 7.1 K/mm3 (4.0-10.0)
[2020-09-04 09:46] LABS: POTASSIUM 4.5 mmol/L (3.5-5.1)
[2020-09-04 09:59] LABS: CALCIUM 8.7 mg/dL (8.5-10.1)
[2020-09-04 10:00] LABS: ALBUMIN 2.8 g/dl (3.4-5.0)
[2020-09-04 10:03] LABS: CREATININE 3.3 mg/dL (0.55-1.3)
[2020-09-04 10:04] LABS: PHOSPHOROUS 3.9 mg/dL (2.5-4.9)
[2020-09-04 10:11] LABS: BILIRUBIN,TOTAL 0.5 mg/dL (0.2-1)
[2020-09-04] MEDS: amLODIPine BESYLATE 10 MG TABLET (FP) PO SCH (11:00)
[2020-09-04] MEDS: PANTOPRAZOLE 40 MG TABLET PO SCH (11:00)
[2020-09-04] MEDS: CARVEDILOL 25 MG TABLET (FP) PO SCH ×2 (11:00→22:18)
[2020-09-04] MEDS: ASPIRIN 325 MG ENTERIC COATED TABLET (FP) PO SCH (11:01)
[2020-09-04] MEDS ORDERED: LIDOCAINE VISCOUS 2% ORAL/TOP 20 ML UNIT-DOSE CUP PO ONE (14:05)
[2020-09-04] MEDS: DEXTROSE 5%-WATER - 1,000 ML IV SCH (20:23)
[2020-09-04] MEDS ORDERED: HALOPERIDOL LACTATE 5 MG/ML IM PRN (20:32)
[2020-09-04] MEDS: ENOXAPARIN NA (PORCINE) 30 MG/0.3 ML DISP.SYRIN SQ SCH (22:15)
[2020-09-04] MEDS: ATORVASTATIN CA 40 MG TABLET (FP) PO SCH (22:17)
[2020-09-05] MEDS: INSULIN SLIDING SCALE (NOVOLOG) 1 VIAL SQ SCH ×2 (06:27→11:10)
[2020-09-05] MEDS: ASPIRIN 325 MG ENTERIC COATED TABLET (FP) PO SCH (09:25)
[2020-09-05] MEDS: PANTOPRAZOLE 40 MG TABLET PO SCH (09:25)
[2020-09-05] MEDS: amLODIPine BESYLATE 10 MG TABLET (FP) PO SCH (09:26)
[2020-09-05] MEDS: CARVEDILOL 25 MG TABLET (FP) PO SCH (09:26)
[2020-09-05 11:22] VITALS: BP 159/85; PULSE 68; TEMP 99
== END 2020-09-05 13:00 | disposition home or self-care (01) | DRG 65 ==
LOC: JER 11:36 → JERBED 16:35 → J6WEST-2 08-30 13:17
PROVIDERS: ADMIT Internal Medicine; ATTEND Internal Medicine
PROC: B24BZZ4 Ultrasonography of Heart with Aorta, Transesophageal (ICD-10-PCS; principal; 2020-09-04 11:00)
DX: I63.9 Cerebral infarction, unspecified (principal); I31.3 Pericardial effusion (noninflammatory); E87.0 Hyperosmolality and hypernatremia; N17.9 Acute kidney failure, unspecified; I25.10 Atherosclerotic heart disease of native coronary artery without angina pectoris; F03.90 Unspecified dementia, unspecified severity, without behavioral disturbance, psychotic disturbance, mood disturbance, and anxiety; E11.22 Type 2 diabetes mellitus with diabetic chronic kidney disease; I12.9 Hypertensive chronic kidney disease with stage 1 through stage 4 chronic kidney disease, or unspecified chronic kidney disease; N18.30 Chronic kidney disease, stage 3 unspecified; E66.9 Obesity, unspecified; Z68.31 Body mass index [BMI] 31.0-31.9, adult; E78.5 Hyperlipidemia, unspecified; R55 Syncope and collapse; D64.9 Anemia, unspecified; E86.0 Dehydration; E87.5 Hyperkalemia; Z20.822 Contact with and (suspected) exposure to COVID-19; Z85.841 Personal history of malignant neoplasm of brain
CPT/HCPCS: 36415; 70450-TC; 70551-TC; 71045-TC-FY; 72125-TC; 73523-TC-FY; 73552-TC-LT-FY; 73560-TC-LT-FY; 73590-TC-LT-FY; 73610-TC-LT-FY; 73630-TC-LT; 80048; 80053; 80061; 81003; 82962; 83036; 83605; 83721; 83735; 83880; 84100; 84443; 84484; 85025; 85027; 85610; 86850; 86900; 86901; 87086; 87186; 93005; 93010; 93306-TC; 93312; 93325; 93880-TC; 97116-GP; 97161-GP; 99285-25; C9803; U0003

== ENCOUNTER 2020-11-13 13:44 | Inpatient (IN) | payer OTHER ==
[2020-11-13] MEDS ORDERED: METOCLOPRAMIDE HCL INJECTION 10 MG/2 ML VIAL IVPB ONE (14:48)
[2020-11-13] MEDS ORDERED: METOCLOPRAMIDE HCL INJECTION 10 MG/2 ML VIAL ONE (15:17)
[2020-11-13 15:51] LABS: CHLORIDE 108 mmol/L (98-107); SODIUM 137 mmol/L (136-145)
[2020-11-13 15:53] LABS: EOS % 0.7 % (0-4.5); HEMATOCRIT 34.6 % (32.4-45.2); HEMOGLOBIN 11.2 GM/dL (10.7-15.3); LYMPH % 20.9 % (8-40); MCH 26.9 pg (25.7-33.7); MCHC 32.4 g/dl (32.0-36.0); MEAN CELL VOLUME 83.1 fl (80-96); MEAN PLT VOLUME 10.2 fl (7.5-11.1); MONO % 5.1 % (3.8-10.2); NEUT % 72.3 % (42.8-82.8); PLATELET COUNT 159 K/MM3 (134-434); RBC 4.16 M/mm3 (3.60-5.2); RDW 15.3 % (11.6-15.6); WHITE BLOOD COUNT 8.2 K/mm3 (4.0-10.0)
[2020-11-13 15:55] LABS: CALCIUM 8.4 mg/dL (8.5-10.1); GLUCOSE,RANDOM 139 mg/dL (74-106)
[2020-11-13 15:56] LABS: ALBUMIN 3.2 g/dl (3.4-5.0); BLOOD UREA NITROGEN 29.8 mg/dL (7-18); CO2 25 mmol/L (21-32)
[2020-11-13 15:57] LABS: EPI CELLS 5 /uL (0-25.1); HYALINE CASTS 2 /uL (0-3.1); PH,URINE 5.5 (5.0-8.0); URINE APPEARANCE CLOUDY; URINE BACTERIA >9,000 /uL (0-1359); URINE BILIRUBIN NEGATIVE (NEGATIVE); URINE COLOR YELLOW; URINE GLUCOSE (UA) NEGATIVE (NEGATIVE); URINE KETONE NEGATIVE (NEGATIVE); URINE LEUK ESTERASE 2+ (NEGATIVE); URINE NITRITE NEGATIVE (NEGATIVE); URINE PROTEIN 3+ (NEGATIVE); URINE RBC 12 /uL (0-23.9); URINE UROBILINOGEN 0.2 mg/dL (0.2-1.0); URINE WBC 660 /uL (0-25.8)
[2020-11-13 15:58] LABS: SGPT/ALT 25 U/L (13-61)
[2020-11-13 15:59] LABS: CREATININE 2.6 mg/dL (0.55-1.3); INR 0.96 (0.83-1.09); PROTHROMBIN TIME (PATIENT) 11.6 SEC (9.7-13.0); SGOT/AST 52 U/L (15-37)
[2020-11-13 16:00] LABS: BILIRUBIN,TOTAL 0.7 mg/dL (0.2-1); TOT PROT 8.5 g/dl (6.4-8.2)
[2020-11-13 16:01] LABS: ALK PHOS 96 U/L (45-117)
[2020-11-13 16:02] LABS: ACTIVATED PTT 26.6 SECONDS (25.2-36.5)
[2020-11-13 16:04] LABS: ANION GAP 4 MMOL/L (8-16)
[2020-11-13] MEDS ORDERED: VANCOMYCIN 1 GM in D5W (PRE-DOCKED) 1,000 MG/250 ML IVPB ONE (16:25)
[2020-11-13] MEDS ORDERED: PIPERACILLIN/TAZOB 2.25 GM 2.25 GM in DEXTROSE 5%-WATER - 50 ML IVPB ONE (16:25)
[2020-11-13] MEDS ORDERED: SODIUM CHLORIDE 0.9% 500 ML INFUS.BAG IV ONE (16:26)
[2020-11-13] MEDS ORDERED: PIPERACILLIN/TAZOB 2.25 GM 2.25 GM/50 ML BAG IVPB ONE (16:36)
[2020-11-13] MEDS ORDERED: VANCOMYCIN 1 GRAM (PRE-DOCKED) 1,000 MG/250 ML BAG IVPB ONE (16:36)
[2020-11-13] MEDS ORDERED: METOCLOPRAMIDE HCL INJECTION 10 MG/2 ML VIAL IVPUSH PRN (22:09)
[2020-11-13] MEDS ORDERED: amLODIPine BESYLATE 2.5 MG TABLET (FP) PO ONE (22:13)
[2020-11-13] MEDS ORDERED: FAMOTIDINE 10 MG TABLET PO PRN (22:13)
[2020-11-13] MEDS: NITROFURANTOIN MACROCRYSTAL 50 MG CAPSULE (FP) PO SCH (22:25)
[2020-11-13 23:08] LABS: LIPASE 401 U/L (73-393)
[2020-11-14] MEDS ORDERED: amLODIPine BESYLATE 2.5 MG TABLET (FP) PO ONE ×2 (00:17→02:14)
[2020-11-14] MEDS ORDERED: amLODIPine BESYLATE 5 MG TABLET (FP) ONE (02:16)
[2020-11-14] MEDS: HEPARIN NA (PORCINE) 5,000 UNITS/ML 1ML VIAL SQ SCH ×4 (02:23→21:17)
[2020-11-14 06:37] LABS: HEMATOCRIT 33.6 % (32.4-45.2); MCH 27.6 pg (25.7-33.7); MCHC 32.8 g/dl (32.0-36.0); MEAN CELL VOLUME 84.3 fl (80-96); MEAN PLT VOLUME 9.9 fl (7.5-11.1); PLATELET COUNT 153 K/MM3 (134-434); RBC 3.98 M/mm3 (3.60-5.2); RDW 15.5 % (11.6-15.6); WHITE BLOOD COUNT 8.3 K/mm3 (4.0-10.0)
[2020-11-14 07:02] LABS: CALCIUM 8.3 mg/dL (8.5-10.1)
[2020-11-14 07:03] LABS: MAGNESIUM 1.8 mg/dL (1.8-2.4)
[2020-11-14 07:06] LABS: CREATININE 2.7 mg/dL (0.55-1.3); PHOSPHOROUS 3.6 mg/dL (2.5-4.9)
[2020-11-14] MEDS ORDERED: PT OWN MED DRAWER 7, Y5N ONE ×2 (09:19→12:36)
[2020-11-14] MEDS: NITROFURANTOIN MACROCRYSTAL 50 MG CAPSULE (FP) PO SCH ×2 (10:58→21:17)
[2020-11-14] MEDS: amLODIPine BESYLATE 2.5 MG TABLET (FP) PO SCH (10:58)
[2020-11-14] MEDS: ASPIRIN 81 MG CHEWABLE TABLETS PO SCH (10:58)
[2020-11-14] MEDS: INSULIN SLIDING SCALE (NOVOLOG) 1 VIAL SQ SCH ×4 (11:55→21:17)
[2020-11-14] MEDS ORDERED: INSULIN (NOVOLOG) ASPART 100 UNITS/ML 10ML VIAL ONE ×3 (12:02→20:45)
[2020-11-14] MEDS: CHLORTHALIDONE 25 MG TABLET PO SCH (12:38)
[2020-11-14 13:48] VITALS: BMI 23.1
[2020-11-14] MEDS ORDERED: LISINOPRIL 10 MG TABLET PO ONE ×2 (14:29→14:40)
[2020-11-14] MEDS ORDERED: CHLORTHALIDONE 25 MG TABLET PO SCH (14:30)
[2020-11-14] MEDS: CARVEDILOL 25 MG TABLET (FP) PO SCH (15:47)
[2020-11-14] MEDS: ATORVASTATIN CA 40 MG TABLET (FP) PO SCH (21:17)
[2020-11-15] MEDS: MELATONIN 5 MG TABLETS PO ONE ×3 (01:46→02:05)
[2020-11-15] MEDS: HEPARIN NA (PORCINE) 5,000 UNITS/ML 1ML VIAL SQ SCH ×3 (06:06→21:44)
[2020-11-15] MEDS: INSULIN SLIDING SCALE (NOVOLOG) 1 VIAL SQ SCH ×4 (06:06→21:54)
[2020-11-15 08:25] LABS: BASO % 0.8 % (0-2.0); EOS % 3.7 % (0-4.5); HEMATOCRIT 31.7 % (32.4-45.2); HEMOGLOBIN 10.5 GM/dL (10.7-15.3); LYMPH % 30.9 % (8-40); MCH 27.2 pg (25.7-33.7); MEAN CELL VOLUME 82.4 fl (80-96); MEAN PLT VOLUME 9.8 fl (7.5-11.1); MONO % 8.4 % (3.8-10.2); NEUT % 56.2 % (42.8-82.8); PLATELET COUNT 129 K/MM3 (134-434); RBC 3.85 M/mm3 (3.60-5.2); RDW 15.1 % (11.6-15.6); WHITE BLOOD COUNT 5.7 K/mm3 (4.0-10.0)
[2020-11-15] MEDS ORDERED: POTASSIUM CHLORIDE TABS 20 MEQ TABLET.ER (FP) PO ONE (08:54)
[2020-11-15 09:09] LABS: CALCIUM 8.2 mg/dL (8.5-10.1)
[2020-11-15 09:10] LABS: MAGNESIUM 1.8 mg/dL (1.8-2.4)
[2020-11-15 09:12] LABS: CREATININE 2.6 mg/dL (0.55-1.3); PHOSPHOROUS 3.1 mg/dL (2.5-4.9)
[2020-11-15 09:14] LABS: BILIRUBIN,TOTAL 0.7 mg/dL (0.2-1); TOT PROT 6.8 g/dl (6.4-8.2)
[2020-11-15] MEDS ORDERED: LISINOPRIL 10 MG TABLET PO SCH (10:00)
[2020-11-15] MEDS: ASPIRIN 81 MG CHEWABLE TABLETS PO SCH (11:57)
[2020-11-15] MEDS: NITROFURANTOIN MACROCRYSTAL 50 MG CAPSULE (FP) PO SCH ×2 (11:58→22:18)
[2020-11-15] MEDS: amLODIPine BESYLATE 2.5 MG TABLET (FP) PO SCH (11:58)
[2020-11-15] MEDS: LISINOPRIL 20 MG TABLET PO SCH (11:58)
[2020-11-15] MEDS: CHLORTHALIDONE 25 MG TABLET PO SCH (11:58)
[2020-11-15] MEDS: CARVEDILOL 25 MG TABLET (FP) PO SCH (11:58)
[2020-11-15] MEDS: FAMOTIDINE 10 MG TABLET PO PRN (11:59)
[2020-11-15] MEDS: ATORVASTATIN CA 40 MG TABLET (FP) PO SCH (21:44)
[2020-11-15] MEDS ORDERED: INSULIN (NOVOLOG) ASPART 100 UNITS/ML 10ML VIAL ONE (21:52)
[2020-11-15] MEDS ORDERED: PT OWN MED DRAWER 7, Y5N ONE (22:15)
[2020-11-16] MEDS: INSULIN SLIDING SCALE (NOVOLOG) 1 VIAL SQ SCH ×4 (06:35→22:19)
[2020-11-16] MEDS: HEPARIN NA (PORCINE) 5,000 UNITS/ML 1ML VIAL SQ SCH ×3 (06:35→22:19)
[2020-11-16 07:44] LABS: BASO % 1.8 % (0-2.0); EOS % 3.6 % (0-4.5); HEMATOCRIT 32.1 % (32.4-45.2); HEMOGLOBIN 10.6 GM/dL (10.7-15.3); LYMPH % 42.3 % (8-40); MCH 27.6 pg (25.7-33.7); MCHC 33.1 g/dl (32.0-36.0); MEAN CELL VOLUME 83.4 fl (80-96); MEAN PLT VOLUME 10.2 fl (7.5-11.1); MONO % 6.9 % (3.8-10.2); NEUT % 45.4 % (42.8-82.8); PLATELET COUNT 128 K/MM3 (134-434); RBC 3.85 M/mm3 (3.60-5.2); RDW 15.4 % (11.6-15.6); WHITE BLOOD COUNT 5.7 K/mm3 (4.0-10.0)
[2020-11-16 08:03] LABS: CALCIUM 8.2 mg/dL (8.5-10.1)
[2020-11-16 08:04] LABS: BLOOD UREA NITROGEN 32.3 mg/dL (7-18); MAGNESIUM 1.8 mg/dL (1.8-2.4)
[2020-11-16 08:07] LABS: CREATININE 2.7 mg/dL (0.55-1.3); PHOSPHOROUS 3.2 mg/dL (2.5-4.9)
[2020-11-16 08:09] LABS: BILIRUBIN,TOTAL 0.6 mg/dL (0.2-1); TOT PROT 7.1 g/dl (6.4-8.2)
[2020-11-16] MEDS ORDERED: PT OWN MED DRAWER 7, Y5N ONE (09:37)
[2020-11-16] MEDS: amLODIPine BESYLATE 2.5 MG TABLET (FP) PO SCH (09:39)
[2020-11-16] MEDS: LISINOPRIL 20 MG TABLET PO SCH (09:39)
[2020-11-16] MEDS: CARVEDILOL 25 MG TABLET (FP) PO SCH (09:39)
[2020-11-16] MEDS: NITROFURANTOIN MACROCRYSTAL 50 MG CAPSULE (FP) PO SCH ×2 (09:39→22:19)
[2020-11-16] MEDS: ASPIRIN 81 MG CHEWABLE TABLETS PO SCH (09:40)
[2020-11-16] MEDS: FAMOTIDINE 10 MG TABLET PO PRN (09:40)
[2020-11-16] MEDS: CHLORTHALIDONE 25 MG TABLET PO SCH (09:40)
[2020-11-16] MEDS ORDERED: HALOPERIDOL LACTATE 5 MG/ML IM ONE (21:35)
[2020-11-16] MEDS: ATORVASTATIN CA 40 MG TABLET (FP) PO SCH (22:19)
[2020-11-17] MEDS: LISINOPRIL 20 MG TABLET PO SCH ×2 (06:03→09:01)
[2020-11-17] MEDS: INSULIN SLIDING SCALE (NOVOLOG) 1 VIAL SQ SCH (06:03)
[2020-11-17] MEDS: amLODIPine BESYLATE 2.5 MG TABLET (FP) PO SCH ×2 (06:03→09:01)
[2020-11-17] MEDS: HEPARIN NA (PORCINE) 5,000 UNITS/ML 1ML VIAL SQ SCH (06:04)
[2020-11-17 06:11] VITALS: BP 181/84; PULSE 67; TEMP 97.9
[2020-11-17] MEDS ORDERED: PT OWN MED DRAWER 7, Y5N ONE (09:03)
[2020-11-17] MEDS: ASPIRIN 81 MG CHEWABLE TABLETS PO SCH (09:04)
[2020-11-17] MEDS: NITROFURANTOIN MACROCRYSTAL 50 MG CAPSULE (FP) PO SCH ×2 (09:05→09:23)
[2020-11-17] MEDS: CARVEDILOL 25 MG TABLET (FP) PO SCH (09:05)
[2020-11-17] MEDS: CHLORTHALIDONE 25 MG TABLET PO SCH (09:05)
== END 2020-11-17 10:07 | disposition home or self-care (01) | DRG 690 ==
LOC: JER 13:44 → JERBED 19:09 → J8W 11-14 08:46
PROVIDERS: ADMIT Hospitalist; ATTEND Internal Medicine
DX: N39.0 Urinary tract infection, site not specified (principal); K86.2 Cyst of pancreas; A08.4 Viral intestinal infection, unspecified; K52.9 Noninfective gastroenteritis and colitis, unspecified; E11.9 Type 2 diabetes mellitus without complications; F03.90 Unspecified dementia, unspecified severity, without behavioral disturbance, psychotic disturbance, mood disturbance, and anxiety; N18.9 Chronic kidney disease, unspecified; I16.0 Hypertensive urgency; I25.10 Atherosclerotic heart disease of native coronary artery without angina pectoris; Z95.5 Presence of coronary angioplasty implant and graft; K44.9 Diaphragmatic hernia without obstruction or gangrene; I12.9 Hypertensive chronic kidney disease with stage 1 through stage 4 chronic kidney disease, or unspecified chronic kidney disease
CPT/HCPCS: 36415; 70450-TC; 71045-TC-FY; 72192-TC; 74150-TC; 80048; 80053; 81003; 82962; 83605; 83690; 83735; 84100; 84484; 85025; 85027; 85610; 85730; 87040; 87086; 87186; 93005; 93010; 97116-GP; 97161-GP; 99285-25; C9803; J1644; U0003; U0005

== ENCOUNTER 2020-12-29 13:05 | Inpatient (IN) | payer OTHER ==
[2020-12-29 14:47] LABS: BASO % 0.5 % (0-2.0); EOS % 1.2 % (0-4.5); HEMOGLOBIN 11.7 GM/dL (10.7-15.3); LYMPH % 15.7 % (8-40); MCHC 32.4 g/dl (32.0-36.0); MEAN CELL VOLUME 80.2 fl (80-96); MEAN PLT VOLUME 9.5 fl (7.5-11.1); MONO % 7.1 % (3.8-10.2); NEUT % 75.5 % (42.8-82.8); PLATELET COUNT 160 10^3/uL (134-434); RBC 4.49 M/mm3 (3.60-5.2); RDW 15.5 % (11.6-15.6); WHITE BLOOD COUNT 9.2 K/mm3 (4.0-10.0)
[2020-12-29 14:56] LABS: INR 0.98 (0.83-1.09); PROTHROMBIN TIME (PATIENT) 11.9 SEC (9.7-13.0)
[2020-12-29 15:18] LABS: CHLORIDE 107 mmol/L (98-107); SODIUM 140 mmol/L (136-145)
[2020-12-29 15:21] LABS: ALBUMIN 3.1 g/dl (3.4-5.0); ANION GAP 9 MMOL/L (8-16); BLOOD UREA NITROGEN 31.6 mg/dL (7-18); CO2 24 mmol/L (21-32); GLUCOSE,RANDOM 164 mg/dL (74-106)
[2020-12-29 15:24] LABS: CREATININE 2.3 mg/dL (0.55-1.3); SGOT/AST 23 U/L (15-37); SGPT/ALT 15 U/L (13-61)
[2020-12-29 15:25] LABS: BILIRUBIN,TOTAL 0.6 mg/dL (0.2-1)
[2020-12-29 15:27] LABS: ALK PHOS 91 U/L (45-117)
[2020-12-29 17:00] LABS: EPI CELLS 1 /uL (0-25.1); HYALINE CASTS 2 /uL (0-3.1); PH,URINE 5.5 (5.0-8.0); URINE APPEARANCE CLOUDY; URINE BACTERIA >9,000 /uL (0-1359); URINE BILIRUBIN NEGATIVE (NEGATIVE); URINE COLOR YELLOW; URINE GLUCOSE (UA) NEGATIVE (NEGATIVE); URINE KETONE NEGATIVE (NEGATIVE); URINE LEUK ESTERASE 2+ (NEGATIVE); URINE NITRITE NEGATIVE (NEGATIVE); URINE PROTEIN 2+ (NEGATIVE); URINE RBC 7 /uL (0-23.9); URINE UROBILINOGEN 0.2 mg/dL (0.2-1.0); URINE WBC 373 /uL (0-25.8)
[2020-12-29] MEDS ORDERED: CEFTRIAXONE 1 GM in DEXTROSE 5%-WATER - 100 ML IVPB ONE (17:08)
[2020-12-29] MEDS ORDERED: SODIUM CHLORIDE 500 ML IV STA (17:15)
[2020-12-29] MEDS ORDERED: CEFTRIAXONE 1 GM/50 ML BAG ONE (17:16)
[2020-12-29 17:28] LABS: MAGNESIUM 1.9 mg/dL (1.8-2.4)
[2020-12-29] MEDS ORDERED: amLODIPine BESYLATE 10 MG TABLET (FP) PO ONE (20:53)
[2020-12-29] MEDS ORDERED: amLODIPine BESYLATE 5 MG TABLET (FP) ONE (21:00)
[2020-12-30 01:11] VITALS: BMI 20.9
[2020-12-30] MEDS: INSULIN SLIDING SCALE (NOVOLOG) 1 VIAL SQ SCH ×4 (06:02→21:08)
[2020-12-30] MEDS: HEPARIN NA (PORCINE) 5,000 UNITS/ML 1ML VIAL SQ SCH ×3 (06:02→21:09)
[2020-12-30 08:49] LABS: BASO % 0.7 % (0-2.0); EOS % 3.8 % (0-4.5); HEMATOCRIT 33.5 % (32.4-45.2); HEMOGLOBIN 10.7 GM/dL (10.7-15.3); LYMPH % 21.5 % (8-40); MCH 25.7 pg (25.7-33.7); MCHC 32.1 g/dl (32.0-36.0); MEAN CELL VOLUME 80.2 fl (80-96); MEAN PLT VOLUME 10.1 fl (7.5-11.1); MONO % 5.4 % (3.8-10.2); NEUT % 68.6 % (42.8-82.8); PLATELET COUNT 161 10^3/uL (134-434); RBC 4.17 M/mm3 (3.60-5.2); RDW 15.8 % (11.6-15.6)
[2020-12-30 09:11] LABS: CALCIUM 8.8 mg/dL (8.5-10.1)
[2020-12-30 09:12] LABS: ALBUMIN 2.7 g/dl (3.4-5.0); BLOOD UREA NITROGEN 30.8 mg/dL (7-18)
[2020-12-30 09:15] LABS: CREATININE 2.3 mg/dL (0.55-1.3)
[2020-12-30 09:17] LABS: BILIRUBIN,TOTAL 0.6 mg/dL (0.2-1); TOT PROT 7.2 g/dl (6.4-8.2)
[2020-12-30] MEDS: ASPIRIN 81 MG CHEWABLE TABLETS PO SCH (09:21)
[2020-12-30] MEDS: amLODIPine BESYLATE 10 MG TABLET (FP) PO SCH (09:21)
[2020-12-30] MEDS ORDERED: cefTRIAXone SODIUM 1 GM VIAL ONE (09:23)
[2020-12-30] MEDS ORDERED: DEXTROSE 5%-WATER - 50 ML IVPB ONE (09:23)
[2020-12-30] MEDS: CEFTRIAXONE 1 GM in DEXTROSE 5%-WATER - 50 ML IVPB SCH (09:29)
[2020-12-30] MEDS ORDERED: POTASSIUM CHLORIDE TABS 20 MEQ TABLET.ER (FP) PO ONE (11:39)
[2020-12-30] MEDS: ATORVASTATIN CA 40 MG TABLET (FP) PO SCH (21:09)
[2020-12-31] MEDS: HEPARIN NA (PORCINE) 5,000 UNITS/ML 1ML VIAL SQ SCH ×3 (05:46→21:12)
[2020-12-31] MEDS: INSULIN SLIDING SCALE (NOVOLOG) 1 VIAL SQ SCH ×4 (06:14→21:13)
[2020-12-31 07:36] LABS: BASO % 0.8 % (0-2.0); EOS % 3.8 % (0-4.5); HEMATOCRIT 29.7 % (32.4-45.2); HEMOGLOBIN 9.5 GM/dL (10.7-15.3); LYMPH % 29.5 % (8-40); MCH 25.7 pg (25.7-33.7); MCHC 32.1 g/dl (32.0-36.0); MEAN CELL VOLUME 80.3 fl (80-96); MEAN PLT VOLUME 9.4 fl (7.5-11.1); MONO % 8.3 % (3.8-10.2); NEUT % 57.6 % (42.8-82.8); PLATELET COUNT 143 10^3/uL (134-434); RDW 15.9 % (11.6-15.6); WHITE BLOOD COUNT 6.2 K/mm3 (4.0-10.0)
[2020-12-31 07:43] LABS: CALCIUM 8.3 mg/dL (8.5-10.1)
[2020-12-31 07:44] LABS: ALBUMIN 2.5 g/dl (3.4-5.0); BLOOD UREA NITROGEN 35.6 mg/dL (7-18)
[2020-12-31 07:48] LABS: BILIRUBIN,TOTAL 0.3 mg/dL (0.2-1)
[2020-12-31 07:49] LABS: TOT PROT 6.5 g/dl (6.4-8.2)
[2020-12-31] MEDS ORDERED: DEXTROSE 5%-WATER - 50 ML IVPB ONE (09:31)
[2020-12-31] MEDS ORDERED: cefTRIAXone SODIUM 1 GM VIAL ONE (09:31)
[2020-12-31] MEDS: CEFTRIAXONE 1 GM in DEXTROSE 5%-WATER - 50 ML IVPB SCH (09:51)
[2020-12-31] MEDS: ASPIRIN 81 MG CHEWABLE TABLETS PO SCH (09:51)
[2020-12-31] MEDS: amLODIPine BESYLATE 10 MG TABLET (FP) PO SCH (09:51)
[2020-12-31] MEDS ORDERED: FAMOTIDINE 20 MG TABLET PO SCH ×2 (11:00→11:43)
[2020-12-31] MEDS ORDERED: LACTATED RINGERS SOLUTION 1000 ML INFUS.BAG IV ONE (14:15)
[2020-12-31] MEDS: ATORVASTATIN CA 40 MG TABLET (FP) PO SCH (21:12)
[2021-01-01] MEDS: HEPARIN NA (PORCINE) 5,000 UNITS/ML 1ML VIAL SQ SCH ×3 (05:37→21:14)
[2021-01-01] MEDS: INSULIN SLIDING SCALE (NOVOLOG) 1 VIAL SQ SCH ×4 (06:01→21:14)
[2021-01-01 09:17] LABS: BASO % 0.9 % (0-2.0); EOS % 3.4 % (0-4.5); HEMATOCRIT 33.1 % (32.4-45.2); HEMOGLOBIN 10.6 GM/dL (10.7-15.3); MCH 25.5 pg (25.7-33.7); MCHC 32.1 g/dl (32.0-36.0); MEAN CELL VOLUME 79.5 fl (80-96); MEAN PLT VOLUME 9.4 fl (7.5-11.1); MONO % 6.2 % (3.8-10.2); NEUT % 60.5 % (42.8-82.8); PLATELET COUNT 165 10^3/uL (134-434); RBC 4.16 M/mm3 (3.60-5.2); RDW 15.7 % (11.6-15.6); WHITE BLOOD COUNT 6.9 K/mm3 (4.0-10.0)
[2021-01-01] MEDS ORDERED: cefTRIAXone SODIUM 1 GM VIAL ONE (09:38)
[2021-01-01] MEDS ORDERED: DEXTROSE 5%-WATER - 50 ML IVPB ONE (09:38)
[2021-01-01] MEDS: FAMOTIDINE 20 MG TABLET PO SCH (09:42)
[2021-01-01] MEDS: CEFTRIAXONE 1 GM in DEXTROSE 5%-WATER - 50 ML IVPB SCH (09:42)
[2021-01-01] MEDS: ASPIRIN 81 MG CHEWABLE TABLETS PO SCH (09:42)
[2021-01-01] MEDS: amLODIPine BESYLATE 10 MG TABLET (FP) PO SCH (09:42)
[2021-01-01 10:12] LABS: CALCIUM 8.8 mg/dL (8.5-10.1)
[2021-01-01 10:13] LABS: ALBUMIN 2.8 g/dl (3.4-5.0); BLOOD UREA NITROGEN 36.8 mg/dL (7-18)
[2021-01-01 10:15] LABS: CREATININE 2.6 mg/dL (0.55-1.3)
[2021-01-01 10:17] LABS: TOT PROT 7.4 g/dl (6.4-8.2)
[2021-01-01 11:05] LABS: BILIRUBIN,TOTAL 0.6 mg/dL (0.2-1)
[2021-01-01] MEDS ORDERED: INSULIN (NOVOLOG) ASPART 100 UNITS/ML 10ML VIAL ONE ×2 (11:28→21:00)
[2021-01-01] MEDS: POLYETHYLENE GLYCOL 3350 119 GM BTL PO SCH (14:58)
[2021-01-01] MEDS: SODIUM CHLORIDE 0.45% 1,000 ML IV SCH (15:06)
[2021-01-01] MEDS: ATORVASTATIN CA 40 MG TABLET (FP) PO SCH (21:14)
[2021-01-01] MEDS: CARVEDILOL 12.5 MG TABLET (FP) PO SCH (21:14)
[2021-01-02] MEDS: SODIUM CHLORIDE 0.45% 1,000 ML IV SCH (02:59)
[2021-01-02] MEDS: INSULIN SLIDING SCALE (NOVOLOG) 1 VIAL SQ SCH ×4 (05:59→21:13)
[2021-01-02] MEDS: HEPARIN NA (PORCINE) 5,000 UNITS/ML 1ML VIAL SQ SCH ×3 (05:59→21:12)
[2021-01-02 09:02] LABS: BASO % 0.8 % (0-2.0); HEMATOCRIT 29.5 % (32.4-45.2); HEMOGLOBIN 9.5 GM/dL (10.7-15.3); LYMPH % 33.9 % (8-40); MCH 25.9 pg (25.7-33.7); MCHC 32.3 g/dl (32.0-36.0); MEAN CELL VOLUME 80.3 fl (80-96); MEAN PLT VOLUME 9.6 fl (7.5-11.1); MONO % 7.4 % (3.8-10.2); NEUT % 53.9 % (42.8-82.8); PLATELET COUNT 143 10^3/uL (134-434); RBC 3.68 M/mm3 (3.60-5.2)
[2021-01-02] MEDS ORDERED: DEXTROSE 5%-WATER - 50 ML IVPB ONE (09:36)
[2021-01-02] MEDS ORDERED: cefTRIAXone SODIUM 1 GM VIAL ONE (09:36)
[2021-01-02] MEDS: amLODIPine BESYLATE 10 MG TABLET (FP) PO SCH (09:51)
[2021-01-02] MEDS: CARVEDILOL 12.5 MG TABLET (FP) PO SCH ×2 (09:51→21:12)
[2021-01-02] MEDS: ASPIRIN 81 MG CHEWABLE TABLETS PO SCH (09:51)
[2021-01-02] MEDS: FAMOTIDINE 20 MG TABLET PO SCH (09:51)
[2021-01-02] MEDS: CEFTRIAXONE 1 GM in DEXTROSE 5%-WATER - 50 ML IVPB SCH (09:52)
[2021-01-02] MEDS: POLYETHYLENE GLYCOL 3350 119 GM BTL PO SCH (09:59)
[2021-01-02 10:26] LABS: BLOOD UREA NITROGEN 34.9 mg/dL (7-18)
[2021-01-02 10:38] LABS: CREATININE 2.4 mg/dL (0.55-1.3)
[2021-01-02] MEDS: CHLORTHALIDONE 25 MG TABLET PO SCH (11:14)
[2021-01-02] MEDS: ATORVASTATIN CA 40 MG TABLET (FP) PO SCH (21:12)
[2021-01-03] MEDS: HEPARIN NA (PORCINE) 5,000 UNITS/ML 1ML VIAL SQ SCH ×3 (05:41→21:00)
[2021-01-03] MEDS: INSULIN SLIDING SCALE (NOVOLOG) 1 VIAL SQ SCH ×4 (06:35→22:13)
[2021-01-03 09:03] LABS: BASO % 1.2 % (0-2.0); EOS % 4.1 % (0-4.5); HEMATOCRIT 29.7 % (32.4-45.2); HEMOGLOBIN 9.8 GM/dL (10.7-15.3); LYMPH % 33.3 % (8-40); MCH 26.3 pg (25.7-33.7); MCHC 33.2 g/dl (32.0-36.0); MEAN CELL VOLUME 79.5 fl (80-96); MEAN PLT VOLUME 9.2 fl (7.5-11.1); MONO % 8.4 % (3.8-10.2); PLATELET COUNT 137 10^3/uL (134-434); RBC 3.73 M/mm3 (3.60-5.2); RDW 16.4 % (11.6-15.6); WHITE BLOOD COUNT 5.7 K/mm3 (4.0-10.0)
[2021-01-03] MEDS ORDERED: cefTRIAXone SODIUM 1 GM VIAL ONE (09:34)
[2021-01-03] MEDS ORDERED: PT OWN MED DRAWER 7, Y5N ONE (09:34)
[2021-01-03 09:35] LABS: CALCIUM 8.6 mg/dL (8.5-10.1)
[2021-01-03] MEDS ORDERED: DEXTROSE 5%-WATER - 50 ML IVPB ONE (09:35)
[2021-01-03 09:36] LABS: CREATININE 2.6 mg/dL (0.55-1.3)
[2021-01-03] MEDS: amLODIPine BESYLATE 10 MG TABLET (FP) PO SCH (09:39)
[2021-01-03] MEDS: CHLORTHALIDONE 25 MG TABLET PO SCH (09:40)
[2021-01-03] MEDS: ASPIRIN 81 MG CHEWABLE TABLETS PO SCH (09:40)
[2021-01-03] MEDS: CARVEDILOL 25 MG TABLET (FP) PO SCH ×2 (09:40→21:00)
[2021-01-03] MEDS: FAMOTIDINE 20 MG TABLET PO SCH (09:40)
[2021-01-03] MEDS: POLYETHYLENE GLYCOL 3350 119 GM BTL PO SCH (09:41)
[2021-01-03] MEDS: CEFTRIAXONE 1 GM in DEXTROSE 5%-WATER - 50 ML IVPB SCH (09:41)
[2021-01-03] MEDS: ATORVASTATIN CA 40 MG TABLET (FP) PO SCH (21:00)
[2021-01-03] MEDS ORDERED: QUEtiapine FUMARATE 25 MG TABLET PO ONE (23:45)
[2021-01-04] MEDS: INSULIN SLIDING SCALE (NOVOLOG) 1 VIAL SQ SCH ×4 (06:08→22:27)
[2021-01-04] MEDS: HEPARIN NA (PORCINE) 5,000 UNITS/ML 1ML VIAL SQ SCH ×3 (06:25→21:38)
[2021-01-04] MEDS ORDERED: cefTRIAXone SODIUM 1 GM VIAL ONE (11:08)
[2021-01-04] MEDS ORDERED: DEXTROSE 5%-WATER - 50 ML IVPB ONE (11:08)
[2021-01-04] MEDS: FAMOTIDINE 20 MG TABLET PO SCH (11:13)
[2021-01-04] MEDS: CARVEDILOL 25 MG TABLET (FP) PO SCH ×2 (11:13→21:38)
[2021-01-04] MEDS: amLODIPine BESYLATE 10 MG TABLET (FP) PO SCH (11:13)
[2021-01-04] MEDS: ASPIRIN 81 MG CHEWABLE TABLETS PO SCH (11:13)
[2021-01-04] MEDS: CEFTRIAXONE 1 GM in DEXTROSE 5%-WATER - 50 ML IVPB SCH (11:13)
[2021-01-04] MEDS ORDERED: PT OWN MED DRAWER 7, Y5N ONE (11:31)
[2021-01-04] MEDS: POLYETHYLENE GLYCOL 3350 119 GM BTL PO SCH (11:34)
[2021-01-04] MEDS: CHLORTHALIDONE 25 MG TABLET PO SCH (11:34)
[2021-01-04] MEDS: ATORVASTATIN CA 40 MG TABLET (FP) PO SCH (21:38)
[2021-01-05] MEDS: HEPARIN NA (PORCINE) 5,000 UNITS/ML 1ML VIAL SQ SCH ×3 (06:06→21:48)
[2021-01-05] MEDS: INSULIN SLIDING SCALE (NOVOLOG) 1 VIAL SQ SCH ×4 (06:09→21:49)
[2021-01-05 09:51] LABS: CREATININE 2.7 mg/dL (0.55-1.3)
[2021-01-05] MEDS ORDERED: cefTRIAXone SODIUM 1 GM VIAL ONE (10:37)
[2021-01-05] MEDS ORDERED: DEXTROSE 5%-WATER - 50 ML IVPB ONE (10:38)
[2021-01-05] MEDS: CHLORTHALIDONE 25 MG TABLET PO SCH (10:39)
[2021-01-05] MEDS: CARVEDILOL 25 MG TABLET (FP) PO SCH ×2 (10:40→21:48)
[2021-01-05] MEDS: ASPIRIN 81 MG CHEWABLE TABLETS PO SCH (10:40)
[2021-01-05] MEDS: amLODIPine BESYLATE 10 MG TABLET (FP) PO SCH (10:40)
[2021-01-05] MEDS: FAMOTIDINE 20 MG TABLET PO SCH (10:40)
[2021-01-05] MEDS: CEFTRIAXONE 1 GM in DEXTROSE 5%-WATER - 50 ML IVPB SCH (10:41)
[2021-01-05] MEDS: POLYETHYLENE GLYCOL 3350 119 GM BTL PO SCH (11:33)
[2021-01-05] MEDS ORDERED: HALOPERIDOL LACTATE 5 MG/ML IM ONE (15:54)
[2021-01-05] MEDS ORDERED: HALOPERIDOL LACTATE 5 MG/ML ONE (15:56)
[2021-01-05] MEDS: ATORVASTATIN CA 40 MG TABLET (FP) PO SCH (21:48)
[2021-01-06] MEDS: HEPARIN NA (PORCINE) 5,000 UNITS/ML 1ML VIAL SQ SCH ×3 (06:08→21:31)
[2021-01-06] MEDS: INSULIN SLIDING SCALE (NOVOLOG) 1 VIAL SQ SCH ×4 (06:09→21:55)
[2021-01-06] MEDS ORDERED: INSULIN SLIDING SCALE (NOVOLOG) 1 VIAL SQ ONE ×2 (07:44→22:51)
[2021-01-06] MEDS ORDERED: cefTRIAXone SODIUM 1 GM VIAL ONE (09:19)
[2021-01-06] MEDS ORDERED: DEXTROSE 5%-WATER - 50 ML IVPB ONE (09:19)
[2021-01-06] MEDS: FAMOTIDINE 20 MG TABLET PO SCH (09:46)
[2021-01-06] MEDS: ASPIRIN 81 MG CHEWABLE TABLETS PO SCH (09:46)
[2021-01-06] MEDS: amLODIPine BESYLATE 10 MG TABLET (FP) PO SCH (09:46)
[2021-01-06] MEDS: CEFTRIAXONE 1 GM in DEXTROSE 5%-WATER - 50 ML IVPB SCH (09:46)
[2021-01-06] MEDS: CARVEDILOL 25 MG TABLET (FP) PO SCH ×2 (09:46→21:31)
[2021-01-06] MEDS: POLYETHYLENE GLYCOL 3350 119 GM BTL PO SCH (09:47)
[2021-01-06] MEDS: CHLORTHALIDONE 25 MG TABLET PO SCH (11:04)
[2021-01-06] MEDS: ATORVASTATIN CA 40 MG TABLET (FP) PO SCH (21:31)
[2021-01-07] MEDS: HEPARIN NA (PORCINE) 5,000 UNITS/ML 1ML VIAL SQ SCH ×3 (05:27→21:16)
[2021-01-07] MEDS: INSULIN SLIDING SCALE (NOVOLOG) 1 VIAL SQ SCH ×4 (06:28→21:25)
[2021-01-07] MEDS ORDERED: cefTRIAXone SODIUM 1 GM VIAL ONE (09:52)
[2021-01-07] MEDS ORDERED: PT OWN MED DRAWER 7, Y5N ONE (09:52)
[2021-01-07] MEDS ORDERED: DEXTROSE 5%-WATER - 50 ML IVPB ONE (09:53)
[2021-01-07] MEDS: amLODIPine BESYLATE 10 MG TABLET (FP) PO SCH (10:06)
[2021-01-07] MEDS: ASPIRIN 81 MG CHEWABLE TABLETS PO SCH (10:06)
[2021-01-07] MEDS: CHLORTHALIDONE 25 MG TABLET PO SCH (10:06)
[2021-01-07] MEDS: CEFTRIAXONE 1 GM in DEXTROSE 5%-WATER - 50 ML IVPB SCH (10:06)
[2021-01-07] MEDS: POLYETHYLENE GLYCOL 3350 119 GM BTL PO SCH (10:07)
[2021-01-07] MEDS: CARVEDILOL 25 MG TABLET (FP) PO SCH ×3 (10:07→21:21)
[2021-01-07] MEDS: FAMOTIDINE 20 MG TABLET PO SCH (10:07)
[2021-01-07 10:56] LABS: CALCIUM 8.5 mg/dL (8.5-10.1)
[2021-01-07 10:57] LABS: BLOOD UREA NITROGEN 46.8 mg/dL (7-18)
[2021-01-07 10:59] LABS: CREATININE 2.7 mg/dL (0.55-1.3)
[2021-01-07] MEDS: ATORVASTATIN CA 40 MG TABLET (FP) PO SCH (21:16)
[2021-01-08] MEDS: INSULIN SLIDING SCALE (NOVOLOG) 1 VIAL SQ SCH (06:08)
[2021-01-08 09:44] VITALS: BP 131/65; PULSE 71; TEMP 98.1
[2021-01-08] MEDS: amLODIPine BESYLATE 10 MG TABLET (FP) PO SCH (09:49)
[2021-01-08] MEDS: FAMOTIDINE 20 MG TABLET PO SCH (09:49)
[2021-01-08] MEDS: ASPIRIN 81 MG CHEWABLE TABLETS PO SCH (09:49)
[2021-01-08] MEDS: POLYETHYLENE GLYCOL 3350 119 GM BTL PO SCH (09:50)
[2021-01-08] MEDS: CARVEDILOL 25 MG TABLET (FP) PO SCH (09:50)
[2021-01-08] MEDS ORDERED: PT OWN MED DRAWER 7, Y5N ONE (09:51)
[2021-01-08] MEDS: CHLORTHALIDONE 25 MG TABLET PO SCH (09:52)
== END 2021-01-08 12:41 | disposition home health service (06) | DRG 689 ==
LOC: JER 13:05 → JERBED 16:30 → J4W 23:43 → J5S 12-31 21:35
PROVIDERS: ATTEND Internal Medicine
DX: N39.0 Urinary tract infection, site not specified (principal); G93.41 Metabolic encephalopathy; E87.0 Hyperosmolality and hypernatremia; N17.9 Acute kidney failure, unspecified; B96.20 Unspecified Escherichia coli [E. coli] as the cause of diseases classified elsewhere; F03.90 Unspecified dementia, unspecified severity, without behavioral disturbance, psychotic disturbance, mood disturbance, and anxiety; E11.9 Type 2 diabetes mellitus without complications; I10 Essential (primary) hypertension; E78.00 Pure hypercholesterolemia, unspecified; R41.82 Altered mental status, unspecified; I25.10 Atherosclerotic heart disease of native coronary artery without angina pectoris; I12.9 Hypertensive chronic kidney disease with stage 1 through stage 4 chronic kidney disease, or unspecified chronic kidney disease; E11.22 Type 2 diabetes mellitus with diabetic chronic kidney disease; N18.9 Chronic kidney disease, unspecified; E86.0 Dehydration; Z95.5 Presence of coronary angioplasty implant and graft; Z85.841 Personal history of malignant neoplasm of brain; Z86.73 Personal history of transient ischemic attack (TIA), and cerebral infarction without residual deficits; W18.39XA Other fall on same level, initial encounter; Y92.098 Other place in other non-institutional residence as the place of occurrence of the external cause
CPT/HCPCS: 36415; 70450-TC; 71045-TC-FY; 72125-TC; 72170-TC-FY; 80048; 80053; 81003; 82550; 82962; 83735; 84484; 85025; 85610; 87040; 87086; 87186; 93005; 93010; 97116-GP; 97162-GP; 99285-25; C9803; J1644; U0003; U0005

== ENCOUNTER 2021-01-10 22:01 | Inpatient (IN) | payer OTHER ==
[2021-01-10] MEDS ORDERED: DIPHTH,PERTUSS(ACELL),TET 0.5 ML DISP.SYRIN IM ONE ×2 (22:53→22:58)
[2021-01-10] MEDS ORDERED: ONDANSETRON 4 MG/2 ML VIAL IVPUSH ONE (22:55)
[2021-01-10] MEDS ORDERED: ONDANSETRON 4 MG/2 ML VIAL ONE (22:58)
[2021-01-10 23:32] LABS: BASO % 0.4 % (0-2.0); EOS % 1.4 % (0-4.5); HEMATOCRIT 31.3 % (32.4-45.2); MCH 26.1 pg (25.7-33.7); MCHC 32.1 g/dl (32.0-36.0); MEAN CELL VOLUME 81.3 fl (80-96); MEAN PLT VOLUME 9.3 fl (7.5-11.1); MONO % 5.6 % (3.8-10.2); NEUT % 80.6 % (42.8-82.8); PLATELET COUNT 194 10^3/uL (134-434); RBC 3.84 M/mm3 (3.60-5.2); RDW 17.2 % (11.6-15.6); WHITE BLOOD COUNT 10.8 K/mm3 (4.0-10.0)
[2021-01-10 23:44] VITALS: BMI 25.7
[2021-01-10 23:57] LABS: CHLORIDE 108 mmol/L (98-107); SODIUM 141 mmol/L (136-145)
[2021-01-10 23:59] LABS: CALCIUM 8.6 mg/dL (8.5-10.1)
[2021-01-11] LABS: ANION GAP 7 MMOL/L (8-16); BLOOD UREA NITROGEN 54.3 mg/dL (7-18); CO2 26 mmol/L (21-32); GLUCOSE,RANDOM 195 mg/dL (74-106)
[2021-01-11 00:03] LABS: CREATININE 3.6 mg/dL (0.55-1.3); SGOT/AST 43 U/L (15-37); SGPT/ALT 43 U/L (13-61)
[2021-01-11 00:05] LABS: BILIRUBIN,TOTAL 0.4 mg/dL (0.2-1); TOT PROT 8.3 g/dl (6.4-8.2)
[2021-01-11 00:06] LABS: ALK PHOS 86 U/L (45-117)
[2021-01-11 00:13] LABS: ALBUMIN 3.4 g/dl (3.4-5.0)
[2021-01-11] MEDS ORDERED: SODIUM CHLORIDE 0.9% 500 ML INFUS.BAG IV ONE (01:12)
[2021-01-11] MEDS ORDERED: MIDAZOLAM HCL 2 MG/2 ML SINGLE DOSE VIAL IVPUSH ONE (03:06)
[2021-01-11] MEDS ORDERED: MIDAZOLAM HCL 2 MG/2 ML SINGLE DOSE VIAL ONE (03:06)
[2021-01-11] MEDS ORDERED: ACETAMINOPHEN 325 MG TABLET (FP) PO PRN (05:57)
[2021-01-11] MEDS ORDERED: HEPARIN NA (PORCINE) 5,000 UNITS/ML 1ML VIAL SQ SCH (06:00)
[2021-01-11] MEDS ORDERED: SODIUM CHLORIDE 1,000 ML IV SCH (06:00)
[2021-01-11 08:03] LABS: BASO % 0.8 % (0-2.0); EOS % 1.6 % (0-4.5); HEMATOCRIT 32.4 % (32.4-45.2); HEMOGLOBIN 10.4 GM/dL (10.7-15.3); LYMPH % 18.6 % (8-40); MEAN CELL VOLUME 81.2 fl (80-96); MEAN PLT VOLUME 9.9 fl (7.5-11.1); PLATELET COUNT 198 10^3/uL (134-434); RBC 3.98 M/mm3 (3.60-5.2); RDW 17.3 % (11.6-15.6); WHITE BLOOD COUNT 9.5 K/mm3 (4.0-10.0)
[2021-01-11 08:18] LABS: CHLORIDE 112 mmol/L (98-107); SODIUM 143 mmol/L (136-145)
[2021-01-11 08:21] LABS: ANION GAP 6 MMOL/L (8-16); BLOOD UREA NITROGEN 48.2 mg/dL (7-18); CALCIUM 8.3 mg/dL (8.5-10.1); CO2 25 mmol/L (21-32); GLUCOSE,RANDOM 121 mg/dL (74-106)
[2021-01-11 08:22] LABS: ALBUMIN 3.2 g/dl (3.4-5.0); MAGNESIUM 2.2 mg/dL (1.8-2.4)
[2021-01-11 08:24] LABS: CREATININE 3.1 mg/dL (0.55-1.3); SGOT/AST 37 U/L (15-37); SGPT/ALT 40 U/L (13-61)
[2021-01-11 08:25] LABS: PHOSPHOROUS 4.5 mg/dL (2.5-4.9)
[2021-01-11 08:26] LABS: BILIRUBIN,TOTAL 0.5 mg/dL (0.2-1); TOT PROT 7.9 g/dl (6.4-8.2)
[2021-01-11 08:27] LABS: ALK PHOS 78 U/L (45-117)
[2021-01-11] MEDS: INSULIN SLIDING SCALE (NOVOLOG) 1 VIAL SQ SCH ×4 (09:37→22:05)
[2021-01-11] MEDS ORDERED: ASPIRIN COATED 81 MG TABLET.EC ONE (09:52)
[2021-01-11] MEDS ORDERED: amLODIPine BESYLATE 5 MG TABLET (FP) ONE (09:53)
[2021-01-11] MEDS ORDERED: CARVEDILOL 12.5 MG TABLET (FP) ONE (09:53)
[2021-01-11] MEDS: ASPIRIN COATED 81 MG TABLET.EC PO SCH (09:56)
[2021-01-11] MEDS: amLODIPine BESYLATE 5 MG TABLET (FP) PO SCH (09:56)
[2021-01-11] MEDS: CARVEDILOL 25 MG TABLET (FP) PO SCH ×2 (09:56→22:05)
[2021-01-11 10:52] LABS: EPI CELLS 25 /uL (0-25.1); HYALINE CASTS 3 /uL (0-3.1); URINE APPEARANCE CLEAR; URINE BACTERIA 27 /uL (0-1359); URINE BILIRUBIN NEGATIVE (NEGATIVE); URINE COLOR YELLOW; URINE GLUCOSE (UA) NEGATIVE (NEGATIVE); URINE KETONE NEGATIVE (NEGATIVE); URINE LEUK ESTERASE TRACE (NEGATIVE); URINE NITRITE NEGATIVE (NEGATIVE); URINE PROTEIN 2+ (NEGATIVE); URINE RBC 28 /uL (0-23.9); URINE UROBILINOGEN 0.2 mg/dL (0.2-1.0); URINE WBC 63 /uL (0-25.8)
[2021-01-11] MEDS: HEPARIN NA (PORCINE) 5,000 UNITS/ML 1ML VIAL SQ SCH ×2 (15:53→22:05)
[2021-01-11] MEDS ORDERED: HEPARIN NA (PORCINE) 5,000 UNITS/ML 1ML VIAL ONE (15:54)
[2021-01-11] MEDS ORDERED: SODIUM CHLORIDE 0.45% 1,000 ML IV SCH (18:00)
[2021-01-11] MEDS: ATORVASTATIN CA 40 MG TABLET (FP) PO SCH (22:05)
[2021-01-11] MEDS: GABAPENTIN 100 MG CAPSULE PO SCH (22:05)
[2021-01-12 06:34] LABS: BASO % 0.7 % (0-2.0); EOS % 4.2 % (0-4.5); HEMATOCRIT 27.9 % (32.4-45.2); LYMPH % 33.3 % (8-40); MCH 26.4 pg (25.7-33.7); MCHC 32.4 g/dl (32.0-36.0); MEAN CELL VOLUME 81.6 fl (80-96); MEAN PLT VOLUME 9.8 fl (7.5-11.1); MONO % 8.4 % (3.8-10.2); NEUT % 53.4 % (42.8-82.8); PLATELET COUNT 163 10^3/uL (134-434); RBC 3.42 M/mm3 (3.60-5.2); RDW 17.1 % (11.6-15.6); WHITE BLOOD COUNT 6.5 K/mm3 (4.0-10.0)
[2021-01-12 06:58] LABS: CALCIUM 7.7 mg/dL (8.5-10.1)
[2021-01-12 06:59] LABS: ALBUMIN 2.6 g/dl (3.4-5.0); BLOOD UREA NITROGEN 44.2 mg/dL (7-18); MAGNESIUM 2.1 mg/dL (1.8-2.4)
[2021-01-12 07:02] LABS: CREATININE 2.6 mg/dL (0.55-1.3)
[2021-01-12 07:03] LABS: BILIRUBIN,TOTAL 0.6 mg/dL (0.2-1); TOT PROT 6.4 g/dl (6.4-8.2)
[2021-01-12] MEDS: GABAPENTIN 100 MG CAPSULE PO SCH ×3 (07:23→21:40)
[2021-01-12] MEDS: HEPARIN NA (PORCINE) 5,000 UNITS/ML 1ML VIAL SQ SCH ×3 (07:23→21:41)
[2021-01-12] MEDS: INSULIN SLIDING SCALE (NOVOLOG) 1 VIAL SQ SCH ×4 (07:24→21:41)
[2021-01-12] MEDS: ASPIRIN COATED 81 MG TABLET.EC PO SCH (09:45)
[2021-01-12] MEDS: amLODIPine BESYLATE 5 MG TABLET (FP) PO SCH (09:45)
[2021-01-12] MEDS: PANTOPRAZOLE 40 MG TABLET PO SCH (09:45)
[2021-01-12] MEDS: CARVEDILOL 25 MG TABLET (FP) PO SCH ×2 (09:45→21:40)
[2021-01-12] MEDS ORDERED: CHLORTHALIDONE 25 MG TABLET PO SCH (10:00)
[2021-01-12] MEDS: LISINOPRIL 5 MG TABLET PO SCH (21:40)
[2021-01-12] MEDS: ATORVASTATIN CA 40 MG TABLET (FP) PO SCH (21:40)
[2021-01-13] MEDS: HEPARIN NA (PORCINE) 5,000 UNITS/ML 1ML VIAL SQ SCH ×3 (05:33→22:07)
[2021-01-13] MEDS: GABAPENTIN 100 MG CAPSULE PO SCH ×3 (05:34→22:06)
[2021-01-13] MEDS: INSULIN SLIDING SCALE (NOVOLOG) 1 VIAL SQ SCH ×4 (06:30→22:15)
[2021-01-13 09:09] LABS: BASO % 1.3 % (0-2.0); EOS % 3.8 % (0-4.5); HEMATOCRIT 28.5 % (32.4-45.2); HEMOGLOBIN 9.1 GM/dL (10.7-15.3); LYMPH % 31.1 % (8-40); MCH 26.1 pg (25.7-33.7); MCHC 31.9 g/dl (32.0-36.0); MEAN CELL VOLUME 82.1 fl (80-96); MEAN PLT VOLUME 10.4 fl (7.5-11.1); MONO % 7.5 % (3.8-10.2); NEUT % 56.3 % (42.8-82.8); PLATELET COUNT 161 10^3/uL (134-434); RBC 3.47 M/mm3 (3.60-5.2); RDW 17.7 % (11.6-15.6); WHITE BLOOD COUNT 6.1 K/mm3 (4.0-10.0)
[2021-01-13] MEDS: ASPIRIN COATED 81 MG TABLET.EC PO SCH (09:32)
[2021-01-13] MEDS: CARVEDILOL 25 MG TABLET (FP) PO SCH ×2 (09:32→22:06)
[2021-01-13] MEDS: amLODIPine BESYLATE 5 MG TABLET (FP) PO SCH (09:32)
[2021-01-13] MEDS: PANTOPRAZOLE 40 MG TABLET PO SCH (09:32)
[2021-01-13 09:36] LABS: CALCIUM 7.8 mg/dL (8.5-10.1)
[2021-01-13 09:37] LABS: ALBUMIN 2.5 g/dl (3.4-5.0); BLOOD UREA NITROGEN 41.2 mg/dL (7-18); MAGNESIUM 2.1 mg/dL (1.8-2.4)
[2021-01-13 09:40] LABS: CREATININE 2.7 mg/dL (0.55-1.3); PHOSPHOROUS 3.9 mg/dL (2.5-4.9)
[2021-01-13 09:41] LABS: BILIRUBIN,TOTAL 1.1 mg/dL (0.2-1)
[2021-01-13 09:42] LABS: TOT PROT 6.4 g/dl (6.4-8.2)
[2021-01-13] MEDS: LISINOPRIL 5 MG TABLET PO SCH (22:06)
[2021-01-13] MEDS: ATORVASTATIN CA 40 MG TABLET (FP) PO SCH (22:07)
[2021-01-14] MEDS: HEPARIN NA (PORCINE) 5,000 UNITS/ML 1ML VIAL SQ SCH (05:23)
[2021-01-14] MEDS: GABAPENTIN 100 MG CAPSULE PO SCH ×3 (05:23→21:05)
[2021-01-14] MEDS: INSULIN SLIDING SCALE (NOVOLOG) 1 VIAL SQ SCH ×4 (06:29→21:06)
[2021-01-14 06:34] LABS: BASO % 0.5 % (0-2.0); HEMATOCRIT 27.3 % (32.4-45.2); HEMOGLOBIN 8.8 GM/dL (10.7-15.3); LYMPH % 27.6 % (8-40); MCH 26.4 pg (25.7-33.7); MCHC 32.2 g/dl (32.0-36.0); MEAN CELL VOLUME 82.2 fl (80-96); MEAN PLT VOLUME 9.8 fl (7.5-11.1); MONO % 8.9 % (3.8-10.2); PLATELET COUNT 154 10^3/uL (134-434); RBC 3.32 M/mm3 (3.60-5.2); RDW 18.4 % (11.6-15.6); WHITE BLOOD COUNT 6.2 K/mm3 (4.0-10.0)
[2021-01-14 06:53] LABS: ALBUMIN 2.6 g/dl (3.4-5.0); BLOOD UREA NITROGEN 41.5 mg/dL (7-18); CALCIUM 7.8 mg/dL (8.5-10.1)
[2021-01-14 06:56] LABS: CREATININE 2.9 mg/dL (0.55-1.3)
[2021-01-14 06:58] LABS: BILIRUBIN,TOTAL 0.3 mg/dL (0.2-1); TOT PROT 6.2 g/dl (6.4-8.2)
[2021-01-14] MEDS: PANTOPRAZOLE 40 MG TABLET PO SCH (09:30)
[2021-01-14] MEDS: ASPIRIN COATED 81 MG TABLET.EC PO SCH (09:30)
[2021-01-14] MEDS: CARVEDILOL 25 MG TABLET (FP) PO SCH ×2 (09:30→21:05)
[2021-01-14] MEDS: amLODIPine BESYLATE 5 MG TABLET (FP) PO SCH (09:30)
[2021-01-14] MEDS: ATORVASTATIN CA 40 MG TABLET (FP) PO SCH (21:05)
[2021-01-15] MEDS: GABAPENTIN 100 MG CAPSULE PO SCH ×3 (05:35→21:05)
[2021-01-15] MEDS: INSULIN SLIDING SCALE (NOVOLOG) 1 VIAL SQ SCH ×4 (06:00→21:07)
[2021-01-15 06:51] LABS: HEMATOCRIT 27.8 % (32.4-45.2); HEMOGLOBIN 9.2 GM/dL (10.7-15.3); MCH 26.7 pg (25.7-33.7); MCHC 32.9 g/dl (32.0-36.0); MEAN CELL VOLUME 81.1 fl (80-96); MEAN PLT VOLUME 9.6 fl (7.5-11.1); PLATELET COUNT 160 10^3/uL (134-434); RBC 3.43 M/mm3 (3.60-5.2); RDW 17.9 % (11.6-15.6)
[2021-01-15 07:18] LABS: CALCIUM 8.2 mg/dL (8.5-10.1)
[2021-01-15 07:19] LABS: BLOOD UREA NITROGEN 45.3 mg/dL (7-18)
[2021-01-15 07:22] LABS: CREATININE 3.1 mg/dL (0.55-1.3)
[2021-01-15] MEDS: ASPIRIN COATED 81 MG TABLET.EC PO SCH (10:55)
[2021-01-15] MEDS: PANTOPRAZOLE 40 MG TABLET PO SCH (10:55)
[2021-01-15] MEDS: amLODIPine BESYLATE 5 MG TABLET (FP) PO SCH (10:55)
[2021-01-15] MEDS: CARVEDILOL 25 MG TABLET (FP) PO SCH ×2 (10:55→21:05)
[2021-01-15] MEDS: SODIUM CHLORIDE 0.45% 1,000 ML IV SCH (11:25)
[2021-01-15] MEDS: ATORVASTATIN CA 40 MG TABLET (FP) PO SCH (21:05)
[2021-01-16] MEDS: GABAPENTIN 100 MG CAPSULE PO SCH ×3 (05:57→22:57)
[2021-01-16] MEDS: INSULIN SLIDING SCALE (NOVOLOG) 1 VIAL SQ SCH ×4 (06:09→23:02)
[2021-01-16 08:48] LABS: CALCIUM 7.9 mg/dL (8.5-10.1)
[2021-01-16 08:49] LABS: ALBUMIN 2.6 g/dl (3.4-5.0); BLOOD UREA NITROGEN 59.8 mg/dL (7-18)
[2021-01-16 08:54] LABS: BILIRUBIN,TOTAL 0.3 mg/dL (0.2-1); TOT PROT 6.4 g/dl (6.4-8.2)
[2021-01-16 08:55] LABS: CREATININE 3.3 mg/dL (0.55-1.3)
[2021-01-16] MEDS: ASPIRIN COATED 81 MG TABLET.EC PO SCH (09:48)
[2021-01-16] MEDS: CARVEDILOL 25 MG TABLET (FP) PO SCH ×2 (09:48→22:57)
[2021-01-16] MEDS: amLODIPine BESYLATE 5 MG TABLET (FP) PO SCH (09:48)
[2021-01-16] MEDS: PANTOPRAZOLE 40 MG TABLET PO SCH (09:48)
[2021-01-16] MEDS: SODIUM CHLORIDE 0.45% 1,000 ML IV SCH (11:42)
[2021-01-16] MEDS: ATORVASTATIN CA 40 MG TABLET (FP) PO SCH (22:57)
[2021-01-17] MEDS: GABAPENTIN 100 MG CAPSULE PO SCH ×2 (06:20→14:44)
[2021-01-17] MEDS: INSULIN SLIDING SCALE (NOVOLOG) 1 VIAL SQ SCH ×3 (06:40→16:47)
[2021-01-17 07:30] LABS: BASO % 0.8 % (0-2.0); EOS % 4.2 % (0-4.5); HEMATOCRIT 25.7 % (32.4-45.2); HEMOGLOBIN 8.3 GM/dL (10.7-15.3); LYMPH % 29.8 % (8-40); MCH 26.9 pg (25.7-33.7); MCHC 32.4 g/dl (32.0-36.0); MEAN CELL VOLUME 82.9 fl (80-96); MONO % 9.3 % (3.8-10.2); NEUT % 55.9 % (42.8-82.8); PLATELET COUNT 131 10^3/uL (134-434); RDW 18.7 % (11.6-15.6); WHITE BLOOD COUNT 6.3 K/mm3 (4.0-10.0)
[2021-01-17 07:52] LABS: ALBUMIN 2.3 g/dl (3.4-5.0); BLOOD UREA NITROGEN 62.1 mg/dL (7-18); CALCIUM 7.6 mg/dL (8.5-10.1)
[2021-01-17 07:55] LABS: BILIRUBIN,TOTAL 0.3 mg/dL (0.2-1)
[2021-01-17 07:56] LABS: CREATININE 3.3 mg/dL (0.55-1.3); PHOSPHOROUS 4.8 mg/dL (2.5-4.9)
[2021-01-17] MEDS: amLODIPine BESYLATE 5 MG TABLET (FP) PO SCH (11:19)
[2021-01-17] MEDS: ASPIRIN COATED 81 MG TABLET.EC PO SCH (11:19)
[2021-01-17] MEDS: PANTOPRAZOLE 40 MG TABLET PO SCH (11:19)
[2021-01-17] MEDS: CARVEDILOL 25 MG TABLET (FP) PO SCH (11:19)
[2021-01-17] MEDS: SODIUM CHLORIDE 0.45% 1,000 ML IV SCH (11:20)
[2021-01-17] MEDS ORDERED: SODIUM CHLORIDE 0.45% 1,000 ML IV SCH ×2 (13:24→13:27)
[2021-01-17 20:51] VITALS: BP 113/69; PULSE 70; TEMP 98.3
== END 2021-01-17 20:15 | DRG 92 ==
LOC: JER 22:01 → JERBED 22:55 → OBSVTOIN 01-11 05:53 → J4S 01-11 17:09 → J4W 01-14 20:30
PROVIDERS: ADMIT Hospitalist; ATTEND Internal Medicine
PROC: 0HQ0XZZ Repair Scalp Skin, External Approach (ICD-10-PCS; principal; 2021-01-10)
DX: R29.6 Repeated falls (principal); N17.9 Acute kidney failure, unspecified; E87.0 Hyperosmolality and hypernatremia; I25.10 Atherosclerotic heart disease of native coronary artery without angina pectoris; I12.9 Hypertensive chronic kidney disease with stage 1 through stage 4 chronic kidney disease, or unspecified chronic kidney disease; E11.22 Type 2 diabetes mellitus with diabetic chronic kidney disease; D63.1 Anemia in chronic kidney disease; N18.9 Chronic kidney disease, unspecified; F03.90 Unspecified dementia, unspecified severity, without behavioral disturbance, psychotic disturbance, mood disturbance, and anxiety; R33.9 Retention of urine, unspecified; E86.0 Dehydration; R80.9 Proteinuria, unspecified; E78.00 Pure hypercholesterolemia, unspecified; S01.01XA Laceration without foreign body of scalp, initial encounter; W18.39XA Other fall on same level, initial encounter; Y92.090 Kitchen in other non-institutional residence as the place of occurrence of the external cause; Z91.81 History of falling; Z86.73 Personal history of transient ischemic attack (TIA), and cerebral infarction without residual deficits; Z95.5 Presence of coronary angioplasty implant and graft; Z85.841 Personal history of malignant neoplasm of brain
CPT/HCPCS: 36415; 70450-TC; 71045-TC-FY; 72125-TC; 72170-TC-FY; 76775-TC; 80048; 80053; 81003; 82272; 82436; 82550; 82570; 82962; 83735; 84100; 84133; 84156; 84300; 84484; 84540; 85025; 85027; 87040; 87086; 90715; 93005; 93010; 97116-GP; 97161-GP; 99285-25; C9803; G0378; J1644; U0003; U0005

== ENCOUNTER 2021-03-23 02:49 | Inpatient (IN) | payer OTHER ==
[2021-03-23 04:59] LABS: EPI CELLS 1 /uL (0-25.1); HYALINE CASTS 2 /uL (0-3.1); URINE APPEARANCE CLEAR; URINE BACTERIA 1442 /uL (0-1359); URINE BILIRUBIN NEGATIVE (NEGATIVE); URINE COLOR YELLOW; URINE GLUCOSE (UA) TRACE (NEGATIVE); URINE KETONE NEGATIVE (NEGATIVE); URINE LEUK ESTERASE 1+ (NEGATIVE); URINE NITRITE NEGATIVE (NEGATIVE); URINE PROTEIN 3+ (NEGATIVE); URINE RBC 7 /uL (0-23.9); URINE UROBILINOGEN 0.2 mg/dL (0.2-1.0); URINE WBC 175 /uL (0-25.8)
[2021-03-23] MEDS ORDERED: CEFTRIAXONE 1 GM in DEXTROSE 5%-WATER - 100 ML IVPB ONE (06:23)
[2021-03-23 07:22] LABS: BASO % 0.6 % (0-2.0); EOS % 1.4 % (0-4.5); HEMATOCRIT 31.5 % (32.4-45.2); HEMOGLOBIN 10.6 GM/dL (10.7-15.3); LYMPH % 22.6 % (8-40); MCH 27.3 pg (25.7-33.7); MCHC 33.5 g/dl (32.0-36.0); MEAN CELL VOLUME 81.4 fl (80-96); MEAN PLT VOLUME 9.3 fl (7.5-11.1); MONO % 4.6 % (3.8-10.2); NEUT % 70.8 % (42.8-82.8); PLATELET COUNT 201 10^3/uL (134-434); RBC 3.88 M/mm3 (3.60-5.2); RDW 16.4 % (11.6-15.6); WHITE BLOOD COUNT 7.6 K/mm3 (4.0-10.0)
[2021-03-23 07:32] LABS: INR 0.95 (0.83-1.09); PROTHROMBIN TIME (PATIENT) 11.5 SEC (9.7-13.0)
[2021-03-23 07:34] LABS: ACTIVATED PTT 28.1 SECONDS (25.2-36.5)
[2021-03-23 07:39] LABS: CHLORIDE 111 mmol/L (98-107); SODIUM 143 mmol/L (136-145)
[2021-03-23 07:40] LABS: CALCIUM 8.4 mg/dL (8.5-10.1)
[2021-03-23 07:41] LABS: ALBUMIN 2.9 g/dl (3.4-5.0); ANION GAP 6 MMOL/L (8-16); BLOOD UREA NITROGEN 31.5 mg/dL (7-18); CO2 25 mmol/L (21-32); GLUCOSE,RANDOM 151 mg/dL (74-106)
[2021-03-23 07:44] LABS: CREATININE 3.2 mg/dL (0.55-1.3); SGOT/AST 19 U/L (15-37); SGPT/ALT 16 U/L (13-61)
[2021-03-23 07:46] LABS: BILIRUBIN,TOTAL 0.4 mg/dL (0.2-1); TOT PROT 7.7 g/dl (6.4-8.2)
[2021-03-23 07:47] LABS: ALK PHOS 101 U/L (45-117)
[2021-03-23] MEDS ORDERED: cefTRIAXone SODIUM 1 GM VIAL ONE ×2 (08:37→08:39)
[2021-03-23] MEDS ORDERED: ACETAMINOPHEN 325 MG TABLET (FP) PO PRN (09:37)
[2021-03-23] MEDS ORDERED: SODIUM CHLORIDE 1,000 ML IV SCH (09:45)
[2021-03-23] MEDS ORDERED: ASPIRIN 81 MG CHEWABLE TABLETS ONE (12:27)
[2021-03-23] MEDS ORDERED: GABAPENTIN 100 MG CAPSULE ONE ×2 (12:28→22:43)
[2021-03-23] MEDS ORDERED: sitaGLIPtin PHOSPHATE 50 MG TABLET ONE (12:28)
[2021-03-23] MEDS ORDERED: amLODIPine BESYLATE 5 MG TABLET (FP) ONE (12:28)
[2021-03-23] MEDS ORDERED: PANTOPRAZOLE 40 MG TABLET ONE (12:28)
[2021-03-23] MEDS ORDERED: PT OWN MED DRAWER 7, Y5N ONE (12:45)
[2021-03-23] MEDS: ASPIRIN COATED 81 MG TABLET.EC PO SCH (12:53)
[2021-03-23] MEDS: PANTOPRAZOLE 40 MG TABLET PO SCH (12:54)
[2021-03-23] MEDS: amLODIPine BESYLATE 10 MG TABLET (FP) PO SCH (12:54)
[2021-03-23] MEDS: GABAPENTIN 100 MG CAPSULE PO SCH ×2 (12:59→22:49)
[2021-03-23] MEDS: INSULIN SLIDING SCALE (NOVOLOG) 1 VIAL SQ SCH ×2 (12:59→17:04)
[2021-03-23] MEDS: CARVEDILOL 25 MG TABLET (FP) PO SCH ×2 (13:30→22:49)
[2021-03-23] MEDS ORDERED: CARVEDILOL 12.5 MG TABLET (FP) ONE ×2 (14:03→22:43)
[2021-03-23] MEDS ORDERED: SODIUM CHLORIDE 0.45% 1,000 ML IV SCH (17:15)
[2021-03-23] MEDS ORDERED: ATORVASTATIN CA 40 MG TABLET (FP) ONE (22:43)
[2021-03-23] MEDS: ATORVASTATIN CA 40 MG TABLET (FP) PO SCH (22:49)
[2021-03-24 02:08] VITALS: BMI 23.9
[2021-03-24] MEDS: GABAPENTIN 100 MG CAPSULE PO SCH ×3 (05:34→21:46)
[2021-03-24] MEDS: INSULIN SLIDING SCALE (NOVOLOG) 1 VIAL SQ SCH ×3 (06:57→17:33)
[2021-03-24 08:09] LABS: BASO % 0.8 % (0-2.0); EOS % 3.7 % (0-4.5); HEMATOCRIT 27.7 % (32.4-45.2); HEMOGLOBIN 9.2 GM/dL (10.7-15.3); LYMPH % 29.2 % (8-40); MCH 27.5 pg (25.7-33.7); MCHC 33.1 g/dl (32.0-36.0); MEAN PLT VOLUME 9.7 fl (7.5-11.1); NEUT % 59.3 % (42.8-82.8); PLATELET COUNT 178 10^3/uL (134-434); RBC 3.33 M/mm3 (3.60-5.2)
[2021-03-24 08:32] LABS: ALBUMIN 2.7 g/dl (3.4-5.0); BLOOD UREA NITROGEN 42.9 mg/dL (7-18); CALCIUM 8.1 mg/dL (8.5-10.1)
[2021-03-24 08:34] LABS: BILIRUBIN,TOTAL 0.3 mg/dL (0.2-1); TOT PROT 6.9 g/dl (6.4-8.2)
[2021-03-24 08:36] LABS: CREATININE 3.4 mg/dL (0.55-1.3)
[2021-03-24] MEDS ORDERED: DEXTROSE 5%-WATER - 50 ML IVPB ONE (09:55)
[2021-03-24] MEDS ORDERED: cefTRIAXone SODIUM 1 GM VIAL ONE (09:55)
[2021-03-24] MEDS: ASPIRIN COATED 81 MG TABLET.EC PO SCH (10:07)
[2021-03-24] MEDS: CARVEDILOL 25 MG TABLET (FP) PO SCH ×2 (10:08→21:46)
[2021-03-24] MEDS: amLODIPine BESYLATE 10 MG TABLET (FP) PO SCH (10:08)
[2021-03-24] MEDS: PANTOPRAZOLE 40 MG TABLET PO SCH (10:08)
[2021-03-24] MEDS: CEFTRIAXONE 1 GM in DEXTROSE 5%-WATER - 50 ML IVPB SCH (10:09)
[2021-03-24] MEDS: ATORVASTATIN CA 40 MG TABLET (FP) PO SCH (21:46)
[2021-03-25] MEDS: GABAPENTIN 100 MG CAPSULE PO SCH ×3 (06:34→21:09)
[2021-03-25] MEDS: INSULIN SLIDING SCALE (NOVOLOG) 1 VIAL SQ SCH ×3 (06:34→17:43)
[2021-03-25 07:49] LABS: BASO % 1.1 % (0-2.0); EOS % 2.8 % (0-4.5); HEMATOCRIT 25.5 % (32.4-45.2); HEMOGLOBIN 8.6 GM/dL (10.7-15.3); LYMPH % 21.2 % (8-40); MCH 27.8 pg (25.7-33.7); MCHC 33.8 g/dl (32.0-36.0); MEAN CELL VOLUME 82.2 fl (80-96); MEAN PLT VOLUME 9.5 fl (7.5-11.1); MONO % 7.5 % (3.8-10.2); NEUT % 67.4 % (42.8-82.8); PLATELET COUNT 161 10^3/uL (134-434); RBC 3.11 M/mm3 (3.60-5.2); RDW 15.9 % (11.6-15.6); WHITE BLOOD COUNT 6.8 K/mm3 (4.0-10.0)
[2021-03-25 08:07] LABS: ALBUMIN 2.3 g/dl (3.4-5.0)
[2021-03-25 08:08] LABS: CALCIUM 7.9 mg/dL (8.5-10.1); MAGNESIUM 1.9 mg/dL (1.8-2.4)
[2021-03-25 08:11] LABS: CREATININE 3.5 mg/dL (0.55-1.3); PHOSPHOROUS 4.1 mg/dL (2.5-4.9)
[2021-03-25 08:12] LABS: BILIRUBIN,TOTAL 0.3 mg/dL (0.2-1); TOT PROT 6.4 g/dl (6.4-8.2)
[2021-03-25] MEDS ORDERED: cefTRIAXone SODIUM 1 GM VIAL ONE (08:44)
[2021-03-25] MEDS ORDERED: DEXTROSE 5%-WATER - 50 ML IVPB ONE (08:45)
[2021-03-25] MEDS: amLODIPine BESYLATE 10 MG TABLET (FP) PO SCH (09:55)
[2021-03-25] MEDS: ASPIRIN COATED 81 MG TABLET.EC PO SCH (09:55)
[2021-03-25] MEDS: PANTOPRAZOLE 40 MG TABLET PO SCH (09:55)
[2021-03-25] MEDS: CEFTRIAXONE 1 GM in DEXTROSE 5%-WATER - 50 ML IVPB SCH (09:55)
[2021-03-25] MEDS: CARVEDILOL 25 MG TABLET (FP) PO SCH ×2 (09:55→21:09)
[2021-03-25] MEDS: ATORVASTATIN CA 40 MG TABLET (FP) PO SCH (21:09)
[2021-03-26] MEDS: GABAPENTIN 100 MG CAPSULE PO SCH ×3 (06:42→22:05)
[2021-03-26] MEDS: INSULIN SLIDING SCALE (NOVOLOG) 1 VIAL SQ SCH ×3 (06:42→16:23)
[2021-03-26 07:50] LABS: BASO % 1.4 % (0-2.0); HEMATOCRIT 24.5 % (32.4-45.2); LYMPH % 27.7 % (8-40); MCH 27.1 pg (25.7-33.7); MCHC 32.8 g/dl (32.0-36.0); MEAN CELL VOLUME 82.6 fl (80-96); NEUT % 58.9 % (42.8-82.8); PLATELET COUNT 154 10^3/uL (134-434); RBC 2.97 M/mm3 (3.60-5.2); RDW 16.5 % (11.6-15.6)
[2021-03-26 08:11] LABS: CALCIUM 7.9 mg/dL (8.5-10.1)
[2021-03-26 08:12] LABS: ALBUMIN 2.2 g/dl (3.4-5.0); BLOOD UREA NITROGEN 48.5 mg/dL (7-18)
[2021-03-26 08:15] LABS: CREATININE 3.5 mg/dL (0.55-1.3)
[2021-03-26 08:16] LABS: BILIRUBIN,TOTAL 0.6 mg/dL (0.2-1); TOT PROT 6.3 g/dl (6.4-8.2)
[2021-03-26] MEDS ORDERED: cefTRIAXone SODIUM 1 GM VIAL ONE (08:58)
[2021-03-26] MEDS ORDERED: DEXTROSE 5%-WATER - 50 ML IVPB ONE (08:58)
[2021-03-26] MEDS ORDERED: PT OWN MED DRAWER 7, Y5N ONE (09:00)
[2021-03-26] MEDS: PANTOPRAZOLE 40 MG TABLET PO SCH (10:25)
[2021-03-26] MEDS: amLODIPine BESYLATE 10 MG TABLET (FP) PO SCH (10:25)
[2021-03-26] MEDS: CEFTRIAXONE 1 GM in DEXTROSE 5%-WATER - 50 ML IVPB SCH (10:25)
[2021-03-26] MEDS: CARVEDILOL 25 MG TABLET (FP) PO SCH ×2 (10:26→22:04)
[2021-03-26] MEDS: ASPIRIN COATED 81 MG TABLET.EC PO SCH (10:55)
[2021-03-26] MEDS ORDERED: SODIUM CHLORIDE 1,000 ML IV SCH (11:00)
[2021-03-26] MEDS ORDERED: ACETAMINOPHEN 325 MG TABLET (FP) PO PRN (17:06)
[2021-03-26] MEDS: ATORVASTATIN CA 40 MG TABLET (FP) PO SCH (22:04)
[2021-03-27] MEDS: SODIUM CHLORIDE 1,000 ML IV SCH ×3 (00:23→18:38)
[2021-03-27] MEDS: GABAPENTIN 100 MG CAPSULE PO SCH ×3 (05:42→21:40)
[2021-03-27] MEDS: INSULIN SLIDING SCALE (NOVOLOG) 1 VIAL SQ SCH ×3 (06:06→17:37)
[2021-03-27 08:06] LABS: BASO % 0.8 % (0-2.0); EOS % 3.1 % (0-4.5); HEMATOCRIT 24.8 % (32.4-45.2); HEMOGLOBIN 8.2 GM/dL (10.7-15.3); LYMPH % 24.7 % (8-40); MCH 27.3 pg (25.7-33.7); MCHC 33.1 g/dl (32.0-36.0); MEAN CELL VOLUME 82.6 fl (80-96); MEAN PLT VOLUME 10.1 fl (7.5-11.1); MONO % 8.8 % (3.8-10.2); NEUT % 62.6 % (42.8-82.8); PLATELET COUNT 150 10^3/uL (134-434); RDW 16.1 % (11.6-15.6); WHITE BLOOD COUNT 6.3 K/mm3 (4.0-10.0)
[2021-03-27 08:20] LABS: ALBUMIN 2.2 g/dl (3.4-5.0); BLOOD UREA NITROGEN 50.3 mg/dL (7-18); CALCIUM 7.6 mg/dL (8.5-10.1)
[2021-03-27 08:23] LABS: BILIRUBIN,TOTAL 0.3 mg/dL (0.2-1); CREATININE 3.3 mg/dL (0.55-1.3); PHOSPHOROUS 4.2 mg/dL (2.5-4.9)
[2021-03-27 08:24] LABS: TOT PROT 6.2 g/dl (6.4-8.2)
[2021-03-27] MEDS ORDERED: DEXTROSE 5%-WATER - 50 ML IVPB ONE (11:07)
[2021-03-27] MEDS ORDERED: cefTRIAXone SODIUM 1 GM VIAL ONE (11:07)
[2021-03-27] MEDS: PANTOPRAZOLE 40 MG TABLET PO SCH (11:13)
[2021-03-27] MEDS: CEFTRIAXONE 1 GM in DEXTROSE 5%-WATER - 50 ML IVPB SCH (11:13)
[2021-03-27] MEDS: CARVEDILOL 25 MG TABLET (FP) PO SCH ×2 (11:13→21:40)
[2021-03-27] MEDS: ASPIRIN COATED 81 MG TABLET.EC PO SCH (11:13)
[2021-03-27] MEDS: amLODIPine BESYLATE 10 MG TABLET (FP) PO SCH (11:14)
[2021-03-27] MEDS ORDERED: IRON SUCROSE INJECTION 100 MG in SODIUM CHLORIDE 95 ML IVPB ONE (18:00)
[2021-03-27] MEDS: ATORVASTATIN CA 40 MG TABLET (FP) PO SCH (21:40)
[2021-03-28] MEDS: SODIUM CHLORIDE 1,000 ML IV SCH ×3 (04:15→17:15)
[2021-03-28] MEDS: GABAPENTIN 100 MG CAPSULE PO SCH ×3 (05:59→21:35)
[2021-03-28] MEDS: INSULIN SLIDING SCALE (NOVOLOG) 1 VIAL SQ SCH ×3 (06:00→17:27)
[2021-03-28 08:29] LABS: HEMATOCRIT 24.3 % (32.4-45.2); HEMOGLOBIN 8.1 GM/dL (10.7-15.3); MCH 27.5 pg (25.7-33.7); MCHC 33.4 g/dl (32.0-36.0); MEAN CELL VOLUME 82.4 fl (80-96); MEAN PLT VOLUME 10.3 fl (7.5-11.1); PLATELET COUNT 151 10^3/uL (134-434); RBC 2.95 M/mm3 (3.60-5.2); RDW 16.2 % (11.6-15.6); WHITE BLOOD COUNT 6.8 K/mm3 (4.0-10.0)
[2021-03-28] MEDS ORDERED: cefTRIAXone SODIUM 1 GM VIAL ONE (08:49)
[2021-03-28] MEDS ORDERED: DEXTROSE 5%-WATER - 50 ML IVPB ONE (08:49)
[2021-03-28 09:01] LABS: BLOOD UREA NITROGEN 50.8 mg/dL (7-18)
[2021-03-28 09:04] LABS: CREATININE 3.2 mg/dL (0.55-1.3)
[2021-03-28] MEDS: PANTOPRAZOLE 40 MG TABLET PO SCH (10:09)
[2021-03-28] MEDS: amLODIPine BESYLATE 10 MG TABLET (FP) PO SCH (10:09)
[2021-03-28] MEDS: ASPIRIN COATED 81 MG TABLET.EC PO SCH (10:09)
[2021-03-28] MEDS: CEFTRIAXONE 1 GM in DEXTROSE 5%-WATER - 50 ML IVPB SCH (10:09)
[2021-03-28] MEDS: CARVEDILOL 25 MG TABLET (FP) PO SCH ×2 (10:09→21:35)
[2021-03-28] MEDS ORDERED: EPOETIN ALFA-EPBX 20,000 UNIT/ML VIAL SQ ONE (13:30)
[2021-03-28] MEDS: POLYETHYLENE GLYCOL (HEALTHYLAX) 3350 17 GM PACKET PO SCH (17:25)
[2021-03-28] MEDS: ATORVASTATIN CA 40 MG TABLET (FP) PO SCH (21:35)
[2021-03-29] MEDS: SODIUM CHLORIDE 1,000 ML IV SCH ×2 (02:35→15:20)
[2021-03-29] MEDS: GABAPENTIN 100 MG CAPSULE PO SCH ×3 (05:48→22:56)
[2021-03-29] MEDS: INSULIN SLIDING SCALE (NOVOLOG) 1 VIAL SQ SCH ×3 (06:01→16:39)
[2021-03-29 09:08] LABS: HEMATOCRIT 24.6 % (32.4-45.2); HEMOGLOBIN 8.1 GM/dL (10.7-15.3); MCHC 32.8 g/dl (32.0-36.0); MEAN CELL VOLUME 82.3 fl (80-96); PLATELET COUNT 160 10^3/uL (134-434); RBC 2.98 M/mm3 (3.60-5.2); RDW 15.7 % (11.6-15.6); WHITE BLOOD COUNT 7.8 K/mm3 (4.0-10.0)
[2021-03-29 09:35] LABS: BLOOD UREA NITROGEN 54.7 mg/dL (7-18)
[2021-03-29 09:38] LABS: CREATININE 3.2 mg/dL (0.55-1.3)
[2021-03-29] MEDS ORDERED: cefTRIAXone SODIUM 1 GM VIAL ONE (10:19)
[2021-03-29] MEDS ORDERED: PT OWN MED DRAWER 7, Y5N ONE ×2 (10:19→11:52)
[2021-03-29] MEDS ORDERED: DEXTROSE 5%-WATER - 50 ML IVPB ONE (10:19)
[2021-03-29] MEDS: ASPIRIN COATED 81 MG TABLET.EC PO SCH (10:23)
[2021-03-29] MEDS: CARVEDILOL 25 MG TABLET (FP) PO SCH ×2 (10:23→22:56)
[2021-03-29] MEDS: POLYETHYLENE GLYCOL (HEALTHYLAX) 3350 17 GM PACKET PO SCH (10:24)
[2021-03-29] MEDS: PANTOPRAZOLE 40 MG TABLET PO SCH (10:24)
[2021-03-29] MEDS: amLODIPine BESYLATE 10 MG TABLET (FP) PO SCH (10:24)
[2021-03-29] MEDS: CEFTRIAXONE 1 GM in DEXTROSE 5%-WATER - 50 ML IVPB SCH (10:25)
[2021-03-29] MEDS ORDERED: IRON SUCROSE INJECTION 100 MG in SODIUM CHLORIDE 95 ML IVPB ONE (11:00)
[2021-03-29] MEDS: ATORVASTATIN CA 40 MG TABLET (FP) PO SCH (22:56)
[2021-03-30] MEDS: SODIUM CHLORIDE 1,000 ML IV SCH (03:29)
[2021-03-30] MEDS: GABAPENTIN 100 MG CAPSULE PO SCH ×3 (06:01→22:14)
[2021-03-30] MEDS: INSULIN SLIDING SCALE (NOVOLOG) 1 VIAL SQ SCH ×3 (06:01→17:11)
[2021-03-30] MEDS ORDERED: cefTRIAXone SODIUM 1 GM VIAL ONE (10:30)
[2021-03-30] MEDS ORDERED: DEXTROSE 5%-WATER - 50 ML IVPB ONE (10:30)
[2021-03-30] MEDS: ASPIRIN COATED 81 MG TABLET.EC PO SCH (10:51)
[2021-03-30] MEDS: CARVEDILOL 25 MG TABLET (FP) PO SCH ×2 (10:51→22:15)
[2021-03-30] MEDS: POLYETHYLENE GLYCOL (HEALTHYLAX) 3350 17 GM PACKET PO SCH (10:51)
[2021-03-30] MEDS: CEFTRIAXONE 1 GM in DEXTROSE 5%-WATER - 50 ML IVPB SCH (10:51)
[2021-03-30] MEDS: PANTOPRAZOLE 40 MG TABLET PO SCH (10:51)
[2021-03-30] MEDS: amLODIPine BESYLATE 10 MG TABLET (FP) PO SCH (10:51)
[2021-03-30 14:28] LABS: HEMOGLOBIN 7.4 GM/dL (10.7-15.3); MCH 26.9 pg (25.7-33.7); MCHC 32.3 g/dl (32.0-36.0); MEAN CELL VOLUME 83.3 fl (80-96); MEAN PLT VOLUME 10.4 fl (7.5-11.1); PLATELET COUNT 135 10^3/uL (134-434); RBC 2.76 M/mm3 (3.60-5.2); RDW 15.9 % (11.6-15.6); WHITE BLOOD COUNT 8.3 K/mm3 (4.0-10.0)
[2021-03-30 14:46] LABS: BLOOD UREA NITROGEN 49.3 mg/dL (7-18); CALCIUM 7.4 mg/dL (8.5-10.1)
[2021-03-30 14:47] LABS: MAGNESIUM 1.8 mg/dL (1.8-2.4)
[2021-03-30 14:49] LABS: CREATININE 2.8 mg/dL (0.55-1.3)
[2021-03-30 14:50] LABS: PHOSPHOROUS 3.5 mg/dL (2.5-4.9)
[2021-03-30] MEDS: ATORVASTATIN CA 40 MG TABLET (FP) PO SCH (22:15)
[2021-03-31] MEDS: GABAPENTIN 100 MG CAPSULE PO SCH ×3 (05:59→21:01)
[2021-03-31] MEDS: INSULIN SLIDING SCALE (NOVOLOG) 1 VIAL SQ SCH ×3 (06:01→16:46)
[2021-03-31 08:17] LABS: CALCIUM 7.7 mg/dL (8.5-10.1)
[2021-03-31 08:18] LABS: BLOOD UREA NITROGEN 51.6 mg/dL (7-18)
[2021-03-31 08:21] LABS: CREATININE 3.2 mg/dL (0.55-1.3)
[2021-03-31] MEDS ORDERED: cefTRIAXone SODIUM 1 GM VIAL ONE (10:22)
[2021-03-31] MEDS ORDERED: DEXTROSE 5%-WATER - 50 ML IVPB ONE (10:22)
[2021-03-31] MEDS: amLODIPine BESYLATE 10 MG TABLET (FP) PO SCH (10:27)
[2021-03-31] MEDS: ASPIRIN COATED 81 MG TABLET.EC PO SCH (10:27)
[2021-03-31] MEDS: CARVEDILOL 25 MG TABLET (FP) PO SCH ×2 (10:27→21:01)
[2021-03-31] MEDS: POLYETHYLENE GLYCOL (HEALTHYLAX) 3350 17 GM PACKET PO SCH (10:27)
[2021-03-31] MEDS: CEFTRIAXONE 1 GM in DEXTROSE 5%-WATER - 50 ML IVPB SCH (10:27)
[2021-03-31] MEDS: PANTOPRAZOLE 40 MG TABLET PO SCH (10:28)
[2021-03-31] MEDS: ATORVASTATIN CA 40 MG TABLET (FP) PO SCH (21:01)
[2021-04-01] MEDS: GABAPENTIN 100 MG CAPSULE PO SCH ×3 (05:44→22:12)
[2021-04-01] MEDS: INSULIN SLIDING SCALE (NOVOLOG) 1 VIAL SQ SCH ×3 (06:08→17:07)
[2021-04-01 07:30] LABS: CREATININE 3.8 mg/dL (0.55-1.3)
[2021-04-01] MEDS: POLYETHYLENE GLYCOL (HEALTHYLAX) 3350 17 GM PACKET PO SCH (10:47)
[2021-04-01] MEDS: amLODIPine BESYLATE 10 MG TABLET (FP) PO SCH (10:47)
[2021-04-01] MEDS: PANTOPRAZOLE 40 MG TABLET PO SCH (10:47)
[2021-04-01] MEDS: ASPIRIN COATED 81 MG TABLET.EC PO SCH (10:47)
[2021-04-01] MEDS: CARVEDILOL 25 MG TABLET (FP) PO SCH ×2 (10:47→22:12)
[2021-04-01] MEDS ORDERED: FUROSEMIDE 40 MG/4 ML INJECTABLE VIAL IVPUSH ONE (12:56)
[2021-04-01] MEDS ORDERED: MINERAL OIL ENEMA 133 ML ENEMA RC ONE (13:30)
[2021-04-01] MEDS ORDERED: PIPERACILLIN/TAZOBACTAM 3.375 GM VIAL IVPB ONE ×2 (14:44→17:24)
[2021-04-01] MEDS ORDERED: DEXTROSE 5%-WATER - 50 ML IVPB ONE ×2 (14:44→17:25)
[2021-04-01] MEDS: PIPERACILLIN/TAZOB 3.375 GM 3.375 GM in DEXTROSE 5%-WATER - 50 ML IVPB SCH ×2 (14:48→17:32)
[2021-04-01] MEDS ORDERED: SODIUM CHLORIDE 0.45% 1,000 ML IV SCH (15:00)
[2021-04-01] MEDS ORDERED: INSULIN (NOVOLOG) ASPART 100 UNITS/ML 10ML VIAL ONE (16:43)
[2021-04-01] MEDS: SODIUM ZIRCONIUM CYCLOSILICATE (LOKELMA) 5 GM PACKET PO SCH (16:57)
[2021-04-01] MEDS ORDERED: PIPERACILLIN/TAZOB 3.375 GM 3.375 GM in DEXTROSE 5%-WATER - 50 ML IVPB SCH (18:00)
[2021-04-01] MEDS: ATORVASTATIN CA 40 MG TABLET (FP) PO SCH (22:12)
[2021-04-02] MEDS ORDERED: PIPERACILLIN/TAZOBACTAM 3.375 GM VIAL IVPB ONE (02:12)
[2021-04-02] MEDS ORDERED: DEXTROSE 5%-WATER - 50 ML IVPB ONE (02:12)
[2021-04-02] MEDS: PIPERACILLIN/TAZOB 3.375 GM 3.375 GM in DEXTROSE 5%-WATER - 50 ML IVPB SCH (02:13)
[2021-04-02] MEDS: INSULIN SLIDING SCALE (NOVOLOG) 1 VIAL SQ SCH ×3 (06:07→17:01)
[2021-04-02] MEDS: GABAPENTIN 100 MG CAPSULE PO SCH ×3 (06:45→22:35)
[2021-04-02] MEDS: amLODIPine BESYLATE 10 MG TABLET (FP) PO SCH (10:07)
[2021-04-02] MEDS: SODIUM ZIRCONIUM CYCLOSILICATE (LOKELMA) 5 GM PACKET PO SCH (10:07)
[2021-04-02] MEDS: CARVEDILOL 25 MG TABLET (FP) PO SCH ×2 (10:07→22:35)
[2021-04-02] MEDS: POLYETHYLENE GLYCOL (HEALTHYLAX) 3350 17 GM PACKET PO SCH (10:07)
[2021-04-02] MEDS: PANTOPRAZOLE 40 MG TABLET PO SCH (10:07)
[2021-04-02] MEDS: ASPIRIN COATED 81 MG TABLET.EC PO SCH (10:08)
[2021-04-02 12:03] LABS: BASO % 0.7 % (0-2.0); EOS % 3.8 % (0-4.5); HEMATOCRIT 23.8 % (32.4-45.2); HEMOGLOBIN 7.8 GM/dL (10.7-15.3); LYMPH % 17.7 % (8-40); MCH 27.3 pg (25.7-33.7); MEAN CELL VOLUME 82.7 fl (80-96); MONO % 9.6 % (3.8-10.2); NEUT % 68.2 % (42.8-82.8); PLATELET COUNT 164 10^3/uL (134-434); RBC 2.87 M/mm3 (3.60-5.2); RDW 16.3 % (11.6-15.6); WHITE BLOOD COUNT 7.5 K/mm3 (4.0-10.0)
[2021-04-02 12:31] LABS: CALCIUM 8.2 mg/dL (8.5-10.1)
[2021-04-02 12:32] LABS: ALBUMIN 2.2 g/dl (3.4-5.0); BLOOD UREA NITROGEN 57.8 mg/dL (7-18)
[2021-04-02 12:35] LABS: CREATININE 3.9 mg/dL (0.55-1.3)
[2021-04-02 12:37] LABS: BILIRUBIN,TOTAL 0.4 mg/dL (0.2-1); TOT PROT 6.8 g/dl (6.4-8.2)
[2021-04-02 18:20] VITALS: PULSE 76
[2021-04-02] MEDS: ATORVASTATIN CA 40 MG TABLET (FP) PO SCH (22:35)
[2021-04-02 22:38] VITALS: BP 128/73; TEMP 98.5
== END 2021-04-02 22:50 | DRG 690 ==
LOC: JER 02:49 → JERBED 05:04 → J2W 03-24 01:06 → OBSVTOIN 03-26 09:02 → J7W 03-26 17:25
PROVIDERS: ADMIT Internal Medicine
DX: N39.0 Urinary tract infection, site not specified (principal); N18.4 Chronic kidney disease, stage 4 (severe); N17.9 Acute kidney failure, unspecified; R26.9 Unspecified abnormalities of gait and mobility; I12.9 Hypertensive chronic kidney disease with stage 1 through stage 4 chronic kidney disease, or unspecified chronic kidney disease; E11.22 Type 2 diabetes mellitus with diabetic chronic kidney disease; F03.90 Unspecified dementia, unspecified severity, without behavioral disturbance, psychotic disturbance, mood disturbance, and anxiety; I25.10 Atherosclerotic heart disease of native coronary artery without angina pectoris; E78.5 Hyperlipidemia, unspecified; R55 Syncope and collapse; R29.6 Repeated falls; E87.5 Hyperkalemia; Z98.61 Coronary angioplasty status; D50.9 Iron deficiency anemia, unspecified; B95.2 Enterococcus as the cause of diseases classified elsewhere
CPT/HCPCS: 36415; 70450-TC; 71045-TC-FY; 72125-TC; 72131-TC; 72170-TC-FY; 73090-TC-RT-FY; 73110-TC-RT-FY; 73130-TC-RT-FY; 73590-TC-RT-FY; 80048; 80053; 81003; 82272; 82550; 82728; 82962; 83036; 83540; 83550; 83735; 84100; 84484; 85025; 85027; 85610; 85730; 87086; 87186; 93005; 93010; 93306-TC; 97116-GP; 97161-GP; 99285-25; C9803; G0378; J1756; U0003; U0005

== ENCOUNTER 2021-05-25 17:35 | Inpatient (IN) | payer OTHER ==
[2021-05-25 19:57] LABS: VENOUS BASE EXCESS -4.8 mmol/L (-2-2); VENOUS O2 SATURATION 82.4 % (70-80); VENOUS PCO2 36.6 mmHg (38-52); VENOUS PH 7.359 (7.310-7.410)
[2021-05-25 20:15] LABS: BASO % 1.6 % (0-2.0); EOS % 2.3 % (0-4.5); HEMOGLOBIN 8.7 GM/dL (10.7-15.3); LYMPH % 11.6 % (8-40); MCH 24.7 pg (25.7-33.7); MCHC 33.5 g/dl (32.0-36.0); MEAN CELL VOLUME 73.9 fl (80-96); MEAN PLT VOLUME 9.5 fl (7.5-11.1); MONO % 7.3 % (3.8-10.2); NEUT % 77.2 % (42.8-82.8); PLATELET COUNT 221 10^3/uL (134-434); RBC 3.53 M/mm3 (3.60-5.2); RDW 19.4 % (11.6-15.6); WHITE BLOOD COUNT 9.2 K/mm3 (4.0-10.0)
[2021-05-25 20:16] LABS: CHLORIDE 111 mmol/L (98-107); SODIUM 141 mmol/L (136-145)
[2021-05-25 20:19] LABS: CALCIUM 8.1 mg/dL (8.5-10.1)
[2021-05-25 20:20] LABS: ALBUMIN 2.7 g/dl (3.4-5.0); ANION GAP 8 MMOL/L (8-16); BLOOD UREA NITROGEN 54.1 mg/dL (7-18); CO2 21 mmol/L (21-32); GLUCOSE,RANDOM 227 mg/dL (74-106)
[2021-05-25 20:21] LABS: INR 0.92 (0.83-1.09); PROTHROMBIN TIME (PATIENT) 10.7 SEC (9.7-13.0)
[2021-05-25] MEDS ORDERED: PIPERACILLIN/TAZOB 4.5 GM 4.5 GM in DEXTROSE 5%-WATER 100 ML IVPB ONE (20:21)
[2021-05-25 20:23] LABS: ACTIVATED PTT 26.2 SECONDS (25.2-36.5); CREATININE 3.2 mg/dL (0.55-1.3); SGOT/AST 38 U/L (15-37); SGPT/ALT 21 U/L (13-61)
[2021-05-25 20:24] LABS: BILIRUBIN,TOTAL 0.4 mg/dL (0.2-1); TOT PROT 8.1 g/dl (6.4-8.2)
[2021-05-25 20:25] LABS: ALK PHOS 82 U/L (45-117)
[2021-05-25] MEDS ORDERED: PIPERACILLIN/TAZOB 4.5 GM 4.5 GM/100 ML BAG IVPB ONE (20:37)
[2021-05-25 21:38] LABS: EPI CELLS >36 /uL (0-25.1); HYALINE CASTS 3 /uL (0-3.1); PH,URINE 6.5 (5.0-8.0); URINE APPEARANCE CLEAR; URINE BACTERIA 22 /uL (0-1359); URINE BILIRUBIN NEGATIVE (NEGATIVE); URINE COLOR YELLOW; URINE GLUCOSE (UA) 2+ (NEGATIVE); URINE KETONE NEGATIVE (NEGATIVE); URINE LEUK ESTERASE 1+ (NEGATIVE); URINE NITRITE NEGATIVE (NEGATIVE); URINE PROTEIN 3+ (NEGATIVE); URINE RBC 10 /uL (0-23.9); URINE UROBILINOGEN 0.2 mg/dL (0.2-1.0); URINE WBC 242 /uL (0-25.8)
[2021-05-25 22:08] LABS: CALCIUM 7.8 mg/dL (8.5-10.1)
[2021-05-25 22:09] LABS: BLOOD UREA NITROGEN 52.2 mg/dL (7-18)
[2021-05-25 22:12] LABS: CREATININE 3.3 mg/dL (0.55-1.3)
[2021-05-25] MEDS: INSULIN SLIDING SCALE (NOVOLOG) 1 VIAL SQ SCH (22:22)
[2021-05-25] MEDS ORDERED: GABAPENTIN 100 MG CAPSULE ONE (22:34)
[2021-05-25] MEDS ORDERED: IBUPROFEN 400 MG TABLET (FP) PO ONE (22:37)
[2021-05-25] MEDS: IBUPROFEN 200 MG TABLET PO SCH (22:45)
[2021-05-25] MEDS: GABAPENTIN 100 MG CAPSULE PO SCH (22:46)
[2021-05-26] MEDS ORDERED: DEXTROSE 5%-WATER - 50 ML IVPB ONE ×4 (03:22→20:34)
[2021-05-26] MEDS ORDERED: PIPERACILLIN/TAZOBACTAM 2.25 GM VIAL IVPB ONE ×4 (03:22→20:34)
[2021-05-26] MEDS: PIPERACILLIN/TAZOB 2.25 GM 2.25 GM in DEXTROSE 5%-WATER - 50 ML IVPB SCH ×4 (03:37→20:42)
[2021-05-26 04:12] VITALS: BMI 28.3
[2021-05-26] MEDS: ERYTHROMYCIN 0.5% OPHTHALMIC OINTMENT 3.5 GM TUBE OD SCH (05:58)
[2021-05-26] MEDS: GABAPENTIN 100 MG CAPSULE PO SCH ×3 (06:16→21:36)
[2021-05-26] MEDS: IBUPROFEN 200 MG TABLET PO SCH ×3 (06:18→21:35)
[2021-05-26] MEDS: INSULIN SLIDING SCALE (NOVOLOG) 1 VIAL SQ SCH ×4 (06:33→21:37)
[2021-05-26] MEDS: ERYTHROMYCIN 0.5% OPHTHALMIC OINTMENT 3.5 GM TUBE OU SCH ×3 (06:37→21:36)
[2021-05-26 08:48] LABS: BASO % 0.5 % (0-2.0); EOS % 2.5 % (0-4.5); HEMATOCRIT 21.9 % (32.4-45.2); HEMOGLOBIN 7.1 GM/dL (10.7-15.3); LYMPH % 14.1 % (8-40); MCH 24.8 pg (25.7-33.7); MCHC 32.4 g/dl (32.0-36.0); MEAN CELL VOLUME 76.5 fl (80-96); MEAN PLT VOLUME 9.5 fl (7.5-11.1); MONO % 11.2 % (3.8-10.2); NEUT % 71.7 % (42.8-82.8); PLATELET COUNT 138 10^3/uL (134-434); RBC 2.86 M/mm3 (3.60-5.2); RDW 18.7 % (11.6-15.6); WHITE BLOOD COUNT 8.2 K/mm3 (4.0-10.0)
[2021-05-26] MEDS: CARVEDILOL 25 MG TABLET (FP) PO SCH ×2 (09:16→21:36)
[2021-05-26] MEDS: TAMSULOSIN HCL 0.4 MG CAP PO SCH (09:16)
[2021-05-26] MEDS: amLODIPine BESYLATE 10 MG TABLET (FP) PO SCH (09:16)
[2021-05-26] MEDS: PANTOPRAZOLE 40 MG TABLET PO SCH (09:16)
[2021-05-26] MEDS: LACTOBACILLUS ACIDOPHILUS 1 TABLET PO SCH (09:16)
[2021-05-26] MEDS: ASPIRIN COATED 81 MG TABLET.EC PO SCH (09:16)
[2021-05-26] MEDS: POLYETHYLENE GLYCOL (HEALTHYLAX) 3350 17 GM PACKET PO SCH (09:17)
[2021-05-26 09:18] LABS: BLOOD UREA NITROGEN 49.5 mg/dL (7-18); CALCIUM 7.8 mg/dL (8.5-10.1)
[2021-05-26 09:22] LABS: CREATININE 3.2 mg/dL (0.55-1.3)
[2021-05-26] MEDS ORDERED: PT OWN MED DRAWER 7, Y5N ONE ×2 (14:23→20:34)
[2021-05-26] MEDS ORDERED: INSULIN (NOVOLOG) ASPART 100 UNITS/ML 10ML VIAL ONE (20:33)
[2021-05-26] MEDS: ATORVASTATIN CA 40 MG TABLET (FP) PO SCH (21:36)
[2021-05-27] MEDS ORDERED: PIPERACILLIN/TAZOBACTAM 2.25 GM VIAL IVPB ONE ×3 (02:28→17:39)
[2021-05-27] MEDS ORDERED: DEXTROSE 5%-WATER - 50 ML IVPB ONE ×3 (02:28→17:39)
[2021-05-27] MEDS: PIPERACILLIN/TAZOB 2.25 GM 2.25 GM in DEXTROSE 5%-WATER - 50 ML IVPB SCH ×3 (02:34→17:50)
[2021-05-27] MEDS: ERYTHROMYCIN 0.5% OPHTHALMIC OINTMENT 3.5 GM TUBE OU SCH ×3 (05:25→22:04)
[2021-05-27] MEDS: GABAPENTIN 100 MG CAPSULE PO SCH ×3 (05:26→22:02)
[2021-05-27] MEDS: INSULIN SLIDING SCALE (NOVOLOG) 1 VIAL SQ SCH ×4 (06:07→22:04)
[2021-05-27 08:18] LABS: BASO % 0.6 % (0-2.0); EOS % 1.8 % (0-4.5); HEMATOCRIT 22.1 % (32.4-45.2); HEMOGLOBIN 7.3 GM/dL (10.7-15.3); LYMPH % 11.6 % (8-40); MCH 25.1 pg (25.7-33.7); MEAN PLT VOLUME 9.6 fl (7.5-11.1); MONO % 10.6 % (3.8-10.2); NEUT % 75.4 % (42.8-82.8); PLATELET COUNT 141 10^3/uL (134-434); RBC 2.91 M/mm3 (3.60-5.2); RDW 18.3 % (11.6-15.6); WHITE BLOOD COUNT 8.6 K/mm3 (4.0-10.0)
[2021-05-27 08:32] LABS: CALCIUM 7.8 mg/dL (8.5-10.1)
[2021-05-27 08:33] LABS: BLOOD UREA NITROGEN 49.5 mg/dL (7-18)
[2021-05-27 08:36] LABS: CREATININE 3.3 mg/dL (0.55-1.3)
[2021-05-27 08:37] LABS: BILIRUBIN,TOTAL 0.4 mg/dL (0.2-1); TOT PROT 6.5 g/dl (6.4-8.2)
[2021-05-27 08:48] LABS: ALBUMIN 2.1 g/dl (3.4-5.0)
[2021-05-27] MEDS: LACTOBACILLUS ACIDOPHILUS 1 TABLET PO SCH (09:10)
[2021-05-27] MEDS: PANTOPRAZOLE 40 MG TABLET PO SCH (09:10)
[2021-05-27] MEDS: POLYETHYLENE GLYCOL (HEALTHYLAX) 3350 17 GM PACKET PO SCH (09:10)
[2021-05-27] MEDS: amLODIPine BESYLATE 10 MG TABLET (FP) PO SCH (09:10)
[2021-05-27] MEDS: CARVEDILOL 25 MG TABLET (FP) PO SCH ×2 (09:10→22:02)
[2021-05-27] MEDS: TAMSULOSIN HCL 0.4 MG CAP PO SCH (09:11)
[2021-05-27] MEDS: ASPIRIN COATED 81 MG TABLET.EC PO SCH (09:11)
[2021-05-27] MEDS: IBUPROFEN 200 MG TABLET PO SCH ×3 (09:11→17:50)
[2021-05-27] MEDS: ATORVASTATIN CA 40 MG TABLET (FP) PO SCH (22:02)
[2021-05-28] MEDS ORDERED: DEXTROSE 5%-WATER - 50 ML IVPB ONE ×2 (01:06→09:28)
[2021-05-28] MEDS ORDERED: PIPERACILLIN/TAZOBACTAM 2.25 GM VIAL IVPB ONE ×2 (01:06→09:28)
[2021-05-28] MEDS: PIPERACILLIN/TAZOB 2.25 GM 2.25 GM in DEXTROSE 5%-WATER - 50 ML IVPB SCH ×4 (01:16→09:41)
[2021-05-28] MEDS: ERYTHROMYCIN 0.5% OPHTHALMIC OINTMENT 3.5 GM TUBE OU SCH ×3 (07:22→22:09)
[2021-05-28] MEDS: GABAPENTIN 100 MG CAPSULE PO SCH ×3 (07:22→22:09)
[2021-05-28] MEDS: INSULIN SLIDING SCALE (NOVOLOG) 1 VIAL SQ SCH ×4 (07:27→22:10)
[2021-05-28] MEDS ORDERED: INSULIN (NOVOLOG) ASPART 100 UNITS/ML 10ML VIAL ONE (09:04)
[2021-05-28] MEDS ORDERED: PT OWN MED DRAWER 7, Y5N ONE ×2 (09:04→09:28)
[2021-05-28] MEDS: ERYTHROMYCIN 0.5% OPHTHALMIC OINTMENT 3.5 GM TUBE OD SCH (09:12)
[2021-05-28] MEDS: PANTOPRAZOLE 40 MG TABLET PO SCH (09:40)
[2021-05-28] MEDS: LACTOBACILLUS ACIDOPHILUS 1 TABLET PO SCH (09:40)
[2021-05-28] MEDS: CARVEDILOL 25 MG TABLET (FP) PO SCH ×2 (09:40→22:09)
[2021-05-28] MEDS: ASPIRIN COATED 81 MG TABLET.EC PO SCH (09:40)
[2021-05-28] MEDS: TAMSULOSIN HCL 0.4 MG CAP PO SCH (09:40)
[2021-05-28] MEDS: amLODIPine BESYLATE 10 MG TABLET (FP) PO SCH (09:40)
[2021-05-28] MEDS: POLYETHYLENE GLYCOL (HEALTHYLAX) 3350 17 GM PACKET PO SCH ×2 (09:41→22:09)
[2021-05-28] MEDS: IBUPROFEN 200 MG TABLET PO SCH (09:47)
[2021-05-28 11:04] LABS: BASO % 0.4 % (0-2.0); EOS % 2.2 % (0-4.5); HEMATOCRIT 22.5 % (32.4-45.2); HEMOGLOBIN 7.4 GM/dL (10.7-15.3); LYMPH % 10.4 % (8-40); MCH 24.9 pg (25.7-33.7); MEAN CELL VOLUME 75.5 fl (80-96); MEAN PLT VOLUME 9.7 fl (7.5-11.1); MONO % 11.2 % (3.8-10.2); NEUT % 75.8 % (42.8-82.8); PLATELET COUNT 147 10^3/uL (134-434); RBC 2.98 M/mm3 (3.60-5.2); RDW 18.8 % (11.6-15.6); WHITE BLOOD COUNT 8.7 K/mm3 (4.0-10.0)
[2021-05-28 11:32] LABS: ALBUMIN 2.1 g/dl (3.4-5.0)
[2021-05-28 11:35] LABS: CREATININE 3.6 mg/dL (0.55-1.3)
[2021-05-28 11:36] LABS: BILIRUBIN,TOTAL 0.5 mg/dL (0.2-1); TOT PROT 6.9 g/dl (6.4-8.2)
[2021-05-28 16:50] LABS: EPI CELLS >36 /uL (0-25.1); HYALINE CASTS 2 /uL (0-3.1); PH,URINE 6.5 (5.0-8.0); URINE APPEARANCE CLEAR; URINE BACTERIA 49 /uL (0-1359); URINE BILIRUBIN NEGATIVE (NEGATIVE); URINE COLOR YELLOW; URINE GLUCOSE (UA) NEGATIVE (NEGATIVE); URINE KETONE NEGATIVE (NEGATIVE); URINE LEUK ESTERASE 2+ (NEGATIVE); URINE NITRITE NEGATIVE (NEGATIVE); URINE PROTEIN 3+ (NEGATIVE); URINE RBC 16 /uL (0-23.9); URINE UROBILINOGEN 0.2 mg/dL (0.2-1.0); URINE WBC 218 /uL (0-25.8)
[2021-05-28] MEDS: ATORVASTATIN CA 40 MG TABLET (FP) PO SCH (22:08)
[2021-05-29] MEDS: ERYTHROMYCIN 0.5% OPHTHALMIC OINTMENT 3.5 GM TUBE OU SCH ×3 (06:08→21:02)
[2021-05-29] MEDS: GABAPENTIN 100 MG CAPSULE PO SCH ×3 (06:08→21:01)
[2021-05-29] MEDS: INSULIN SLIDING SCALE (NOVOLOG) 1 VIAL SQ SCH ×4 (06:12→21:02)
[2021-05-29] MEDS ORDERED: DEXAMETHASONE SOD PHOSPHATE 20 MG/5 ML VIAL IVPB ONE (08:24)
[2021-05-29] MEDS ORDERED: FUROSEMIDE 40 MG/4 ML INJECTABLE VIAL IVPUSH ONE (09:19)
[2021-05-29] MEDS: LACTOBACILLUS ACIDOPHILUS 1 TABLET PO SCH (10:19)
[2021-05-29] MEDS: POLYETHYLENE GLYCOL (HEALTHYLAX) 3350 17 GM PACKET PO SCH ×2 (10:19→21:01)
[2021-05-29] MEDS: PANTOPRAZOLE 20 MG TABLET PO SCH (10:19)
[2021-05-29] MEDS: TAMSULOSIN HCL 0.4 MG CAP PO SCH (10:19)
[2021-05-29] MEDS: CARVEDILOL 25 MG TABLET (FP) PO SCH ×2 (10:20→21:01)
[2021-05-29] MEDS: ASPIRIN COATED 81 MG TABLET.EC PO SCH (10:20)
[2021-05-29] MEDS: amLODIPine BESYLATE 10 MG TABLET (FP) PO SCH (10:20)
[2021-05-29] MEDS ORDERED: FERRIC CARBOXYMALTOSE 750 MG in SODIUM CHLORIDE 250 ML IVPB ONE (11:00)
[2021-05-29 14:54] LABS: CALCIUM 7.6 mg/dL (8.5-10.1)
[2021-05-29 14:55] LABS: BLOOD UREA NITROGEN 51.4 mg/dL (7-18)
[2021-05-29 14:58] LABS: CREATININE 3.7 mg/dL (0.55-1.3)
[2021-05-29] MEDS: ATORVASTATIN CA 40 MG TABLET (FP) PO SCH (21:01)
[2021-05-30] MEDS: ERYTHROMYCIN 0.5% OPHTHALMIC OINTMENT 3.5 GM TUBE OU SCH ×3 (06:00→21:14)
[2021-05-30] MEDS: GABAPENTIN 100 MG CAPSULE PO SCH ×3 (06:00→21:13)
[2021-05-30] MEDS: INSULIN SLIDING SCALE (NOVOLOG) 1 VIAL SQ SCH ×4 (06:00→21:14)
[2021-05-30] MEDS: ASPIRIN COATED 81 MG TABLET.EC PO SCH (09:59)
[2021-05-30] MEDS: amLODIPine BESYLATE 10 MG TABLET (FP) PO SCH (09:59)
[2021-05-30] MEDS: PANTOPRAZOLE 20 MG TABLET PO SCH (09:59)
[2021-05-30] MEDS: TAMSULOSIN HCL 0.4 MG CAP PO SCH (09:59)
[2021-05-30] MEDS: CARVEDILOL 25 MG TABLET (FP) PO SCH ×2 (09:59→21:13)
[2021-05-30] MEDS: POLYETHYLENE GLYCOL (HEALTHYLAX) 3350 17 GM PACKET PO SCH ×2 (10:00→21:13)
[2021-05-30] MEDS: LACTOBACILLUS ACIDOPHILUS 1 TABLET PO SCH (10:00)
[2021-05-30 12:18] LABS: BASO % 0.5 % (0-2.0); EOS % 2.7 % (0-4.5); HEMATOCRIT 25.3 % (32.4-45.2); HEMOGLOBIN 8.4 GM/dL (10.7-15.3); LYMPH % 16.4 % (8-40); MCH 25.4 pg (25.7-33.7); MCHC 33.1 g/dl (32.0-36.0); MEAN CELL VOLUME 76.8 fl (80-96); MEAN PLT VOLUME 9.5 fl (7.5-11.1); MONO % 12.3 % (3.8-10.2); NEUT % 68.1 % (42.8-82.8); PLATELET COUNT 156 10^3/uL (134-434); WHITE BLOOD COUNT 6.9 K/mm3 (4.0-10.0)
[2021-05-30] MEDS ORDERED: EPOETIN ALFA-EPBX 20,000 UNIT/ML VIAL SQ ONE ×2 (13:15→14:15)
[2021-05-30] MEDS ORDERED: EPOETIN ALFA 10,000 UNIT/1 ML VIAL SQ ONE (13:15)
[2021-05-30] MEDS ORDERED: PT OWN MED DRAWER 7, Y5N ONE (14:10)
[2021-05-30] MEDS ORDERED: INSULIN (NOVOLOG) ASPART 100 UNITS/ML 10ML VIAL ONE (21:06)
[2021-05-30] MEDS: ATORVASTATIN CA 40 MG TABLET (FP) PO SCH (21:13)
[2021-05-31] MEDS: ERYTHROMYCIN 0.5% OPHTHALMIC OINTMENT 3.5 GM TUBE OU SCH ×3 (06:03→21:00)
[2021-05-31] MEDS: INSULIN SLIDING SCALE (NOVOLOG) 1 VIAL SQ SCH ×4 (06:03→21:58)
[2021-05-31] MEDS: GABAPENTIN 100 MG CAPSULE PO SCH ×3 (06:03→21:01)
[2021-05-31 07:08] LABS: IGA IMMUNOGLOBULIN 326 mg/dL (64-422); IGG QN IMMUNOGLOBULIN 1903 mg/dL (586-1602); IGM QN SERUM 97 mg/dL (26-217)
[2021-05-31] MEDS: CARVEDILOL 25 MG TABLET (FP) PO SCH ×2 (09:51→21:01)
[2021-05-31] MEDS: POLYETHYLENE GLYCOL (HEALTHYLAX) 3350 17 GM PACKET PO SCH ×2 (09:51→21:01)
[2021-05-31] MEDS: TAMSULOSIN HCL 0.4 MG CAP PO SCH (09:51)
[2021-05-31] MEDS: LACTOBACILLUS ACIDOPHILUS 1 TABLET PO SCH (09:51)
[2021-05-31] MEDS: PANTOPRAZOLE 20 MG TABLET PO SCH (09:51)
[2021-05-31] MEDS: ASPIRIN COATED 81 MG TABLET.EC PO SCH (09:51)
[2021-05-31] MEDS: amLODIPine BESYLATE 10 MG TABLET (FP) PO SCH (09:51)
[2021-05-31 19:05] LABS: BASO % 1.4 % (0-2.0); EOS % 4.3 % (0-4.5); HEMOGLOBIN 9.3 GM/dL (10.7-15.3); LYMPH % 19.1 % (8-40); MCH 24.8 pg (25.7-33.7); MCHC 32.3 g/dl (32.0-36.0); MEAN CELL VOLUME 76.9 fl (80-96); MEAN PLT VOLUME 9.4 fl (7.5-11.1); MONO % 12.4 % (3.8-10.2); NEUT % 62.8 % (42.8-82.8); RBC 3.76 M/mm3 (3.60-5.2); RDW 18.9 % (11.6-15.6); WHITE BLOOD COUNT 6.8 K/mm3 (4.0-10.0)
[2021-05-31 19:26] LABS: CALCIUM 8.2 mg/dL (8.5-10.1); PLATELET COUNT 189 10^3/uL (134-434)
[2021-05-31 19:27] LABS: ALBUMIN 2.2 g/dl (3.4-5.0); BLOOD UREA NITROGEN 43.8 mg/dL (7-18); PLATELET ESTIMATE ADEQUATE
[2021-05-31 19:31] LABS: BILIRUBIN,TOTAL 0.2 mg/dL (0.2-1); CREATININE 3.4 mg/dL (0.55-1.3)
[2021-05-31] MEDS: ATORVASTATIN CA 40 MG TABLET (FP) PO SCH (21:01)
[2021-06-01] MEDS: ERYTHROMYCIN 0.5% OPHTHALMIC OINTMENT 3.5 GM TUBE OU SCH ×3 (06:34→21:02)
[2021-06-01] MEDS: GABAPENTIN 100 MG CAPSULE PO SCH ×3 (06:34→21:03)
[2021-06-01] MEDS: INSULIN SLIDING SCALE (NOVOLOG) 1 VIAL SQ SCH ×3 (06:34→21:02)
[2021-06-01] MEDS: TAMSULOSIN HCL 0.4 MG CAP PO SCH (08:30)
[2021-06-01] MEDS: PANTOPRAZOLE 20 MG TABLET PO SCH (10:59)
[2021-06-01] MEDS: POLYETHYLENE GLYCOL (HEALTHYLAX) 3350 17 GM PACKET PO SCH ×2 (10:59→21:03)
[2021-06-01] MEDS: amLODIPine BESYLATE 10 MG TABLET (FP) PO SCH (10:59)
[2021-06-01] MEDS: ASPIRIN COATED 81 MG TABLET.EC PO SCH (10:59)
[2021-06-01] MEDS: LACTOBACILLUS ACIDOPHILUS 1 TABLET PO SCH (10:59)
[2021-06-01] MEDS: CARVEDILOL 25 MG TABLET (FP) PO SCH ×2 (10:59→21:03)
[2021-06-01] MEDS: ATORVASTATIN CA 40 MG TABLET (FP) PO SCH (21:03)
[2021-06-02] MEDS: ERYTHROMYCIN 0.5% OPHTHALMIC OINTMENT 3.5 GM TUBE OU SCH ×3 (06:07→21:04)
[2021-06-02] MEDS: INSULIN SLIDING SCALE (NOVOLOG) 1 VIAL SQ SCH ×5 (06:07→21:04)
[2021-06-02] MEDS: GABAPENTIN 100 MG CAPSULE PO SCH ×3 (06:09→21:03)
[2021-06-02] MEDS: PANTOPRAZOLE 20 MG TABLET PO SCH (09:37)
[2021-06-02] MEDS: TAMSULOSIN HCL 0.4 MG CAP PO SCH (09:37)
[2021-06-02] MEDS: LACTOBACILLUS ACIDOPHILUS 1 TABLET PO SCH (09:37)
[2021-06-02] MEDS: amLODIPine BESYLATE 10 MG TABLET (FP) PO SCH (09:37)
[2021-06-02] MEDS: CARVEDILOL 25 MG TABLET (FP) PO SCH ×2 (09:38→21:03)
[2021-06-02] MEDS: ASPIRIN COATED 81 MG TABLET.EC PO SCH (09:38)
[2021-06-02] MEDS: POLYETHYLENE GLYCOL (HEALTHYLAX) 3350 17 GM PACKET PO SCH ×2 (09:39→21:03)
[2021-06-02] MEDS: ATORVASTATIN CA 40 MG TABLET (FP) PO SCH (21:03)
[2021-06-03] MEDS: ERYTHROMYCIN 0.5% OPHTHALMIC OINTMENT 3.5 GM TUBE OU SCH ×3 (05:43→21:40)
[2021-06-03] MEDS: GABAPENTIN 100 MG CAPSULE PO SCH ×3 (05:43→21:40)
[2021-06-03] MEDS: INSULIN SLIDING SCALE (NOVOLOG) 1 VIAL SQ SCH ×4 (05:59→21:40)
[2021-06-03] MEDS: POLYETHYLENE GLYCOL (HEALTHYLAX) 3350 17 GM PACKET PO SCH ×2 (10:12→21:40)
[2021-06-03] MEDS: LACTOBACILLUS ACIDOPHILUS 1 TABLET PO SCH (10:12)
[2021-06-03] MEDS: CARVEDILOL 25 MG TABLET (FP) PO SCH ×2 (10:12→21:40)
[2021-06-03] MEDS: ASPIRIN COATED 81 MG TABLET.EC PO SCH (10:12)
[2021-06-03] MEDS: amLODIPine BESYLATE 10 MG TABLET (FP) PO SCH (10:12)
[2021-06-03] MEDS: TAMSULOSIN HCL 0.4 MG CAP PO SCH (10:12)
[2021-06-03] MEDS: PANTOPRAZOLE 20 MG TABLET PO SCH (10:12)
[2021-06-03] MEDS: ATORVASTATIN CA 40 MG TABLET (FP) PO SCH (21:40)
[2021-06-04] MEDS: ERYTHROMYCIN 0.5% OPHTHALMIC OINTMENT 3.5 GM TUBE OU SCH ×3 (06:08→21:01)
[2021-06-04] MEDS: GABAPENTIN 100 MG CAPSULE PO SCH ×3 (06:08→21:01)
[2021-06-04] MEDS: INSULIN SLIDING SCALE (NOVOLOG) 1 VIAL SQ SCH ×4 (06:09→21:01)
[2021-06-04] MEDS: LACTOBACILLUS ACIDOPHILUS 1 TABLET PO SCH (09:14)
[2021-06-04] MEDS: TAMSULOSIN HCL 0.4 MG CAP PO SCH (09:14)
[2021-06-04] MEDS: amLODIPine BESYLATE 10 MG TABLET (FP) PO SCH (09:14)
[2021-06-04] MEDS: PANTOPRAZOLE 20 MG TABLET PO SCH (09:14)
[2021-06-04] MEDS: POLYETHYLENE GLYCOL (HEALTHYLAX) 3350 17 GM PACKET PO SCH ×2 (09:14→21:01)
[2021-06-04] MEDS: ASPIRIN COATED 81 MG TABLET.EC PO SCH (09:14)
[2021-06-04] MEDS: CARVEDILOL 25 MG TABLET (FP) PO SCH ×2 (09:17→21:01)
[2021-06-04] MEDS: ATORVASTATIN CA 40 MG TABLET (FP) PO SCH (21:01)
[2021-06-05] MEDS: ERYTHROMYCIN 0.5% OPHTHALMIC OINTMENT 3.5 GM TUBE OU SCH ×2 (06:06→13:41)
[2021-06-05] MEDS: GABAPENTIN 100 MG CAPSULE PO SCH ×2 (06:06→13:42)
[2021-06-05] MEDS: INSULIN SLIDING SCALE (NOVOLOG) 1 VIAL SQ SCH ×2 (06:17→11:42)
[2021-06-05] MEDS: ASPIRIN COATED 81 MG TABLET.EC PO SCH (09:08)
[2021-06-05] MEDS: LACTOBACILLUS ACIDOPHILUS 1 TABLET PO SCH (09:08)
[2021-06-05] MEDS: TAMSULOSIN HCL 0.4 MG CAP PO SCH (09:08)
[2021-06-05] MEDS: CARVEDILOL 25 MG TABLET (FP) PO SCH (09:08)
[2021-06-05] MEDS: amLODIPine BESYLATE 10 MG TABLET (FP) PO SCH (09:08)
[2021-06-05] MEDS: PANTOPRAZOLE 20 MG TABLET PO SCH (09:08)
[2021-06-05] MEDS: POLYETHYLENE GLYCOL (HEALTHYLAX) 3350 17 GM PACKET PO SCH (09:08)
[2021-06-05] MEDS ORDERED: QUEtiapine FUMARATE 25 MG TABLET PO ONE (09:15)
[2021-06-05] MEDS ORDERED: QUEtiapine FUMARATE 25 MG TABLET PO SCH (10:00)
[2021-06-05 11:38] VITALS: BP 142/61; PULSE 79; TEMP 98.3
== END 2021-06-05 14:40 | DRG 193 ==
LOC: JER 17:35 → JERBED 21:14 → J6S 05-26 01:27
PROVIDERS: ADMIT Internal Medicine; ATTEND Family Medicine
PROC: 30233N1 Transfusion of Nonautologous Red Blood Cells into Peripheral Vein, Percutaneous Approach (ICD-10-PCS; principal; 2021-05-28)
DX: J18.9 Pneumonia, unspecified organism (principal); G93.41 Metabolic encephalopathy; N18.4 Chronic kidney disease, stage 4 (severe); I25.10 Atherosclerotic heart disease of native coronary artery without angina pectoris; E78.5 Hyperlipidemia, unspecified; D63.1 Anemia in chronic kidney disease; I12.9 Hypertensive chronic kidney disease with stage 1 through stage 4 chronic kidney disease, or unspecified chronic kidney disease; K56.41 Fecal impaction; F03.90 Unspecified dementia, unspecified severity, without behavioral disturbance, psychotic disturbance, mood disturbance, and anxiety; E11.9 Type 2 diabetes mellitus without complications; Z98.61 Coronary angioplasty status
CPT/HCPCS: 36415; 36430; 36511; 71045-TC-FY; 80048; 80053; 81003; 82550; 82553; 82728; 82784; 82803; 82962; 83540; 83550; 83605; 83735; 83880; 84155; 84165; 84484; 85025; 85610; 85730; 86850; 86900; 86901; 86922; 87040; 87086; 93005; 93010; 97116-GP; 97162-GP; 99285-25; C9803; J1439; P9038; P9058; U0003; U0005

== ENCOUNTER 2022-12-13 13:15 | Inpatient (IN) | payer OTHER ==
[2022-12-13] MEDS ORDERED: SODIUM CHLORIDE 0.9% 500 ML INFUS.BAG IV ONE (14:09)
[2022-12-13 15:06] LABS: BASO % 0.5 % (0-2.0); EOS % 2.9 % (0-4.5); HEMATOCRIT 34.4 % (32.4-45.2); HEMOGLOBIN 11.5 GM/dL (10.7-15.3); LYMPH % 24.8 % (8-40); MCH 29.2 pg (25.7-33.7); MCHC 33.4 g/dl (32.0-36.0); MEAN CELL VOLUME 87.6 fl (80-96); NEUT % 63.8 % (42.8-82.8); PLATELET COUNT 109 10^3/uL (134-434); RBC 3.92 M/mm3 (3.60-5.2); RDW 15.5 % (11.6-15.6); WHITE BLOOD COUNT 6.6 K/mm3 (4.0-10.0)
[2022-12-13 15:33] LABS: POTASSIUM 4.3 mmol/L (3.5-5.1)
[2022-12-13 15:34] LABS: CALCIUM 9.3 mg/dL (8.5-10.1)
[2022-12-13 15:35] LABS: BLOOD UREA NITROGEN 24.6 mg/dL (7-18); MAGNESIUM 2.1 mg/dL (1.8-2.4)
[2022-12-13 15:38] LABS: CREATININE 3.7 mg/dL (0.55-1.3)
[2022-12-13 15:39] LABS: PHOSPHOROUS 3.7 mg/dL (2.5-4.9)
[2022-12-13 15:40] LABS: BILIRUBIN,TOTAL 0.3 mg/dL (0.2-1); TOT PROT 6.9 g/dl (6.4-8.2)
[2022-12-13 17:04] LABS: EPI CELLS 10 /uL (0-25.1); HYALINE CASTS 0 /uL (0-3.1); PH,URINE 7.5 (5.0-8.0); URINE APPEARANCE CLOUDY; URINE BACTERIA >9,000 /uL (0-1359); URINE BILIRUBIN NEGATIVE (NEGATIVE); URINE COLOR YELLOW; URINE GLUCOSE (UA) NEGATIVE (NEGATIVE); URINE KETONE NEGATIVE (NEGATIVE); URINE LEUK ESTERASE 3+ (NEGATIVE); URINE NITRITE NEGATIVE (NEGATIVE); URINE PROTEIN 2+ (NEGATIVE); URINE RBC 48 /uL (0-23.9); URINE UROBILINOGEN 0.2 mg/dL (0.2-1.0); URINE WBC 648 /uL (0-25.8)
[2022-12-13] MEDS ORDERED: PIPERACILLIN/TAZOB 4.5 GM 4.5 GM in DEXTROSE 5%-WATER 100 ML IVPB ONE (18:09)
[2022-12-13] MEDS ORDERED: VANCOMYCIN 1 GM in D5W (PRE-DOCKED) 1,000 MG/250 ML (RESTRICTED TO ID ONLY IVPB ONE (18:09)
[2022-12-13] MEDS ORDERED: VANCOMYCIN/WATER FOR INJ (PEG) 1,000 MG/200 ML BAG IVPB ONE (18:36)
[2022-12-13] MEDS ORDERED: PIPERACILLIN/TAZOB 4.5 GM 4.5 GM/100 ML BAG IVPB ONE (18:36)
[2022-12-13] MEDS: ATORVASTATIN CA 40 MG TABLET (FP) PO SCH (22:12)
[2022-12-13] MEDS: CARVEDILOL 25 MG TABLET (FP) PO SCH (22:12)
[2022-12-13] MEDS: HEPARIN NA (PORCINE) 5,000 UNITS/ML 1ML VIAL SQ SCH (22:12)
[2022-12-14] MEDS: PIPERACILLIN/TAZOB 2.25 GM 2.25 GM in DEXTROSE 5%-WATER - 50 ML IVPB SCH ×3 (03:58→17:28)
[2022-12-14] MEDS: sitaGLIPtin PHOSPHATE 50 MG TABLET PO SCH ×2 (05:54→06:11)
[2022-12-14] MEDS: HEPARIN NA (PORCINE) 5,000 UNITS/ML 1ML VIAL SQ SCH ×3 (05:55→21:50)
[2022-12-14 07:44] LABS: HEMATOCRIT 40.5 % (32.4-45.2); HEMOGLOBIN 13.6 GM/dL (10.7-15.3); MCH 29.7 pg (25.7-33.7); MCHC 33.7 g/dl (32.0-36.0); MEAN CELL VOLUME 88.1 fl (80-96); MEAN PLT VOLUME 9.2 fl (7.5-11.1); PLATELET COUNT 92 10^3/uL (134-434); RDW 15.6 % (11.6-15.6); WHITE BLOOD COUNT 6.7 K/mm3 (4.0-10.0)
[2022-12-14 08:08] LABS: POTASSIUM 4.1 mmol/L (3.5-5.1)
[2022-12-14 08:12] LABS: CALCIUM 9.6 mg/dL (8.5-10.1)
[2022-12-14 08:13] LABS: ALBUMIN 3.1 g/dl (3.4-5.0)
[2022-12-14 08:17] LABS: BILIRUBIN,TOTAL 0.8 mg/dL (0.2-1); CREATININE 3.7 mg/dL (0.55-1.3); PHOSPHOROUS 3.3 mg/dL (2.5-4.9); TOT PROT 7.2 g/dl (6.4-8.2)
[2022-12-14] MEDS: TAMSULOSIN HCL 0.4 MG CAP PO SCH (08:47)
[2022-12-14] MEDS: PANTOPRAZOLE 40 MG TABLET PO SCH (09:44)
[2022-12-14] MEDS: CARVEDILOL 25 MG TABLET (FP) PO SCH ×2 (09:44→21:53)
[2022-12-14] MEDS: amLODIPine BESYLATE 10 MG TABLET (FP) PO SCH (09:44)
[2022-12-14] MEDS ORDERED: VANCOMYCIN/WATER FOR INJ (PEG) 750 MG/150 ML BAG IVPB SCH (10:00)
[2022-12-14] MEDS ORDERED: DEXTROSE 5% IVPB SCH (10:00)
[2022-12-14] MEDS ORDERED: VANCOMYCIN IVPB SCH (10:00)
[2022-12-14] MEDS ORDERED: WATER IVPB SCH (10:00)
[2022-12-14] MEDS ORDERED: SODIUM CHLORIDE 250 ML IV PRN (12:06)
[2022-12-14] MEDS: ATORVASTATIN CA 40 MG TABLET (FP) PO SCH (21:50)
[2022-12-15] MEDS: HEPARIN NA (PORCINE) 5,000 UNITS/ML 1ML VIAL SQ SCH ×3 (07:12→22:10)
[2022-12-15] MEDS: sitaGLIPtin PHOSPHATE 50 MG TABLET PO SCH (07:13)
[2022-12-15] MEDS: TAMSULOSIN HCL 0.4 MG CAP PO SCH (08:15)
[2022-12-15] MEDS: CARVEDILOL 25 MG TABLET (FP) PO SCH ×2 (09:57→22:10)
[2022-12-15] MEDS: amLODIPine BESYLATE 10 MG TABLET (FP) PO SCH (09:57)
[2022-12-15] MEDS: PANTOPRAZOLE 40 MG TABLET PO SCH (09:57)
[2022-12-15] MEDS ORDERED: VANCOMYCIN/WATER FOR INJ (PEG) 1,000 MG/200 ML BAG IVPB ONE (13:46)
[2022-12-15] MEDS: SODIUM CHLORIDE 500 ML IV STA ×2 (13:48→17:25)
[2022-12-15] MEDS: PIPERACILLIN/TAZOB 2.25 GM 2.25 GM in DEXTROSE 5%-WATER - 50 ML IVPB SCH ×3 (18:06→18:29)
[2022-12-15] MEDS: VANCOMYCIN 750 MG in DEXTROSE 5%-WATER - 100 ML IVPB SCH (18:06)
[2022-12-15] MEDS: ATORVASTATIN CA 40 MG TABLET (FP) PO SCH (22:10)
[2022-12-16] MEDS: PIPERACILLIN/TAZOB 2.25 GM 2.25 GM in DEXTROSE 5%-WATER - 50 ML IVPB SCH ×3 (01:43→17:17)
[2022-12-16] MEDS: HEPARIN NA (PORCINE) 5,000 UNITS/ML 1ML VIAL SQ SCH ×3 (05:18→22:56)
[2022-12-16] MEDS: sitaGLIPtin PHOSPHATE 50 MG TABLET PO SCH (08:24)
[2022-12-16 09:04] LABS: BASO % 0.7 % (0-2.0); EOS % 2.9 % (0-4.5); HEMATOCRIT 33.9 % (32.4-45.2); MCH 28.8 pg (25.7-33.7); MCHC 32.5 g/dl (32.0-36.0); MEAN CELL VOLUME 88.6 fl (80-96); MEAN PLT VOLUME 10.5 fl (7.5-11.1); MONO % 8.4 % (3.8-10.2); PLATELET COUNT 109 10^3/uL (134-434); RBC 3.82 M/mm3 (3.60-5.2); RDW 15.3 % (11.6-15.6); WHITE BLOOD COUNT 6.3 K/mm3 (4.0-10.0)
[2022-12-16 09:09] LABS: ACTIVATED PTT 47.8 SECONDS (25.2-36.5)
[2022-12-16 09:13] LABS: INR 1.07 (0.83-1.09); PROTHROMBIN TIME (PATIENT) 12.4 SEC (9.7-13.0)
[2022-12-16] MEDS: TAMSULOSIN HCL 0.4 MG CAP PO SCH (09:22)
[2022-12-16] MEDS: PANTOPRAZOLE 40 MG TABLET PO SCH (09:22)
[2022-12-16] MEDS: amLODIPine BESYLATE 10 MG TABLET (FP) PO SCH (09:22)
[2022-12-16] MEDS: CARVEDILOL 25 MG TABLET (FP) PO SCH ×2 (09:22→22:56)
[2022-12-16 09:29] LABS: POTASSIUM 4.2 mmol/L (3.5-5.1)
[2022-12-16 09:36] LABS: ALBUMIN 2.8 g/dl (3.4-5.0); BLOOD UREA NITROGEN 12.9 mg/dL (7-18); CALCIUM 8.8 mg/dL (8.5-10.1)
[2022-12-16 09:37] LABS: MAGNESIUM 1.7 mg/dL (1.8-2.4)
[2022-12-16 09:40] LABS: BILIRUBIN,TOTAL 0.9 mg/dL (0.2-1)
[2022-12-16 09:41] LABS: TOT PROT 6.4 g/dl (6.4-8.2)
[2022-12-16] MEDS ORDERED: MAGNESIUM 2GM/50ML STERILE WATER IVPB IVPB ONE (14:30)
[2022-12-16] MEDS ORDERED: SODIUM CHLORIDE 250 ML IV PRN (15:32)
[2022-12-16] MEDS: ATORVASTATIN CA 40 MG TABLET (FP) PO SCH (22:56)
[2022-12-17] MEDS: PIPERACILLIN/TAZOB 2.25 GM 2.25 GM in DEXTROSE 5%-WATER - 50 ML IVPB SCH ×3 (02:53→17:19)
[2022-12-17] MEDS: sitaGLIPtin PHOSPHATE 50 MG TABLET PO SCH (06:17)
[2022-12-17] MEDS: HEPARIN NA (PORCINE) 5,000 UNITS/ML 1ML VIAL SQ SCH ×3 (06:18→22:14)
[2022-12-17 08:22] LABS: BASO % 0.6 % (0-2.0); EOS % 2.1 % (0-4.5); HEMATOCRIT 35.7 % (32.4-45.2); HEMOGLOBIN 12.1 GM/dL (10.7-15.3); MCH 29.2 pg (25.7-33.7); MCHC 33.8 g/dl (32.0-36.0); MEAN CELL VOLUME 86.5 fl (80-96); MEAN PLT VOLUME 9.6 fl (7.5-11.1); MONO % 8.7 % (3.8-10.2); NEUT % 53.6 % (42.8-82.8); PLATELET COUNT 107 10^3/uL (134-434); RBC 4.13 M/mm3 (3.60-5.2); RDW 15.3 % (11.6-15.6); WHITE BLOOD COUNT 7.4 K/mm3 (4.0-10.0)
[2022-12-17 08:39] LABS: POTASSIUM 4.2 mmol/L (3.5-5.1)
[2022-12-17 08:45] LABS: CALCIUM 8.9 mg/dL (8.5-10.1)
[2022-12-17 08:46] LABS: BLOOD UREA NITROGEN 18.1 mg/dL (7-18)
[2022-12-17 08:49] LABS: CREATININE 3.7 mg/dL (0.55-1.3)
[2022-12-17 08:50] LABS: BILIRUBIN,TOTAL 0.8 mg/dL (0.2-1)
[2022-12-17] MEDS: CARVEDILOL 25 MG TABLET (FP) PO SCH ×2 (11:30→22:15)
[2022-12-17] MEDS: amLODIPine BESYLATE 10 MG TABLET (FP) PO SCH (11:30)
[2022-12-17] MEDS: PANTOPRAZOLE 40 MG TABLET PO SCH (11:30)
[2022-12-17] MEDS: TAMSULOSIN HCL 0.4 MG CAP PO SCH (11:30)
[2022-12-17] MEDS: ATORVASTATIN CA 40 MG TABLET (FP) PO SCH (22:15)
[2022-12-18] MEDS: PIPERACILLIN/TAZOB 2.25 GM 2.25 GM in DEXTROSE 5%-WATER - 50 ML IVPB SCH ×3 (02:02→17:42)
[2022-12-18] MEDS: HEPARIN NA (PORCINE) 5,000 UNITS/ML 1ML VIAL SQ SCH ×3 (06:00→21:57)
[2022-12-18] MEDS: sitaGLIPtin PHOSPHATE 50 MG TABLET PO SCH (06:11)
[2022-12-18 08:52] LABS: BASO % 0.6 % (0-2.0); EOS % 2.4 % (0-4.5); HEMATOCRIT 36.3 % (32.4-45.2); HEMOGLOBIN 12.2 GM/dL (10.7-15.3); LYMPH % 30.4 % (8-40); MCH 29.1 pg (25.7-33.7); MCHC 33.5 g/dl (32.0-36.0); MEAN CELL VOLUME 86.7 fl (80-96); MEAN PLT VOLUME 9.5 fl (7.5-11.1); MONO % 9.8 % (3.8-10.2); NEUT % 56.8 % (42.8-82.8); PLATELET COUNT 101 10^3/uL (134-434); RBC 4.19 M/mm3 (3.60-5.2); RDW 15.8 % (11.6-15.6); WHITE BLOOD COUNT 7.6 K/mm3 (4.0-10.0)
[2022-12-18] MEDS: TAMSULOSIN HCL 0.4 MG CAP PO SCH (08:56)
[2022-12-18 09:16] LABS: POTASSIUM 3.8 mmol/L (3.5-5.1)
[2022-12-18 09:21] LABS: CREATININE 2.8 mg/dL (0.55-1.3)
[2022-12-18] MEDS: CARVEDILOL 25 MG TABLET (FP) PO SCH ×2 (10:08→21:57)
[2022-12-18] MEDS: PANTOPRAZOLE 40 MG TABLET PO SCH (10:09)
[2022-12-18] MEDS: amLODIPine BESYLATE 10 MG TABLET (FP) PO SCH (10:09)
[2022-12-18] MEDS: ATORVASTATIN CA 40 MG TABLET (FP) PO SCH (21:57)
[2022-12-18] MEDS ORDERED: INSULIN (NOVOLOG) ASPART 100 UNITS/ML 10ML VIAL SQ ONE (22:30)
[2022-12-19] MEDS: PIPERACILLIN/TAZOB 2.25 GM 2.25 GM in DEXTROSE 5%-WATER - 50 ML IVPB SCH ×3 (01:28→17:25)
[2022-12-19] MEDS: HEPARIN NA (PORCINE) 5,000 UNITS/ML 1ML VIAL SQ SCH ×3 (06:24→22:34)
[2022-12-19] MEDS: sitaGLIPtin PHOSPHATE 50 MG TABLET PO SCH (06:24)
[2022-12-19] MEDS: TAMSULOSIN HCL 0.4 MG CAP PO SCH (10:25)
[2022-12-19] MEDS ORDERED: SODIUM CHLORIDE 250 ML IV PRN (12:15)
[2022-12-19 13:01] LABS: BASO % 0.4 % (0-2.0); EOS % 0.6 % (0-4.5); HEMATOCRIT 38.1 % (32.4-45.2); HEMOGLOBIN 12.1 GM/dL (10.7-15.3); LYMPH % 16.6 % (8-40); MCH 28.2 pg (25.7-33.7); MCHC 31.8 g/dl (32.0-36.0); MEAN CELL VOLUME 88.6 fl (80-96); MEAN PLT VOLUME 10.9 fl (7.5-11.1); NEUT % 77.4 % (42.8-82.8); PLATELET COUNT 119 10^3/uL (134-434); RBC 4.29 M/mm3 (3.60-5.2); RDW 15.5 % (11.6-15.6); WHITE BLOOD COUNT 9.9 K/mm3 (4.0-10.0)
[2022-12-19 13:30] LABS: MAGNESIUM 1.9 mg/dL (1.8-2.4)
[2022-12-19 13:34] LABS: PHOSPHOROUS 4.4 mg/dL (2.5-4.9)
[2022-12-19] MEDS: amLODIPine BESYLATE 10 MG TABLET (FP) PO SCH (15:15)
[2022-12-19] MEDS: PANTOPRAZOLE 40 MG TABLET PO SCH (15:16)
[2022-12-19] MEDS: CARVEDILOL 25 MG TABLET (FP) PO SCH ×2 (15:16→22:34)
[2022-12-19] MEDS: ATORVASTATIN CA 40 MG TABLET (FP) PO SCH (22:34)
[2022-12-20] MEDS: PIPERACILLIN/TAZOB 2.25 GM 2.25 GM in DEXTROSE 5%-WATER - 50 ML IVPB SCH ×2 (03:19→10:13)
[2022-12-20] MEDS: HEPARIN NA (PORCINE) 5,000 UNITS/ML 1ML VIAL SQ SCH ×3 (05:48→22:16)
[2022-12-20] MEDS: sitaGLIPtin PHOSPHATE 50 MG TABLET PO SCH (06:01)
[2022-12-20 08:49] LABS: BASO % 1.1 % (0-2.0); EOS % 2.1 % (0-4.5); HEMATOCRIT 33.6 % (32.4-45.2); HEMOGLOBIN 10.9 GM/dL (10.7-15.3); LYMPH % 33.9 % (8-40); MCH 28.9 pg (25.7-33.7); MCHC 32.6 g/dl (32.0-36.0); MEAN CELL VOLUME 88.7 fl (80-96); MEAN PLT VOLUME 9.5 fl (7.5-11.1); NEUT % 54.9 % (42.8-82.8); PLATELET COUNT 93 10^3/uL (134-434); RBC 3.79 M/mm3 (3.60-5.2); RDW 15.9 % (11.6-15.6); WHITE BLOOD COUNT 8.9 K/mm3 (4.0-10.0)
[2022-12-20 09:16] LABS: POTASSIUM 3.9 mmol/L (3.5-5.1)
[2022-12-20 09:19] LABS: CALCIUM 8.8 mg/dL (8.5-10.1)
[2022-12-20 09:21] LABS: ALBUMIN 2.7 g/dl (3.4-5.0); MAGNESIUM 1.7 mg/dL (1.8-2.4)
[2022-12-20 09:24] LABS: CREATININE 2.5 mg/dL (0.55-1.3); PHOSPHOROUS 3.3 mg/dL (2.5-4.9)
[2022-12-20 09:25] LABS: BILIRUBIN,TOTAL 0.7 mg/dL (0.2-1); TOT PROT 6.2 g/dl (6.4-8.2)
[2022-12-20] MEDS: PANTOPRAZOLE 40 MG TABLET PO SCH (10:13)
[2022-12-20] MEDS: TAMSULOSIN HCL 0.4 MG CAP PO SCH (10:13)
[2022-12-20] MEDS: amLODIPine BESYLATE 10 MG TABLET (FP) PO SCH (10:13)
[2022-12-20] MEDS: CARVEDILOL 25 MG TABLET (FP) PO SCH ×2 (10:13→22:17)
[2022-12-20] MEDS ORDERED: MAGNESIUM OXIDE 400 MG TABLET (FP) PO ONE (12:30)
[2022-12-20] MEDS ORDERED: SODIUM CHLORIDE 250 ML IV PRN (13:55)
[2022-12-20 14:50] VITALS: BMI 24.4
[2022-12-20] MEDS: ATORVASTATIN CA 40 MG TABLET (FP) PO SCH (22:16)
[2022-12-21] MEDS: sitaGLIPtin PHOSPHATE 50 MG TABLET PO SCH (06:20)
[2022-12-21] MEDS: HEPARIN NA (PORCINE) 5,000 UNITS/ML 1ML VIAL SQ SCH ×3 (06:20→22:24)
[2022-12-21 11:33] VITALS: RESP 18
[2022-12-21] MEDS: TAMSULOSIN HCL 0.4 MG CAP PO SCH (13:03)
[2022-12-21] MEDS: PANTOPRAZOLE 40 MG TABLET PO SCH (13:04)
[2022-12-21] MEDS: amLODIPine BESYLATE 10 MG TABLET (FP) PO SCH (13:04)
[2022-12-21] MEDS: CARVEDILOL 25 MG TABLET (FP) PO SCH ×2 (13:04→22:24)
[2022-12-21] MEDS: ATORVASTATIN CA 40 MG TABLET (FP) PO SCH (22:24)
[2022-12-22] MEDS: sitaGLIPtin PHOSPHATE 50 MG TABLET PO SCH (06:04)
[2022-12-22] MEDS: HEPARIN NA (PORCINE) 5,000 UNITS/ML 1ML VIAL SQ SCH ×2 (06:04→14:09)
[2022-12-22] MEDS: TAMSULOSIN HCL 0.4 MG CAP PO SCH (08:45)
[2022-12-22] MEDS: CARVEDILOL 25 MG TABLET (FP) PO SCH (10:47)
[2022-12-22] MEDS: amLODIPine BESYLATE 10 MG TABLET (FP) PO SCH (10:47)
[2022-12-22] MEDS: PANTOPRAZOLE 40 MG TABLET PO SCH (10:47)
[2022-12-22 13:51] VITALS: BP 140/64; PULSE 67; TEMP 98.5
== END 2022-12-22 17:00 | disposition home or self-care (01) | DRG 871 ==
LOC: JER 13:15 → JERBED 18:08 → J7W 21:05
PROVIDERS: ADMIT Internal Medicine; ATTEND Nurse Practitioner Family
PROC: 5A1D70Z Performance of Urinary Filtration, Intermittent, Less than 6 Hours Per Day (ICD-10-PCS; principal; 2022-12-14)
PROC: 5A1D70Z Performance of Urinary Filtration, Intermittent, Less than 6 Hours Per Day (ICD-10-PCS; 2022-12-17)
PROC: 5A1D70Z Performance of Urinary Filtration, Intermittent, Less than 6 Hours Per Day (ICD-10-PCS; 2022-12-19)
PROC: 5A1D70Z Performance of Urinary Filtration, Intermittent, Less than 6 Hours Per Day (ICD-10-PCS; 2022-12-21)
DX: A41.89 Other specified sepsis (principal); J18.9 Pneumonia, unspecified organism; N18.6 End stage renal disease; I12.0 Hypertensive chronic kidney disease with stage 5 chronic kidney disease or end stage renal disease; J90 Pleural effusion, not elsewhere classified; N39.0 Urinary tract infection, site not specified; J47.9 Bronchiectasis, uncomplicated; R11.2 Nausea with vomiting, unspecified; E11.22 Type 2 diabetes mellitus with diabetic chronic kidney disease; N32.89 Other specified disorders of bladder; R91.1 Solitary pulmonary nodule; K44.9 Diaphragmatic hernia without obstruction or gangrene; I25.10 Atherosclerotic heart disease of native coronary artery without angina pectoris; E87.5 Hyperkalemia; Z86.73 Personal history of transient ischemic attack (TIA), and cerebral infarction without residual deficits; Z99.2 Dependence on renal dialysis; Z95.5 Presence of coronary angioplasty implant and graft
CPT/HCPCS: 36415; 74176-TC; 80048; 80053; 81003; 82962; 83605; 83690; 83735; 84100; 85025; 85027; 85610; 85730; 86803; 87040; 87086; 87186; 87340; 87522; 87635; 93005; 93010; 97116-GP; 97162-GP; 99285-25; G0480; J1644

== ENCOUNTER 2024-10-22 10:09 | Emergency (ER) | payer OTHER ==
[2024-10-22 10:25] VITALS: BMI 23.0
[2024-10-22 12:35] LABS: ABSOLUTE IMMATURE GRANULOCYTES 0.03 x10^3/uL (0.0-0.031); BASOPHILS # 0.03 x10^3/uL (0.01-0.08); EOSINOPHIL % 3.1 % (0.7-5.8); EOSINOPHILS # 0.23 x10^3/uL (0.04-0.36); HEMATOCRIT 31.8 % (34.1-44.9); HEMOGLOBIN 10.4 g/dL (11.2-15.7); MCHC 32.7 g/dl (32.2-35.5); MEAN CELL VOLUME 86.9 fl (79.4-94.8); MEAN PLT VOLUME 11.6 fl (9.4-12.3); MONOCYTE # 0.68 x10^3/uL (0.24-0.86); MONOCYTE % 9.1 % (4.7-12.5); PLATELET COUNT 143 x10^3/uL (182-369); RDW 17.1 % (12.5-17.0)
[2024-10-22 12:51] LABS: POTASSIUM 4.9 mmol/L (3.5-5.1)
[2024-10-22 12:53] LABS: CALCIUM 8.9 mg/dL (8.5-10.1)
[2024-10-22 12:54] LABS: ALBUMIN 2.8 g/dl (3.4-5.0); BLOOD UREA NITROGEN 53.5 mg/dL (7-18); MAGNESIUM 1.8 mg/dL (1.8-2.4)
[2024-10-22 12:57] LABS: CREATININE 3.7 mg/dL (0.55-1.3); PHOSPHOROUS 5.2 mg/dL (2.5-4.9)
[2024-10-22 12:58] LABS: BILIRUBIN,TOTAL 0.4 mg/dL (0.2-1)
[2024-10-22 12:59] LABS: TOT PROT 6.9 g/dl (6.4-8.2)
[2024-10-22 15:22] VITALS: BP 162/73; PULSE 78; RESP 16; TEMP 98.6
== END 2024-10-22 16:37 | disposition home or self-care (01) ==
LOC: JER 10:09
DX: E83.39 Other disorders of phosphorus metabolism (principal); I12.0 Hypertensive chronic kidney disease with stage 5 chronic kidney disease or end stage renal disease; E11.22 Type 2 diabetes mellitus with diabetic chronic kidney disease; N18.6 End stage renal disease; R94.31 Abnormal electrocardiogram [ECG] [EKG]; Z99.2 Dependence on renal dialysis
CPT/HCPCS: 36415; 80053; 83735; 84100; 85025; 93005; 93010; 99284-25